=== PATIENT | female | born 1995 | race Caucasian/White ===

== ENCOUNTER 2020-05-09 05:39 | Inpatient (IN) | payer BC, MEDICAID, SELFPAY ==
[2020-05-09] VITALS (74 sets, daily range): BP systolic 87–143; BP diastolic 48–88; PULSE 59–105; RESP 16–18; TEMP 36.2–37; O2SAT 99–100; BMI 41.1
[2020-05-09] MEDS: LACTATED RINGERS 1,000 ML 125 ML IV CONT (06:50)
[2020-05-09] MEDS: AMPICILLIN 2 GM/NS 100 ML 2 GM/100 ML BAG IVPB (06:51)
[2020-05-09 06:57] LABS: Basophils Percent Auto 0.2 % (0.2-1.2); Eosinophils Percent Auto 0.4 % (0-4.4); Hematocrit 37.4 % (37.0-47.0); Hemoglobin 12.6 g/dL (12.0-15.0); Immature Granulocyte Absolute 0.08 K/mm3 (0.00-0.031); Immature Granulocyte Percent A 0.9 % (0-0.5); Lymphocytes Absolute Auto 0.89 K/mm3 (0.9-3.2); Lymphocytes Percent Auto 10.5 % (18.3-44.2); Mean Corpuscular HGB Conc 33.7 g/dl (32-36); Mean Corpuscular Hemoglobin 31.1 pg (26-34); Mean Corpuscular Volume 92.3 fl (80-100); Mean Platelet Volume 9.8 fl (7.4-10.4); Monocytes Absolute Auto 0.6 K/mm3 (0.1-0.6); Monocytes Percent Auto 6.6 % (2.6-8.5); Neutrophils Absolute Auto 6.9 K/mm3 (1.3-6.7); Neutrophils Percent Auto 81.4 % (45.5-73.1); Platelet Count Result 216 k/mm3 (150-375); Red Blood Count 4.05 M/mm3 (4.2-5.4); Red Cell Distribution Width 13.8 % (11.5-14.5); White Blood Count 8.5 K/mm3 (4.5-10.0)
--- NOTE | 2020-05-09 06:59 | LDADM ---
This patient, Catie Mcdonald, was admitted to Labor/Delivery/Recovery 105 on 05/09/20 at 05:39. Plans for labor, pain management and were discussed with patient. Patient/family oriented to hospital policies and general routines including ID bracelet, bed and alarms, visiting hours, pain management, procedures, bathroom and other care routines, personal items, smoking policy, room service/diet and guest tray routines, infant security routines, and visiting hours. Patient/Family are encouraged to report perceived risks to care and to ask questions if they do not understand what they are told or what they should do. See OBIX for further documentation.
--- NOTE | 2020-05-09 07:27 | WPDOBADMIT ---
Obstetrics - Admit Note Admission Note: 25 y/o @ 35w1d here in active labor. record reviewed. No pertinent additions to the history and/or any subsequent changes in the physical findings that are not consistent with the expected course of the were found. Additions to the history and/or subsequent changes in the physical findings follow. None.
--- NOTE | 2020-05-09 07:29 | WPDANESEPPF ---
Anes - Initial Pre Proc Eval Date/Time: 05/09/20 07:29 Surgeon: Cecilia Garcia MD Pre Op Diagnosis: leaking Patient Data Age: 25 Gender: F Height: 1.65 m Weight: 112 kg Last Vital Signs Pulse 78 05/09/20 07:15 BP 129/87 05/09/20 07:15 Pulse Ox 100 05/09/20 07:27 Home Medications Medication Instructions Recorded Confirmed Type escitalopram oxalate 20 mg PO DAILY 05/09/20 05/09/20 History [id number] fum-folic ac-om3 1 pkg PO DAILY 05/09/20 05/09/20 History [Daily ] Laboratory Tests 05/09/20 05/09/20 06:45 06:45 WBC 8.5 K/mm3 K/mm3 (4.5-10.0) RBC 4.05 M/mm3 L M/mm3 (4.2-5.4) Hgb 12.6 g/dL g/dL (12.0-15.0) Hct 37.4 % % (37.0-47.0) MCV 92.3 fl fl (80-100) MCH 31.1 pg pg (26-34) MCHC 33.7 g/dl g/dl (32-36) RDW 13.8 % % (11.5-14.5) Plt Count 216 k/mm3 k/mm3 (150-375) MPV 9.8 fl fl (7.4-10.4) Immature Gran % (Auto) 0.9 % H % (0-0.5) Neut % (Auto) 81.4 % H % (45.5-73.1) Lymph % (Auto) 10.5 % L % (18.3-44.2) Jennings % (Auto) 6.6 % % (2.6-8.5) Eos % (Auto) 0.4 % % (0-4.4) Baso % (Auto) 0.2 % % (0.2-1.2) Lymph # (Auto) 0.89 K/mm3 L K/mm3 (0.9-3.2) Jennings # (Auto) 0.6 K/mm3 K/mm3 (0.1-0.6) Eos # (Auto) 0.0 K/mm3 K/mm3 (0-0.3) Baso # (Auto) 0.0 K/mm3 K/mm3 (0.0-0.1) Abs Immat Gran (auto) 0.08 K/mm3 H K/mm3 (0.00-0.031) Absolute Neuts (auto) 6.9 K/mm3 H K/mm3 (1.3-6.7) Absolute Nucleated RBC 0.0 K/mm3 K/mm3 (0.0-0.012) Nucleated RBC % 0.0 % % (0.0-0.2) RPR Pending Patient hx anesthesia problems: none Family hx anesthesia problems: none [facility] Social History Social History Substance use: current Gender identity (if verbalized by the patient): Female Sexual Orientation (if Verbalized by the Patient): Straight or Heterosexual Spiritual care concerns: No Anes - Eval Final PreProcedure Day of Procedure 05/09/20 07:29 Patient weight: morbidly obese Heart: regular rate and rhythm Lungs: clear to auscultation and normal air movement Airway: Mallampati scale class II Neurological: alert and oriented Last oral intake: >/= 8 hours ASA classification: III Emergent: no Anesthetic plan: proceed Anesthesia type and monitoring: regional epidural Informed Consent: The patient's anesthetic plan and its attendant risks and benefits were discussed with the patient/family/POA. Questions were solicited and answers provided to the satisfaction of the patient/family/POA.
[2020-05-09 08:43] LABS: Rapid Plasma Reagin Non-Reactive (NonReactive)
[2020-05-09 09:22] LABS: Amphetamine Screen Urine Negative (Negative); Barbiturate Screen Urine Negative (Negative); Benzodiazepines Screen Urine Negative (Negative); Cannabinoid Screen Urine Positive (Negative); Cocaine Screen Urine Negative (Negative); Methadone Screen Urine Negative (Negative); Opiate Screen Urine Negative (Negative); Phencyclidine Screen Urine Negative (Negative)
[2020-05-09] MEDS: AMPICILLIN 1 GM/NS 50 ML 1 GM/50 ML BAG IVPB (10:24)
[2020-05-09] MEDS: OXYTOCIN 30 UNITS/NS 500 ML 30 UNITS/500 ML BAG 999 UNITS IV CONT (13:28)
--- NOTE | 2020-05-09 13:46 | PM.OBPRVD ---
OB - Delivery Note Procedure Delivery date: 05/09/20 events: Labor < 37 Weeks Induction method: none Delivery augmentation: rupture of membranes Delivery monitor: external FHT and external uterine Route of delivery: Episiotomy description: None Laceration Description: None Quantitative Blood Loss (ml): 224 Anesthesia type: Epidural Narrative: Tight nuchal unable to reduce d/t rapid delivery. Delivered through. Large amount of bloody fluid at delivery. Placenta smooth on maternal side. Baby Date of : 05/09/20 Time of : 13:22 Weeks of gestation at delivery: 35 Weight (pounds): 5 Weight (ounces): 14 presentation: vertex position: Left Occiput Anterior cord vessel description: Nuchal Cord score one minute: 7 score five minutes: 8
[2020-05-09] MEDS: OXYTOCIN 30 UNITS/NS 500 ML 30 UNITS/500 ML BAG 125 UNITS IV CONT (14:00)
[2020-05-09] MEDS: IBUPROFEN 600 MG TABLET PO ×2 (15:06→21:07)
[2020-05-09] MEDS: WITCH HAZEL 40 PADS 1 PAD TOPICAL (15:07)
[2020-05-09] MEDS: BENZOCAINE 20% AER SPR (*SP) 56 GM CAN 1 SPRAY TOPICAL (15:07)
--- NOTE | 2020-05-09 15:56 | PC.NURSE ---
Patient transferred to post room # 284 per wheelchair. Support person present. Oriented to unit, room, information board, rooming in, admission packet and security measures. Patient verbalizes understanding.
[2020-05-09] MEDS: ACETAMINOPHEN 325 MG TABLET 650 MG PO ×2 (16:00→17:27)
[2020-05-09] MEDS: DOCUSATE SODIUM 100 MG CAPSULE PO (17:27)
[2020-05-09] MEDS: LANOLIN (LANSINOH) 7.5 GM CREAM 1 APPLIC TOPICAL (17:27)
[2020-05-10] MEDS: IBUPROFEN 600 MG TABLET PO ×3 (03:38→20:20)
[2020-05-10 03:40] VITALS: BP 108/62; PULSE 67; RESP 16; TEMP 36.4; O2SAT 100
[2020-05-10 04:33] LABS: Hematocrit 33.5 % (37.0-47.0); Hemoglobin 11.1 g/dL (12.0-15.0)
[2020-05-10] MEDS: DOCUSATE SODIUM 100 MG CAPSULE PO (07:28)
[2020-05-10] MEDS: MULTIVIT/MIN/PREN/FOL AC/IRON TABLET 1 TAB PO (07:28)
--- NOTE | 2020-05-10 08:05 | P.PNOB_ITS ---
OB - PN: Subj Subjective Date/time seen: 05/10/20 08:05 Patient comments: no complaints baby status: doing well OB - PN: Obj Data Labs CBC & Chem 7: 05/10/20 03:35 Labs: Laboratory Results - last 24 hr 05/09/20 05/09/20 05/10/20 06:45 08:59 03:35 Hgb 11.1 L Hct 33.5 L Urine Opiates Screen Negative Urine Methadone Screen Negative Ur Barbiturates Screen Negative Ur Phencyclidine Scrn Negative Ur Amphetamine Screen Negative U Benzodiazepines Scrn Negative Urine Cocaine Screen Negative U Cannabinoids Screen Positive A RPR Non-reactive OB - PN A/P Plan day: 1 Plan: routine care Time Spent With Patient Time: Total time spent is greater than 50% in coordination of care (as documented) at patient's floor/unit and/or counseling patient: Time with patient: less than 15 minutes Review of Systems Review of Systems: All systems reviewed & are unremarkable except as noted in HPI and below Exam Narrative: Exam Narrative: Fundus firm and vaginal flow controlled. No lower ext redness, warmth, or edema. Negative homans. Const: General: comfortable Chest: Breast/axilla inspection: normal inspection of the breasts Resp: Effort & Inspection: normal respiratory effort Cardio: Rate: regular rate GI: GI Palp: Yes Soft to palpation Psych: Appearance: grossly normal Affect: normal affect Attitude: coope rative Thought content: Yes Normal thought content present Judgement: Good judgement present (Psych)
[2020-05-10 08:30] VITALS: BP 127/71; PULSE 67; RESP 16; TEMP 37.1; O2SAT 100
--- NOTE | 2020-05-10 11:00 | PC.NURSE ---
Mother called out for assist with feeding. Consulted with patient, reports has fed inconsistently, she has supplemented and pumped. Mother pumped 2-3 mls last session. Discussed the early 35 week , establishing may have its own unique set of circumstances due to their immaturity. infants may be less alert, have less stamina and may have issues with latch, suck and swallow. With the possible inability to have a vigorous suck swallow, infants may not be adequately stimulating mother and/or able to have adequate milk transfer. Reviewed infant feeding cues, frequencies, duration of feedings, feeding elimination flow sheet, and signs of adequate intake. Demonstrated stimulation techniques to wake infant for feeding. Assisted with infant to breast. Reviewed positioning/alignment in cross cradle, holding breast in U hold and guided asymmetrical latch on. was able to latch correctly within a few attempts. nursed eagerly, with sort chewy sucks with intermittent steady draws and occasional swallowing noted. Reviewed signs of a correct latch, effective nursing and suck swallow ratio. was able to maintain latch. Mother reported tenderness at times, had slipped to shallow latch. Demonstrated how to adjust latch more deeply while feeding. Mother quickly reports she can feel is latched more deeply and has minimal tenderness. Suggested to stimulate infant while feeding to keep infant awake and nursing effectively for increased stimulation and increased intake. Instructed mother to call out for RN assistance if she is unable to latch infant for feeding or she has discomfort with nursing. Instructed feeding should be initiated three hours from start of last feeding or if feeding cues are noted before. Mother voiced understanding of information shared. Mother will follow breastfeedings with supplementation of EBM/formula and pumping. Reviewed instructions given on breast pump care and usage, pumping schedule, nipple care, and collection and storage of breast milk. Encouraged guhy-za-kzfj, breast massage and manual expression to stimulate supply. Assessed patient for correct flange size, placement and draw. Patient verbalizes and demonstrates understanding of instructions.
[2020-05-10 12:02] VITALS: BP 125/84; PULSE 84; RESP 18; TEMP 37.3; O2SAT 97
[2020-05-10 12:30] VITALS: PULSE 84; RESP 18; O2SAT 97
--- NOTE | 2020-05-10 12:55 | PC.NURSE ---
Mother has at breast at 1130 for 20 minutes, then supplemented 5 mls and returned to breast at 1230 for 20 minutes. Suggested mother give 15 mls after each as discussed for ineffective feeding with occasional swallowing noted.
--- NOTE | 2020-05-10 13:03 | PCCCNOTE ---
Care Coordination. Patient referred to Care Coordination for mom and baby positive UDS for marijuana. Spoke with pt. via phone. Pt. reports good support from family. She and her spouse plan to return home together with baby and their 3 year old son. Pt. reports having all necessary baby care items and FOB plans to go get new carseat today. Provided mom with WIC information and she is already receiving some [facility] services. She reports using marijuana due to nausea, but denies any abuse issues with use and plans to use less now that she's not . Spoke with [facility] hotline worker, Heidy Nair, and she took pt.'s situation as information only. ID#[id number].
--- NOTE | 2020-05-10 13:25 | WPDANLDPN2 ---
Anes-Prog Note L&D Date/Time: 05/10/20 13:25 Comfortable throughout: labor and delivery Neuraxial method: epidural Epidural/Spinal procedure site: clean & non-tender Neuro status: Neuro function grossly intact. Cardiovascular status: normal Respiratory status: normal Airway patency: baseline Mental status: baseline Post-Op hydration status: normal Vital Signs: Last Vital Signs Temp 37.3 C 05/10/20 12:02 Pulse 84 05/10/20 12:02 Resp 18 05/10/20 12:02 BP 125/84 05/10/20 12:02 Pulse Ox 97 05/10/20 12:02 Pain score (VAS): 03/13 Post-procedural complaints: none Patient feedback: Patient satisfied with anesthetic care.
[2020-05-10 20:10] VITALS: BP 118/65; PULSE 76; RESP 16; TEMP 36.7; O2SAT 99
[2020-05-11] MEDS: IBUPROFEN 600 MG TABLET PO (04:37)
--- NOTE | 2020-05-11 07:40 | PM.OBPNVD ---
OB - PN: Subj Subjective Date/time seen: 05/11/20 07:40 Patient comments: no complaints baby status: doing well OB - PN: Obj Data Labs CBC & Chem 7: 05/10/20 03:35 OB - PN A/P Plan day: 2 Plan: routine care and discharge home Time Spent With Patient Time: Total time spent is greater than 50% in coordination of care (as documented) at patient's floor/unit and/or counseling patient: Review of Systems Review of Systems: All systems reviewed & are unremarkable except as noted in HPI and below Exam Const: General: cooperative Nutritional Appearance: average body habitus Limitations: no limitations
--- NOTE | 2020-05-11 07:41 | PM.OBDSVD ---
DS: Admitting Diagnosis Admitting Diagnosis Admitting Diagnosis: labor OB - DS: Summary OB Procedures : None OB Procedures Intrapartum: Spontaneous Vag Delivery OB Procedures: : None Time Spent with Patient Time attestation: Total time spent providing and/or coordinating discharge services: DS: Data Data Completed and Pending Pending studies at discharge: Pending at discharge 05/09/20 13:28 Surgical [PTH] Routine Discharge Plan Discharge Attending physician on discharge: Cecilia Garcia Discharging Clinician: Stacey Singh Patient Disposition: Home, Self-Care Activity: pelvic rest Diet: regular Patient Instructions: Antibiotic Form Stand Alone Forms: General Discharge Information Follow-up/Referrals: Caitlin Cheney CNM [Primary Care Provider] - 4 Weeks Discharge Medications: Continued escitalopram oxalate 20 mg Tablet 20 mg PO DAILY RF: 0 Daily [phone] mg-mcg-mg Combo Pack 1 pkg PO DAILY RF: 0 Date of admission: 05/09/20 05:39 Primary Care Provider: Caitlin Cheney Admitting Provider: Cecilia Garcia Attending physician on admission: Cecilia Garcia Condition: Stable
[2020-05-11 08:20] VITALS: BP 114/66; PULSE 74; RESP 18; TEMP 36.9; O2SAT 99
--- NOTE | 2020-05-11 10:30 | PC.NURSE ---
Consult with pt., mother states infant is now supplemented after each feeding by suggestion of ICP due to weight. Mother is comfortable with supplementation and will continue until seen by her home ICP. Mother continues to pump without difficulties/discomfort. Infant is latching nursing with bursts of short chewy suckling, mother feels is more awake with a few steady bursts and increased draws. Reviewed premature infant feeding techniques of paced feeding and limiting durations at breast if infant is not effectively feeding. Mother is able to independently latch infant with appropriate positioning/alignment. She denies any nipple discomfort, is feeding as required and waking to feed if needed. is feeding as required and has had several feedings followed with supplementation in the past 24 hours, and is currently meeting outcomes for weight, output, jaundice and feeding frequencies. Mother states she feels confident to continue effective at home. Reviewed transition to breast milk, signs of adequate intake, and engorgement/relief. Instructed to call ICP if intake/output less than required. Reviewed regular medications mother is taking. Information provided per Christina. Reviewed community resources on the [employer] website and in the Mom/Baby guide. Mother understands she may return for assist with after discharge. Information on outpatient services provided. Mother has no further questions at this time.
== END 2020-05-11 11:25 | disposition home or self-care (01) | DRG 807 ==
LOC: ANHLDR 08:57 → ANHOB2 16:02
PROVIDERS: Admitting Provider Obstetrics & Gynecology; PCP Advanced Practice Midwife; Visit Provider Obstetrics & Gynecology
DX: O60.14X0 Preterm labor third trimester with preterm delivery third trimester, not applicable or unspecified (principal); Z37.0 Single live birth; Z3A.35 35 weeks gestation of pregnancy; O99.214 Obesity complicating childbirth; E66.01 Morbid (severe) obesity due to excess calories; O69.1XX0 Labor and delivery complicated by cord around neck, with compression, not applicable or unspecified
CPT/HCPCS: 36415; 80307; 85014; 85018; 85025; 86592; 86850; 86900; 86901; 88307; A9270; J0290; J2590; J2795; J7120

== ENCOUNTER 2022-01-19 14:59 | Outpatient (RCR) | payer OTHER, SELFPAY ==
--- NOTE | ~2022-01-19 | US_ITS ---
. EXAMINATION: US OB BPP wo non-stress DATE: 01/19/2022 16:22 INDICATION: Decelerations. Third trimester. TECHNIQUE: Real-time pelvic ultrasound was performed. COMPARISON: None. FINDINGS: There is a single living fetus in vertex presentation. The placenta is fundal. heart rate is 1 81 beats per minute (bpm). Biophysical profile performed by the technologist: breathing (30 sec sustained breathing in 30 minutes): 2 out of 2 movement (3 gross body movements in 30 minutes): 2 out of 2 tone (one episode of orlariv-hpocolawb-nljzxmc limb movement): 2 out of 2 Amniotic fluid pocket (2 cm): 2 out of 2 Total score: 8 out of 8 IMPRESSION: 1. Single living fetus in vertex presentation. 2. Biophysical profile 8 out of 8. Reviewed, dictated and finalized at location A. PLANT AGENT
[2022-01-19 16:41] VITALS: BP 132/70; PULSE 84
== END 2022-04-19 23:59 | disposition home or self-care (01) ==
LOC: ANHOBOP 14:59
PROVIDERS: PCP Advanced Practice Midwife; Visit Provider Obstetrics & Gynecology
DX: O36.8330 Maternal care for abnormalities of the fetal heart rate or rhythm, third trimester, not applicable or unspecified (principal); Z3A.36 36 weeks gestation of pregnancy
CPT/HCPCS: 59025; 76819

== ENCOUNTER 2024-02-17 06:40 | Outpatient (CLI) | payer OTHER, SELFPAY ==
--- NOTE | ~2024-02-17 | CT_ITS ---
CT of the Abdomen and Pelvis: Indication: Abdominal pain Technique: 2.5 mm axial scans were obtained through the abdomen and pelvis following intravenous adm inistration of 100 cc of Omnipaque 350. Dose reduction technique was used on this scan by utilizing a utomated exposure control and iterative reconstruction technique. The dose-length product (DLP) was 9 00.56 mGy-cm. Findings: Scans through the lung bases are unremarkable. The liver, spleen, pancreas, adrenals and kidneys are within normal limits., Cystectomy clips are pre sent. No evidence of aortic aneurysm. No lymphadenopathy. No bowel obstruction or bowel wall thickening. There is no evidence to suggest acute appendicitis. Images through the pelvis were performed. Urinary bladder unremarkable. No pelvic mass seen. No ascit es. Impression: No significant abnormalities seen. Reviewed, dictated and finalized at [facility]. NORMAL INVESTIGATOR Impression: No significant abnormalities seen.
--- OUTSIDE RECORDS SUMMARY | 2024-02-22 14:31 | XMS_ITS | Encounter Summary ---
Author Organization [facility] Address [address] [place] [address] [place] [address] Care Team Providers Care Broom Builder Name Role Phone Unavailable Primary Care Provider Unavailabl e Reason for Visit * Reason Onset Date Comments Results 07/04/2016 Encounter Details Date Type Department Care Team (Late st Contact Info) Description 07/04/2016 Telephone [facility] - Family Medicine [address] [place] [id number] Lary Short MD [address] [place] [phone] Results Social History Tobacco Use Types Packs/Day Years Used Date Smoking Tobacco: Never Alcohol Use Standard Drinks/Week Comments No 0 (1 standard drink = 0.6 oz pur e alcohol) Sex and Gender Information Value Date Recorded Sex Assigned at Not on file Gender Identity Not on file Sexual Orientation Not on file documented as of this encounter Miscellaneous Notes * Telephone Encounter - Kaley Kumar LPN - 07/04/2016 9:21 AM CDT Left message on recorder about results and to contact us back to answer a few questions : How often are her periods? Regular of irregularly spaced? Are they heavy? * Telephone Encounter - Kaley Kumar LPN - 07/04/2016 9:18 AM CDT ----- Message from Lary Short MD sent at 07/04/2016 7:37 AM CDT ----- Kaley - please call her as impt to f/u on TSH. I will order tests after she answers the below questions. -morris Haddad - One of the tests looking at your thyroid was abnormal. The second test was normal but it is important that we follow up on this/look into it further. It may be the cause of some of your symptoms but for now continue lexapro. We will order additional labwork. Everything else that is marked abnormal on your labs is straightforward (you need more vitamin D supplement and extra 1,000 iu daily) or fine. Few questions: 1. How often are your periods? Regular or irregularly spaced? Heavy? Thank you. documented in this encounter Plan of Treatment Not on file documented as of this encounter Visit Diagnoses Not on filedocumented in this encounter
--- OUTSIDE RECORDS SUMMARY | 2024-02-22 14:31 | XMS_ITS | Encounter Summary ---
Author Organization [facility] Address [address] [place] [address]. [place], [place] [id number] [place] [id number] Care Team Providers Care Paint Grinder Name Role Phone Rahul Bradford Primary Care Provider [phone] Encounter Details Date Type Department Care Team (Late st Contact Info) Description 06/05/2023 Scan [facility] [address] [facility] [place] [address] Scanned, [facility] Social History Tobacco Use Types Packs/Day Years Used Date Smoking Tobacco: Never Passive Smoke Exposure: Never Smokeless Tobacco: Never Alcohol Use Standard Drinks/Week Comments Never 0 (1 standard drink = 0.6 oz pur e alcohol) Humiliation, Afraid, Rape, and Kick questionnair e Answer Date Recorded Within the last year, have y ou been afraid of your partner or ex-partner? No 11/23/2022 Within the last year, have y ou been humiliated or emotionally abused in other ways by your partner or ex-partner? No Within the last year, have y ou been kicked, hit, slapped, or otherwise physically hurt by your partner or ex-partner? No 11/23/2022 Within the last year, have y ou been raped or forced to have any kind of sexual activity by your partner or ex-partner? No 11/23/2022 Social Connection and Isolat ion Panel [NHANES] Answer Date Recorded In a typical week, how many times do you talk on the phone with family, friends, or neighbors? More than three times a week 11/23/2022 How often do you get togethe r with friends or relatives? Twice a week 11/23/2022 How often do you attend chur ch or sikh services? Patient declined 11/23/2022 Do you belong to any clubs o r organizations such as orthodoxy groups, unions, fraternal or athletic groups, or school groups? No 11/23/2022 How often do you attend meet ings of the clubs or organizations you belong to? Patient declined 11/23/2022 Are you , , di vorced, , never , or living with a partner? 11/23/2022 AUDIT-C Answer Date Recorded Q1: How often do you have a drink containing alc ohol? Patient declined 11/23/2022 Q2: How many drinks containi ng alcohol do you have on a typical day when you are drinking? Patient declined 11/23/2022 Q3: How often do you have si x or more drinks on one occasion? Patient declined 11/23/2022 Overall Financial Resource Strain (CARDIA) Answe r Date Recorded How hard is it for you to pa y for the very basics like food, housing, medical care, and heating? Not hard at all 11/23/2022 [facility] - Occupational Stress Questionnaire Answer Date Recorded Do you feel stress - tense, restless, nervous, or anxious, or unable to sleep at night because your mind is troubled all the time - these days? Not at all 11/23/2022 Exercise Vital Sign Answer Date Recorde d On average, how many days pe r week do you engage in moderate to strenuous exercise (like a brisk walk)? 1 day 01/27/2022 On average, how many minutes do you engage in exercise at this level? 10 min 01/27/2022 Hunger Vital Sign Answer Date Recorded Within the past 12 months, y ou worried that your food would run out before you got the money to buy more. Never true 11/24/19 23 Within the past 12 months, t he food you bought just didn't last and you didn't have money to get more. Never true 11/23/2022 PRAPARE - Transportation Answer Date Re corded In the past 12 months, has l ack of transportation kept you from medical appointments or from getting medications? No 11/03 In the past 12 months, has l ack of transportation kept you from meetings, work, or from getting things needed for daily living? No 11/23/2022 Housing Stability Vital Sign Answer Juan Luis e Recorded In the last 12 months, was t here a time when you were not able to pay the mortgage or rent on time? No 11/23/2022 In the last 12 months, how many places have you lived? 1 11/23/2022 In the last 12 months, was t here a time when you did not have a steady place to sleep or slept in a correction (including now)? 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 Answer Date of Assessment Author Status No 11/23/2022 1:00 AM Candy Oakley RN Active * Do you have serious difficulty walking or climbing stairs? Answer Date of Assessment Author Status No 11/23/2022 1:00 AM Candy Oakley RN Active * Do you have difficulty dressing or bathing? Answer Date of Assessment Author Status No 11/23/2022 1:00 AM Candy Oakley RN Active * Because of a physical, mental, or emotional condition, do you have difficulty doing errands alone such as visiting a doctor's office or shopping? Answer Date of Assessment Author Status No 11/23/2022 1:00 AM Candy Oakley RN Active documented as of this encounter Mental Status * Because of a physical, mental, or emotional condition, do you have serious difficulty concentrating, remembering, or making decisions? Answer Entry Date Author Status No 11/23/2022 1:00 AM CDT Ilana, Candy K, RN Active documented in this encounter Plan of Treatment Not on file documented as of this encounter Visit Diagnoses Not on filedocumented in this encounter Care Teams Paint Grinder Relationship Specialty Start Date End Date Rahul Bradford PA [address] [place] [address] PCP - General PHYSICIAN LUMP ROLLER 11/19/22 documented as of this encounter
--- OUTSIDE RECORDS SUMMARY | 2024-02-22 14:31 | XMS_ITS | Encounter Summary ---
Author Organization [facility] Address [address] [place] [address] [place] [address] Care Team Providers Care Manager Strategic Alliances Name Role Phone Unavailable Primary Care Provider Unavailabl e Reason for Visit * Reason Comments Establish Care Wart left hand 4th digit Ear Problem mass on right lobe Encounter Details Date Type Department Care Team (Late st Contact Info) Description 07/03/2016 10:00 AM CDT Office Visit [facility] - Family Medicine [address] [place] [address] Lary Short MD [address] [place] [address] [phone] Routine general medical examination at a health care facility (Primary Dx); Need for vaccination; Insomnia, unspecified type; Screening for diabetes mellitus; Screening for lipid disorders; Myalgia; Mild single current episode of major depressive disorder (HCC) Social History Tobacco Use Types Packs/Day Years Used Date Smoking Tobacco: Never Alcohol Use Standard Drinks/Week Comments No 0 (1 standard drink = 0.6 oz pur e alcohol) Sex and Gender Information Value Date Recorded Sex Assigned at Not on file Gender Identity Not on file Sexual Orientation Not on file documented as of this encounter Last Filed Vital Signs Vital Sign Reading Time Taken Comments Blood Pressure 121/70 07/03/2016 10:07 AM CDT Pulse 101 07/03/2016 10:07 AM CDT Temperature - - Respiratory Rate - - Oxygen Saturation - - Inhaled Oxygen Concentration - - Weight 74.6 kg (164 lb 6.4 oz) 07/03/2016 10:07 AM CDT Height 165.1 cm (5' 5 ) 07/03/2016 10:07 AM CDT Body Mass Index 27.36 07/03/2016 10:07 AM CDT documented in this encounter Patient Instructions * Patient Instructions* Lary Short MD - 07/03/2016 10:[address] Dawkins documented in this encounter Progress Notes * Lary Short MD - 07/04/2016 7:37 AM CDT Kaley - please call her as impt to f/u on TSH. I will order tests after she answers the below questions. -morris Lonah - One of the tests looking at [...] Regular or irregularly spaced? Heavy? Thank you. * Kaley Kumar LPN - 07/03/2016 10:52 AM CDT TDAP administered in left deltoid no adverse reaction noted at this time * Lary Short MD - 07/03/2016 10:19 AM CDT SUBJECTIVE: Catie Mcdonald is a 21 y.o. female is here today for : Chief Complaint Patient presents with ??? Establish Care ??? Wart left hand 4th digit ??? Ear Problem mass on right lobe HPI: 1. Cyst - ear. Wants to have looked at again. 2. Wart - using OTC 3. Control - was trying to get . But has mold. Wants to go on OCPS until the mold in home dealt with. 4. Depression: Has had this on and off for years. About 6 weeks ago was really down, sad, out of work and struggling with feelings of guilt, worthlessness. She had decreased concentration, +insomnia Had a panic attack with paresthesias B and sob. Saw her prior PCP and put on Lexapro 10 mg 1/2 about2 weeks ago. She is more tired/sleepy but isn't having other side effects. About to increase to 10mg . Denies SI. No plan. No ETOH. Patient Active Problem List Diagnosis ??? Mild single current episode of major depressive disorder Allergies: Review of patient's allergies indicates no known allergies. No past medical history on file. No past surgical history on file. Family History Problem Relation Age of Onset ??? Drug Abuse Mother ( mom) ??? Anxiety Disorder Father ??? Hypertension Father ??? Anxiety Disorder Paternal Grandmother Social History Social History Narrative ??? No narrative on file Review of Systems: Constitutional: No fatigue, fevers, chills or weight change Psych: see HPI Eyes: No vision changes ENT: No nasal congestion/drainage, sinus pain or sore throat. Cardiovascular: No chest pain, palpitations Respiratory: No shortness of breath, cough, wheezing Gastrointestinal: No nausea, vomiting, abdominal pain, change in bowel habits, black or bloody stools Genito-Urinary ROS: Denies urinary frequency, dysuria, hematuria, Patient's last menstrual period was 06/21/2016 (exact date). Musculoskeletal ROS: No muscle weakness, muscle tenderness, joint pain Neurological: No headaches, dizziness, confusion, numbness, tingling Skin: No rashes, itching or dry skin OBJECTIVE: BP 121/70 Pulse 101 Ht 1.651 m (5' 5 ) Wt 74.6 kg (164 lb 6.4 oz) BMI 27.36 kg/m2 Height: 165.1 cm (5' 5 ) BP Readings from Last 3 Encounters: 07/03/16 121/70 Wt Readings from Last 3 Encounters: 07/03/16 74.6 kg (164 lb 6.4 oz) GENERAL: well groomed, healthy appearing PSYCH: patient alert & oriented, mood: normal, and in no acute distress. EYE: conjunctiva normal B/L, pupils equal B/L ENT: EACs andTMs normal B/L. Post-pharynx unremarkable. No lymphadenopathy. NECK: supple with FROM. No thyroid enlargement. CARDIOVASCULAR: RRR without murmurs. (-) pitting edema. No carotid bruits heard. RESPIRATORY: Respirations unlabored. CTAB. Good air exchange B/L. ABDOMEN: Soft, BS+ and normal, Non tender, not distended, no hepatomegaly and no splenomegaly MUSCULOSKELETAL: gait normal. no clubbing/cyanosis. SKIN: warm and dry, no rashes in visible areas. Ear: 1 cm mobile cyst non tender 5 mm wart on L hand/4th digit No results found for this visit on 07/03/16. ASSESSMENT AND PLAN: ICD-10-CM 1. Routine general medical examination at a health care facility Z00.00 Will start OCPs but have her see OB since she is planning on attempting in the near future. Is on a . 2. Need for vaccination Z23 TDAP VACCINE >7YO IM 3. Insomnia, unspecified type G47.00 BASIC METABOLIC PANEL (CALCIUM TOTAL) TSH HI LOW REFLEX T4 (PO REF LAB) CBC W AUTO DIFFERENTIAL 4. Screening for diabetes mellitus Z13.1 5. Screening for lipid disorders Z13.220 LIPID PROFILE 6. Myalgia M79.1 VITAMIN D 25-HYDROXY 7. Depression - not on long enough for it to be effective. Will have her f/u in 3-4 weeks to revisit. She is aware of risks including risk of SI and she will call if any concerns. Orders Placed This Encounter ? ? TDAP VACCINE >7YO IM ??? BASIC METABOLIC PANEL (CALCIUM TOTAL) ??? LIPID PROFILE ??? TSH HI LOW REFLEX T4 (PO REF LAB) ??? VITAMIN D 25-HYDROXY ??? CBC W AUTO DIFFERENTIAL ??? norethin-eth estradiol-FE (LOESTRIN FE 03/23) 1-20 MG-MCG tablet Followup: Return in about 4 weeks (around 07/31/2016). Patient Instructions Dr. Dawkins documented in this encounter Plan of Treatment Not on file documented as of this encounter Procedures Procedure Name Priority Date/Time Associated Diagnosis Comments TSH HI LOW REFLEX T4 Routine 07/03/2016 10:56 AM CDT Insomnia, unspecified type VITAMIN D 25-HYDROXY Routine 07/03/2016 10:56 AM CDT Myalgia CBC W AUTO DIFFERENTIAL Routine 07/03/2016 10:56 AM CDT Insomnia, unspecified type BASIC METABOLIC PANEL (CALCIUM TOTAL) Routine 07/03/2016 10:56 AM CDT Insomnia, unspecified type LIPID PROFILE Routine 07/03/2016 10:56 AM CDT Screening for lipid disorders documented in this encounter Results * (ABNORMAL) CBC W AUTO DIFFERENTIAL (07/03/2016 10:56 AM CDT) WBC 6.8 4.4 - 10.7 x10E9/L [facility] ACCOUNT BILL RBC 4.66 3.80 - 5.20 x10E12/L [facility] ACCOUNT BILL Hemoglobin 14.4 12.0 - 15.6 gm/dL [facility] ACCOUNT BILL Hematocrit 43.1 35.9 - 45.5 % [facility] ACCOUNT BILL MCV 92.5 80.7 - 98.3 fL [facility] ACCOUNT BILL MCH 30.9 26.7 - 34.0 pg [facility] ACCOUNT BILL MCHC 33.4 30.8 - 35.9 gm/dL [facility] ACCOUNT BILL RDW 11.5(L) 12.1 - 14.9 % [facility] ACCOUNT BILL Platelet Count 270 153 - 416 x10E9/L [facility] ACCOUNT BILL Comment:MPV FL BLOOD ([facility]) 1 0.3 fl 9.4-12.9 Granulocytes % 71.6 44.0 - 73.0 % [facility] ACCOUNT BILL Lymphocytes % 19.7(L) 20.0 - 43.0 % [facility] ACCOUNT BILL Monocytes % 7.4 5.0 - 13.0 % [facility] ACCOUNT BILL Eosinophils % 0.7 0.0 - 6.0 % [facility] ACCOUNT BILL Basophils % 0.3 0.0 - 2.0 % [facility] ACCOUNT BILL Granulocytes Absolute 4.86 2.01 - 7.14 x10E9/L [facility] ACCOUNT BILL Lymphocytes Absolute 1.34 1.07 - 3.94 x10E9/L [facility] ACCOUNT BILL Monocytes Absolute 0.50 0.26 - 1.07 x10E9/L [facility] ACCOUNT BILL Eosinophils Absolute 0.05 0 - 0.47 x10E9/L [facility] ACCOUNT BILL Basophils Absolute 0.02 0 - 0.08 x10E9/L [facility] ACCOUNT BILL Immature Granulocytes 0.3 0 - 1 % [facility] ACCOUNT BILL Immature Granulocytes Absolute 0.02 0.00 - 0.06 x10E9/L [facility] ACCOUNT BILL nRBC 0 /100 WBC [facility] ACCOUNT BILL Blood BLOOD SPECIMEN / Unknown 07/03/2016 10:56 AM CDT 07/03/2016 Narrative Resulting Agency Comment [address] ??[facility] [phone] Lary Short MD LAB - HEMATOLOGY JOLEEN BEYER Performing Organization Address City/State/[facility] Co de Phone Number [facility] ACCOUNT BILL [address] [place] [address] * (ABNORMAL) VITAMIN D 25-HYDROXY (07/03/2016 10:56 AM CDT) Vitamin D, 25 Hydroxy 26.11(L) 30 - 100 ng/mL [facility] ACCOUNT BILL Comment: Vitamin D Status: ?Deficiency ? <20 ? ng/mL ?Insufficiency ?? 20-30 ??ng/mL ?Sufficiency ? 30-100 ng/mL ?Toxicity ? >100 ?ng/mL Blood BLOOD SPECIMEN / Unknown 07/03/2016 10:56 AM CDT 07/03/2016 Narrative Resulting Agency Comment [facility] [address] [place] [address] ??[facility] [phone] Lary Short MD LAB - CHEMISTRY LYNDA RODRÍGUEZ [facility] ACCOUNT BILL [address] [place] [address] * (ABNORMAL) TSH HI LOW REFLEX T4 (PO REF LAB) (07/03/2016 10:56 AM CDT) TSH <0.005(L) 0.358 - 3.740 ulU/mL [facility] ACCOUNT BILL Blood BLOOD SPECIMEN / Unknown 07/03/2016 10:56 AM CDT 07/03/2016 Narrative Resulting Agency Comment [place] [address] ??[place] [phone] Lary Short MD LAB - CHEMISTRY LYNDA RODRÍGUEZ Performing Organization Address City/[facility]/ZIP Co de Phone Number [facility] ACCOUNT BILL [address] [place] [address] * (ABNORMAL) LIPID PROFILE (07/03/2016 10:56 AM CDT) Cholesterol 112 <200 mg/dL [facility] ACCOUNT BILL Triglycerides 115 <150 mg/dL [facility] ACCOUNT BILL HDL Cholesterol 32(L) >40 mg/dL [facility] ACCOUNT BILL VLDL Calculated 23 <=30 mg/dL [facility] ACCOUNT BILL LDL Calculated 57 <130 mg/dL [facility] ACCOUNT BILL Comment:Not calculated Blood BLOOD SPECIMEN / Unknown 07/03/2016 10:56 AM CDT 07/03/2016 Narrative Resulting Agency Comment [facility] [address] ??[place] [phone] Lary Short MD LAB - CHEMISTRY LYNDA RODRÍGUEZ [facility] ACCOUNT BILL [address] [place] [address] * BASIC METABOLIC PANEL (CALCIUM TOTAL) (07/03/2016 10:56 AM CDT) Glucose 99 74 - 106 mg/dL [facility] ACCOUNT BILL BUN 10 7 - 21 mg/dL [facility] ACCOUNT BILL Creatinine 0.78 0.50 - 1.30 mg/dL [facility] ACCOUNT BILL eGFR by MDRD >60 >60 mL/min/1.7 3m2 [facility] ACCOUNT BILL eGFR by MDRD >60 >60 mL/min/1.7 3m2 [facility] ACCOUNT BILL Sodium 143 136 - 145 mmol/L [facility] ACCOUNT BILL Potassium 4.1 3.5 - 5.1 mmol/L [facility] ACCOUNT BILL Chloride 106 98 - 107 mmol/L [facility] ACCOUNT BILL CO2 28 22 - 31 mmol/L [facility] ACCOUNT BILL Calcium 9.5 8.5 - 10.1 mg/dL [facility] ACCOUNT BILL Blood BLOOD SPECIMEN / Unknown 07/03/2016 10:56 AM CDT 07/03/2016 Narrative Resulting Agency Comment [facility] [address] [facility] ??[place] [phone] Lary Short MD LAB - CHEMISTRY LYNDA RODRÍGUEZ [facility] ACCOUNT BILL [address] [place] [address] documented in this encounter Visit Diagnoses Diagnosis Routine general medical examination at a health care facility- Primary Need for vaccination Need for prophylactic vaccination and inoculation against unspecified single disease Insomnia, unspecified type Screening for diabetes mellitus Screening for lipid disorders Myalgia Mylagia and myositis, unspecified Mild single current episode of major depressive disorder (HCC) documented in this encounter
--- OUTSIDE RECORDS SUMMARY | 2024-02-22 14:31 | XMS_ITS | Encounter Summary ---
Author Organization [facility] Address [address] [place] [address] [place] [address] Care Team Providers Care Panelboard Assembler Name Role Phone Unavailable Primary Care Provider Unavailabl e Encounter Details Date Type Department Care Team (Late st Contact Info) Description 07/03/2016 Orders Only [facility] - Family Medicine [address] [place] [address] Lary Short MD [address] [place] [phone] Social History Tobacco Use Types Packs/Day Years Used Date Smoking Tobacco: Never Alcohol Use Standard Drinks/Week Comments No 0 (1 standard drink = 0.6 oz pur e alcohol) Sex and Gender Information Value Date Recorded Sex Assigned at Not on file Gender Identity Not on file Sexual Orientation Not on file documented as of this encounter Plan of Treatment Not on file documented as of this encounter Procedures Procedure Name Priority Date/Time Associated Diagnosis Comments T4 TOTAL 07/03/2016 10:56 AM CDT documented in this encounter Results * T4 TOTAL (07/03/2016 10:56 AM CDT) T4 Total 12.3 4.7 - 13.3 ug/dL [facility] ACCOUNT BILL 07/03/2016 10:5 6 AM CDT 07/03/2016 Narrative Resulting Agency Comment [facility] [address] ??[place] [phone] Lary Short MD LAB - CHEMISTRY LYNDA RODRÍGUEZ [facility] ACCOUNT BILL [address] [place] [address] documented in this encounter Visit Diagnoses Not on filedocumented in this encounter
--- OUTSIDE RECORDS SUMMARY | 2024-02-22 14:31 | XMS_ITS | Patient Health Summary ---
Author Organization [facility] Address [address] [place] [address] Care Team Providers Care Director Enterprise Data Architecture Name Role Phone Caitlin Cheney [facility] Primary Care Provider [phone] Note from [facility],non-owned Affiliates and Associated Physician Practices is amultiple site organization consisting of ambulatory clinics and hospital sitesin [place], [place], [place] and [place]. This disclosure is being madepursuant to the Care Everywhere program and may not contain all information available regarding this patient. Last updated 17.[facility] Prezto Allergies No known active allergies Medications * Be aware that medications may not be up to date on this document. Alwaysverify current medications with the patient. * escitalopram (LEXAPRO) 10 MG tablet(Started 06/18/2016) Take 10 mg by mouth every morning 3 refills left * norethin-eth estradiol-FE (LOESTRIN FE 03/23) 1-20 MG-MCG tablet(Started 07/03/2016) Take 1 Tab by mouth once daily 5 refills remaining Active Problems Problem Noted Date Diagnosed Date Mild single current episode of major depressive disorder 07/03/2016 Resolved Problems Problem Noted Date Diagnosed Date Resolved Date Recurrent major depressive d isorder, in full remission 07/03/2016 07/03/2016 Immunizations * TDAP (7yrs+)(Given 07/03/2016) Social History Tobacco Use Types Packs/Day Years Used Date Smoking Tobacco: Never Alcohol Use Standard Drinks/Week Comments No 0 (1 standard drink = 0.6 oz pur e alcohol) Sex and Gender Information Value Date Recorded Sex Assigned at Not on file Gender Identity Not on file Sexual Orientation Not on file Last Filed Vital Signs Vital Sign Reading [...] Mass Index 27.36 07/03/2016 10:07 AM CDT Procedures * T4 TOTAL(Performed 07/03/2016) * CBC W AUTO DIFFERENTIAL(Performed 07/03/2016) Performed for Insomnia, unspecified type * VITAMIN D 25-HYDROXY(Performed 07/03/2016) Performed for Myalgia * TSH HI LOW REFLEX T4(Performed 07/03/2016) Performed for Insomnia, unspecified type * LIPID PROFILE(Performed 07/03/2016) Performed for Screening for lipid disorders * BASIC METABOLIC PANEL (CALCIUM TOTAL)(Performed 07/03/2016) Performed for Insomnia, unspecified type Results * (ABNORMAL) TSH HI LOW REFLEX T4 (PO REF LAB) (07/03/2016 10:56 AM CDT) TSH <0.005(L) 0.358 - 3.740 ulU/mL [facility] ACCOUNT BILL Blood BLOOD SPECIMEN / Unknown 07/03/2016 10:56 AM CDT 07/03/2016 Narrative Resulting Agency Comment [facility] [address] [address] ??[facility] [phone] Lary Short MD LAB - CHEMISTRY LYNDA RODRÍGUEZ [facility] ACCOUNT BILL [address] [place] [address] * (ABNORMAL) VITAMIN D 25-HYDROXY (07/03/2016 10:56 AM CDT) Vitamin D, 25 Hydroxy 26.11(L) 30 - 100 ng/mL [facility] ACCOUNT BILL Comment: Vitamin D Status: ?Deficiency ? <20 ? ng/mL ?Insufficiency ?? 20-30 ??ng/mL ?Sufficiency ? 30-100 ng/mL ?Toxicity ? >100 ?ng/mL Blood BLOOD SPECIMEN / Unknown 07/03/2016 10:56 AM CDT 07/03/2016 Narrative Resulting Agency Comment [facility] [address] ??[facility] [phone] Lary Short MD LAB - CHEMISTRY LYNDA RODRÍGUEZ [facility] ACCOUNT BILL [address] [place] [address] * (ABNORMAL) CBC W AUTO DIFFERENTIAL (07/03/2016 [...] x10E9/L [facility] ACCOUNT BILL Comment:MPV FL BLOOD ([facility]) 1 0.3 fl 9.4-12.9 Granulocytes % 71.6 [...] AM CDT 07/03/2016 Narrative Resulting Agency Comment [facility] [address] [place] [address] ??[facility] [phone] Lary Short MD LAB - HEMATOLOGY ORD ERABLES [facility] ACCOUNT BILL [address] [place] [address] * BASIC METABOLIC PANEL (CALCIUM TOTAL) (07/03/2016 [...] AM CDT 07/03/2016 Narrative Resulting Agency Comment [facility] [address] ??[place] [phone] Lary Short MD LAB - CHEMISTRY LYNDA RODRÍGUEZ [facility] ACCOUNT BILL [address] [place] [address] * T4 TOTAL (07/03/2016 10:56 AM CDT) T4 Total 12.3 4.7 - 13.3 ug/dL [facility] ACCOUNT BILL 07/03/2016 10:5 6 AM CDT 07/03/2016 Narrative Resulting Agency Comment [facility] [address] ??[place] [phone] Lary Short MD LAB - CHEMISTRY LYNDA RODRÍGUEZ Performing Organization Address City/[facility]/ZIP Co de Phone Number [facility] ACCOUNT BILL [address] [place] [address] * (ABNORMAL) LIPID PROFILE (07/03/2016 10:56 AM [...] AM CDT 07/03/2016 Narrative Resulting Agency [facility] [address] ??[place] [phone] Lary Short MD LAB - CHEMISTRY LYNDA RODRÍGUEZ [facility] ACCOUNT BILL [address] [place] [address] Care Teams Director Enterprise Data Architecture Relationship Specialty Start Date End Date Caitlin Cheney APRN-CNM PCP - General 05/20/20
--- OUTSIDE RECORDS SUMMARY | 2024-02-22 14:31 | XMS_ITS | Encounter Summary ---
Author Organization [facility] Address [address] [place] [address]. [place], [place] [address] [place] [address] Care Team Providers Care Fraternity House Cook Name Role Phone Rahul Bradford Primary Care Provider [phone] Encounter Details Date Type Department Care Team (Latest Contact Info) Description 06/13/2023 Travel Social History Tobacco Use Types Packs/Day Years [...] week 11/23/2022 How often do you attend [facility] or orthodox services? Patient declined 11/23/2022 Do you belong to any clubs o r organizations such as mandaen groups, unions, fraternal or athletic groups, or [...] and heating? Not hard at all 11/23/2022 [facility] - Occupational Stress Questionnaire Answer Date Recorded [...] place to sleep or slept in a alf (including now)? 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
--- OUTSIDE RECORDS SUMMARY | 2024-02-22 14:31 | XMS_ITS | Referral Summary ---
Author Organization [facility] [employer] Address [address] [address] Care Team Providers Care Die Reamer Name Role Phone Caitlin Cheney [facility] [facility] Primary Care Provider [phone] Source Comments [facility] [employer],non-[facility] Affiliates and Associated Physician Practices is amultiple site organization consisting of ambulatory clinics and hospital sitesin [place], [place], [place] and [place]. This disclosure is being madepursuant to the Care Everywhere program and may not contain all information available regarding this patient. Last updated 17.[facility] [employer] Allergies No known active allergies Medications * Be aware that medications may not be up to date on this document. Alwaysverify current medications with the patient. Medication Sig Dispensed Refills Start Date End Date Status escitalopram (LEXAPRO) 10 MG tablet Take 10 mg by mouth every morning 3 06/18/2016 Active norethin-eth estradiol-FE (LOESTRIN FE 03/23) 1-20 MG-MCG tablet Take 1 Tab by mouth once daily 1 Packet 5 07/03/2016 Active Active Problems Problem Noted Date Diagnosed Date Mild single current episode of major depressive disorder 07/03/2016 Resolved Problems Problem Noted Date Diagnosed Date Resolved Date Recurrent major depressive d isorder, in full remission 07/03/2016 07/03/2016 Immunizations Name Administration Dates Next Due TDAP (7yrs+) 07/03/2016 Social History Tobacco Use Types Packs/Day Years [...] Mass Index 27.36 07/03/2016 10:07 AM CDT Plan of Treatment Not on file Care Teams Die Reamer Relationship Specialty Start Date End Date Caitlin Cheney APRN-CNM PCP - General 05/20/20
--- OUTSIDE RECORDS SUMMARY | 2024-02-22 14:31 | XMS_ITS | Clinical Summary ---
Author Organization [facility] [employer] Address [facility] [place] [address] Care Team Providers Care Certifed Refrigeration Operator Name Role Phone Caitlin Cheney STRATEGIC COMMUNICATIONS MANAGER-[facility] Primary Care Provider [phone] Source Comments [facility] [employer],non-owned Affiliates and Associated Physician Practices is amultiple site organization consisting of ambulatory clinics and hospital sitesin [place], [place], [place] and [place]. This disclosure is being madepursuant to the Care Everywhere program and may not contain all information available regarding this patient. Last updated 17.[facility] [employer] Allergies No known active allergies Medications * [...] Administration Dates Next Due TDAP (7yrs+) 07/03/2016 Family History Medical History Relation Name Comments Anxiety Disorder Father Hypertension Father Drug Abuse Mother ( mom) Anxiety Disorder Paternal Grandmother Relation Name Status Comments Father Alive Mother Alive Paternal Grandmother Social History Tobacco Use Types Packs/Day Years [...] 07/03/2016 10:07 AM CDT Plan of Treatment Health Maintenance Due Date Last Done Comments PAP SMEAR 1994 HIV SCREENING 2009 HEPATITIS C SCREENING 04/28/2012 HEPATITIS B VACCINE (1 of 3 - 19+ 3-dose series) 2013 DEPRESSION SCREENING 03/04/2023 COVID-19 VACCINE ( - 2023-2 5 season) 2023 INFLUENZA VACCINE (#1) 2023 DTAP/TDAP/TD VACCINES (2 - T d or Tdap) 07/03/2026 07/03/2016 ZOSTER VACCINE (1 of 2) 2044 HIB VACCINE Aged Out No longer eligi ble based on patient's age to complete this topic HPV VACCINE Aged Out No longer eligi ble based on patient's age to complete this topic MENINGOCOCCAL VACCINE Aged Out No alia jarrell eligible based on patient's age to complete this topic PNEUMOCOCCAL VACCINE Aged Out No long er eligible based on patient's age to complete this topic Care Teams Certifed Refrigeration Operator Relationship Specialty Start Date End Date Caitlin Cheney APRN-CNM PCP - General 05/20/20
--- OUTSIDE RECORDS SUMMARY | 2024-02-22 14:31 | XMS_ITS | Encounter Summary ---
Author Organization [facility] Address [address] [place] [address]. [place], [place] [address] [place] [address] Care Team Providers Care Media Account Executive Name Role Phone Rahul Bradford Primary Care Provider [phone] Reason for Referral * Sleep Lab (Routine) - Closed Specialty Diagnoses / Procedures Referred By Contac t Referred To Contact Diagnoses Obstructive sleep apnea (adult) (pediatric) Procedures Sleep Study Unattended (Home Study) ([id number]) Rahul Bradford PA [address] [place] [address] Phone: tel: fax: [facility] Parent Location [address] [place] [address] Phone: tel: fax: Referral ID Status Reason Start Date Expiration Date Visits Re quested Visits Authorized [id number] Closed 05/27/2023 06/27/2024 1 1 Reason for Visit * Sleep Lab (Routine) - Closed Specialty Diagnoses / Procedures Referred By Contac t Referred To Contact Diagnoses Obstructive sleep apnea (adult) (pediatric) Procedures Sleep Study Unattended (Home Study) ([id number]) Rahul Bradford PA [address] [place] [address] Phone: tel: fax: [facility] Parent Location [address] [place] [address] Phone: tel: fax: Referral ID Status Reason Start Date Expiration Date Visits Re quested Visits Authorized [id number] Closed 05/27/2023 06/27/2024 1 1 Encounter Details Date Type Department Care Team (Late st Contact Info) Description 06/13/2023 6:51 PM CDT - 06/13/2023 11:59 PM CDT Hospital Encounter [facility] [address] [place] [address] Rahul Bradford PA [address] [place] [address] Discharge Disposition: Home or Self Care (Routine Discharge) Social History Tobacco Use Types Packs/Day Years [...] 11/23/2022 How often do you attend chur or catholic services? Patient declined 11/23/2022 Do you belong to any clubs o r organizations such as presybeterian groups, unions, fraternal or athletic groups, or [...] and heating? Not hard at all 11/23/2022 [facility] - Occupational Stress [...] place to sleep or slept in a fci (including now)? 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 04/30/2022 escitalopram (LEXAPRO) 20 MG tablet Take 1 tablet (20 mg total) by mouth daily. 08/16/2022 ondansetron (ZOFRAN-ODT) 4 MG disintegrating tablet Take 1 tablet (4 mg total) by mouth every 6 (six) hours as needed for Nausea. 10 tablet 11/19/2022 pantoprazole EC (PROTONIX) 40 MG tablet Take 1 tablet (40 mg total) by mouth daily. 30 tablet 11/19/2022 vitamin, low iron, ( VITAMIN WITH IRON) 27-0.8 MG tablet Take by mouth daily. documented as of this encounter Procedure Notes * Jessi Sung MD - 06/13/2023 7:00 PM CDTAssociated Order(s): SLEEP STUDY UNATTENDED Ms. Mcdonald is a 28-year-old patient was taken for home sleep study because of symptoms of sleep apnea syndrome. She is 65 inches tall and weighs 210 pounds. BMI 35.0. The patient reports increased daytime sleepiness with elevated Stafford score of 14. Airflow at the mouth and nose was monitored on a continuous basis along with movements of the chestand the abdominal wall. Heart rate and rhythm and pulse oximetry is also monitored continuously along with body position. Total duration of analysis is 293 minutes. We identified 1 obstructive apneas, 2 central apneas and 12 hypopneas. AHI for the study is 3.1. Average oxygen saturation for the study is between 94% and 95%. Brief desaturations are noted to 83%. Hypoxic burden is noted for about 2% of testing time with saturations below 90%. During the study the patient's heart rhythm showed sinus rhythm with self- limited sinus tachycardia. There are no pauses, there are no dysrhythmias. Discussion: Study is negative for sleep apnea syndrome. AHI greater than 5.0 is required to establish the diagnosis of sleep apnea. This patient's AHI is 3.1. AHI is typically underestimated during a home sleep study. If clinical suspicion for sleep apnea is high nocturnal polysomnography in the sleep center is recommended. Brief desaturations are noted to 83% with hypoxic burden for more than 2% of testing time. Therapeutic alternatives at this stage would include avoidance of sedative drugs and alcohol, treatment of underlying hypothyroidism if present, weight loss program to bring the patient's BMI . Initiation of sleep hygiene measures is recommended. The patient is increased daytime sleepiness with elevated Stafford score of 14 is noted. Evaluation in the sleep clinic for other potential causes of sleep disorder could also be suggested. Final recommendations: Weight loss program as suggested above. Treat underlying hypothyroidism if present. Initiate sleep hygiene measures. Consider polysomnography in the sleep center if clinical suspicion for sleep apnea is high. Final diagnosis: Snoring R06.83 documented in this encounter Plan of Treatment Not on file documented as of this encounter Procedures Procedure Name Priority Date/Time Associated Diagnosis Comments SLEEP STUDY UNATTENDED Routine 06/13/2023 7:00 PM CDT Obstructive sleep apnea (adult) (pediatric) documented in this encounter Results * Sleep Study Unattended (Home Study) (24313) (06/13/2023 7:00 PM CDT) Narrative [facility] - 06/13/2023 7:00 PM CDT Jessi Sung MD ? 06/22/2023 ??9:06 AM Ms. Mcdonald is a 28-year-old patient was taken for home sleep study because of symptoms of sleep apnea syndrome. ??She is 65 inches tall and weighs 210 pounds. ??BMI 35.0. ??The patient reports increased daytime sleepiness with elevated Stafford score of 14. Airflow at the mouth and nose was monitored on a continuous basis along with movements of the chest and the abdominal wall. ??Heart rate and rhythm and pulse oximetry is also monitored continuously along with body position. Total duration of analysis is 293 minutes. We identified 1 obstructive apneas, 2 central apneas and 12 hypopneas. ??AHI for the study is 3.1. Average oxygen saturation for the study is between 94% and 95%. ?? Brief desaturations are noted to 83%. ??Hypoxic burden is noted for about 2% of testing time with saturations below 90%. During the study the patient's heart rhythm showed sinus rhythm with self-limited sinus tachycardia. ??There are no pauses, there are no dysrhythmias. Discussion: Study is negative for sleep apnea syndrome. ??AHI greater than 5.0 is required to establish the diagnosis of sleep apnea. ??This patient's AHI is 3.1. ??AHI is typically underestimated during a home sleep study. ??If clinical suspicion for sleep apnea is high nocturnal polysomnography in the sleep center is recommended. Brief desaturations are noted to 83% with hypoxic burden for more than 2% of testing time. Therapeutic alternatives at this stage would include avoidance of sedative drugs and alcohol, treatment of underlying hypothyroidism if present, weight loss program to bring the patient's BMI towards 25. Initiation of sleep hygiene measures is recommended. ??The patient is increased daytime sleepiness with elevated Stafford score of 14 is noted. ??Evaluation in the sleep clinic for other potential causes of sleep disorder could also be suggested. Final recommendations: Weight loss program as suggested above. Treat underlying hypothyroidism if present. Initiate sleep hygiene measures. Consider polysomnography in the sleep center if clinical suspicion for sleep apnea is high. Final diagnosis: Snoring R06.83 us Rahul [facility] ORDERABLES Final Re sult [facility] [place] [address], documented in this encounter Visit Diagnoses Diagnosis Obstructive sleep apnea (adult) (pediatric) documented in this encounter Care Teams Media Account Executive Relationship Specialty Start Date End Date Rahul Bradford PA [address] [place] [address] PCP - General PHYSICIAN SKIP PITMAN 11/19/22 documented as of this encounter
--- OUTSIDE RECORDS SUMMARY | 2024-02-22 14:31 | XMS_ITS | Clinical Summary ---
Author Organization [facility] Address [address] [place] [address]. [place], [place] [address] [place] [address] Care Team Providers Care Grinding Mill Operator Name Role Phone Rahul Bradford Primary Care Provider [phone] Allergies No known active allergies Medications vitamin, low iron, ( VITAMIN WITH IRON) 27-0.8 MG tablet Take by mouth daily. Active ondansetron (ZOFRAN-ODT) 4 MG disintegrating tablet Take 1 tablet (4 mg total) by mouth every 6 (six) hours as needed for Nausea. 10 tablet 3 Active pantoprazole EC (PROTONIX) 40 MG tablet Take 1 tablet (40 mg total) by mouth daily. 30 tablet 3 Active buPROPion XL (WELLBUTRIN XL) 150 MG 24 hr tablet Take 1 tablet (150 mg total) by mouth daily. 3 Active escitalopram (LEXAPRO) 20 MG tablet Take 1 tablet (20 mg total) by mouth daily. 3 Active Active Problems Problem Noted Date Diagnosed Date Cholecystitis 11/23/2022 Acute cholecystitis 11/23/2022 Choledocholithiasis 11/22/2022 Overview (11/25/2022): Added automatically from request for surgery [id number] Normal labor and delivery ([facility]) 01/27/2022 37 weeks gestation of ([facility]) 2021 Family History Medical History Relation Comments Hypertension Father Relation Status Comments Father Alive Mother Alive Social History Tobacco Use Types Packs/Day Years Used Date Smoking Tobacco: Never Passive Smoke Exposure: Never Smokeless Tobacco: Never Tobacco Cessation:Counseling Given: Not Answered Alcohol Use Standard Drinks/Week Comments Never 0 [...] How often do you attend chur or adventist services? Patient declined 11/23/2022 Do you belong to any clubs o r organizations such as zoroastrianism groups, unions, fraternal or athletic groups, or [...] and heating? Not hard at all 11/23/2022 [facility] [place] [facility] - Occupational Stress [...] place to sleep or slept in a fpc (including now)? 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 Gender Identity Not on file Sexual Orientation Not on file Last Filed Vital Signs Vital Sign Reading Time Taken Comments Blood Pressure 108/86 11/26/2022 11:30 AM CDT Pulse 67 11/26/2022 11:30 AM CDT Temperature 36.3 ??C (97.3 ??F) 11/26/2022 10:45 AM C DT Respiratory Rate 16 11/26/2022 11:30 AM CDT Oxygen Saturation 94% 11/26/2022 11:30 AM CDT Inhaled Oxygen Concentration - - Weight 95.4 kg (210 lb 5.1 oz) 11/23/2022 1:00 A M CDT Height 165.1 cm (5' 5 ) 11/23/2022 1:00 AM CDT Body Mass Index 35 11/23/2022 1:00 AM CDT Plan of Treatment Health Maintenance Due Date Last Done Comments Cervical Cancer Screening Pa p Smear (Age 21 to 29) Every 3 Years 1994 Cervical Cancer Screening 1994 Annual Physical 1997 Hepatitis B Vaccines (1 of 3 - 19+ 3-dose series) 2013 COVID-19 Vaccine (4 - 2023-2 5 season) 2023 02/05/2021, 06/19/2020, 05/29/2020 Influenza Adult (#1) 2023 02/05/2021, 03/25/2020, 02/09/2019 DTaP, Tdap and Td Vaccines ( 4 - Td or Tdap) 03/25/2030 03/25/2020, 04/11/2017, 07/03/2016 Hepatitis C Completed 12/22/2021 HPV Vaccines Aged Out No longer eligi ble based on patient's age to complete this topic Meningococcal Vaccine Aged Out No alia jarrell eligible based on patient's age to complete this topic Pneumococcal Vaccine: Pediatrics (0 to 5 Years) and At-Risk Patients (6 to 64 Years) Aged Out No longer eligible b ased on patient's age to complete this topic RSV Immunizations Under 20 Months Aged Out No longer eligible b ased on patient's age to complete this topic Procedures Procedure Name Priority Date/Time Associated Diagnosis Comments HEPATITIS C ANTIBODY Routine 12/22/2021 from Last 3 Months or Most Recently Relevant to Health Maintenance Results * HEPATITIS C ANTIBODY (12/22/2021) HEPATITIS C AB NR us Default History Genericprovider LABORATORY Final Result from Last 3 Months or Most Recently Relevant to Health Maintenance Insurance [employer] Advance Directives * Full Code (Latest Code Status on File) Date Activated Date Inactivated Comments 11/23/2022 12:34 AM 11/26/2022 8:45 PM Care Teams Grinding Mill Operator Relationship Specialty Start Date End Date Rahul Bradford PA [address] [place] [address] PCP - General PHYSICIAN SPECIAL PROCEDURE TECHNOLOGIST 11/19/22
--- OUTSIDE RECORDS SUMMARY | 2024-02-22 14:31 | XMS_ITS | Encounter Summary ---
Author Organization [facility] Address [address] [place] [address] [place] [address] Care Team Providers Care Retail Sales Specialist Name Role Phone Unavailable Primary Care Provider Unavailabl e Encounter Details Date Type Department Care Team (Late st Contact Info) Description 07/04/2016 Orders Only [facility] - Family Medicine [address] [place] [address] Lary Short MD [address] [place] [phone] Abnormal thyroid blood test Social History Tobacco Use Types Packs/Day Years Used Date Smoking Tobacco: Never Alcohol Use Standard Drinks/Week Comments No 0 (1 standard drink = 0.6 oz pur e alcohol) Sex and Gender Information Value Date Recorded Sex Assigned at Not on file Gender Identity Not on file Sexual Orientation Not on file documented as of this encounter Plan of Treatment Scheduled Orders Name Type Priority Associated Diagnoses Orde r Schedule TSH Lab Routine Abnormal thyroid blood test Ordered: 07/04/2016 T4 FREE Lab Routine Abnormal thyroid blood test Ordered: 07/04/2016 T3 FREE Lab Routine Abnormal thyroid blood test Ordered: 07/04/2016 documented as of this encounter Visit Diagnoses Diagnosis Abnormal thyroid blood test- Primary Nonspecific abnormal results of thyroid function study documented in this encounter
--- OUTSIDE RECORDS SUMMARY | 2024-02-22 14:33 | XMS_ITS | Encounter Summary ---
Author Organization [facility] Address [address] [place] [address]. [place] [address] [place] [address] Care Team Providers Care Quantitative Analyst Developer Name Role Phone Rahul Bradford Primary Care Provider [phone] Reason for Referral * Sleep Lab (Routine) - Closed Specialty Diagnoses / Procedures Referred By Contac t Referred To Contact Diagnoses Obstructive sleep apnea (adult) (pediatric) Procedures Sleep Study Unattended (Home Study) ([id number]) Rahul Bradford PA [address] [place] [address] Phone: tel: fax: Parent Location [address] [place] [address] Phone: tel: fax: Referral ID Status Reason Start Date Expiration Date Visits Re quested Visits Authorized [id number] Closed 05/27/2023 06/27/2024 1 1 Encounter Details Date Type Department Care Team (Late st Contact Info) Description 05/27/2023 Transcribe Orders [facility] Pre Access Team [address] [place] [address] Rahul Bradford PA [address] [place] [address] Social History Tobacco Use Types Packs/Day Years [...] week 11/23/2022 [facility]? Patient declined 11/23/2022 Do you belong to any clubs o r organizations such as judaism groups, unions, fraternal or athletic groups, or [...] and heating? Not hard at all 11/23/2022 [facility] - Occupational Stress [...] place to sleep or slept in a senior care (including now)? No 11/23/2022 Depression Answer Date Recor ded Last EPDS Total Score 0 01/28/2022 Last EPDS Self Harm Result Never 01/28 Comments No Sex and Gender Information Value Date Recorded Sex Assigned at Not on file Legal Sex Female 3:02 PM MANAGER CHANGE Gender Identity Not on file Sexual Orientation [...] Assessment Author Status No 11/23/2022 1:00 AM SUKUMART Candy Preciado RN Active * Do you have serious difficulty walking or climbing stairs? Answer Date of Assessment Author Status No 11/23/2022 1:00 AM Candy Oakley RN Active * Do you have difficulty dressing or bathing? Answer Date of Assessment Author Status No 11/23/2022 1:00 AM SUKUMART Candy Preciado RN Active * Because of a physical, [...] Date Author Status No 11/23/2022 1:00 AM SUKUMART Candy Preciado RN Active documented in this encounter Plan of Treatment Not on file documented as of this encounter Results * Sleep Study Unattended (Home Study) ([id number]) (06/13/2023 7:00 PM CDT) Narrative [facility] - 06/13/2023 7:00 PM CDT Jessi Sung MD ? 06/22/2023 ??9:06 AM Ms. Mcdonald is a 28-year-old patient was taken for home sleep study because of symptoms of sleep apnea syndrome. ??She is 65 inches tall and weighs 210 pounds. ??BMI 35.0. ??The patient reports increased daytime sleepiness with elevated Swanton score of 14. Airflow at the mouth [...] patient is increased daytime sleepiness with elevated Swanton score of 14 is noted. ??Evaluation in the sleep clinic for other potential causes of sleep disorder could also be suggested. Final recommendations: Weight loss program as suggested above. Treat underlying hypothyroidism if present. Initiate sleep hygiene measures. Consider polysomnography in the sleep center if clinical suspicion for sleep apnea is high. Final diagnosis: Snoring R06.83 [facility] ORDERABLES Final Re sult [facility] [address] [place] [address], documented in this encounter Visit Diagnoses Diagnosis Obstructive sleep apnea (adult) (pediatric)- Primary Obstructive sleep apnea (adult) (pediatric) documented in this encounter Care Teams Quantitative Analyst Developer Relationship Specialty Start Date End Date Rahul Bradford PA [address] [place] [address] PCP - General PHYSICIAN DIRECTOR OF MARKETING [employer] PERFORMANCE ADS 11/19/22 documented as of this encounter
--- OUTSIDE RECORDS SUMMARY | 2024-02-22 14:33 | XMS_ITS | Encounter Summary ---
Author Organization [facility] Address [address] [place] [address]. [place] [address] [place] [address] Care Team Providers Care Post Office Clerk Name Role Phone Rahul Bradford Primary Care Provider [phone] Reason for Visit * Auth/Cert (Routine) Specialty Diagnoses / Procedures Referred By Contac t Referred To Contact Diagnoses Cholecystitis Acute cholecystitis CHOLECYSTITIS Cholecystitis Acute cholecystitis Procedures NONE Davi Reed III, MD [address] [place] [address] Phone: tel: fax: Referral ID Status Reason Start Date Expiration Date Visits Re quested Visits Authorized [id number] 1 1 Encounter Details Date Type Department Care Team (Late st Contact Info) Description 11/26/2022 9:00 AM CDT - 11/26/2022 10:00 AM CDT Surgery [facility] [place] [address] [place] [address] Glenn Mullins MD [address] [place] [id number] ERCP WITH STONE REMOVAL DUCT Surgery Details Date/Time Status Location OR Service Patient Class Case Class Case Type Trauma Case? 11/26/2022 9:00 AM Posted [facility] Virtual Procedure [facility] PACU 21 Gastroenterology Inpatient No Panel 1 Procedure LRB Anes Op Region Wound Class Comments ERCP WITH STONE REMOVAL DUCT N/A General N/A WITH SPHINCTEROTOMY WITH BALLOON SWEEP Surgeon Surgeon Role Service Panel Glenn Mullins MD Primary Gastroenterology 1 documented in this encounter Social History Tobacco Use Types Packs/Day Years [...] week 11/23/2022 How often do you [facility] services? Patient declined 11/23/2022 Do you belong to any clubs o r organizations such as sikh groups, unions, fraternal or athletic groups, or [...] and heating? Not hard at all 11/23/2022 [facility] [place] of Occupat ional Health - Occupational Stress [...] place to sleep or slept in a [facility] (including now)? 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 Gender Identity Not on file Sexual Orientation Not on file documented as of this encounter Last Filed Vital Signs Vital Sign Reading Time Taken Comments Blood Pressure 129/60 11/26/2022 7:33 AM CDT Pulse 74 11/26/2022 7:33 AM CDT Temperature 36.9 ??C (98.4 ??F) 11/26/2022 7:33 AM CD T Respiratory Rate 18 11/26/2022 7:33 AM CDT Oxygen Saturation 100% 11/26/2022 7:33 AM CDT Inhaled Oxygen Concentration - - Weight 95.4 kg (210 lb 5.1 oz) 11/23/2022 1:00 A M CDT Height 165.1 cm (5' 5 ) 11/23/2022 1:00 AM CDT Body Mass Index 35 11/23/2022 1:00 AM CDT documented in this encounter Functional Status * Question Answer Date of Assessment Author Status Do you have serious difficulty walking or climbing stairs? No 11/23/2022 1:00 AM SUKUMART Candy Preciado RN Activ e * Question Answer Date of Assessment Author Status Do you have difficulty dressing or bathing? No 11/23/2022 1:00 AM SUKUMART Candy Preciado RN A ctive Because of a physical, mental, or emotional condition, do you have difficulty doing errands alone such as visiting a doctor's office or shopping? No 11/23/2022 1:00 AM Candy Oakley RN Active * Are you deaf or do you [...] as of this encounter Mental Status * Question Answer Entry Date Author Status Because of a physical, mental, or emotional condition, do you have serious difficulty concentrating, remembering, or making decisions? No 11/23/2022 1:00 AM Candy Oakley RN A ctive * Because of a physical, mental, or emotional condition, do you have serious difficulty concentrating, remembering, or making decisions? Answer Entry Date Author Status No 11/23/2022 1:00 AM Candy Oakley RN Active documented in this encounter Discharge Summaries * Brent Godinez MD - 11/26/2022 5:14 PM CDT Patient ID: Catie Mcdonald [id number] 27-year-old 1995 Admit date: 11/23/2022 Expected Discharge Date: 11/26/2022 Primary care Physician: NEENA DE DIOS Admitting Physician: Davi Reed III, MD Discharge Physician: BRENT GODINEZ MD Admission Diagnoses: Cholecystitis [K81.9] Acute cholecystitis [K81.0] Discharge Diagnoses: Past Medical History Past Medical History: Diagnosis Date ??? Anxiety disorder, unspecified History reviewed. No pertinent surgical history. Reason for admission: Catie Mcdonald is a 27-year-old female who has a PERSONALLY REVIEWED pertinent Past Family, Past Social, and Past Surgical history, and has a past medical history of ?? Anxiety and depression GERD ?? Patient states that about 1 week ago, she began having epigastric abdominal pain radiating throughout her abdomen. She had some associated nausea and vomiting. As of days progressed, the pain became more intense in the epigastric area. She reports pain with deep breathing and constipation. [facility] prior times for evaluation, and work-up was essentially unremarkable. She was started on ondansetron p.o. and PPI during these visits. Patient states that the pain has continued to worsen, so she returned to the ED at [facility] for further evaluation. She denies any fevers or chills. She denies diarrhea or blood in the stool. Of note, she is currently . ?? In the ED, she was afebrile, pulse in the's 60s, respiratory 16, blood pressure 123/80, saturating normally on room air. ?? CBC showed WBC 7.7, hemoglobin 13.1, platelets 308. CMP showed total bilirubin 2.2, alk phos 338, AST 626, ALT 519, lipase 15. AST and ALT had been normal on 11/19 and 11/20, and alkaline phosphatase had been 123 and 109 on those days respectively. Hospital Course: 27-year-old female admitted to [facility] with complaints of epigastric abdominal pain. CTimaging study suggestive of for cholecystitis, LFTs were noted to be abnormal. Surgery consultationwas obtained patient underwent MRCP which showed a cystic duct obstruction also choledocholithiasis. Gastroenterology consultation was obtained patient was initially started on empiric antibiotic therapy she underwent a laparoscopic cholecystectomy, also underwent ERCP, stent anatomy, stone extraction for choledocholithiasis. Patient tolerated both procedures well patient was followed by surgery.She is tolerating diet well patient was cleared from surgery, gastroenterology standpoint for discharge from surgery standpoint patient does not need any antibiotic therapy I have examined the patient on the day of discharge patient is hemodynamically stable. Consults: GI and general surgery Procedures/Significant Diagnostic Studies: CT ABD+PEL W IV CON ONLY Result Date: 11/22/2022 EXAMINATION: ABDOMEN PELVIS CT WITH CONTRAST CLINICAL INDICATION: 27-year-old female.ABDOMINAL PAIN, ACUTE, NONLOCALIZED : mid abd pain x several days pt was just seen in ER for same symptoms 3 days ago TECHNIQUE: CT of the abdomen and pelvis was acquired after intravenous administration of 100 cc of Isovue-370 into indwelling intravenous access in the right antecubital fossa without adverse contrast reaction reported. Images acquired from the lung bases to the femoral heads then reconstructed in sagittal and coronal projections. Dose lowering technique was used for this study which may include, but is not limited to, dose reduction techniques, automated exposure control, use of iterative re construction and ALARA (As low As Reasonably Achievable)/Image Gently techniques. COMPARISON: Contrast-enhanced CT abdomen and pelvis 11/19/2022 FINDINGS: Included lung bases: Clear of infiltrate or effusion. ABDOMEN : Liver/gallbladder: Stable borderline hepatomegaly; measuring 25 cm transverse diameter. Interval development of zone of low-attenuation around the intrahepatic main portal vein and proximal aspect of right left and middle portal veins consistent with interval development of periportal edema.. Mild interval enlargement of the gallbladder with larger area of the fundus abutting the anterior abdominal wall. Interval circumferential gallbladder wall thickening measuring 6 mm and there is a small rim of pericholecystic fluid in the gallbladder fossa and Morison's pouch. No densely calcified gallstone. There may be a faintly calcified gallstone in the neck of the gallbladder. The common hepatic duct measures 6 mm and the common bile duct measures 6 mm in the head of the pancreas. There appears to be wall enhancement of the distal common bile duct. No choledocholithiasis. Suspect interval development of cholecystitis and possible ascending cholangitis. Spleen: Unremarkable Adrenal glands: Unremarkable Pancreas: Unremarkable Kidneys: Unremarkable No interval development ofretroperitoneal or peripancreatic or iliac or inguinal lymphadenopathy. There is no retroperitoneallymphadenopathy. GI: The stomach and small bowel and large bowel are unremarkable. Normal air-filled appendix. No bowel obstruction. No free air in the abdomen or pelvis. PELVIS: Urinary bladder: Normally filled. Normal bladder wall. Uterus: Normal retroverted position. Homogeneous myometrial enhancement. Bilateral ovarian follicular cysts with stable crenated enhancing 10 mm cystic structure in the left ovary, likely involuting follicle. No free fluid in the posterior cul-de-sac. BONE WINDOW IM AGING: Unremarkable. IMPRESSION: 1. Significant interval change in the gallbladder and liver as above; suspect interval development of cholecystitis possible cholangitis 2. No calcified gallstone however there may be faintly calcified stone in the neck of the gallbladder. 3. Consider further evaluation which can begin with gallbladder ultrasound and or HIDA scan with CCK to check for common duct patency 4. No bowel obstruction or appendicitis or acute inflammatory change in the large or small bowel. Referred By: Interpreted By: Caitlin Pereira DO, 11/22/2022 8:[address] ABD+PEL W IV CON ONLY Result Date: 11/19/2022 CT ABDOMEN AND PELVIS WITH CONTRAST Exam date:11/19/2022 11:50 AM Clinical history: Abdomen pain. Technique: Dynamic helical images of the abdomen and pelvis were obtained. The patient received 93 mL of Isovue 370 nonionic intravenous contrast through an IV in the left antecubital fossa. A dose lower ing technique was used for this procedure, which may include, but is not limited to, dose reductiontechnique, automated exposure control, the use of iterative reconstruction, and ALARA (As Low As Reasonably Achievable) / Image Gently techniques. Comparison: None. FINDINGS: Images of the lower thorax demonstrate the visualized portion of the heart to appear normal. The lung bases are clear. Images of the abdomen demonstrate the overall size and morphology of the liver to be within normal limits. No hepatic lesions are observed. No ascites is seen. The gallbladder is present and normally distended. No stones are observed within its lumen and there is no evidence of cholecystitis or biliary ob struction. The pancreas, spleen, and adrenal glands appear grossly normal. The kidneys are normal in size bilaterally. There is normal symmetric enhancement after the administration of contrast. No stones or hydronephrosis is apparent. Both ureters follow normal expected course through the retroperitoneum. Images of the pelvis demonstrate the urinary bladder to appear normal. The uterus is normalin size and resides in an anteverted position in the mid pelvis. The adnexa appear normal. The stomach and small bowel have a normal appearance throughout. The terminal ileum and appendix appear normal. The colon is within normal limits IMPRESSION: 1. No acute findings. Ordered By: ANDREW BRAUN Interpreted By: Vidal Cherry MD, 11/19/2022 11:54 AM MRCP Result Date: 11/23/2022 Examination: MRCP Exam time: 11/23/2022 7:59 PM Clinical history: Right upper quadrant abdominal pain. Cholecystitis. Comparison: Abdominal ultrasound 11/23/2022. CT of the abdomen and pelvis 11/22/2022. Technique: Multisequence, multiplanar pancreatic resonance imaging of the abdomen was obtained according to the MRCP protocol without the use of IV contrast. MIP Images were created and reviewed. Findings: Examination is limited due to motion artifact. CHEST: The visualized lung bases are clear. Liver/gallbladder/biliary: The liver is normal in size and contour. There is cholelithiasis and gallbladder wall thickening. A stone is seen within the cystic duct (3 7 image 30 and series 3 image 14.) Findings are consistent with acute cholecystitis. The common bile duct is dilated, measuring approximately 8 mm in diameter. There is a possible filling defect in the distal common bile duct proximalto the ampulla which may represent choledocholithiasis (series 7 image 32.) Pancreas: There is no pancreatic ductal dilatation. No peripancreatic inflammatory changes identified. Kidneys/adrenals: The adrenal glands are unremarkable. The kidneys are unremarkable. There is no hydronephrosis. Spleen/lymphatics: The spleen is normal in size and contour. There are no enlarged abdominal lymph nodes. Ga strointestinal: The stomach is unremarkable. The visualized colon and small bowel are normal in caliber and wall thickness. Vasculature: There are no vascular flow void abnormalities Musculoskeletal:No destructive osseous lesion is identified. IMPRESSION: 1. Gallbladder wall thickening and cystic duct stone consistent with acute cholecystitis. 2. Dilatation of the common bile duct with a small filling defect proximal to the ampulla. Findings are favored to represent choledocholithiasis. The attending radiologist has reviewed the image(s)and agrees with the content of this report. Ordered By: LIBIA RODRIGUEZ Interpreted By: Axel Shah MD, 11/23/2022 8:49 PM US ABD LIMITED Result Date: 11/23/2022 EXAMINATION: Limited abdomen ultrasound: Gallbladder CLINICAL HISTORY: Possible cholecystitis. COMPARISON: CT 11/22/2022 TECHNIQUE: An ultrasound examination of the gallbladder was performed to assessgrayscale appearance and color-flow characteristics. FINDINGS: Gallbladder: The gallbladder wall appears thickened. There is a 2.1 cm gallstone noted within the gallbladder neck. Small pericholecystic fluid suggested. Positive sonographic Saez's sign. Common hepatic duct: Measures up to 5 mm. in diameter. No distinct intraluminal stone. Common bile duct: Measures up to 8 mm. No distinct intraluminal stone. Other findings: No ascites. IMPRESSION: 1. Imaging findings concerning for acute cholecystitis with 2.1 cm gallstone in the gallbladder neck, gallbladder wall thickening and trace pericholecystic fluid, and positive sonographicMurphy's sign. 2. Some with dilated common bile duct, but with no obvious intraluminal stone identified Referred By: REGINA WILLIAM Interpreted By: Kev Ziegler MD, 11/23/2022 6:41 PM SURG XR FLUOROSCOPY Result Date: 11/26/2022 This report does not contain a radiologist's interpretation. Please review associated procedure and/or operative report. SURG XR FLUOROSCOPY Result Date: 11/24/2022 This report does not contain a radiologist's interpretation. Please review associated procedure and/or operative report. Discharged Condition: good Code Status: Full Code Discharge Exam: Patient was seen and examined on day of discharge, vitals were stable. Disposition: discharged to home Patient Instructions: Current Discharge Medication List CONTINUE these medications which have NOT CHANGED Details buPROPion XL (WELLBUTRIN XL) 150 MG 24 hr tablet Take 1 tablet (150 mg total) by mouth daily. escitalopram (LEXAPRO) 20 MG tablet Take 1 tablet (20 mg total) by mouth daily. ondansetron (ZOFRAN-ODT) 4 MG disintegrating tablet Take 1 tablet (4 mg total) by mouth every 6 (six) hours as needed for Nausea. Qty: 10 tablet, Refills: 0 pantoprazole EC (PROTONIX) 40 MG tablet Take 1 tablet (40 mg total) by mouth daily. Qty: 30 tablet, Refills: 0 vitamin, low iron, ( VITAMIN WITH IRON) 27-0.8 MG tablet Take by mouth daily. STOP taking these medications HYDROcodone-acetaminophen (NORCO) 5-325 MG tablet Activity: as tolerated. Diet: regular diet Wound Care: as directed Follow up labs needed: Follow-up with the primary care physician within a 1 week time the CBC, CMP Follow-up with general surgery as arranged Follow-up; NEENA De Dios [address] [facility] [address] Follow up in 1 week(s) with cbc/cmp Lukasz Diaz MD [address] [facility] [id number] Follow up in 2 week(s) Total time spent on discharge was 35 minutes. Thank you for allowing [facility] hospitalist service to take care of your patient, Please call [phone] Ext [phone] if you have any questions or concern. Signed: BRENT GODINEZ MD 11/26/2022 5:18 PM documented in this encounter Discharge Instructions * Discharge Instructions* Brent Godinez MD - 11/26/2022 8:22 AM CDT Diet: Resume your regular diet Pain management: See scripts Use over the counter acetaminophen and ibuprofen as needed. Do not exceed more than 4,000 mg of acetaminophen in 24 h period from all sources Do not drive or operate heavy machinery while on pain medications. While on pain medications please take [id number] stool softeners such as MiraLAX to achieve 2soft bowel movements a day No heavy lifting >10Lbs until cleared by surgeon Your wound was closed with dissolvable stitches. There is some skin glue in place that will fall off on its own in 10-14 days It is okay to shower, and allow water to run over your wounds. Do not scrub or put lotion over the wounds. Do not soak in a bathtub or a pool. Please call [phone] for a follow up appointment with Dr. Diaz in 2 weeks. Please call the outpatient clinic during business hours or visit the nearest Emergency department if having intractable pain, fevers > 101.5 F or if having intractable nausea or vomiting , or purulent drainage from your wounds. * Attachments The following attachments cannot be sent through Care Everywhere. * Cholecystectomy, Laparoscopic Surgery ([place]) documented in this encounter Medications at Time [...] mouth daily. documented as of this encounter Progress Notes * Brent Godinez MD - 11/26/2022 1:53 PM CDT Progress note Chief complaint: Abnormal LFTs, right upper quadrant pain Subjective Patient seen and examined. Patient feels well. Patient underwent ERCP today Review of Systems All other systems reviewed and are negative. OBJECTIVE Patient Vitals for the past 24 hrs: BP Temp Temp src Pulse Resp SpO2 11/26/22 1130 108/86 -- -- 67 16 94 % 11/26/22 1115 (!) 119/92 -- -- 70 16 -- 11/26/22 1100 (!) 137/103 -- -- 77 16 94 % 11/26/22 1055 (!) 137/98 -- -- 73 16 97 % 11/26/22 1050 132/86 -- -- 78 16 98 % 11/26/22 1045 (!) 134/91 97.3 ??F (36.3 ??C) Temporal 90 16 100 % 11/26/22 0733 129/60 98.4 ??F (36.9 ??C) Oral 74 18 100 % 11/25/222046 (!) 123/90 98.6 ??F (37 ??C) -- 76 -- 96 % 11/25/222039 (!) 123/90 98.6 ??F (37 ??C) Oral 76 18 96 % Physical Exam Constitutional: Appearance: She is well-developed. HENT: Head: Normocephalic and atraumatic. Eyes: Pupils: Pupils are equal, round, and reactive to light. Cardiovascular: Rate and Rhythm: Normal rate and regular rhythm. Heart sounds: No murmur heard. No friction rub. Pulmonary: Effort: No respiratory distress. Breath sounds: No wheezing or rales. Chest: Chest wall: No tenderness. Abdominal: General: Bowel sounds are normal. Palpations: Abdomen is soft. Tenderness: There is abdominal tenderness. There is no guarding or rebound. Comments: Right upper quadrant Musculoskeletal: General: Normal range of motion. Cervical back: Normal range of motion and neck supple. Skin: General: Skin is warm and dry. Findings: No rash. Neurological: Mental Status: She is alert and oriented to person, place, and time. LABS:. Recent Labs 11/24/22 0544 11/25/22 0450 WBC 4.77 9.50 HGB 11.5* 11.8* HCT 35.0* 35.0* MCV 91.9 91.6 PLT 261 309 RBC 3.81* 3.82* Recent Labs Lab 11/23/22 0404 11/24/22 0544 11/25/22 0450 NA 144 140 141 K 3.6 3.4* 3.5 CL 110* 108* 109* CO2 26.1 26.5 27.4 AGAP 7.9 5.5 4.6* BUN 6* 6* 2* CR 0.66 0.71 0.71 GLU 80 93 153* CA 8.2* 8.1* 8.0* TP 5.8* 5.6* 6.0* ALB 2.8* 2.8* 2.9* TBIL 2.3* 2.8* 1.7* ALKP 266* 268* 270* AST 472* 175* 186* ALT 479* 349* 347* Intake/Output Summary (Last 24 hours) at 11/26/2022 1353 Last data filed at 11/26/2022 1045 Gross per 24 hour Intake 560 ml Output -- Net 560 ml RADIOLOGY : REVIEWED MEDICATIONS Scheduled medications acetaminophen 650 mg Oral Q6H normal saline 3-10 mL Intravenous Q8H piperacillin-tazobactam 3.375 g Intravenous Q8H Infusion PRN glucose, dextrose 10 % bolus, glucagon, HYDROcodone-acetaminophen, HYDROmorphone, naLOXone, normal saline, ondansetron, polyethylene glycol ASSESSMENT /PLAN Cholecystitis Acute cholecystitis Choledocholithiasis Acute cholecystitis Choledocholithiasis Abnormal LFTs Surgery, GI on consult MRCP results reviewed Status post lap cholecystectomy. S/p ERCP, sphincterotomy, stone extraction Monitor LFTs DVT Prophylaxis: SCD Code status: Full Code Anticipate discharge tomorrow if remains stable BRENT GODINEZ MD * Shae Heller RN - 11/26/2022 1:40 PM CDT 11/26/22 1340 Referral Data Source of Information Patient Patient Information Primary Caregiver Self Current living Situation Spouse/significant other Type of Residence Private residence Support System Spouse/Significant Other Are you employed? 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 The screening is to screen the patient for what services and destination would be beneficial for patient for next level of care Conversation with the patient/family Discharge to Prior Residence/Living Situation - No New Needs Identified - Will continue to Assess Yes Adequate Resources Available Adequate Resources Yes Anticipated DC Plan Living Arrangements Spouse/significant other Support Systems Spouse/significant other Type of Residence Private residence Patient expects to be discharged to: Home or Self care Bookkeeper Assistant met with pt at bedside. Pt lives with her sps and 3 kids and is independent with ADL's. Pt uses no DME and has no hx with [facility]. Pt uses [facility] in [place] and is followed by Dr Bradford. Pt plans to return home at [place] and her sps will transport. * Glenn Mullins MD - 11/26/2022 10:48 AM CDT Please see full dictated operative report. ERCP with sphincterotomy with stone removal was performed. Recommendations: 1. Return patient to her room 2. Clear liquid diet today and advance diet as tolerated 3. Avoid NSAIDs or blood thinners for least 7 days * Shae Heller RN - 11/26/2022 9:05 AM CDT 11/26/22 0905 Interdisciplinary Group Conference Team Members Present Physician;Case/Care management Physician present for group conference Dr Godinez Barriers to Discharge Barriers No Barrier- Medical Milestone in Process No Barrier- Medical Milestone in Process follow up ERCP today. DC tomorrow. * Aminata Barrow RN - 11/25/2022 6:54 PM CDT Patient is doing well with pain/nausea control with Ewing and zofran. Had a laparoscopic cholecystectomy last night and going in for surgery in the morning. Clear liquids tonight, don't give lovenox,and NPO at midnight. Independent with all ADL's. Possibly medically ready for discharge in a coupleof days. Problem: Pain Goal: Patient's pain/discomfort is manageable Description: Assess and monitor patient's pain using appropriate pain scale. Collaborate with interdisciplinary team and initiate plan and interventions as ordered. Re-assess patient's pain level 30 - 60 minutes after pain management intervention. Outcome: Progressing Problem: Psychosocial Needs Goal: Demonstrates ability to cope with hospitalization/illness Description: Assess and monitor patients ability to cope with his/her illness. Outcome: Progressing Problem: Discharge Barriers Goal: Patient's discharge needs are met Description: Collaborate with interdisciplinary team and initiate plans and interventions as needed. Outcome: Progressing * Brent Godinez MD - 11/25/2022 12:26 PM CDT Progress note Chief complaint: Abnormal LFTs, right upper quadrant pain Subjective Patient seen and examined. Had a laparoscopic cholecystectomy yesterday, plan for ERCP tomorrow Review of Systems All other systems reviewed and are negative. OBJECTIVE Patient Vitals for the past 24 hrs: BP Temp Temp src Pulse Resp SpO2 11/25/22 0540 124/72 98 ??F (36.7 ??C) Oral 70 16 100 % 11/25/22 0440 (!) 153/85 98.1 ??F (36.7 ??C) Oral 72 18 100 % 11/25/22 0158 129/78 98 ??F (36.7 ??C) Oral 70 18 99 % 11/25/22 0100 103/53 -- -- 62 18 95 % 11/25/22 0030 102/47 -- -- 66 18 95 % 11/25/22 0000 114/66 -- -- (!) 59 18 93 % 11/24/22 2330 116/62 -- -- 66 18 94 % 11/24/22 2300 113/60 -- -- 66 18 94 % 11/24/22 2200 117/66 -- -- 64 18 94 % 11/24/22 2130 120/70 -- -- 85 18 94 % 11/24/225 116/69 98.4 ??F (36.9 ??C) -- 72 18 93 % 11/24/222044 125/82 -- -- 74 16 95 % 11/24/222029 135/89 -- -- 76 16 95 % 11/24/222014 (!) 144/84 -- -- 72 16 95 % 11/24/221999 (!) 140/82 -- -- 77 16 95 % 11/24/22 194 (!) 152/88 -- -- 84 16 95 % 11/24/22 193 (!) 141/84 -- -- 68 16 99 % 11/24/22 1930 134/81 -- -- 72 16 98 % 11/24/221924 129/77 -- -- 72 16 99 % 11/24/22 192 129/77 97.5 ??F (36.4 ??C) Temporal 70 16 99 % Physical Exam Constitutional: Appearance: She is well-developed. HENT: Head: Normocephalic and atraumatic. Eyes: Pupils: Pupils are equal, round, and reactive to light. Cardiovascular: Rate and Rhythm: Normal rate and regular rhythm. Heart sounds: No murmur heard. No friction rub. Pulmonary: Effort: No respiratory distress. Breath sounds: No wheezing or rales. Chest: Chest wall: No tenderness. Abdominal: General: Bowel sounds are normal. Palpations: Abdomen is soft. Tenderness: There is abdominal tenderness. There is no guarding or rebound. Comments: Right upper quadrant Musculoskeletal: General: Normal range of motion. Cervical back: Normal range of motion and neck supple. Skin: General: Skin is warm and dry. Findings: No rash. Neurological: Mental Status: She is alert and oriented to person, place, and time. LABS:. Recent Labs 11/23/22 0404 11/24/22 0544 11/25/22 0450 WBC 5.33 4.77 9.50 HGB 12.0 11.5* 11.8* HCT 36.6 35.0* 35.0* MCV 93.4 91.9 91.6 PLT 279 261 309 RBC 3.92* 3.81* 3.82* Recent Labs Lab 11/23/22 0404 11/24/22 0544 11/25/22 0450 NA 144 140 141 K 3.6 3.4* 3.5 CL 110* 108* 109* CO2 26.1 26.5 27.4 AGAP 7.9 5.5 4.6* BUN 6* 6* 2* CR 0.66 0.71 0.71 GLU 80 93 153* CA 8.2* 8.1* 8.0* TP 5.8* 5.6* 6.0* ALB 2.8* 2.8* 2.9* TBIL 2.3* 2.8* 1.7* ALKP 266* 268* 270* AST 472* 175* 186* ALT 479* 349* 347* Intake/Output Summary (Last 24 hours) at 11/25/2022 1226 Last data filed at 11/24/2022 1915 Gross per 24 hour Intake -- Output 485 ml Net -485 ml RADIOLOGY : REVIEWED MEDICATIONS Scheduled medications acetaminophen 650 mg Oral Q6H normal saline 3-10 mL Intravenous Q8H piperacillin-tazobactam 3.375 g Intravenous Q8H Infusion dextrose 5 %-sodium chloride 0.45 % 125 mL/hr at 11/25/22 0540 PRN glucose, dextrose 10 % bolus, glucagon, HYDROcodone-acetaminophen, HYDROmorphone, naLOXone, normal saline, ondansetron, polyethylene glycol ASSESSMENT /PLAN Cholecystitis Acute cholecystitis Choledocholithiasis Acute cholecystitis Choledocholithiasis Abnormal LFTs Surgery, GI on consult MRCP results reviewed Continue IV fluids, antibiotics Post lap cholecystectomy. Plan for ERCP tomorrow Follow cultures. Trend LFTs DVT Prophylaxis: Subcu enoxaparin Code status: Full Code BRENT RANGU, MD * Kar Mendoza NP - 11/25/2022 8:50 AM CDT [facility] Progress Note Impression and Plan 27-year-old female PMH anxiety transferred 11/23 from [facility] ED with CT findings of acute cholecystitisand choledocholithiasis. [facility] consulted 11/24 for choledocholithiasis noted on MRCP. ?? Acute cholecystitis Choledocholithiasis Anxiety , 10 months ?? --Patient presented to the emergency department at [facility] on 11/22 evening for complaints of abdominal pain x1 week. She had previously been evaluated in the emergency department at [facility] 2 prior times. Work-up each time was essentially unremarkable. [facility] evening for another evaluation as her abdominal pain had continued toworsen. She denies any fever or chills. She denied melena, hematochezia, hematemesis, chest pain orshortness of breath. There has been some associated nausea and vomiting. -- CT abdomen/pelvis with contrast in comparison to images on 11/19, showed significant interval change with interval enlargement of the gallbladder with pericholecystic fluid in the gallbladder fossaand Morison's pouch. Faintly calcified gallstones in the neck of the gallbladder possibly seen. Hepatic duct and CBD both measure 6 mm. -- MRCP on 11/23 noted for gallbladder wall thickening and cystic duct stone consistent with acute cholecystitis as well as dilatation of the CBD with small filling defect proximal to the ampulla. Findings are favored to represent choledocholithiasis. -- General surgery was consulted 11/23. Lap ifrah discussed with the patient, timing to be determined. ?? [facility] was consulted on 11/24 morning to evaluate for choledocholithiasis noted on MRCP exam and discuss ERCP intervention with the patient. With the assistance of an anatomical diagram, I described tothe patient the natural history and pathophysiology of??CBD stricture and pancreatitis. I discussedthe alternatives to ERCP and in detail discussed the risks and benefits of ERCP which include (but are not limited to), pancreatitis (3-25%), perforation (1-5%), infection (1-3%) including endoscope associated infections (<1%), inability to cannulate the biliary or pancreatic duct, or significant hemorrhage (1-4%) which can require urgent surgical intervention or prolonged hospital stay. This will be arranged for 11/[address] Mullins. Time of procedure to be determined. 11/24 evening, patient had lap ifrah: Partially necrotic posterior gallbladder wall along cystic plate, persistent distal CBD filling defect despite flushing and administration of glucagon, Unable to pass wire safely from cystic to common bile duct 11/25 Plan for ERCP tomorrow am with Dr. Mullins. ?? GI recommendations -Patient will need to be n.p.o. starting at midnight -ERCP on 11/[address] Mullins. -Patient is currently on Lovenox for DVT prophylaxis. Defer tonight's dose of Lovenox due to ERCP in am. Ok to resume 11/26 pm. -Supportive care per primary team ?? KAR MENDOZA NP 11/25/2022 Chief Complaint Acute cholecystitis, choledocholithiasis Subjective Sitting up in bed. OR yesterday evening. Pain well controlled. No fever. No n/v. Tolerating CLD well. No cp. No sob. No diarrhea. On IV Zosyn, tolerating well. Admission on 11/23/2022 Component Date Value Ref Range Status ??? WBC 11/23/2022 5.33 4.00 - 10.80 x10'3/uL Final ??? RBC 11/23/2022 3.92 (L) 4.10 - 5.40 x10'6/uL Final ??? HGB 11/23/2022 12.0 12.0 - 16.0 G/DL Final ??? HCT 11/23/2022 36.6 36.0 - 47.0 % Final ??? MCV 11/23/2022 93.4 78.0 - 100.0 FL Final ??? MCH 11/23/2022 30.6 27.0 - 31.0 PG Final ??? MCHC 11/23/2022 32.8 (L) 33.0 - 36.0 G/DL Final ??? RDW 11/23/2022 12.1 11.5 - 14.5 % Final ??? PLT 11/23/2022 279 150 - 350 x10'3/uL Final ??? MPV 11/23/2022 9.4 7.4 - 10.4 FL Final ??? ABS. NEUTROPHILS 11/23/2022 3.34 1.60 - 8.30 x10'3/uL Final ??? ABS. LYMPHOCYTES 11/23/2022 1.44 0.80 - 4.70 x10'3/uL Final ??? ABS. MONOCYTES 11/23/2022 0.42 0.00 - 1.50 x10'3/uL Final ??? ABS. EOSINOPHILS 11/23/2022 0.08 0.00 - 0.40 x10'3/uL Final ??? ABS. BASOPHILS 11/23/2022 0.03 0.00 - 0.20 x10'3/uL Final ??? ABS. IMMATURE GRANULOCYTES 11/23/2022 0.02 0.00 - 0.03 x10'3/uL Final ??? ABS. NUCLEATED RBC'S 11/23/2022 0.00 0.0 x10'3/uL Final ??? SODIUM S/P/B 11/23/2022 144 136 - 145 MMOL/L Final ??? POTASSIUM S/P/B 11/23/2022 3.6 3.5 - 5.1 MMOL/L Final ??? CHLORIDE S/P/B 11/23/2022 110 (H) 98 - 107 MMOL/L Final ??? CO2 11/23/2022 26.1 21.0 - 32.0 MMOL/L Final ??? GLUCOSE 11/23/2022 80 74 - 106 MG/DL Final ??? BUN 11/23/2022 6 (L) 7 - 18 MG/DL Final ??? CREATININE S/P/B 11/23/2022 0.66 0.55 - 1.02 MG/DL Final ??? CALCIUM S/P/B 11/23/2022 8.2 (L) 8.5 - 10.1 MG/DL Final ??? BILIRUBIN TOTAL S/P/B 11/23/2022 2.3 (H) 0.2 - 1.0 MG/DL Final ??? ALKALINE PHOSPHATASE S/P/B 11/23/2022 266 (H) 37 - 98 U/L Final ??? AST 11/23/2022 472 (H) 15 - 37 U/L Final ??? ALT 11/23/2022 479 (H) 13 - 56 U/L Final ??? TOTAL PROTEIN S/P/B 11/23/2022 5.8 (L) 6.4 - 8.2 G/DL Final ??? ALBUMIN S/P/B 11/23/2022 2.8 (L) 3.4 - 5.0 G/DL Final ??? ANION GAP 11/23/2022 7.9 5.0 - 15.0 MMOL/L Final ??? OSMOLALITY (CALC) 11/23/2022 295 MOSM/KG Final REFERENCE RANGE NOT ESTABLISHED ? ? GFR ESTIMATE 11/23/2022 >90 >90 ML/MIN/1.73 M2 Final ??? GFR NOTES 11/23/2022 GFR REFERENCES: Final Comment: THE ESTIMATED GFR IS CALCULATED USING THE 2020 CKD-EPI EQUATION. THE FOLLOWING CATEGORIES FOR GRADING RENAL FUNCTION ARE RECOMMENDED BY THE INTERNATIONAL SOCIETY OF NEPHROLOGY (KDIGO 2012 CLINICAL PRACTICE GUIDELINE). G1,NORMAL OR HIGH: >89 ml/min/1.73 m2 G2,MILDLY DECREASED: 60-89 ml/min/1.73 m2 G3A,MILDLY TO MODERATELY DECREASED: 45-59 ml/min/1.73 m2 G3B,MODERATELY TO SEVERELY DECREASED: 30-44 ml/min/1.73 m2 G4,SEVERELY DECREASED: 15-29 ml/min/1.73 m2 G5,KIDNEY FAILURE: <15 ml/min/1.73 m2 ??? GLUCOSE POC 11/23/2022 65 (L) 70 - 109 Final ??? SODIUM S/P/B 11/24/2022 140 136 - 145 MMOL/L Final ??? POTASSIUM S/P/B 11/24/2022 3.4 (L) 3.5 - 5.1 MMOL/L Final ??? CHLORIDE S/P/B 11/24/2022 108 (H) 98 - 107 MMOL/L Final ??? CO2 11/24/2022 26.5 21.0 - 32.0 MMOL/L Final ??? GLUCOSE 11/24/2022 93 74 - 106 MG/DL Final ??? BUN 11/24/2022 6 (L) 7 - 18 MG/DL Final ??? CREATININE S/P/B 11/24/2022 0.71 0.55 - 1.02 MG/DL Final ??? CALCIUM S/P/B 11/24/2022 8.1 (L) 8.5 - 10.1 MG/DL Final ??? ANION GAP 11/24/2022 5.5 5.0 - 15.0 MMOL/L Final ??? OSMOLALITY (CALC) 11/24/2022 287 MOSM/KG Final REFERENCE RANGE NOT ESTABLISHED ? ? GFR ESTIMATE 11/24/2022 >90 >90 ML/MIN/1.73 M2 Final ??? GFR NOTES 11/24/2022 GFR REFERENCES: Final Comment: THE ESTIMATED GFR IS CALCULATED USING THE 2020 CKD-EPI EQUATION. THE FOLLOWING CATEGORIES FOR GRADING RENAL FUNCTION ARE RECOMMENDED BY THE INTERNATIONAL [employer] OF NEPHROLOGY (KDIGO 2012 CLINICAL PRACTICE GUIDELINE). G1,NORMAL OR HIGH: >89 ml/min/1.73 m2 G2,MILDLY DECREASED: 60-89 ml/min/1.73 m2 G3A,MILDLY TO MODERATELY DECREASED: 45-59 ml/min/1.73 m2 G3B,MODERATELY TO SEVERELY DECREASED: 30-44 ml/min/1.73 m2 G4,SEVERELY DECREASED: 15-29 ml/min/1.73 m2 G5,KIDNEY FAILURE: <15 ml/min/1.73 m2 ??? BILIRUBIN TOTAL S/P/B 11/24/2022 2.8 (H) 0.2 - 1.0 MG/DL Final ??? BILIRUBIN DIRECT S/P/B 11/24/2022 1.6 (H) 0.0 - 0.2 MG/DL Final ??? ALKALINE PHOSPHATASE S/P/B 11/24/2022 268 (H) 37 - 98 U/L Final ??? AST 11/24/2022 175 (H) 15 - 37 U/L Final ??? ALT 11/24/2022 349 (H) 13 - 56 U/L Final ??? TOTAL PROTEIN S/P/B 11/24/2022 5.6 (L) 6.4 - 8.2 G/DL Final ??? ALBUMIN S/P/B 11/24/2022 2.8 (L) 3.4 - 5.0 G/DL Final ??? GLUCOSE POC 11/24/2022 60 (L) 70 - 109 Final ??? GLUCOSE POC 11/24/2022 108 70 - 109 Final ??? WBC 11/24/2022 4.77 4.00 - 10.80 x10'3/uL Final ??? RBC 11/24/2022 3.81 (L) 4.10 - 5.40 x10'6/uL Final ??? HGB 11/24/2022 11.5 (L) 12.0 - 16.0 G/DL Final ??? HCT 11/24/2022 35.0 (L) 36.0 - 47.0 % Final ??? MCV 11/24/2022 91.9 78.0 - 100.0 FL Final ??? MCH 11/24/2022 30.2 27.0 - 31.0 PG Final ??? MCHC 11/24/2022 32.9 (L) 33.0 - 36.0 G/DL Final ??? RDW 11/24/2022 11.9 11.5 - 14.5 % Final ??? PLT 11/24/2022 261 150 - 350 x10'3/uL Final ??? MPV 11/24/2022 8.6 7.4 - 10.4 FL Final ??? GLUCOSE POC 11/24/2022 89 70 - 109 Final ??? GLUCOSE POC 11/24/2022 90 70 - 109 Final ??? SODIUM S/P/B 11/25/2022 141 136 - 145 MMOL/L Final ??? POTASSIUM S/P/B 11/25/2022 3.5 3.5 - 5.1 MMOL/L Final ??? CHLORIDE S/P/B 11/25/2022 109 (H) 98 - 107 MMOL/L Final ??? CO2 11/25/2022 27.4 21.0 - 32.0 MMOL/L Final ??? GLUCOSE 11/25/2022 153 (H) 74 - 106 MG/DL Final ??? BUN 11/25/2022 2 (L) 7 - 18 MG/DL Final ??? CREATININE S/P/B 11/25/2022 0.71 0.55 - 1.02 MG/DL Final ??? CALCIUM S/P/B 11/25/2022 8.0 (L) 8.5 - 10.1 MG/DL Final ??? ANION GAP 11/25/2022 4.6 (L) 5.0 - 15.0 MMOL/L Final ??? OSMOLALITY (CALC) 11/25/2022 291 MOSM/KG Final REFERENCE RANGE NOT ESTABLISHED ? ? GFR ESTIMATE 11/25/2022 >90 >90 ML/MIN/1.73 M2 Final ??? GFR NOTES 11/25/2022 GFR REFERENCES: Final Comment: THE ESTIMATED GFR IS CALCULATED USING THE 2020 CKD-EPI EQUATION. THE FOLLOWING CATEGORIES FOR GRADING RENAL FUNCTION ARE RECOMMENDED BY THE [employer]NATIONAL [employer]Y OF NEPHROLOGY (KDIGO 2012 CLINICAL PRACTICE GUIDELINE). G1,NORMAL OR HIGH: >89 ml/min/1.73 m2 G2,MILDLY DECREASED: 60-89 ml/min/1.73 m2 G3A,MILDLY TO MODERATELY DECREASED: 45-59 ml/min/1.73 m2 G3B,MODERATELY TO SEVERELY DECREASED: 30-44 ml/min/1.73 m2 G4,SEVERELY DECREASED: 15-29 ml/min/1.73 m2 G5,KIDNEY FAILURE: <15 ml/min/1.73 m2 ??? WBC 11/25/2022 9.50 4.00 - 10.80 x10'3/uL Final ??? RBC 11/25/2022 3.82 (L) 4.10 - 5.40 x10'6/uL Final ??? HGB 11/25/2022 11.8 (L) 12.0 - 16.0 G/DL Final ??? HCT 11/25/2022 35.0 (L) 36.0 - 47.0 % Final ??? MCV 11/25/2022 91.6 78.0 - 100.0 FL Final ??? MCH 11/25/2022 30.9 27.0 - 31.0 PG Final ??? MCHC 11/25/2022 33.7 33.0 - 36.0 G/DL Final ??? RDW 11/25/2022 12.3 11.5 - 14.5 % Final ??? PLT 11/25/2022 309 150 - 350 x10'3/uL Final ??? MPV 11/25/2022 8.8 7.4 - 10.4 FL Final ??? BILIRUBIN TOTAL S/P/B 11/25/2022 1.7 (H) 0.2 - 1.0 MG/DL Final ??? BILIRUBIN DIRECT S/P/B 11/25/2022 0.9 (H) 0.0 - 0.2 MG/DL Final ??? ALKALINE PHOSPHATASE S/P/B 11/25/2022 270 (H) 37 - 98 U/L Final ??? AST 11/25/2022 186 (H) 15 - 37 U/L Final ??? ALT 11/25/2022 347 (H) 13 - 56 U/L Final ??? TOTAL PROTEIN S/P/B 11/25/2022 6.0 (L) 6.4 - 8.2 G/DL Final ??? ALBUMIN S/P/B 11/25/2022 2.9 (L) 3.4 - 5.0 G/DL Final ??? MAGNESIUM 11/25/2022 1.6 1.6 - 2.6 MG/DL Final ??? PHOSPHORUS 11/25/2022 2.8 2.5 - 4.9 MG/DL Final Current Facility-Administered Medications: ??? acetaminophen (TYLENOL) tablet 650 mg, 650 mg, Oral, Q6H, Tatiana Hughes MD ??? dextrose (GLUTOSE) 40 % oral gel 37.5-75 g, 15-30 g of dextrose, Oral, PRN, Brent Godinez MD ??? dextrose 10 % bolus infusion 125-250 mL, 125-250 mL, Intravenous, PRN, Brent Godinez MD ??? dextrose 5 %-sodium chloride 0.45 % infusion, , Intravenous, Continuous, Chelita Hall, [facility]-, Last Rate: 125 mL/hr at 11/25/22 0540, New Bag at 11/25/22 0540 ??? enoxaparin (LOVENOX) 40 MG/0.4ML syringe 40 mg, 40 mg, Subcutaneous, Nightly (enoxaparin), 40 mg at 11/24/222129 AND [COMPLETED] Moderate Risk for VTE, , , Once, Davi Reed III, MD ??? glucagon injection 1 mg, 1 mg, Intramuscular, Once PRN, Brent Godinez MD ??? HYDROcodone-acetaminophen (NORCO) 5-325 MG tablet 1 tablet, 1 tablet, Oral, Q6H PRN, Tatiana Hughes MD ??? HYDROmorphone (DILAUDID) injection 0.5 mg, 0.5 mg, Intravenous, Q4H PRN, Tatiana Hughes MD ??? naLOXone (NARCAN) injection 0.4 mg, 0.4 mg, Intravenous, PRN, Davi Reed III, MD ??? normal saline 0.9 % flush 3-10 mL, 3-10 mL, Intravenous, Q8H, Davi Reed III, MD, 10 mL at 11/25/22 0150 ??? normal saline 0.9 % flush 3-10 mL, 3-10 mL, Intravenous, PRN, Davi Reed III, MD ??? ondansetron (ZOFRAN) injection 4 mg, 4 mg, Intravenous, Q8H PRN, Davi Reed III, MD, 4 mgat 11/24/22 1245 ??? piperacillin-tazobactam (ZOSYN) 3.375 g in sodium chloride 0.9 % 50 mL IVPB, 3.375 g, Intravenous, Q8H, Davi Reed III, MD, Last Rate: 12.5 mL/hr at 11/25/22 0540, 3.375 g at 11/25/22 0540 ??? polyethylene glycol (GLYCOLAX) packet 17 g, 17 g, Oral, Daily PRN, Davi Reed III, MD Physical Exam Temp: [97.5 ??F (36.4 ??C)-98.4 ??F (36.9 ??C)] 98 ??F (36.7 ??C) Pulse: [59-85] 70 Resp: [16-18] 16 BP: (102-153)/(47-89) 124/72 General: No acute distress, well developed, well nourished Respiratory: Lungs are CTA, respirations are non-labored Cardiovascular: Normal rate, regular rhythm, No edema Gastrointestinal: soft, expected incisional tenderness, band aids over portal incisions, BS+ Musculoskeletal: Moves all 4 extremities Integumentary: Warm, Dry, Intact Extremity: Warm, well perfused, no edema Neurological: Alert, oriented Psychiatric: Cooperative, Appropriate mood and affect Cosigned by Glenn Mullins MD at 11/25/2022 7:10 PM CDT Associated attestation - Glenn Mullins MD - 11/25/2022 7:10 PM CDT I reviewed with Kar Mendoza NP the medical history and her findings on physical examination. I discussed the patient???s diagnosis and concur with the treatment plan as documented in her note, unlessotherwise specified below. Patient underwent laparoscopic cholecystectomy yesterday. The operative report shows that there appears to be a filling defect in the distal common bile duct. I reviewed these findings with her. She is set up for an ERCP with me tomorrow. I once again discussed with her the risk, benefits, alternatives to an ERCP which include but are not limited to bleeding, infection, perforation, medication reaction, inability to cannulate the bile duct, the need for repeated procedures, the need for stent placement, the 5% chance for pancreatitis (interstitial or necrotizing), cardiovascular collapse, . She understands and wishes to proceed. * Brent Godinez MD - 11/24/2022 12:45 PM CDT Progress note Chief complaint: Abnormal LFTs, right upper quadrant pain Subjective Patient seen and examined. Patient denies any complaints of fever, chills reports intermittent abdominal pain Review of Systems All other systems reviewed and are negative. OBJECTIVE Patient Vitals for the past 24 hrs: BP Temp Temp src Pulse Resp SpO2 11/24/22 1100 118/76 98.3 ??F (36.8 ??C) -- 60 16 95 % 11/24/22 0100 117/71 98.2 ??F (36.8 ??C) Oral 78 18 100 % Physical Exam Constitutional: Appearance: She is well-developed. HENT: Head: Normocephalic and atraumatic. Eyes: Pupils: Pupils are equal, round, and reactive to light. Cardiovascular: Rate and Rhythm: Normal rate and regular rhythm. Heart sounds: No murmur heard. No friction rub. Pulmonary: Effort: No respiratory distress. Breath sounds: No wheezing or rales. Chest: Chest wall: No tenderness. Abdominal: General: Bowel sounds are normal. Palpations: Abdomen is soft. Tenderness: There is abdominal tenderness. There is no guarding or rebound. Comments: Right upper quadrant Musculoskeletal: General: Normal range of motion. Cervical back: Normal range of motion and neck supple. Skin: General: Skin is warm and dry. Findings: No rash. Neurological: Mental Status: She is alert and oriented to person, place, and time. LABS:. Recent Labs 11/22/22185811/23/22 0404 11/24/22 0544 WBC 7.71 5.33 4.77 HGB 13.1 12.0 11.5* HCT 39.1 36.6 35.0* MCV 91.1 93.4 91.9 PLT 308 279 261 RBC 4.29 3.92* 3.81* Recent Labs Lab 11/22/22185811/23/22 0404 11/24/22 0544 NA 137 144 140 K 3.7 3.6 3.4* CL 101 110* 108* CO2 28.3 26.1 26.5 AGAP 7.7 7.9 5.5 BUN 9 6* 6* CR 0.73 0.66 0.71 GLU 100* 80 93 CA 8.9 8.2* 8.1* TP 6.9 5.8* 5.6* ALB 3.5 2.8* 2.8* TBIL 2.2* 2.3* 2.8* ALKP 338* 266* 268* AST 626* 472* 175* ALT 518* 479* 349* No intake or output data in the 24 hours ending 11/24/22 1245 RADIOLOGY : REVIEWED MEDICATIONS Scheduled medications enoxaparin 40 mg Subcutaneous Nightly (enoxaparin) normal saline 3-10 mL Intravenous Q8H piperacillin-tazobactam 3.375 g Intravenous Q8H Infusion dextrose 5 %-sodium chloride 0.45 % 125 mL/hr at 11/24/22 0126 PRN acetaminophen, glucose, dextrose 10 % bolus, glucagon, morphine, morphine, naLOXone, normal saline,ondansetron, polyethylene glycol ASSESSMENT /PLAN Cholecystitis Acute cholecystitis Acute cholecystitis Choledocholithiasis Abnormal LFTs Surgery, GI on consult MRCP results reviewed Continue IV fluids, antibiotics Further recommendations per surgery, gastroenterology Follow cultures. Trend LFTs DVT Prophylaxis: Subcu enoxaparin Code status: Full Code BRENT GODINEZ MD documented in this encounter H&P Notes * Glenn Mullins MD - 11/26/2022 7:19 AM CDT HISTORY AND PHYSICAL INTERVAL NOTE: I have reviewed Catie Mcdonald History & Physical which was performed within the past 30 days. After examining Catie Mcdonald, no change has occurred in the patient's condition since the H&P was completed. Informed Consent Discussion: Potential benefits, risks, and side effects of the patient's procedure/surgery; the likelihood of the patient achieving his or her goals; and any potential problems that might occur during recuperation were discussed with the patient/family/personal in store marketing representative. Reasonable alternatives to the patient's proposed procedure/surgery including benefits, risks, and side effects related to the alternatives and the risks related to not receiving the proposed care were also discussed with the patient/family/personal in store marketing representative. Questions were answered and the patient/family/personal in store marketing representative verbalized understanding and desires to proceed. Source Note - Kar Mendoza NP - 11/24/2022 9:30 AM CDT [facility] Consult Note Impression and Plan 27-year-old female H anxiety transferred 11/23 from [facility] ED with CT findings of acute cholecystitisand choledocholithiasis. [facility] consulted 11/24 for choledocholithiasis noted on MRCP. Acute cholecystitis Choledocholithiasis Anxiety , 10 months --Patient presented to the emergency department at [facility] on 11/22 evening for complaints of abdominal pain x1 week. She had previously been evaluated in the emergency department at [facility] 2 prior times. Work-up each time was essentially unremarkable. [facility] as her abdominal pain had continued toworsen. She denies any fever or chills. She denied melena, hematochezia, hematemesis, chest pain orshortness of breath. There has been some associated nausea and vomiting. -- CT abdomen/pelvis with contrast in comparison to images on 11/19, showed significant interval change with interval enlargement of the gallbladder with pericholecystic fluid in the gallbladder fossaand Morison's pouch. Faintly calcified gallstones in the neck of the gallbladder possibly seen. Hepatic duct and CBD both measure 6 mm. -- MRCP on 11/23 noted for gallbladder wall thickening and cystic duct stone consistent with acute cholecystitis as well as dilatation of the CBD with small filling defect proximal to the ampulla. Findings are favored to represent choledocholithiasis. -- General surgery was consulted 11/23. Lap ifrah discussed with the patient, timing to be determined. [facility] was consulted on 11/24 morning to evaluate for choledocholithiasis noted on MRCP exam and discuss ERCP intervention with the patient. With the assistance of an anatomical diagram, I described tothe patient the natural history and pathophysiology of CBD stricture and pancreatitis. I discussed the alternatives to ERCP and in detail discussed the risks and benefits of ERCP which include (but are not limited to), pancreatitis (3-25%), perforation (1-5%), infection (1-3%) including endoscope associated infections (<1%), inability to cannulate the biliary or pancreatic duct, or significanthemorrhage (1-4%) which can require urgent surgical intervention or prolonged hospital stay. This will be arranged for 11/[address] Mullins. Time of procedure to be determined. GI recommendations -No dietary restrictions from GI standpoint at this time. Patient will need to be n.p.o. starting at midnight tomorrow night. -We will plan for ERCP on 11/[address] Mullins. Time the procedure is to be determined. -Patient is currently on Lovenox for DVT prophylaxis. Lovenox will need to be held on the day of procedure. -Supportive care per primary team Thank you for the consultation. [facility] will continue to follow. KAR MENDOZA NP [facility] Gastroenterology 11/24/2022 Basic Information History obtained from patient and medical record History limitation includes none Chief Complaint Acute cholecystitis with choledocholithiasis History of Present illness 27-year-old female H anxiety transferred 11/23 from [facility] ED with CT findings of acute cholecystitisand choledocholithiasis. [facility] consulted 11/24 for choledocholithiasis noted on MRCP. Patient presented to the emergency department at [facility] on 11/22 evening for complaints of abdominal pain x1 week. She had previously been evaluated in the emergency department at [facility] 2 prior times. Work-up each time was essentially unremarkable. She return to the emergency department evening for another evaluation as her abdominal pain had continued to worsen. She denies any fever or chills. She denied melena, hematochezia, hematemesis, chest pain or shortness of breath. There has been some associated nausea and vomiting. CT abdomen/pelvis with contrast in comparison to images on 11/19, showed significant interval change with interval enlargement of the gallbladder with pericholecystic fluid in the gallbladder fossa and Morison's pouch. Faintly calcified gallstones in the neck of the gallbladder possibly seen. Hepatic duct and CBD both measure 6 mm. MRCP on 11/23 noted for gallbladder wall thickening and cystic duct stone consistent with acute cholecystitis as well as dilatation of the CBD with small filling defect proximal to the ampulla. Findings are favor ed to represent choledocholithiasis. General surgery was consulted 11/23. Lap ifrah discussed with the patient, timing to be determined. Review of Systems General: Negative Eyes: Negative Lymphatic: Negative Pulmonary: Negative Cardiovascular: Negative Gastrointestinal: abd pain, n/v prior to admission. Now reporting only abdominal pain. Denies diarrhea, constipation, melena, hematochezia, hematemesis Genitourinary: Negative MSK: Negative Neuro: Negative Psych: Negative Review of patient's allergies indicates: Patient has no known allergies. Current Facility-Administered Medications: ??? acetaminophen (TYLENOL) tablet 650 mg, 650 mg, Oral, Q4H PRN, Davi Reed III, MD ??? dextrose (GLUTOSE) 40 % oral gel 37.5-75 g, 15-30 g of dextrose, Oral, PRN, Brent Godinez MD ??? dextrose 10 % bolus infusion 125-250 mL, 125-250 mL, Intravenous, PRN, Brent Godinez MD ??? dextrose 5 %-sodium chloride 0.45 % infusion, , Intravenous, Continuous, Chelita Hall, [facility]-, Last Rate: 125 mL/hr at 11/24/226, New Bag at 11/24/22 012 ??? enoxaparin (LOVENOX) 40 MG/0.4ML syringe 40 mg, 40 mg, Subcutaneous, Nightly (enoxaparin), 40 mg at 11/23/22 2100 AND [COMPLETED] Moderate Risk for VTE, , , Once, Davi Reed III, MD ??? glucagon injection 1 mg, 1 mg, Intramuscular, Once PRN, Brent Godinez MD ??? morphine injection 2 mg, 2 mg, Intravenous, Q3H PRN, Davi Reed III, MD, 2 mg at ??? morphine injection 4 mg, 4 mg, Intravenous, Q2H PRN, Davi Reed III, MD ??? naLOXone (NARCAN) injection 0.4 mg, 0.4 mg, Intravenous, PRN, Davi Reed III, MD ??? normal saline 0.9 % flush 3-10 mL, 3-10 mL, Intravenous, Q8H, Davi Reed III, MD ??? normal saline 0.9 % flush 3-10 mL, 3-10 mL, Intravenous, PRN, Davi Reed III, MD ??? ondansetron (ZOFRAN) injection 4 mg, 4 mg, Intravenous, Q8H PRN, Davi Reed III, MD, 4 mgat 11/24/22323 ??? piperacillin-tazobactam (ZOSYN) 3.375 g in sodium chloride 0.9 % 50 mL IVPB, 3.375 g, Intravenous, Q8H, Davi Reed III, MD, Last Rate: 12.5 mL/hr at 11/24/22413, 3.375 g at 11/24/22413 ??? polyethylene glycol (GLYCOLAX) packet 17 g, 17 g, Oral, Daily PRN, Davi Reed III, MD Prior to Admission medications Medication Sig Start Date End Date Taking? Authorizing Provider buPROPion XL (WELLBUTRIN XL) 150 MG 24 hr tablet Take 1 tablet (150 mg total) by mouth daily. 04/30/22 Yes Default History Genericprovider escitalopram (LEXAPRO) 20 MG tablet Take 1 tablet (20 mg total) by mouth daily. 08/16/22 Yes DefaultHistory Genericprovider HYDROcodone-acetaminophen (NORCO) 5-325 MG tablet Take 1-2 tablets by mouth every 6 (six) hours as needed for Pain. Indications: Acute Pain < 7 Day Supply 11/20/22 Yes Laura Pham MD ondansetron (ZOFRAN-ODT) 4 MG disintegrating tablet Take 1 tablet (4 mg total) by mouth every 6 (six) hours as needed for Nausea. 11/19/22 Yes Andrew Braun MD pantoprazole EC (PROTONIX) 40 MG tablet Take 1 tablet (40 mg total) by mouth daily. 11/19/22 Yes Andrew Braun MD vitamin, low iron, ( VITAMIN WITH IRON) 27-0.8 MG tablet Take by mouth daily. Yes Default History Genericprovider Past Medical History: Diagnosis Date ??? Anxiety disorder, unspecified No past surgical history on file. Family History Problem Relation Name Age of Onset ??? Hypertension Father reports that she has never smoked. She has never been exposed to tobacco smoke. She has never used smokeless tobacco. She reports current drug use. Drug: Marijuana. She reports that she does not drink alcohol. Physical Exam Temp: [98.2 ??F (36.8 ??C)] 98.2 ??F (36.8 ??C) Pulse: [78] 78 Resp: [18] 18 BP: (117)/(71) 117/71 General: Nontoxic, mild distress due to anxiety, well developed, well nourished Eyes: Sclera not icteric, EOMI HENT: Normocephalic, moist oral mucosa, supple, Respiratory: Lungs are CTA, respirations are non-labored, breath sounds are equal Cardiovascular: Normal rate, regular rhythm, No edema Gastrointestinal: Soft, RUQ tender, bowel sounds normal Musculoskeletal: Moves all 4 extremities Integumentary: Warm, Dry, Intact Extremity: Warm, well perfused, no edema Neurological: Alert, oriented, normal motor function Psychiatric: Cooperative, anxious-patient has 3 small children at home, youngest is 10 months old and being forced to wean. Patient also shared that her quit his job to be able to stay at home to care for the children during her admission,, normal judgement Admission on 11/23/2022 Component Date Value Ref Range Status ??? WBC 11/23/2022 5.33 4.00 - 10.80 x10'3/uL Final ??? RBC 11/23/2022 3.92 (L) 4.10 - 5.40 x10'6/uL Final ??? HGB 11/23/2022 12.0 12.0 - 16.0 G/DL Final ??? HCT 11/23/2022 36.6 36.0 - 47.0 % Final ??? MCV 11/23/2022 93.4 78.0 - 100.0 FL Final ??? MCH 11/23/2022 30.6 27.0 - 31.0 PG Final ??? MCHC 11/23/2022 32.8 (L) 33.0 - 36.0 G/DL Final ??? RDW 11/23/2022 12.1 11.5 - 14.5 % Final ??? PLT 11/23/2022 279 150 - 350 x10'3/uL Final ??? MPV 11/23/2022 9.4 7.4 - 10.4 FL Final ??? ABS. NEUTROPHILS 11/23/2022 3.34 1.60 - 8.30 x10'3/uL Final ??? ABS. LYMPHOCYTES 11/23/2022 1.44 0.80 - 4.70 x10'3/uL Final ??? ABS. MONOCYTES 11/23/2022 0.42 0.00 - 1.50 x10'3/uL Final ??? ABS. EOSINOPHILS 11/23/2022 0.08 0.00 - 0.40 x10'3/uL Final ??? ABS. BASOPHILS 11/23/2022 0.03 0.00 - 0.20 x10'3/uL Final ??? ABS. IMMATURE GRANULOCYTES 11/23/2022 0.02 0.00 - 0.03 x10'3/uL Final ??? ABS. NUCLEATED RBC'S 11/23/2022 0.00 0.0 x10'3/uL Final ??? SODIUM S/P/B 11/23/2022 144 136 - 145 MMOL/L Final ??? POTASSIUM S/P/B 11/23/2022 3.6 3.5 - 5.1 MMOL/L Final ??? CHLORIDE S/P/B 11/23/2022 110 (H) 98 - 107 MMOL/L Final ??? CO2 11/23/2022 26.1 21.0 - 32.0 MMOL/L Final ??? GLUCOSE 11/23/2022 80 74 - 106 MG/DL Final ??? BUN 11/23/2022 6 (L) 7 - 18 MG/DL Final ??? CREATININE S/P/B 11/23/2022 0.66 0.55 - 1.02 MG/DL Final ??? CALCIUM S/P/B 11/23/2022 8.2 (L) 8.5 - 10.1 MG/DL Final ??? BILIRUBIN TOTAL S/P/B 11/23/2022 2.3 (H) 0.2 - 1.0 MG/DL Final ??? ALKALINE PHOSPHATASE S/P/B 11/23/2022 266 (H) 37 - 98 U/L Final ??? AST 11/23/2022 472 (H) 15 - 37 U/L Final ??? ALT 11/23/2022 479 (H) 13 - 56 U/L Final ??? TOTAL PROTEIN S/P/B 11/23/2022 5.8 (L) 6.4 - 8.2 G/DL Final ??? ALBUMIN S/P/B 11/23/2022 2.8 (L) 3.4 - 5.0 G/DL Final ??? ANION GAP 11/23/2022 7.9 5.0 - 15.0 MMOL/L Final ??? OSMOLALITY (CALC) 11/23/2022 295 MOSM/KG Final REFERENCE RANGE NOT ESTABLISHED ? ? GFR ESTIMATE 11/23/2022 >90 >90 ML/MIN/1.73 M2 Final ??? GFR NOTES 11/23/2022 GFR REFERENCES: Final Comment: THE ESTIMATED GFR IS CALCULATED USING THE 2020 CKD-EPI EQUATION. THE FOLLOWING CATEGORIES FOR GRADING RENAL FUNCTION ARE RECOMMENDED BY THE INTERNATIONAL SOCIETY OF NEPHROLOGY (KDIGO 2012 CLINICAL PRACTICE GUIDELINE). G1,NORMAL OR HIGH: >89 ml/min/1.73 m2 G2,MILDLY DECREASED: 60-89 ml/min/1.73 m2 G3A,MILDLY TO MODERATELY DECREASED: 45-59 ml/min/1.73 m2 G3B,MODERATELY TO SEVERELY DECREASED: 30-44 ml/min/1.73 m2 G4,SEVERELY DECREASED: 15-29 ml/min/1.73 m2 G5,KIDNEY FAILURE: <15 ml/min/1.73 m2 ??? GLUCOSE POC 11/23/2022 65 (L) 70 - 109 Final ??? SODIUM S/P/B 11/24/2022 140 136 - 145 MMOL/L Final ??? POTASSIUM S/P/B 11/24/2022 3.4 (L) 3.5 - 5.1 MMOL/L Final ??? CHLORIDE S/P/B 11/24/2022 108 (H) 98 - 107 MMOL/L Final ??? CO2 11/24/2022 26.5 21.0 - 32.0 MMOL/L Final ??? GLUCOSE 11/24/2022 93 74 - 106 MG/DL Final ??? BUN 11/24/2022 6 (L) 7 - 18 MG/DL Final ??? CREATININE S/P/B 11/24/2022 0.71 0.55 - 1.02 MG/DL Final ??? CALCIUM S/P/B 11/24/2022 8.1 (L) 8.5 - 10.1 MG/DL Final ??? ANION GAP 11/24/2022 5.5 5.0 - 15.0 MMOL/L Final ??? OSMOLALITY (CALC) 11/24/2022 287 MOSM/KG Final REFERENCE RANGE NOT ESTABLISHED ? ? GFR ESTIMATE 11/24/2022 >90 >90 ML/MIN/1.73 M2 Final ??? GFR NOTES 11/24/2022 GFR REFERENCES: Final Comment: THE ESTIMATED GFR IS CALCULATED USING THE 2020 CKD-EPI EQUATION. THE FOLLOWING CATEGORIES FOR GRADING RENAL FUNCTION ARE RECOMMENDED BY THE INTERNATIONAL SOCIETY OF NEPHROLOGY (KDIGO 2012 CLINICAL PRACTICE GUIDELINE). G1,NORMAL OR HIGH: >89 ml/min/1.73 m2 G2,MILDLY DECREASED: 60-89 ml/min/1.73 m2 G3A,MILDLY TO MODERATELY DECREASED: 45-59 ml/min/1.73 m2 G3B,MODERATELY TO SEVERELY DECREASED: 30-44 ml/min/1.73 m2 G4,SEVERELY DECREASED: 15-29 ml/min/1.73 m2 G5,KIDNEY FAILURE: <15 ml/min/1.73 m2 ??? BILIRUBIN TOTAL S/P/B 11/24/2022 2.8 (H) 0.2 - 1.0 MG/DL Final ??? BILIRUBIN DIRECT S/P/B 11/24/2022 1.6 (H) 0.0 - 0.2 MG/DL Final ??? ALKALINE PHOSPHATASE S/P/B 11/24/2022 268 (H) 37 - 98 U/L Final ??? AST 11/24/2022 175 (H) 15 - 37 U/L Final ??? ALT 11/24/2022 349 (H) 13 - 56 U/L Final ??? TOTAL PROTEIN S/P/B 11/24/2022 5.6 (L) 6.4 - 8.2 G/DL Final ??? ALBUMIN S/P/B 11/24/2022 2.8 (L) 3.4 - 5.0 G/DL Final ??? GLUCOSE POC 11/24/2022 60 (L) 70 - 109 Final ??? GLUCOSE POC 11/24/2022 108 70 - 109 Final ??? WBC 11/24/2022 4.77 4.00 - 10.80 x10'3/uL Final ??? RBC 11/24/2022 3.81 (L) 4.10 - 5.40 x10'6/uL Final ??? HGB 11/24/2022 11.5 (L) 12.0 - 16.0 G/DL Final ??? HCT 11/24/2022 35.0 (L) 36.0 - 47.0 % Final ??? MCV 11/24/2022 91.9 78.0 - 100.0 FL Final ??? MCH 11/24/2022 30.2 27.0 - 31.0 PG Final ??? MCHC 11/24/2022 32.9 (L) 33.0 - 36.0 G/DL Final ??? RDW 11/24/2022 11.9 11.5 - 14.5 % Final ??? PLT 11/24/2022 261 150 - 350 x10'3/uL Final ??? MPV 11/24/2022 8.6 7.4 - 10.4 FL Final ??? GLUCOSE POC 11/24/2022 89 70 - 109 Final Admission on 11/22/2022, Discharged on 11/22/2022 Component Date Value Ref Range Status ??? WBC 11/22/2022 7.71 4.00 - 10.80 x10'3/uL Final ??? RBC 11/22/2022 4.29 4.10 - 5.40 x10'6/uL Final ??? HGB 11/22/2022 13.1 12.0 - 16.0 G/DL Final ??? HCT 11/22/2022 39.1 36.0 - 47.0 % Final ??? MCV 11/22/2022 91.1 78.0 - 100.0 FL Final ??? MCH 11/22/2022 30.5 27.0 - 31.0 PG Final ??? MCHC 11/22/2022 33.5 33.0 - 36.0 G/DL Final ??? RDW 11/22/2022 11.9 11.5 - 14.5 % Final ??? PLT 11/22/2022 308 150 - 350 x10'3/uL Final ??? MPV 11/22/2022 9.2 7.4 - 10.4 FL Final ??? CBC COMMENT 11/22/2022 Final Value:NORMAL REFERENCE RANGE NOT ESTABLISHED FOR THE PROPORTIONAL LEUKOCYTE DIFFERENTIAL. ??? NEUTROPHILS 11/22/2022 82.0 % Final ??? LYMPHOCYTES 11/22/2022 10.9 % Final ??? MONOCYTES 11/22/2022 6.0 % Final ??? EOSINOPHILS 11/22/2022 0.3 % Final ??? BASOPHILS 11/22/2022 0.5 % Final ??? IMMATURE GRANS 11/22/2022 0.3 % Final ??? NRBC 11/22/2022 0.0 % Final ??? ABS. NEUTROPHILS 11/22/2022 6.33 1.60 - 8.30 x10'3/uL Final ??? ABS. LYMPHOCYTES 11/22/2022 0.84 0.80 - 4.70 x10'3/uL Final ??? ABS. MONOCYTES 11/22/2022 0.46 0.00 - 1.50 x10'3/uL Final ??? ABS. EOSINOPHILS 11/22/2022 0.02 0.00 - 0.40 x10'3/uL Final ??? ABS. BASOPHILS 11/22/2022 0.04 0.00 - 0.20 x10'3/uL Final ??? ABS. IMMATURE GRANULOCYTES 11/22/2022 0.02 0.00 - 0.03 x10'3/uL Final ??? ABS. NUCLEATED RBC'S 11/22/2022 0.00 0.00 x10'3/uL Final ??? SODIUM S/P/B 11/22/2022 137 136 - 145 MMOL/L Final ??? POTASSIUM S/P/B 11/22/2022 3.7 3.5 - 5.1 MMOL/L Final ??? CHLORIDE S/P/B 11/22/2022 101 98 - 107 MMOL/L Final ??? CO2 11/22/2022 28.3 21.0 - 32.0 MMOL/L Final ??? GLUCOSE 11/22/2022 100 (H) 70 - 99 MG/DL Final Comment: FASTING GLUCOSE 100 TO 125 MG/DL IS CONSISTENT WITH IMPAIRED FASTING GLUCOSE. FASTING GLUCOSE >125 MG/DL IS CONSISTENT WITH DIABETES. RANDOM GLUCOSE >200 MG/DL WITH HYPERGLYCEMIC SYMPTOMS IS CONSISTENT WITH DIABETES. PER ADA GUIDELINES ??? BUN 11/22/2022 9 6 - 24 MG/DL Final ??? CREATININE S/P/B 11/22/2022 0.73 0.55 - 1.02 MG/DL Final ??? CALCIUM S/P/B 11/22/2022 8.9 8.4 - 10.5 MG/DL Final ??? BILIRUBIN TOTAL S/P/B 11/22/2022 2.2 (H) 0.2 - 1.0 MG/DL Final Comment: THIS ASSAY IS NOT RECOMMENDED FOR PATIENTS UNDERGOING TREATMENT WITH ELTROMBOPAG DUE TO THE POTENTIAL FOR FALSELY ELEVATED RESULTS. ??? ALKALINE PHOSPHATASE S/P/B 11/22/2022 338 (H) 37 - 98 U/L Final ??? AST 11/22/2022 626 (H) 15 - 37 U/L Final ??? ALT 11/22/2022 518 (H) 14 - 59 U/L Final ??? TOTAL PROTEIN S/P/B 11/22/2022 6.9 6.4 - 8.2 G/DL Final ??? ALBUMIN S/P/B 11/22/2022 3.5 3.4 - 5.0 G/DL Final ??? ANION GAP 11/22/2022 7.7 5.0 - 15.0 MMOL/L Final ??? OSMOLALITY (CALC) 11/22/2022 283 MOSM/KG Final REFERENCE RANGE NOT ESTABLISHED ? ? GFR ESTIMATE 11/22/2022 >90 >89 ML/MIN/1.73 M2 Final ??? GFR NOTES 11/22/2022 GFR REFERENCES: Final Comment: THE ESTIMATED GFR IS CALCULATED USING THE 2020 CKD-EPI EQUATION. THE FOLLOWING CATEGORIES FOR GRADING RENAL FUNCTION ARE RECOMMENDED BY THE INTERNATIONAL SOCIETY OF NEPHROLOGY (KDIGO 2012 CLINICAL PRACTICE GUIDELINE). G1,NORMAL OR HIGH: >89 ml/min/1.73 m2 G2,MILDLY DECREASED: 60-89 ml/min/1.73 m2 G3A,MILDLY TO MODERATELY DECREASED: 45-59 ml/min/1.73 m2 G3B,MODERATELY TO SEVERELY DECREASED: 30-44 ml/min/1.73 m2 G4,SEVERELY DECREASED: 15-29 ml/min/1.73 m2 G5,KIDNEY FAILURE: <15 ml/min/1.73 m2 ??? LIPASE 11/22/2022 15 (L) 16 - 77 UNITS/L Final ??? LACTIC ACID 11/22/2022 0.8 0.4 - 2.0 MMOL/L Final ??? TSH 11/22/2022 1.999 0.358 - 3.740 uIU/ML Final Comment: ASSAY PERFORMED BY CHEMILUMINESCENT IMMUNOASSAY METHODOLOGY USING [employer]. PATIENT RESULTS DETERMINED BY ASSAYS FROM DIFFERENT MANUFACTURERS AND/OR BY DIFFERENT METHODS MAY NOT BE COMPARABLE. ??? CANNABINOIDS SCREEN (U) 11/22/2022 POSITIVE (A) NEGATIVE Final ??? PHENCYCLIDINE PCP (U) 11/22/2022 NEGATIVE NEGATIVE Final ??? COCAINE METABOLITES (U) 11/22/2022 NEGATIVE NEGATIVE Final ??? METHAMPHETAMINE SCREEN (U) 11/22/2022 NEGATIVE NEGATIVE Final ??? OPIATE SCREEN (U) 11/22/2022 POSITIVE (A) NEGATIVE Final ??? AMPHETAMINE SCREEN (U) 11/22/2022 NEGATIVE NEGATIVE Final ??? BENZODIAZEPINES SCREEN (U) 11/22/2022 NEGATIVE NEGATIVE Final ??? TRICYCLIC ANTIDEPRESSANT SCREEN (U) 11/22/2022 NEGATIVE NEGATIVE Final ??? METHADONE (U) 11/22/2022 NEGATIVE NEGATIVE Final ??? BARBITURATES SCREEN (U) 11/22/2022 POSITIVE (A) NEGATIVE Final ??? OXYCODONE SCREEN (U) 11/22/2022 NEGATIVE NEGATIVE Final ??? PROPOXYPHENE SCREEN (U) 11/22/2022 NEGATIVE NEGATIVE Final ??? URINE TOX COMMENT 11/22/2022 Final Value:THIS TEST METHODOLOGY IS DESIGNED AND OFFERED A RAPID TURNAROUND, QUALITATIVE SCREENING PROCEDURE TO AID IN THE IMMEDIATE MEDICAL ASSESSMENT OF PATIENTS SUSPECTED OF SUBSTANCE ABUSE. Comment: CLINICAL CONSIDERATION AND PROFESSIONAL JUDGMENT MUST BE APPLIED TO ANY DRUG OF ABUSE TEST RESULT, BOTH POSITIVE AND NEGATIVE. CONFIRMATORY QUANTITATIVE RESULTS ARE AVAILABLE THROUGH OUR REFERENCE LABORATORY. ??? COLOR (U) 11/22/2022 DARK YELLOW Final ??? TRANSPARENCY 11/22/2022 SLIGHTLY CLOUDY Final ??? SPECIFIC GRAVITY (U) 11/22/2022 1.020 1.000 - 1.025 Final ??? U PH 11/22/2022 8.5 (H) 5.0 - 8.0 Final ??? LEUKOCYTES (U) 11/22/2022 NEGATIVE NEGATIVE Final ??? NITRITES 11/22/2022 NEGATIVE NEGATIVE Final ??? PROTEIN RANDOM (U) 11/22/2022 2+ (A) NEGATIVE Final ??? GLUCOSE (U) 11/22/2022 NEGATIVE NEGATIVE Final ??? KETONES (U) 11/22/2022 4+ (A) NEGATIVE Final ? ? UROBILINOGEN 11/22/2022 4.0 (H) <1.0 EU/DL Final ??? BLOOD (U) 11/22/2022 NEGATIVE NEGATIVE Final ??? WBC/HPF 11/22/2022 NONE SEEN (A) 0 - 5 /HPF Final ??? RBC/HPF 11/22/2022 0-5 0 - 5 /HPF Final ??? EPI/LPF 11/22/2022 FEW /LPF Final ??? BACTERIA (U) 11/22/2022 TRACE /HPF Final ??? MUCUS 11/22/2022 PRESENT Final ??? BILIRUBIN CONF ICTO (U) 11/22/2022 NEGATIVE NEGATIVE Final ??? REFLEX URINE CULTURE: 11/22/2022 NOT INDICATED Final ??? URINE HCG TEST 11/22/2022 NEGATIVE Final ??? SPECIFIC GRAVITY 11/22/2022 1.020 Final Cosigned by Glenn Mullins MD at 11/24/2022 5:20 PM CDT * Davi Reed III, MD - 11/23/2022 1:23 AM CDT [facility] Hospitalist History and Physical Date of Admission: 11/23/2022 PCP: NEENA DE DIOS Chief Complaint: Abdominal pain HPI: Catie Mcdonald is a 27-year-old female who has a PERSONALLY REVIEWED pertinent Past Family, Past Social, and Past Surgical history, and has a past medical history of Anxiety and depression GERD Patient states that about 1 week ago, she began having epigastric abdominal pain radiating throughout her abdomen. She had some associated nausea and vomiting. As of days progressed, the pain became more intense in the epigastric area. She reports pain with deep breathing and constipation. She went[facility] the ED at [facility] prior times for evaluation, and work-up was essentially unremarkable. She was started on ondansetron p.o. and PPI during these visits. Patient states that the pain has continued to worsen, so she returned to the ED at [facility] for further evaluation. She denies any fevers or chills. She denies diarrhea or blood in the stool. Of note, she is currently . In the ED, she was afebrile, pulse in the's 60s, respiratory 16, blood pressure 123/80, saturating normally on room air. CBC showed WBC 7.7, hemoglobin 13.1, platelets 308. CMP showed total bilirubin 2.2, alk phos 338, AST 626, ALT 519, lipase 15. AST and ALT had been normal on 11/19 and 11/20, and alkaline phosphatase had been 123 and 109 on those days respectively. Lactate negative. TSH normal at 1.999. test negative. UA showed 2+ protein, 4+ ketones, urobilinogen, trace bacteria. No leukocytes or nitrites. Urine drug screen was positive for barbiturates, cannabinoids, and opiates. CT of the abdomen pelvis with contrast, in comparison to a similar image on 11/19, showed significant interval change in the gallbladder and liver, with interval development of a zone of low-attenuation around the intrahepatic main portal vein and proximal aspect of the right left and middle portal veins consistent with interval development of periportal edema. There is mild interval enlargement of the gallbladder with large area of the fundus abutting the anterior abdominal wall and interval circumferential gallbladder wall thickening measuring 6 mm and there is pericholecystic fluid in the gallbladder fossa and Morison's pouch. No densely calcified gallstone. There may be faintly calcified gallstones in the neck of the gallbladder. The common hepatic duct and CBD both measures 6 mm. There appears to be wall enhancement of the distal common bile duct. No choledocholithiasis. Suspect interval development of cholecystitis and possible ascending cholangitis. No bowel obstruction or appendicitis or acute inflammatory change. Patient received IV fluids, IV PPI, antiemetics, morphine IV, and was started on Zosyn IV. General surgery was consulted and accept the patient for transfer. Patient was transferred for further care. Past Medical History: Past medical history has been reviewed, and pertinent medical history is included in the HPI. Patient has a past medical history of Anxiety disorder, unspecified. Home Medications: Prior to Admission medications Medication Sig Start Date End Date Taking? Authorizing Provider buPROPion XL (WELLBUTRIN XL) 150 MG 24 hr tablet Take 1 tablet (150 mg total) by mouth daily. 04/30/22 Yes Default History Genericprovider escitalopram (LEXAPRO) 20 MG tablet Take 1 tablet (20 mg total) by mouth daily. 08/16/22 Yes DefaultHistory Genericprovider HYDROcodone-acetaminophen (NORCO) 5-325 MG tablet Take 1-2 tablets by mouth every 6 (six) hours as needed for Pain. Indications: Acute Pain < 7 Day Supply 11/20/22 Yes Laura Pham MD ondansetron (ZOFRAN-ODT) 4 MG disintegrating tablet Take 1 tablet (4 mg total) by mouth every 6 (six) hours as needed for Nausea. 11/19/22 Yes Andrew Braun MD pantoprazole EC (PROTONIX) 40 MG tablet Take 1 tablet (40 mg total) by mouth daily. 11/19/22 Yes Andrew Braun MD vitamin, low iron, ( VITAMIN WITH IRON) 27-0.8 MG tablet Take by mouth daily. Yes Default History Genericprovider Social History: Social history has been reviewed, and pertinent social history is included in the HPI. Social History Socioeconomic History Marital status: Tobacco Use Smoking status: Never Passive exposure: Never Smokeless tobacco: Never Vaping Use Vaping Use: Never used Substance and Sexual Activity Alcohol use: Never Drug use: Yes Types: Marijuana Sexual activity: Yes Partners: Male Social Determinants of Health Financial Resource Strain: Low Risk Difficulty of Paying Living Expenses: Not hard at all Food Insecurity: No Food Insecurity Worried About Running Out of Food in the Last Year: Never true Ran Out of Food in the Last Year: Never true Transportation Needs: No Transportation Needs Lack of Transportation (Medical): No Lack of Transportation (Non-Medical): No Physical Activity: Insufficiently Active Days of Exercise per Week: 1 day Minutes of Exercise per Session: 10 min Stress: No Stress Concern Present Feeling of Stress : Not at all Social Connections: Moderately Isolated Frequency of Communication with Friends and Family: More than three times a week Frequency of Social Gatherings with Friends and Family: More than three times a week Attends Taoism Services: Never Active Member of Clubs or Organizations: No Attends Club or Organization Meetings: Never Marital Status: Intimate Partner Violence: Not At Risk Fear of Current or Ex-Partner: No Emotionally Abused: No Physically Abused: No Sexually Abused: No Housing Stability: Low Risk Unable to Pay for Housing in the Last Year: No Number of Places Lived in the Last Year: 2 Unstable Housing in the Last Year: No Surgical History: Surgical history has been reviewed, and pertinent surgical history is included in HPI. No past surgical history on file. Family History: Family history has been reviewed and is not pertinent to the history of present illness unless stated above. Family History Problem Relation Name Age of Onset Hypertension Father Review of systems: Full review of systems performed, negative apart from above and what is stated in HPI. PHYSICAL EXAM: Filed Vitals: 11/23/22 0100 BP: 133/75 Pulse: 68 Temp: 97.9 ??F (36.6 ??C) SpO2: 98% Weight: 95.4 kg (210 lb 5.1 oz) Height: 5' 5 (1.651 m) Physical Exam Vitals reviewed. Constitutional: General: She is not in acute distress. Appearance: Normal appearance. She is obese. She is not ill-appearing, toxic- appearing or diaphoretic. HENT: Head: Normocephalic and atraumatic. Right Ear: External ear normal. Left Ear: External ear normal. Nose: Nose normal. No congestion or rhinorrhea. Mouth/Throat: Mouth: Mucous membranes are moist. Pharynx: No oropharyngeal exudate or posterior oropharyngeal erythema. Eyes: General: No scleral icterus. Right eye: No discharge. Left eye: No discharge. Extraocular Movements: Extraocular movements intact. Cardiovascular: Rate and Rhythm: Normal rate and regular rhythm. Heart sounds: Normal heart sounds. No murmur heard. No friction rub. No gallop. Pulmonary: Effort: Pulmonary effort is normal. No respiratory distress. Breath sounds: Normal breath sounds. No stridor. No wheezing, rhonchi or rales. Chest: Chest wall: No tenderness. Abdominal: General: Abdomen is flat. Bowel sounds are normal. There is no distension. Palpations: Abdomen is soft. There is no mass. Tenderness: There is abdominal tenderness. There is no right CVA tenderness, left CVA tenderness, guarding or rebound. Hernia: No hernia is present. Comments: Mild epigastric tenderness with deep palpation Musculoskeletal: General: No swelling, tenderness, deformity or signs of injury. Normal range of motion. Cervical back: Normal range of motion and neck supple. No rigidity or tenderness. Right lower leg: No edema. Left lower leg: No edema. Lymphadenopathy: Cervical: No cervical adenopathy. Skin: General: Skin is warm and dry. Coloration: Skin is not jaundiced or pale. Findings: No bruising, erythema, lesion or rash. Neurological: General: No focal deficit present. Mental Status: She is alert and oriented to person, place, and time. Mental status is at baseline. Cranial Nerves: No cranial nerve deficit. Sensory: No sensory deficit. Motor: No weakness. Coordination: Coordination normal. Psychiatric: Mood and Affect: Mood normal. Behavior: Behavior normal. Thought Content: Thought content normal. Judgment: Judgment normal. Recent Labs Lab 11/19/22 1030 11/20/22 0737 11/22/22 1859 WBC 11.12* 12.83* 7.71 RBC 4.47 3.99* 4.29 HGB 13.8 12.5 13.1 HCT 40.8 36.5 39.1 MCV 91.3 91.5 91.1 MCH 30.9 31.3* 30.5 MCHC 33.8 34.2 33.5 PLT 266 227 308 RDW 11.9 11.9 11.9 MPV 9.2 9.1 9.2 PERNEU 80.4 85.3 82.0 PERLYM 11.6 6.9 10.9 PERMON 6.7 6.9 6.0 PEREOS 0.7 0.5 0.3 PERBASO 0.3 0.2 0.5 NEUC 8.95* 10.95* 6.33 LYMC 1.29 0.88 0.84 MONOC 0.74 0.89 0.46 EOSC 0.08 0.06 0.02 BASOC 0.03 0.02 0.04 , Recent Labs Lab 11/19/22 1030 11/20/22 0737 11/22/22 1859 NA 136 136 137 K 3.9 3.8 3.7 CL 101 102 101 CO2 27.4 26.0 28.3 AGAP 7.6 8.0 7.7 BUN 5* 7 9 CR 0.80 0.74 0.73 GLU 91 96 100* CA 9.0 8.9 8.9 TP 6.9 6.3* 6.9 ALB 3.8 3.5 3.5 TBIL 0.6 0.7 2.2* ALKP 123* 109* 338* AST 12* 13* 626* ALT 16 14 518* , No results for input(s): PTT, INR in the last 168 hours., No results for input(s): TROP, CPK, MB in the last 168 hours., Recent Labs Lab 11/22/22 1859 LACTICACID 0.8 , No results for input(s): PH, PCO2, PO2, [id number], BICARBWB, BASEDEFICIT, BASEEXCESS in the last 168 hours. and No results for input(s): BNP in the last 168 hours. Labs and imaging performed since admission were personally reviewed by me. Radiology Results (Last 48 hours) 11/22/221951 CT ABD+PEL W IV CON ONLY Final result Impression: IMPRESSION: 1. Significant interval change in the gallbladder and liver as above; suspect interval development of cholecystitis possible cholangitis 2. No calcified gallstone however there may be faintly calcified stone in the neck of the gallbladder. 3. Consider further evaluation which can begin with gallbladder ultrasound and or HIDA scan with CCK to check for common duct patency 4. No bowel obstruction or appendicitis or acute inflammatory change in the large or small bowel. Referred By: Interpreted By: Caitlin Pereira DO, 11/22/2022 8:04 PM No results found for this visit on 11/23/22. ~~~~~~~~~~~~~~~~~~~~~~~~~~~~~~~~~~~~~~~~~~~~ Present on Admission: Cholecystitis Acute cholecystitis ASSESSMENT AND PLAN: Abdominal pain, likely associated with acute cholecystitis, possibly acute cholangitis -Patient presents with above symptoms, abdominal pain, nausea, vomiting -She has been in the ED multiple times for abdominal pain recently, work-up has been essentially unremarkable until now -Found to have significantly elevated liver enzymes and elevated bilirubin -CT of the abdomen pelvis as above, showing evidence of cholecystitis and possibly ascending chondritis, no choledocholithiasis or densely calcified gallstones definitively seen -Surgery on consult, appreciate assistance -Continue Zosyn started at outside facility -IV fluids, pain control, antiemetics -Trend liver enzymes and bilirubin -Follow-up on blood cultures -N.p.o. until seen by surgery Anxiety and depression -Continue home antidepressants FEN Normal saline at 125 Monitor and replace electrolytes as necessary N.p.o. Prophylaxis Enoxaparin if no surgery is planned soon CODE STATUS: FULL CODE All pertinent labs, imaging, and orders have been personally reviewed by me. documented in this encounter Consult Notes * Kar Mendoza NP - 11/24/2022 9:30 AM CDT [facility] Consult Note Impression and Plan 27-year-old female H anxiety transferred 11/23 from [facility] ED with CT findings of acute cholecystitisand choledocholithiasis. [facility] consulted 11/24 for choledocholithiasis noted on MRCP. Acute cholecystitis Choledocholithiasis Anxiety , 10 months --Patient presented to the emergency department at [facility] on 11/22 evening for complaints of abdominal pain x1 week. She had previously been evaluated in the emergency department at [facility] 2 prior times. Work-up each time was essentially unremarkable. [facility] as her abdominal pain had continued toworsen. She denies any fever or chills. She denied melena, hematochezia, hematemesis, chest pain orshortness of breath. There has been some associated nausea and vomiting. -- CT abdomen/pelvis with contrast in comparison to images on 11/19, showed significant interval change with interval enlargement of the gallbladder with pericholecystic fluid in the gallbladder fossaand Morison's pouch. Faintly calcified gallstones in the neck of the gallbladder possibly seen. Hepatic duct and CBD both measure 6 mm. -- MRCP on 11/23 noted for gallbladder wall thickening and cystic duct stone consistent with acute cholecystitis as well as dilatation of the CBD with small filling defect proximal to the ampulla. Findings are favored to represent choledocholithiasis. -- General surgery was consulted 11/23. Lap ifrah discussed with the patient, timing to be determined. [facility] was consulted on 11/24 morning to evaluate for choledocholithiasis noted on MRCP exam and discuss ERCP intervention with the patient. With the assistance of an anatomical diagram, I described tothe patient the natural history and pathophysiology of CBD stricture and pancreatitis. I discussed the alternatives to ERCP and in detail discussed the risks and benefits of ERCP which include (but are not limited to), pancreatitis (3-25%), perforation (1-5%), infection (1-3%) including endoscope associated infections (<1%), inability to cannulate the biliary or pancreatic duct, or significanthemorrhage (1-4%) which can require urgent surgical intervention or prolonged hospital stay. This will be arranged for 11/[address] Mullins. Time of procedure to be determined. GI recommendations -No dietary restrictions from GI standpoint at this time. Patient will need to be n.p.o. starting at midnight tomorrow night. -We will plan for ERCP on 11/[address] Mullins. Time the procedure is to be determined. -Patient is currently on Lovenox for DVT prophylaxis. Lovenox will need to be held on the day of procedure. -Supportive care per primary team Thank you for the consultation. [facility] will continue to follow. KAR MENDOZA NP [facility] Gastroenterology 11/24/2022 Basic Information History obtained from patient and medical record History limitation includes none Chief Complaint Acute cholecystitis with choledocholithiasis History of Present illness 27-year-old female [facility] anxiety transferred 11/23 from [facility] ED with CT findings of acute cholecystitisand choledocholithiasis. [facility] consulted 11/24 for choledocholithiasis noted on MRCP. Patient presented to the emergency department at [facility] on 11/22 evening for complaints of abdominal pain x1 week. She had previously been evaluated in the emergency department at [facility] 2 prior times. Work-up each time was essentially unremarkable. She return to the emergency department evening for another evaluation as her abdominal pain had continued to worsen. She denies any fever or chills. She denied melena, hematochezia, hematemesis, chest pain or shortness of breath. There has been some associated nausea and vomiting. CT abdomen/pelvis with contrast in comparison to images on 11/19, showed significant interval change with interval enlargement of the gallbladder with pericholecystic fluid in the gallbladder fossa and Morison's pouch. Faintly calcified gallstones in the neck of the gallbladder possibly seen. Hepatic duct and CBD both measure 6 mm. MRCP on 11/23 noted for gallbladder wall thickening and cystic duct stone consistent with acute cholecystitis as well as dilatation of the CBD with small filling defect proximal to the ampulla. Findings are favor ed to represent choledocholithiasis. General surgery was consulted 11/23. Lap ifrah discussed with the patient, timing to be determined. Review of Systems General: Negative Eyes: Negative Lymphatic: Negative Pulmonary: Negative Cardiovascular: Negative Gastrointestinal: abd pain, n/v prior to admission. Now reporting only abdominal pain. Denies diarrhea, constipation, melena, hematochezia, hematemesis Genitourinary: Negative MSK: Negative Neuro: Negative Psych: Negative Review of patient's allergies indicates: Patient has no known allergies. Current Facility-Administered Medications: ??? acetaminophen (TYLENOL) tablet 650 mg, 650 mg, Oral, Q4H PRN, Davi Reed III, MD ??? dextrose (GLUTOSE) 40 % oral gel 37.5-75 g, 15-30 g of dextrose, Oral, PRN, Brent Godinez MD ??? dextrose 10 % bolus infusion 125-250 mL, 125-250 mL, Intravenous, PRN, Brent Godinez MD ??? dextrose 5 %-sodium chloride 0.45 % infusion, , Intravenous, Continuous, Chelita Hall, [facility], Last Rate: 125 mL/hr at 11/24/22 0126, New Bag at 11/24/22 0126 ??? enoxaparin (LOVENOX) 40 MG/0.4ML syringe 40 mg, 40 mg, Subcutaneous, Nightly (enoxaparin), 40 mg at 11/23/22 2100 AND [COMPLETED] Moderate Risk for VTE, , , Once, Davi Reed III, MD ??? glucagon injection 1 mg, 1 mg, Intramuscular, Once PRN, Brent Godinez MD ??? morphine injection 2 mg, 2 mg, Intravenous, Q3H PRN, Davi Reed III, MD, 2 mg at 834 ??? morphine injection 4 mg, 4 mg, Intravenous, Q2H PRN, Davi Reed III, MD ??? naLOXone (NARCAN) injection 0.4 mg, 0.4 mg, Intravenous, PRN, Davi Reed III, MD ??? normal saline 0.9 % flush 3-10 mL, 3-10 mL, Intravenous, Q8H, Davi Reed III, MD ??? normal saline 0.9 % flush 3-10 mL, 3-10 mL, Intravenous, PRN, Davi Reed III, MD ??? ondansetron (ZOFRAN) injection 4 mg, 4 mg, Intravenous, Q8H PRN, Davi Reed III, MD, 4 mgat 11/24/22 0324 ??? piperacillin-tazobactam (ZOSYN) 3.375 g in sodium chloride 0.9 % 50 mL IVPB, 3.375 g, Intravenous, Q8H, Davi Reed III, MD, Last Rate: 12.5 mL/hr at 11/24/22 0414, 3.375 g at 11/24/22 0414 ??? polyethylene glycol (GLYCOLAX) packet 17 g, 17 g, Oral, Daily PRN, Davi Reed III, MD Prior to Admission medications Medication Sig Start Date End Date Taking? Authorizing Provider buPROPion XL (WELLBUTRIN XL) 150 MG 24 hr tablet Take 1 tablet (150 mg total) by mouth daily. 04/30/22 Yes Default History Genericprovider escitalopram (LEXAPRO) 20 MG tablet Take 1 tablet (20 mg total) by mouth daily. 08/16/22 Yes DefaultHistory Genericprovider HYDROcodone-acetaminophen (NORCO) 5-325 MG tablet Take 1-2 tablets by mouth every 6 (six) hours as needed for Pain. Indications: Acute Pain < 7 Day Supply 11/20/22 Yes Laura Pham MD ondansetron (ZOFRAN-ODT) 4 MG disintegrating tablet Take 1 tablet (4 mg total) by mouth every 6 (six) hours as needed for Nausea. 11/19/22 Yes Andrew Braun MD pantoprazole EC (PROTONIX) 40 MG tablet Take 1 tablet (40 mg total) by mouth daily. 11/19/22 Yes Andrew Braun MD vitamin, low iron, ( VITAMIN WITH IRON) 27-0.8 MG tablet Take by mouth daily. Yes Default History Genericprovider Past Medical History: Diagnosis Date ??? Anxiety disorder, unspecified No past surgical history on file. Family History Problem Relation Name Age of Onset ??? Hypertension Father reports that she has never smoked. She has never been exposed to tobacco smoke. She has never used smokeless tobacco. She reports current drug use. Drug: Marijuana. She reports that she does not drink alcohol. Physical Exam Temp: [98.2 ??F (36.8 ??C)] 98.2 ??F (36.8 ??C) Pulse: [78] 78 Resp: [18] 18 BP: (117)/(71) 117/71 General: Nontoxic, mild distress due to anxiety, well developed, well nourished Eyes: Sclera not icteric, EOMI HENT: Normocephalic, moist oral mucosa, supple, Respiratory: Lungs are CTA, respirations are non-labored, breath sounds are equal Cardiovascular: Normal rate, regular rhythm, No edema Gastrointestinal: Soft, RUQ tender, bowel sounds normal Musculoskeletal: Moves all 4 extremities Integumentary: Warm, Dry, Intact Extremity: Warm, well perfused, no edema Neurological: Alert, oriented, normal motor function Psychiatric: Cooperative, anxious-patient has 3 small children at home, youngest is 10 months old and being forced to wean. Patient also shared that her quit his job to be able to stay at home to care for the children during her admission,, normal judgement Admission on 11/23/2022 Component Date Value Ref Range Status ??? WBC 11/23/2022 5.33 4.00 - 10.80 x10'3/uL Final ??? RBC 11/23/2022 3.92 (L) 4.10 - 5.40 x10'6/uL Final ??? HGB 11/23/2022 12.0 12.0 - 16.0 G/DL Final ??? HCT 11/23/2022 36.6 36.0 - 47.0 % Final ??? MCV 11/23/2022 93.4 78.0 - 100.0 FL Final ??? MCH 11/23/2022 30.6 27.0 - 31.0 PG Final ??? MCHC 11/23/2022 32.8 (L) 33.0 - 36.0 G/DL Final ??? RDW 11/23/2022 12.1 11.5 - 14.5 % Final ??? PLT 11/23/2022 279 150 - 350 x10'3/uL Final ??? MPV 11/23/2022 9.4 7.4 - 10.4 FL Final ??? ABS. NEUTROPHILS 11/23/2022 3.34 1.60 - 8.30 x10'3/uL Final ??? ABS. LYMPHOCYTES 11/23/2022 1.44 0.80 - 4.70 x10'3/uL Final ??? ABS. MONOCYTES 11/23/2022 0.42 0.00 - 1.50 x10'3/uL Final ??? ABS. EOSINOPHILS 11/23/2022 0.08 0.00 - 0.40 x10'3/uL Final ??? ABS. BASOPHILS 11/23/2022 0.03 0.00 - 0.20 x10'3/uL Final ??? ABS. IMMATURE GRANULOCYTES 11/23/2022 0.02 0.00 - 0.03 x10'3/uL Final ??? ABS. NUCLEATED RBC'S 11/23/2022 0.00 0.0 x10'3/uL Final ??? SODIUM S/P/B 11/23/2022 144 136 - 145 MMOL/L Final ??? POTASSIUM S/P/B 11/23/2022 3.6 3.5 - 5.1 MMOL/L Final ??? CHLORIDE S/P/B 11/23/2022 110 (H) 98 - 107 MMOL/L Final ??? CO2 11/23/2022 26.1 21.0 - 32.0 MMOL/L Final ??? GLUCOSE 11/23/2022 80 74 - 106 MG/DL Final ??? BUN 11/23/2022 6 (L) 7 - 18 MG/DL Final ??? CREATININE S/P/B 11/23/2022 0.66 0.55 - 1.02 MG/DL Final ??? CALCIUM S/P/B 11/23/2022 8.2 (L) 8.5 - 10.1 MG/DL Final ??? BILIRUBIN TOTAL S/P/B 11/23/2022 2.3 (H) 0.2 - 1.0 MG/DL Final ??? ALKALINE PHOSPHATASE S/P/B 11/23/2022 266 (H) 37 - 98 U/L Final ??? AST 11/23/2022 472 (H) 15 - 37 U/L Final ??? ALT 11/23/2022 479 (H) 13 - 56 U/L Final ??? TOTAL PROTEIN S/P/B 11/23/2022 5.8 (L) 6.4 - 8.2 G/DL Final ??? ALBUMIN S/P/B 11/23/2022 2.8 (L) 3.4 - 5.0 G/DL Final ??? ANION GAP 11/23/2022 7.9 5.0 - 15.0 MMOL/L Final ??? OSMOLALITY (CALC) 11/23/2022 295 MOSM/KG Final REFERENCE RANGE NOT ESTABLISHED ? ? GFR ESTIMATE 11/23/2022 >90 >90 ML/MIN/1.73 M2 Final ??? GFR NOTES 11/23/2022 GFR REFERENCES: Final Comment: THE ESTIMATED GFR IS CALCULATED USING THE 2020 CKD-EPI EQUATION. THE FOLLOWING CATEGORIES FOR GRADING RENAL FUNCTION ARE RECOMMENDED BY THE INTERNATIONAL SOCIETY OF NEPHROLOGY (KDIGO 2012 CLINICAL PRACTICE GUIDELINE). G1,NORMAL OR HIGH: >89 ml/min/1.73 m2 G2,MILDLY DECREASED: 60-89 ml/min/1.73 m2 G3A,MILDLY TO MODERATELY DECREASED: 45-59 ml/min/1.73 m2 G3B,MODERATELY TO SEVERELY DECREASED: 30-44 ml/min/1.73 m2 G4,SEVERELY DECREASED: 15-29 ml/min/1.73 m2 G5,KIDNEY FAILURE: <15 ml/min/1.73 m2 ??? GLUCOSE POC 11/23/2022 65 (L) 70 - 109 Final ??? SODIUM S/P/B 11/24/2022 140 136 - 145 MMOL/L Final ??? POTASSIUM S/P/B 11/24/2022 3.4 (L) 3.5 - 5.1 MMOL/L Final ??? CHLORIDE S/P/B 11/24/2022 108 (H) 98 - 107 MMOL/L Final ??? CO2 11/24/2022 26.5 21.0 - 32.0 MMOL/L Final ??? GLUCOSE 11/24/2022 93 74 - 106 MG/DL Final ??? BUN 11/24/2022 6 (L) 7 - 18 MG/DL Final ??? CREATININE S/P/B 11/24/2022 0.71 0.55 - 1.02 MG/DL Final ??? CALCIUM S/P/B 11/24/2022 8.1 (L) 8.5 - 10.1 MG/DL Final ??? ANION GAP 11/24/2022 5.5 5.0 - 15.0 MMOL/L Final ??? OSMOLALITY (CALC) 11/24/2022 287 MOSM/KG Final REFERENCE RANGE NOT ESTABLISHED ? ? GFR ESTIMATE 11/24/2022 >90 >90 ML/MIN/1.73 M2 Final ??? GFR NOTES 11/24/2022 GFR REFERENCES: Final Comment: THE ESTIMATED GFR IS CALCULATED USING THE 2020 CKD-EPI EQUATION. THE FOLLOWING CATEGORIES FOR GRADING RENAL FUNCTION ARE RECOMMENDED BY THE INTERNATIONAL SOCIETY OF NEPHROLOGY (KDIGO 2012 CLINICAL PRACTICE GUIDELINE). G1,NORMAL OR HIGH: >89 ml/min/1.73 m2 G2,MILDLY DECREASED: 60-89 ml/min/1.73 m2 G3A,MILDLY TO MODERATELY DECREASED: 45-59 ml/min/1.73 m2 G3B,MODERATELY TO SEVERELY DECREASED: 30-44 ml/min/1.73 m2 G4,SEVERELY DECREASED: 15-29 ml/min/1.73 m2 G5,KIDNEY FAILURE: <15 ml/min/1.73 m2 ??? BILIRUBIN TOTAL S/P/B 11/24/2022 2.8 (H) 0.2 - 1.0 MG/DL Final ??? BILIRUBIN DIRECT S/P/B 11/24/2022 1.6 (H) 0.0 - 0.2 MG/DL Final ??? ALKALINE PHOSPHATASE S/P/B 11/24/2022 268 (H) 37 - 98 U/L Final ??? AST 11/24/2022 175 (H) 15 - 37 U/L Final ??? ALT 11/24/2022 349 (H) 13 - 56 U/L Final ??? TOTAL PROTEIN S/P/B 11/24/2022 5.6 (L) 6.4 - 8.2 G/DL Final ??? ALBUMIN S/P/B 11/24/2022 2.8 (L) 3.4 - 5.0 G/DL Final ??? GLUCOSE POC 11/24/2022 60 (L) 70 - 109 Final ??? GLUCOSE POC 11/24/2022 108 70 - 109 Final ??? WBC 11/24/2022 4.77 4.00 - 10.80 x10'3/uL Final ??? RBC 11/24/2022 3.81 (L) 4.10 - 5.40 x10'6/uL Final ??? HGB 11/24/2022 11.5 (L) 12.0 - 16.0 G/DL Final ??? HCT 11/24/2022 35.0 (L) 36.0 - 47.0 % Final ??? MCV 11/24/2022 91.9 78.0 - 100.0 FL Final ??? MCH 11/24/2022 30.2 27.0 - 31.0 PG Final ??? MCHC 11/24/2022 32.9 (L) 33.0 - 36.0 G/DL Final ??? RDW 11/24/2022 11.9 11.5 - 14.5 % Final ??? PLT 11/24/2022 261 150 - 350 x10'3/uL Final ??? MPV 11/24/2022 8.6 7.4 - 10.4 FL Final ??? GLUCOSE POC 11/24/2022 89 70 - 109 Final Admission on 11/22/2022, Discharged on 11/22/2022 Component Date Value Ref Range Status ??? WBC 11/22/2022 7.71 4.00 - 10.80 x10'3/uL Final ??? RBC 11/22/2022 4.29 4.10 - 5.40 x10'6/uL Final ??? HGB 11/22/2022 13.1 12.0 - 16.0 G/DL Final ??? HCT 11/22/2022 39.1 36.0 - 47.0 % Final ??? MCV 11/22/2022 91.1 78.0 - 100.0 FL Final ??? MCH 11/22/2022 30.5 27.0 - 31.0 PG Final ??? MCHC 11/22/2022 33.5 33.0 - 36.0 G/DL Final ??? RDW 11/22/2022 11.9 11.5 - 14.5 % Final ??? PLT 11/22/2022 308 150 - 350 x10'3/uL Final ??? MPV 11/22/2022 9.2 7.4 - 10.4 FL Final ??? CBC COMMENT 11/22/2022 Final Value:NORMAL REFERENCE RANGE NOT ESTABLISHED FOR THE PROPORTIONAL LEUKOCYTE DIFFERENTIAL. ??? NEUTROPHILS 11/22/2022 82.0 % Final ??? LYMPHOCYTES 11/22/2022 10.9 % Final ??? MONOCYTES 11/22/2022 6.0 % Final ??? EOSINOPHILS 11/22/2022 0.3 % Final ??? BASOPHILS 11/22/2022 0.5 % Final ??? IMMATURE GRANS 11/22/2022 0.3 % Final ??? NRBC 11/22/2022 0.0 % Final ??? ABS. NEUTROPHILS 11/22/2022 6.33 1.60 - 8.30 x10'3/uL Final ??? ABS. LYMPHOCYTES 11/22/2022 0.84 0.80 - 4.70 x10'3/uL Final ??? ABS. MONOCYTES 11/22/2022 0.46 0.00 - 1.50 x10'3/uL Final ??? ABS. EOSINOPHILS 11/22/2022 0.02 0.00 - 0.40 x10'3/uL Final ??? ABS. BASOPHILS 11/22/2022 0.04 0.00 - 0.20 x10'3/uL Final ??? ABS. IMMATURE GRANULOCYTES 11/22/2022 0.02 0.00 - 0.03 x10'3/uL Final ??? ABS. NUCLEATED RBC'S 11/22/2022 0.00 0.00 x10'3/uL Final ??? SODIUM S/P/B 11/22/2022 137 136 - 145 MMOL/L Final ??? POTASSIUM S/P/B 11/22/2022 3.7 3.5 - 5.1 MMOL/L Final ??? CHLORIDE S/P/B 11/22/2022 101 98 - 107 MMOL/L Final ??? CO2 11/22/2022 28.3 21.0 - 32.0 MMOL/L Final ??? GLUCOSE 11/22/2022 100 (H) 70 - 99 MG/DL Final Comment: FASTING GLUCOSE 100 TO 125 MG/DL IS CONSISTENT WITH IMPAIRED FASTING GLUCOSE. FASTING GLUCOSE >125 MG/DL IS CONSISTENT WITH DIABETES. RANDOM GLUCOSE >200 MG/DL WITH HYPERGLYCEMIC SYMPTOMS IS CONSISTENT WITH DIABETES. PER ADA GUIDELINES ??? BUN 11/22/2022 9 6 - 24 MG/DL Final ??? CREATININE S/P/B 11/22/2022 0.73 0.55 - 1.02 MG/DL Final ??? CALCIUM S/P/B 11/22/2022 8.9 8.4 - 10.5 MG/DL Final ??? BILIRUBIN TOTAL S/P/B 11/22/2022 2.2 (H) 0.2 - 1.0 MG/DL Final Comment: THIS ASSAY IS NOT RECOMMENDED FOR PATIENTS UNDERGOING TREATMENT WITH ELTROMBOPAG DUE TO THE POTENTIAL FOR FALSELY ELEVATED RESULTS. ??? ALKALINE PHOSPHATASE S/P/B 11/22/2022 338 (H) 37 - 98 U/L Final ??? AST 11/22/2022 626 (H) 15 - 37 U/L Final ??? ALT 11/22/2022 518 (H) 14 - 59 U/L Final ??? TOTAL PROTEIN S/P/B 11/22/2022 6.9 6.4 - 8.2 G/DL Final ??? ALBUMIN S/P/B 11/22/2022 3.5 3.4 - 5.0 G/DL Final ??? ANION GAP 11/22/2022 7.7 5.0 - 15.0 MMOL/L Final ??? OSMOLALITY (CALC) 11/22/2022 283 MOSM/KG Final REFERENCE RANGE NOT ESTABLISHED ? ? GFR ESTIMATE 11/22/2022 >90 >89 ML/MIN/1.73 M2 Final ??? GFR NOTES 11/22/2022 GFR REFERENCES: Final Comment: THE ESTIMATED GFR IS CALCULATED USING THE 2020 CKD-EPI EQUATION. THE FOLLOWING CATEGORIES FOR GRADING RENAL FUNCTION ARE RECOMMENDED BY THE INTERNATIONAL SOCIETY OF NEPHROLOGY (KDIGO 2012 CLINICAL PRACTICE GUIDELINE). G1,NORMAL OR HIGH: >89 ml/min/1.73 m2 G2,MILDLY DECREASED: 60-89 ml/min/1.73 m2 G3A,MILDLY TO MODERATELY DECREASED: 45-59 ml/min/1.73 m2 G3B,MODERATELY TO SEVERELY DECREASED: 30-44 ml/min/1.73 m2 G4,SEVERELY DECREASED: 15-29 ml/min/1.73 m2 G5,KIDNEY FAILURE: <15 ml/min/1.73 m2 ??? LIPASE 11/22/2022 15 (L) 16 - 77 UNITS/L Final ??? LACTIC ACID 11/22/2022 0.8 0.4 - 2.0 MMOL/L Final ??? TSH 11/22/2022 1.999 0.358 - 3.740 uIU/ML Final Comment: ASSAY PERFORMED BY CHEMILUMINESCENT IMMUNOASSAY METHODOLOGY USING [employer]. PATIENT RESULTS DETERMINED BY ASSAYS FROM DIFFERENT MANUFACTURERS AND/OR BY DIFFERENT METHODS MAY NOT BE COMPARABLE. ??? CANNABINOIDS SCREEN (U) 11/22/2022 POSITIVE (A) NEGATIVE Final ??? PHENCYCLIDINE PCP (U) 11/22/2022 NEGATIVE NEGATIVE Final ??? COCAINE METABOLITES (U) 11/22/2022 NEGATIVE NEGATIVE Final ??? METHAMPHETAMINE SCREEN (U) 11/22/2022 NEGATIVE NEGATIVE Final ??? OPIATE SCREEN (U) 11/22/2022 POSITIVE (A) NEGATIVE Final ??? AMPHETAMINE SCREEN (U) 11/22/2022 NEGATIVE NEGATIVE Final ??? BENZODIAZEPINES SCREEN (U) 11/22/2022 NEGATIVE NEGATIVE Final ??? TRICYCLIC ANTIDEPRESSANT SCREEN (U) 11/22/2022 NEGATIVE NEGATIVE Final ??? METHADONE (U) 11/22/2022 NEGATIVE NEGATIVE Final ??? BARBITURATES SCREEN (U) 11/22/2022 POSITIVE (A) NEGATIVE Final ??? OXYCODONE SCREEN (U) 11/22/2022 NEGATIVE NEGATIVE Final ??? PROPOXYPHENE SCREEN (U) 11/22/2022 NEGATIVE NEGATIVE Final ??? URINE TOX COMMENT 11/22/2022 Final Value:THIS TEST METHODOLOGY IS DESIGNED AND OFFERED A RAPID TURNAROUND, QUALITATIVE SCREENING PROCEDURE TO AID IN THE IMMEDIATE MEDICAL ASSESSMENT OF PATIENTS SUSPECTED OF SUBSTANCE ABUSE. Comment: CLINICAL CONSIDERATION AND PROFESSIONAL JUDGMENT MUST BE APPLIED TO ANY DRUG OF ABUSE TEST RESULT, BOTH POSITIVE AND NEGATIVE. CONFIRMATORY QUANTITATIVE RESULTS ARE AVAILABLE THROUGH OUR REFERENCE LABORATORY. ??? COLOR (U) 11/22/2022 DARK YELLOW Final ??? TRANSPARENCY 11/22/2022 SLIGHTLY CLOUDY Final ??? SPECIFIC GRAVITY (U) 11/22/2022 1.020 1.000 - 1.025 Final ??? U PH 11/22/2022 8.5 (H) 5.0 - 8.0 Final ??? LEUKOCYTES (U) 11/22/2022 NEGATIVE NEGATIVE Final ??? NITRITES 11/22/2022 NEGATIVE NEGATIVE Final ??? PROTEIN RANDOM (U) 11/22/2022 2+ (A) NEGATIVE Final ??? GLUCOSE (U) 11/22/2022 NEGATIVE NEGATIVE Final ??? KETONES (U) 11/22/2022 4+ (A) NEGATIVE Final ? ? UROBILINOGEN 11/22/2022 4.0 (H) <1.0 EU/DL Final ??? BLOOD (U) 11/22/2022 NEGATIVE NEGATIVE Final ??? WBC/HPF 11/22/2022 NONE SEEN (A) 0 - 5 /HPF Final ??? RBC/HPF 11/22/2022 0-5 0 - 5 /HPF Final ??? EPI/LPF 11/22/2022 FEW /LPF Final ??? BACTERIA (U) 11/22/2022 TRACE /HPF Final ??? MUCUS 11/22/2022 PRESENT Final ??? BILIRUBIN CONF ICTO (U) 11/22/2022 NEGATIVE NEGATIVE Final ??? REFLEX URINE CULTURE: 11/22/2022 NOT INDICATED Final ??? URINE HCG TEST 11/22/2022 NEGATIVE Final ??? SPECIFIC GRAVITY 11/22/2022 1.020 Final Cosigned by Glenn Mullins MD at 11/24/2022 5:20 PM CDT Associated attestation - Glenn Mlulins MD - 11/24/2022 5:20 PM CDT I, GLENN MULLINS MD, participated in the care of this patient today and discussed the plan of carewith Kar Mendoza, PATRICIA, who shared in this visit. I have reviewed the PATRICIA's documentation and agree with the findings except as I have documented. Patient is a 27-year-old female whom we are asked to see for further evaluation of choledocholithiasis found on MRCP. The patient was also found to have cholecystitis. The risk, benefits, and alternatives to an ERCP were explained to the patient. This is tentatively planned for November 26, provided that the patient does not have any evidence of cholangitis. The timing of lap ifrah is still being determined by the surgery service. GLENN MULLINS MD documented in this encounter Nursing Notes * Thai Parmar RN - 11/23/2022 12:06 AM CDTSummary: CONNECT RN TO RN REPORT Images from the original note were not included. documented in this encounter Plan of Treatment Not on file documented as of this encounter Procedures Procedure Name Priority Date/Time Associated Diagnosis Comments SURG XR FLUOROSCOPY Today 11/26/2022 1 0:32 AM CDT ERCP W REMOVAL FOREIGN BODY STENTS FROM BILIARY/PANCERATIC DUCT 11/26/2022 10:01 AM CDT Choledocholithiasi s ERCP 11/26/2022 9:35 AM CDT POCT GLUCOSE - DOMÍNGUEZ DOCKED DEVICE Routine 11/25/2022 4:17 PM CDT POCT GLUCOSE - DOMÍNGUEZ DOCKED DEVICE Routine 11/25/2022 11:17 AM CDT BASIC METABOLIC PANEL Routine 11/25/2022 4:50 AM CDT HEPATIC FUNCTION PANEL Routine 4:50 AM CDT CBC, AUTO, NO DIFF Routine 11/25/2022 4: 50 AM CDT PHOSPHORUS, INORGANIC PHOSPHATE Routine 11/25/2022 4:50 AM CDT MAGNESIUM Routine 11/25/2022 4:50 AM CDT SURG XR FLUOROSCOPY Routine 11/24/2022 6 :06 PM CDT POCT GLUCOSE - DOMÍNGUEZ DOCKED DEVICE Routine 11/24/2022 1:00 PM CDT POCT GLUCOSE - DOMÍNGUEZ DOCKED DEVICE Routine 11/24/2022 6:37 AM CDT BASIC METABOLIC PANEL Routine 11/24/2022 5:44 AM CDT HEPATIC FUNCTION PANEL Routine 5:44 AM CDT CBC, AUTO, NO DIFF TIMED 11/24/2022 5: 44 AM CDT POCT GLUCOSE - DOMÍNGUEZ DOCKED DEVICE Routine 11/24/2022 1:01 AM CDT POCT GLUCOSE - DOMÍNGUEZ DOCKED DEVICE Routine 11/24/2022 12:49 AM CDT PATHOLOGY Routine 11/24/2022 12:00 AM CDT POCT GLUCOSE - DOMÍNGUEZ DOCKED DEVICE Routine 11/23/2022 10:28 PM CDT MRCP STAT 11/23/2022 8:08 PM CDT US ABD LIMITED STAT 11/23/2022 6:49 PM CDT COMPREHENSIVE METABOLIC PANEL Routine 11/23/2022 4:04 AM CDT CBC W/DIFF AUTOMATED Routine 11/23/2022 4:04 AM CDT documented in this encounter Results * SURG XR FLUOROSCOPY (11/26/2022 10:32 AM CDT) Anatomical Region Laterality Modality Undefined Radio Fluoroscop y 11/26/2022 10:2 5 AM CDT Narrative 11/26/2022 10:25 AM CDT This report does not contain a radiologist's interpretation. Please review associated procedure and/or operative report. Procedure Note Sergey Rosario MD - 11/26/2022 This report does not contain a radiologist's interpretation. Please review associated procedure and/or operative report. us Glenn Mullins MD IMAGES ONLY Final Result * ERCP (11/26/2022 9:35 AM CDT) Glenn Mullins MD GI PROCEDURE ORDERABLES Final R esult * (ABNORMAL) POCT glucose (11/25/2022 4:17 PM CDT) GLUCOSE POC 110(H) 70 - 109 11/25/2022 4:34 PM CDT [facility] 11/25/2022 4:17 PM CDT Brent Godinez MD POCT ORDERABLES - DEVICE Fin al Result Performing Organization Address [facility] Co de Phone Number [facility] [address] [place] [address], [phone] * (ABNORMAL) POCT glucose (11/25/2022 11:17 AM CDT) GLUCOSE POC 116(H) 70 - 109 11/25/2022 11:25 AM CDT [facility] 11/25/2022 11:1 7 AM CDT Brent Godinez MD POCT ORDERABLES - DEVICE Fin al Result Performing Organization Address [facility] Co de Phone Number [facility] [address] [place] [address], [place] [phone] * PHOSPHORUS, INORGANIC PHOSPHATE (11/25/2022 4:50 AM CDT) PHOSPHORUS 2.8 2.5 - 4.9 MG/DL 11/25/2022 5:35 AM CDT [facility] 11/25/2022 4:50 AM CDT Tatiana Hughes MD LABORATORY Final Res ult Performing Organization Address [facility] Co de Phone Number [facility] [address] [place] [address], [place] [phone] * MAGNESIUM (11/25/2022 4:50 AM CDT) MAGNESIUM 1.6 1.6 - 2.6 MG/DL 11/25/2022 5:35 AM CDT [facility] 11/25/2022 4:50 AM CDT Tatiana Hughes MD LABORATORY Final Res ult [facility] [address] [place] [address], [phone] * (ABNORMAL) HEPATIC FUNCTION PANEL (11/25/2022 4:50 AM CDT) BILIRUBIN TOTAL S/P/B 1.7(H) 0.2 - 1.0 MG/DL 11/25/2022 5:35 AM CDT [facility] BILIRUBIN DIRECT S/P/B 0.9(H) 0.0 - 0.2 MG/DL 11/25/2022 5:35 AM CDT [facility] ALKALINE PHOSPHATASE S/P/B 270(H) 37 - 98 U/L 11/25/2022 5:35 AM CDT [facility] AST 186(H) 15 - 37 U/L 11/25/2022 5:35 AM CDT [facility] ALT 347(H) 13 - 56 U/L 11/25/2022 5:35 AM CDT [facility] TOTAL PROTEIN S/P/B 6.0(L) 6.4 - 8.2 G/DL 11/25/2022 5:35 AM CDT [facility] ALBUMIN S/P/B 2.9(L) 3.4 - 5.0 G/DL 11/25/2022 5:35 AM CDT [facility] 11/25/2022 4:50 AM CDT us Tatiana Hughes MD LABORATORY Final Res ult [facility] [address] [place] [address], [phone] * (ABNORMAL) CBC, AUTO, NO DIFF (11/25/2022 4:50 AM CDT) WBC 9.50 4.00 - 10.80 x10'3/uL 11/25/2022 4:59 AM CDT [facility] RBC 3.82(L) 4.10 - 5.40 x10'6/uL 11/25/2022 4:59 AM CDT [facility] HGB 11.8(L) 12.0 - 16.0 G/DL 11/25/2022 4:59 AM CDT [facility] HCT 35.0(L) 36.0 - 47.0 % 11/25/2022 4:59 AM CDT [facility] MCV 91.6 78.0 - 100.0 FL 11/25/2022 4:59 AM CDT [facility] MCH 30.9 27.0 - 31.0 PG 11/25/2022 4:59 AM CDT [facility] MCHC 33.7 33.0 - 36.0 G/DL 11/25/2022 4:59 AM CDT [facility] RDW 12.3 11.5 - 14.5 % 11/25/2022 4:59 AM CDT [facility] PLT 309 150 - 350 x10'3/uL 11/25/2022 4:59 AM CDT [facility] MPV 8.8 7.4 - 10.4 FL 11/25/2022 4:59 AM CDT [facility] 11/25/2022 4:50 AM CDT us Tatiana Hughes MD LABORATORY Final Res ult [facility] [address] [place] [address], [phone] * (ABNORMAL) BASIC METABOLIC PANEL (11/25/2022 4:50 AM CDT) SODIUM S/P/B 141 136 - 145 MMOL/L 11/25/2022 5:35 AM CDT [facility] POTASSIUM S/P/B 3.5 3.5 - 5.1 MMOL/L 11/25/2022 5:35 AM CDT [facility] CHLORIDE S/P/B 109(H) 98 - 107 MMOL/L 11/25/2022 5:35 AM CDT [facility] CO2 27.4 21.0 - 32.0 MMOL/L 11/25/2022 5:35 AM CDT [facility] GLUCOSE 153(H) 74 - 106 MG/DL 11/25/2022 5:35 AM CDT [facility] BUN 2(L) 7 - 18 MG/DL 11/25/2022 5:35 AM CDT [facility] CREATININE S/P/B 0.71 0.55 - 1.02 MG/DL 11/25/2022 5:35 AM CDT [facility] CALCIUM S/P/B 8.0(L) 8.5 - 10.1 MG/DL 11/25/2022 5:35 AM CDT [facility] ANION GAP 4.6(L) 5.0 - 15.0 MMOL/L 11/25/2022 5:35 AM CDT [facility] OSMOLALITY (CALC) 291 MOSM/KG 023 5:35 AM CDT [facility] Comment:REFERENCE RANGE NOT ESTABLISHED GFR ESTIMATE >90 >90 ML/MIN/1. 73 M2 11/25/2022 5:35 AM CDT [facility] GFR NOTES GFR REFERENCE S: 11/25/2022 5:35 AM CDT [facility] Comment: THE ESTIMATED GFR IS CALCULATED USING THE 2020 CKD-EPI EQUATION. THE FOLLOWING CATEGORIES FOR GRADING RENAL FUNCTION ARE RECOMMENDED BY THE INTERNATIONAL SOCIETY OF NEPHROLOGY (KDIGO 2012 CLINICAL PRACTICE GUIDELINE). G1,NORMAL OR HIGH: >89 ml/min/1.73 m2 G2,MILDLY DECREASED: 60-89 ml/min/1.73 m2 G3A,MILDLY TO MODERATELY DECREASED: 45-59 ml/min/1.73 m2 G3B,MODERATELY TO SEVERELY DECREASED: 30-44 ml/min/1.73 m2 G4,SEVERELY DECREASED: 15-29 ml/min/1.73 m2 G5,KIDNEY FAILURE: <15 ml/min/1.73 m2 11/25/2022 4:50 AM CDT Tatiana Hughes MD LABORATORY Final Res ult [facility] [address] [place] [address], [phone] * SURG XR FLUOROSCOPY (11/24/2022 6:06 PM CDT) Anatomical Region Laterality Modality Undefined Radio Fluoroscop y 11/24/2022 5:58 PM CDT Narrative 11/24/2022 5:58 PM CDT This report does not contain a radiologist's interpretation. Please review associated procedure and/or operative report. Procedure Note Sergey Rosario MD - 11/24/2022 This report does not contain a radiologist's interpretation. Please review associated procedure and/or operative report. Lukasz Diaz MD IMAGES ONLY Final Result * POCT glucose (11/24/2022 1:00 PM CDT) GLUCOSE POC 90 70 - 109 11/24/2022 1:04 PM CDT [facility] 11/24/2022 1:00 PM CDT Brent Godinez MD POCT ORDERABLES - DEVICE Fin al Result Performing Organization Address City/[facility]/ZIP Co de Phone Number [facility] [address] [place] [address], [phone] * POCT glucose (11/24/2022 6:37 AM CDT) GLUCOSE POC 89 70 - 109 11/24/2022 6:40 AM CDT [facility] 11/24/2022 6:37 AM CDT Brent Godinez MD POCT ORDERABLES - DEVICE Fin al Result Performing Organization Address [facility] Phone Number [facility] [address] [place] [address], [phone] * (ABNORMAL) CBC, AUTO, NO DIFF (11/24/2022 5:44 AM CDT) WBC 4.77 4.00 - 10.80 x10'3/uL 11/24/2022 5:54 AM CDT [facility] RBC 3.81(L) 4.10 - 5.40 x10'6/uL 11/24/2022 5:54 AM CDT [facility] HGB 11.5(L) 12.0 - 16.0 G/DL 11/24/2022 5:54 AM CDT [facility] HCT 35.0(L) 36.0 - 47.0 % 11/24/2022 5:54 AM CDT [facility] MCV 91.9 78.0 - 100.0 FL 11/24/2022 5:54 AM CDT [facility] MCH 30.2 27.0 - 31.0 PG 11/24/2022 5:54 AM CDT [facility] MCHC 32.9(L) 33.0 - 36.0 G/DL 11/24/2022 5:54 AM CDT [facility] RDW 11.9 11.5 - 14.5 % 11/24/2022 5:54 AM CDT [facility] PLT 261 150 - 350 x10'3/uL 11/24/2022 5:54 AM CDT [facility] MPV 8.6 7.4 - 10.4 FL 11/24/2022 5:54 AM CDT [facility] 11/24/2022 5:44 AM CDT Libia Rodriguez DO LABORATORY Final Result [facility] [address] [place] [address], [phone] * (ABNORMAL) HEPATIC FUNCTION PANEL (11/24/2022 5:44 AM CDT) BILIRUBIN TOTAL S/P/B 2.8(H) 0.2 - 1.0 MG/DL 11/24/2022 6:36 AM CDT [facility] BILIRUBIN DIRECT S/P/B 1.6(H) 0.0 - 0.2 MG/DL 11/24/2022 6:36 AM CDT [facility] ALKALINE PHOSPHATASE S/P/B 268(H) 37 - 98 U/L 11/24/2022 6:36 AM CDT [facility] AST 175(H) 15 - 37 U/L 11/24/2022 6:36 AM CDT [facility] ALT 349(H) 13 - 56 U/L 11/24/2022 6:36 AM CDT [facility] TOTAL PROTEIN S/P/B 5.6(L) 6.4 - 8.2 G/DL 11/24/2022 6:36 AM CDT [facility] ALBUMIN S/P/B 2.8(L) 3.4 - 5.0 G/DL 11/24/2022 6:36 AM CDT [facility] 11/24/2022 5:44 AM CDT us Tatiana Hughes MD LABORATORY Final Res ult [facility] [address] [place] [address], [id number] * (ABNORMAL) BASIC METABOLIC PANEL (11/24/2022 5:44 AM CDT) SODIUM S/P/B 140 136 - 145 MMOL/L 11/24/2022 6:36 AM CDT [facility] POTASSIUM S/P/B 3.4(L) 3.5 - 5.1 MMOL/L 11/24/2022 6:36 AM CDT [facility] CHLORIDE S/P/B 108(H) 98 - 107 MMOL/L 11/24/2022 6:36 AM CDT [facility] CO2 26.5 21.0 - 32.0 MMOL/L 11/24/2022 6:36 AM CDT [facility] GLUCOSE 93 74 - 106 MG/DL 11/24/2022 6:36 AM CDT [facility] BUN 6(L) 7 - 18 MG/DL 11/24/2022 6:36 AM CDT [facility] CREATININE S/P/B 0.71 0.55 - 1.02 MG/DL 11/24/2022 6:36 AM CDT [facility] CALCIUM S/P/B 8.1(L) 8.5 - 10.1 MG/DL 11/24/2022 6:36 AM CDT [facility] ANION GAP 5.5 5.0 - 15.0 MMOL/L 11/24/2022 6:36 AM CDT [facility] OSMOLALITY (CALC) 287 MOSM/KG 023 6:36 AM CDT [facility] Comment:REFERENCE RANGE NOT ESTABLISHED GFR ESTIMATE >90 >90 ML/MIN/1. 73 M2 11/24/2022 6:36 AM CDT [facility] GFR NOTES GFR REFERENCE S: 11/24/2022 6:36 AM CDT [facility] Comment: THE ESTIMATED GFR IS CALCULATED USING THE 2020 CKD-EPI EQUATION. THE FOLLOWING CATEGORIES FOR GRADING RENAL FUNCTION ARE RECOMMENDED BY THE INTERNATIONAL SOCIETY OF NEPHROLOGY (KDIGO 2012 CLINICAL PRACTICE GUIDELINE). G1,NORMAL OR HIGH: >89 ml/min/1.73 m2 G2,MILDLY DECREASED: 60-89 ml/min/1.73 m2 G3A,MILDLY TO MODERATELY DECREASED: 45-59 ml/min/1.73 m2 G3B,MODERATELY TO SEVERELY DECREASED: 30-44 ml/min/1.73 m2 G4,SEVERELY DECREASED: 15-29 ml/min/1.73 m2 G5,KIDNEY FAILURE: <15 ml/min/1.73 m2 11/24/2022 5:44 AM CDT us Libia Rodriguez DO LABORATORY Final Result Performing Organization Address City/[facility]/ZIP Co de Phone Number [facility] [address] [place] [address], [phone] * POCT glucose (11/24/2022 1:01 AM CDT) GLUCOSE POC 108 70 - 109 11/24/2022 1:03 AM CDT [facility] 11/24/2022 1:01 AM CDT Brent Godinez MD POCT ORDERABLES - DEVICE Fin al Result Performing Organization Address City/[facility]/ZIP Co de Phone Number [facility] [address] [place] [address], [phone] * (ABNORMAL) POCT glucose (11/24/2022 12:49 AM CDT) GLUCOSE POC 60(L) 24 - 109 11/24/2022 12:51 AM CDT [facility] 11/24/2022 12:4 9 AM CDT us Brent Godinez MD POCT ORDERABLES - DEVICE Fin al Result [facility] [address] [place] [address], [phone] * Pathology (11/24/2022 12:00 AM CDT) PATHOLOGY [facility] ? Department of Laboratory Medicine ?[address] ?[place] [address] ? , extension [phone] ? Pathology Report ? Surgical Pathology Report Name: MAIGEREMIASCATIE ? Specimen #: [id number] Age: 305/03/1995 (Age: 27) ? Location: [facility] Sex: F ?Procedure Date: 11/24/2022 Hospital #: [id number] ?Date Received: 11/26/2022 Date Reported: 11/27/2022 Provider: LUKASZ DIAZ MD ?SELVIN BOOTH MD Source: Gallbladder Clinical History: Cholecystitis. Gross Description: Received in formalin, labeled with a patient label and as gallbladder is a 7.0 x 2.5 x 2.5 cm disrupted gallbladder. ??The serosa is villanueva-padron. ??The cystic duct has a diameter of 0.3 cm and is not easily probe patent. ??There is yellow granular stone material lodged within it. ??The gallbladder is further opened to reveal multiple yellow granular stones that are 1 x 1 x 0.5 cm in aggregate. The gallbladder is lined by a green-padron mucosa. ??No mass lesions or polyps are identified. ??On cut section, the gallbladder wall has a thickness of up to 0.8 cm. ??Fitter Hand tissue to include the cystic duct margin is submitted in cassette 1. Gross examination (when applicable), interpretation and sign-out were performed at [facility], [address] [place] [address], [place], [place], [address]. FINAL DIAGNOSIS: GALLBLADDER, CHOLECYSTECTOMY: ? - ACUTE HEMORRHAGIC CHOLECYSTITIS AND CHOLELITHIASIS. Electronically Signed Out ? Prema Riggs MD [facility] TISSUE GALLBLADDER STRUCTURE / Unknown 11/24/2022 5:09 PM CDT us Lukasz Diaz MD PATHOLOGY/CYTOLOGY ORDERABLE S Final Result [facility] [address] [place] [address], [place] [phone] * (ABNORMAL) POCT glucose (11/23/2022 10:28 PM CDT) GLUCOSE POC 65(L) 70 - 109 11/23/2022 10:32 PM CDT [facility] 11/23/2022 10:2 8 PM CDT Brent Ariel Godinez MD POCT ORDERABLES - DEVICE Fin al Result [facility] [address] [place] [address], [place] [phone] * MRCP (11/23/2022 8:08 PM CDT) Anatomical Region Laterality Modality Abdomen Magnetic Resonan ce 11/23/2022 8:49 PM CDT Impressions 11/23/2022 9:27 PM CDT IMPRESSION: 1. Gallbladder wall thickening and cystic duct stone consistent with acute cholecystitis. 2. Dilatation of the common bile duct with a small filling defect proximal to the ampulla. Findings are favored to represent choledocholithiasis. The attending radiologist has reviewed the image(s) and agrees with the content of this report. Ordered By: LIBIA RODRIGUEZ Interpreted By: Axel Shah MD, 11/23/2022 8:49 PM Narrative 11/23/2022 9:27 PM CDT Examination: MRCP Exam time: 11/23/2022 7:59 PM Clinical history: Right upper quadrant abdominal pain. ??Cholecystitis. Comparison: Abdominal ultrasound 11/23/2022. CT of the abdomen and pelvis 11/22/2022. Technique: Multisequence, multiplanar pancreatic resonance imaging of the abdomen was obtained according to the MRCP protocol without the use of IV contrast. MIP Images were created and reviewed. Findings: Examination is limited due to motion artifact. CHEST: The visualized lung bases are clear. Liver/gallbladder/biliary: The liver is normal in size and contour. There is cholelithiasis and gallbladder wall thickening. A stone is seen within the cystic duct (3 7 image 30 and series 3 image 14.) Findings are consistent with acute cholecystitis. The common bile duct is dilated, measuring approximately 8 mm in diameter. There is a possible filling defect in the distal common bile duct proximal to the ampulla which may represent choledocholithiasis (series 7 image 32.) Pancreas: There is no pancreatic ductal dilatation. No peripancreatic inflammatory changes identified. Kidneys/adrenals: The adrenal glands are unremarkable. The kidneys are unremarkable. There is no hydronephrosis. Spleen/lymphatics: The spleen is normal in size and contour. There are no enlarged abdominal lymph nodes. Gastrointestinal: The stomach is unremarkable. The visualized colon and small bowel are normal in caliber and wall thickness. Vasculature: There are no vascular flow void abnormalities Musculoskeletal: No destructive osseous lesion is identified. Procedure Note Danny Hood MD - 11/23/2022 Examination: MRCP Exam time: 11/23/2022 7:59 PM Clinical history: Right upper quadrant abdominal pain. Cholecystitis. Comparison: Abdominal ultrasound 11/23/2022. CT of the abdomen and pelvis11/22/2022. Technique: Multisequence, multiplanar pancreatic resonance imaging of theabdomen was obtained according to the MRCP protocol without the use of IVcontrast. MIP Images were created and reviewed. Findings: Examination is limited due to motion artifact. CHEST: The visualized lung bases are clear. Liver/gallbladder/biliary: The liver is normal in size and contour. Thereis cholelithiasis and gallbladder wall thickening. A stone is seen withinthe cystic duct (3 7 image 30 and series 3 image 14.) Findings areconsistent with acute cholecystitis. The common bile duct is dilated,measuring approximately 8 mm in diameter. There is a possible fillingdefect in the distal common bile duct proximal to the ampulla which mayrepresent choledocholithiasis (series 7 image 32.) Pancreas: There is no pancreatic ductal dilatation. No peripancreaticinflammatory changes identified. Kidneys/adrenals: The adrenal glands are unremarkable. The kidneys areunremarkable. There is no hydronephrosis. Spleen/lymphatics: The spleen is normal in size and contour. There are noenlarged abdominal lymph nodes. Gastrointestinal: The stomach is unremarkable. The visualized colon andsmall bowel are normal in caliber and wall thickness. Vasculature: There are no vascular flow void abnormalities Musculoskeletal: No destructive osseous lesion is identified. IMPRESSION: 1. Gallbladder wall thickening and cystic duct stone consistent with acutecholecystitis. 2. Dilatation of the common bile duct with a small filling defect proximalto the ampulla. Findings are favored to represent choledocholithiasis. The attending radiologist has reviewed the image(s) and agrees with thecontent of this report. Ordered By: LIBIA RODRIGUEZ Interpreted By: Axel Shah MD, 11/23/2022 8:49 PM us Libia Rodriguez DO MRI Final Result * US ABD LIMITED (11/23/2022 6:49 PM CDT) Anatomical Region Laterality Modality Abdomen Ultrasound 11/23/2022 6:41 PM CDT Impressions 11/23/2022 6:44 PM CDT IMPRESSION: 1. Imaging findings concerning for acute cholecystitis with 2.1 cm gallstone in the gallbladder neck, gallbladder wall thickening and trace pericholecystic fluid, and positive sonographic Saez's sign. 2. Some with dilated common bile duct, but with no obvious intraluminal stone identified Referred By: REGINA WILLIAM Interpreted By: Kev Ziegler MD, 11/23/2022 6:41 PM Narrative 11/23/2022 6:44 PM CDT EXAMINATION: Limited abdomen ultrasound: Gallbladder CLINICAL HISTORY: Possible cholecystitis. COMPARISON: CT 11/22/2022 TECHNIQUE: An ultrasound examination of the gallbladder was performed to assess grayscale appearance and color-flow characteristics. FINDINGS: Gallbladder: The gallbladder wall appears thickened. There is a 2.1 cm gallstone noted within the gallbladder neck. Small pericholecystic fluid suggested. ??Positive sonographic Saez's sign. Common hepatic duct: Measures up to 5 mm. in diameter. ??No distinct intraluminal stone. Common bile duct: ??Measures up to 8 mm. No distinct intraluminal stone. Other findings: No ascites. Procedure Note Kev Ziegler MD - 11/23/2022 EXAMINATION: Limited abdomen ultrasound: Gallbladder CLINICAL HISTORY: Possible cholecystitis. COMPARISON: CT 11/22/2022 TECHNIQUE: An ultrasound examination of the gallbladder was performed toassess grayscale appearance and color-flow characteristics. FINDINGS: Gallbladder: The gallbladder wall appears thickened. There is a 2.1 cmgallstone noted within the gallbladder neck. Small pericholecystic fluidsuggested. Positive sonographic Saez's sign. Common hepatic duct: Measures up to 5 mm. in diameter. No distinctintraluminal stone. Common bile duct: Measures up to 8 mm. No distinct intraluminal stone. Other findings: No ascites. IMPRESSION: 1. Imaging findings concerning for acute cholecystitis with 2.1 cmgallstone in the gallbladder neck, gallbladder wall thickening and tracepericholecystic fluid, and positive sonographic Saez's sign. 2. Some with dilated common bile duct, but with no obvious intraluminalstone identified Referred By: REGINA WILLIAM Interpreted By: Kev Ziegler MD, 11/23/2022 6:41 PM us Libia Rodriguez DO ULTRASOUND Final Result * (ABNORMAL) COMPREHENSIVE METABOLIC PANEL (11/23/2022 4:04 AM CDT) SODIUM S/P/B 144 136 - 145 MMOL/L 11/23/2022 5:31 AM CDT [facility] POTASSIUM S/P/B 3.6 3.5 - 5.1 MMOL/L 11/23/2022 5:31 AM CDT [facility] CHLORIDE S/P/B 110(H) 98 - 107 MMOL/L 11/23/2022 5:31 AM CDT [facility] CO2 26.1 21.0 - 32.0 MMOL/L 11/23/2022 5:31 AM CDT [facility] GLUCOSE 80 74 - 106 MG/DL 11/23/2022 5:31 AM T [facility] BUN 6(L) 7 - 18 MG/DL 11/23/2022 5:31 AM [facility] CREATININE S/P/B 0.66 0.55 - 1.02 MG/DL 11/23/2022 5:31 AM [facility] CALCIUM S/P/B 8.2(L) 8.5 - 10.1 MG/DL 11/23/2022 5:31 AM T [facility] BILIRUBIN TOTAL S/P/B 2.3(H) 0.2 - 1.0 MG/DL 11/23/2022 5:31 AM [facility] ALKALINE PHOSPHATASE S/P/B 266(H) 37 - 98 U/L 11/23/2022 5:31 AM [facility] AST 472(H) 15 - 37 U/L 11/23/2022 5:31 AM [facility] ALT 479(H) 13 - 56 U/L 11/23/2022 5:31 AM [facility] TOTAL PROTEIN S/P/B 5.8(L) 6.4 - 8.2 G/DL 11/23/2022 5:31 AM [facility] ALBUMIN S/P/B 2.8(L) 3.4 - 5.0 G/DL 11/23/2022 5:31 AM [facility] ANION GAP 7.9 5.0 - 15.0 MMOL/L 11/23/2022 5:31 AM [facility] OSMOLALITY (CALC) 295 MOSM/KG 023 5:31 AM [facility] Comment:REFERENCE RANGE NOT ESTABLISHED GFR ESTIMATE >90 >90 ML/MIN/1. 73 M2 11/23/2022 5:31 AM [facility] GFR NOTES GFR REFERENCE S: 11/23/2022 5:31 AM [facility] Comment: THE ESTIMATED GFR IS CALCULATED USING THE 2020 CKD-EPI EQUATION. THE FOLLOWING CATEGORIES FOR GRADING RENAL FUNCTION ARE RECOMMENDED BY THE INTERNATIONAL SOCIETY OF NEPHROLOGY (KDIGO 2012 CLINICAL PRACTICE GUIDELINE). G1,NORMAL OR HIGH: >89 ml/min/1.73 m2 G2,MILDLY DECREASED: 60-89 ml/min/1.73 m2 G3A,MILDLY TO MODERATELY DECREASED: 45-59 ml/min/1.73 m2 G3B,MODERATELY TO SEVERELY DECREASED: 30-44 ml/min/1.73 m2 G4,SEVERELY DECREASED: 15-29 ml/min/1.73 m2 G5,KIDNEY FAILURE: <15 ml/min/1.73 m2 11/23/2022 4:04 AM CDT Davi Reed III, MD LABORATORY Final R esult [facility] [address] [place] [id number], [id number] * (ABNORMAL) CBC W/DIFF AUTOMATED (11/23/2022 4:04 AM CDT) WBC 5.33 4.00 - 10.80 x10'3/uL 11/23/2022 4:59 AM CDT [facility] RBC 3.92(L) 4.10 - 5.40 x10'6/uL 11/23/2022 4:59 AM CDT [facility] HGB 12.0 12.0 - 16.0 G/DL 11/23/2022 4:59 AM CDT [facility] HCT 36.6 36.0 - 47.0 % 11/23/2022 4:59 AM CDT [facility] MCV 93.4 78.0 - 100.0 FL 11/23/2022 4:59 AM CDT [facility] MCH 30.6 27.0 - 31.0 PG 11/23/2022 4:59 AM CDT [facility] MCHC 32.8(L) 33.0 - 36.0 G/DL 11/23/2022 4:59 AM CDT [facility] RDW 12.1 11.5 - 14.5 % 11/23/2022 4:59 AM CDT [facility] PLT 279 150 - 350 x10'3/uL 11/23/2022 4:59 AM CDT [facility] MPV 9.4 7.4 - 10.4 FL 11/23/2022 4:59 AM CDT [facility] ABS. NEUTROPHILS 3.34 1.60 - 8.30 x10'3/uL 11/23/2022 4:59 AM CDT [facility] ABS. LYMPHOCYTES 1.44 0.80 - 4.70 x10'3/uL 11/23/2022 4:59 AM CDT [facility] ABS. MONOCYTES 0.42 0.00 - 1.50 x10'3/uL 11/23/2022 4:59 AM CDT [facility] ABS. EOSINOPHILS 0.08 0.00 - 0.40 x10'3/uL 11/23/2022 4:59 AM CDT [facility] ABS. BASOPHILS 0.03 0.00 - 0.20 x10'3/uL 11/23/2022 4:59 AM CDT [facility] ABS. IMMATURE GRANULOCYTES 0.02 0.00 - 0.03 x10'3/uL 11/23/2022 4:59 AM CDT [facility] ABS. NUCLEATED RBC'S 0.00 0.0 x10'3/uL 11/23/2022 4:59 AM CDT [facility] 11/23/2022 4:04 AM CDT us Davi Reed III, MD LABORATORY Final R esult [facility] [address] [place], [place] [address] [phone] [id number] documented in this encounter Visit Diagnoses Diagnosis Cholecystitis- Primary Cholecystitis, unspecified Choledocholithiasis Calculus of bile duct without mention of cholecystitis or obstruction Acute cholecystitis Choledocholithiasis Calculus of bile duct without mention of cholecystitis or obstruction Choledocholithiasis Calculus of bile duct without mention of cholecystitis or obstruction documented in this encounter Admitting Diagnoses Diagnosis Cholecystitis Cholecystitis, unspecified Acute cholecystitis Choledocholithiasis Calculus of bile duct without mention of cholecystitis or obstruction documented in this encounter Administered Medications Inactive Administered Medications - up to 3 most recent administrations Medication Order MAR Action Action Date Dose Rate Site acetaminophen (TYLENOL) tablet 650 mg 650 mg, Oral, Every 6 hours, First dose (after last modification) on 11/25/22 at 0900, Until Discontinued, Maximum dose of acetaminophen is 4000 mg from all sources in 24 hours. Given 11/26/2022 5:10 AM CDT 650 mg Given 11/25/2022 9:03 PM CDT 650 mg Given 11/25/2022 2:39 PM CDT 650 mg dextrose (GLUTOSE) 40 % oral gel 37.5-75 g 37.5-75 g (15-30 g of dextrose), Oral, As needed, Low blood sugar, Starting on 11/24/22 at 0109, Until Sat11/26/22 at 2044, If patient is verbally responsive and taking thickened liquids or oral medications: Blood glucose less than 50 mg/dL - give 30 g of dextrose; repeat until blood glucose reaches 70 mg/dL Blood glucose 50-69 mg/dL - give 15 g of dextrose; repeat until blood glucose reaches 70 mg/dL 37.5 g of glucose gel = 15 g of dextrose dextrose 10 % bolus infusion 125-250 mL 125-250 mL, Intravenous, Administer over 15 Minutes, As needed, Low Blood Sugar, Starting on 11/24/22 at 0109, Until Sat11/26/22 at 2044, If patient is verbally responsive and NPO or unable to swallow: Blood glucose less than 50 mg/dL - give 250 mL (25 g) and repeat until blood glucose reaches 70 mg/dL Blood glucose 50-69 mg/dL - give 125 mL (12.5 g) and repeat until blood glucose reaches 70 mg/dL If patient is verbally Unresponsive and NPO or unable to swallow: Blood glucose less than 70 mg/dL - give 250 mL (25 g), repeat until blood glucose reaches 70 mg/dL glucagon injection 1 mg 1 mg, Intramuscular, Once as needed, Other, Low blood sugar, 1 dose, Starting on 11/24/22 at 0109, Until Sat11/26/22 at 2044, If patient is verbally UNresponsive and no IV access with blood glucose less than 70 mg/dL. Do NOT repeat administration. HYDROcodone-acetaminophen (NORCO) 5-325 MG tablet 1 tablet 1 tablet, Oral, Every 6 hours PRN, Moderate pain (Scale 4 - 7), Starting on 11/25/22 at 0838, Until Sat11/26/22 at 2044, Maximum dose of acetaminophen is 4000 mg from all sources in 24 hours. Given 11/26/2022 1:51 PM CDT 1 tablet Given 11/25/2022 5:19 PM CDT 1 tablet Given 11/25/2022 9:09 AM CDT 1 tablet HYDROmorphone (DILAUDID) injection 0.5 mg 0.5 mg, Intravenous, Every 4 hours PRN, Severe pain (Scale 8 - 10), Starting on 11/25/22 at 0844, Until Sat11/26/22 at 2044, Administer slowly over at least 2-3 minutes. Given 11/26/2022 2:37 AM CDT 0.5 mg iopamidol (ISOVUE-M 200) 41 % injection As needed, Starting on Sat11/26/22 at 1031, Until Sat11/26/22 at 1143, Intra-Op Given 11/26/2022 10:31 AM CDT 15 mLs normal saline 0.9 % flush 3-10 mL 3-10 mL, Intravenous, Every 8 hours, First dose on Sat11/23/22 at 0100, Until Discontinued Given 11/26/2022 1:12 AM CDT 10 mLs Given 11/25/2022 9:10 AM CDT 10 mLs Given 11/25/2022 1:50 AM CDT 10 mLs ondansetron (ZOFRAN) injection 4 mg 4 mg, Intravenous, Every 8 hours PRN, Nausea, Vomiting, Starting on Sat11/23/22 at 0034, Until Sat11/26/22 at 2044, IV push over 2-5 minutes. Given 11/26/2022 1:52 PM CDT 4 mg Given 11/26/2022 5:32 AM CDT 4 mg Given 11/24/2022 12:45 PM CDT 4 mg piperacillin-tazobactam (ZOSYN) 3.375 g in sodium chloride 0.9 % 50 mL IVPB 3.375 g, Intravenous, Administer over 240 Minutes, Every 8 hours, First dose on Sat11/23/22 at 0300, Until Discontinued New Bag 11/26/2022 12:47 PM CDT 3.375 g 12.5 mL/hr New Bag 11/26/2022 5:07 AM CDT 3.375 g 12.5 mL/hr New Bag 11/25/2022 9:04 PM CDT 3.375 g 12.5 mL/hr polyethylene glycol (GLYCOLAX) packet 17 g 17 g, Oral, Daily as needed, Constipation, Starting on Sat11/23/22 at 0034, Until Sat11/26/22 at 204, If both senna and polyethylene glycol are ordered, use 1st; if no response by next dosing interval, go to next option. Given 11/26/2022 12:47 PM CDT 17 g Given 11/25/2022 12:52 PM CDT 17 g documented in this encounter Active and Recently Administered Medications Times are shown in CDT. Scheduled Medication Order 11/24/2022 11/25/2022 11/26/2022 acetaminophen (TYLENOL) tablet 650 mg 650 mg, Oral, Every 6 hours, First dose (after last modification) on Sat11/25/22 at 0900, Until Discontinued, Maximum dose of acetaminophen is 4000 mg from all sources in 24 hours. 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 2130 (Given - Provider: Cara Ansari RN) normal saline 0.9 % flush 3-10 mL 3-10 mL, Intravenous, Every 8 hours, First dose on Sat11/23/22 at 0100, Until Discontinued 0145 (Not Given - Provider: Cara Ansari RN - Reason: Other - Comment: iv fluids infusing)0834 (Given - Provider: Aminata Barrow RN)1700 (Canceled Entry - Provider: Automatic Discharge Provider - Comment: Automatically canceled at discontinue of medication order) 0150 (Given - Provider: Cara Ansari RN)0910 (Given - Provider: Aminata Barrow RN)1700 (Canceled Entry - Provider: Automatic Discharge Provider - Comment: Automatically canceled at discontinue of medication order) 0112 (Given - Provider: Cara Ansari RN)0928 (Not Given - Provider: Aminata Barrow RN - Reason: Patient not available - Comment: surgery)1700 (Canceled Entry - Provider: Automatic Discharge Provider - Comment: Automatically canceled at discontinue of medication order) piperacillin-tazobacta m (ZOSYN) 3.375 g in sodium chloride 0.9 % 50 mL IVPB 3.375 g, Intravenous, Administer over 240 Minutes, Every 8 hours, First dose on Sat11/23/22 at 0300, Until Discontinued 0100 (Infusion Stop Time - Provider: Cara Ansari RN)0414 (New Bag - Provider: Cara Ansari RN)0830 (Infusion Stop Time - Provider: Aminata Barrow RN)1245 (New Bag - Provider: Aminata Barrow RN)1645 (Due: Infusion Stop Time - Provider: Aminata Barrow RN)2129 (New Bag - Provider: Cara Ansari RN) 0100 (Infusion Stop Time - Provider: Aminata Barrow RN)0148 (Infusion Stop Time - Provider: Cara Ansari RN)0540 (New Bag - Provider: Cara Ansari RN)1253 (New Bag - Provider: Aminata Barrow RN)1653 (Due: Infusion Stop Time - Provider: Aminata Barrow RN)2104 (New Bag - Provider: Cara Ansari RN) 0110 (Infusion Stop Time - Provider: Cara Ansari RN)0507 (New Bag - Provider: Cara Ansari RN)0907 (Due: Infusion Stop Time - Provider: Cara Ansari RN)1247 (New Bag - Provider: Aminata Barrow RN)1647 (Due: Infusion Stop Time - Provider: Aminata Barrow RN) Continuous Medication Order 11/24/2022 11/25/2022 11/26/2022 dextrose 5 %-sodium chloride 0.45 % infusion (CANCELED) at 125 mL/hr, Intravenous, Continuous, Starting on 11/24/22 at 0145, Until 11/26/22 at 1236 0126 (New Bag - Provider: Cara Ansari RN)1503 (New Bag - Provider: Aminata Barrow RN)2147 (New Bag - Provider: Cara Ansari RN) 0540 (New Bag - Provider: Cara Ansari RN)1719 (New Bag - Provider: Aminata Barrow RN) 0141 (New Bag - Provider: Cara Ansari RN) PRN Medication Order 11/24/2022 11/25/2022 11/26/2022 BUpivacaine-EPINEPHrine (PF) 0.25% -[id number] injection (CANCELED) As needed, Starting on 11/24/22 at 1708, Until 11/24/22 at 2059, Intra-Op 1708 (Given - Provider: Lukasz Diaz MD) dextrose (GLUTOSE) 40 % oral gel 37.5-75 g 37.5-75 g (15-30 g of dextrose), Oral, As needed, Low blood sugar, Starting on 11/24/22 at 0109, Until Sat11/26/22 at 2044, If patient is verbally responsive and taking thickened liquids or oral medications: Blood glucose less than 50 mg/dL - give 30 g of dextrose; repeat until blood glucose reaches 70 mg/dL Blood glucose 50-69 mg/dL - give 15 g of dextrose; repeat until blood glucose reaches 70 mg/dL 37.5 g of glucose gel = 15 g of dextrose dextrose 10 % bolus infusion 125-250 mL 125-250 mL, Intravenous, Administer over 15 Minutes, As needed, Low Blood Sugar, Starting on 11/24/22 at 0109, Until Sat11/26/22 at 2044, If patient is verbally responsive and NPO or unable to swallow: Blood glucose less than 50 mg/dL - give 250 mL (25 g) and repeat until blood glucose reaches 70 mg/dL Blood glucose 50-69 mg/dL - give 125 mL (12.5 g) and repeat until blood glucose reaches 70 mg/dL If patient is verbally Unresponsive and NPO or unable to swallow: Blood glucose less than 70 mg/dL - give 250 mL (25 g), repeat until blood glucose reaches 70 mg/dL fentaNYL (SUBLIMAZE) injection 25 mcg (CANCELED) 25 mcg, Intravenous, Every 5 min PRN, Other, Moderate pain, 4 doses, Starting on 11/24/22 at 1912, Until 11/24/22 at 2240, Maximum cumulative dose 100 mcg. Do not administer if patient is overly sedated, SpO2 less than 90%, or Respiratory Rate less than 12. If more than one IV analgesic is ordered per pain level, use in this order: fentaNYL, morphine, HYDROmorphone. If desired pain control is not reached, move to next ordered medication at next dosing interval., PACU 1956 (Given - Provider: Kati Rasmussen RN) glucagon injection 1 mg 1 mg, Intramuscular, Once as needed, Other, Low blood sugar, 1 dose, Starting on 11/24/22 at 0109, Until 11/26/22 at 2044, If patient is verbally UNresponsive and no IV access with blood glucose less than 70 mg/dL. Do NOT repeat administration. haloperidol lactate (HALDOL) injection 2 mg (COMPLETED) 2 mg, Intravenous, Once as needed, Agitation, Nausea, Vomiting, 1 dose, Starting on 11/24/22 at 1912, Until 11/24/22 at 1948, Administer slowly over 3-4 minutes. If more than one antiemetic is ordered, use in this order: ondansetron, diphenhydramine, metoclopramide, haloperidol, promethazine. If nausea / vomiting still not controlled, move to next ordered medication., PACU 1947 (Given - Provider: Kati Rasmussen RN) HYDROcodone-acetaminophe n (NORCO) 5-325 MG tablet 1 tablet 1 tablet, Oral, Every 6 hours PRN, Moderate pain (Scale 4 - 7), Starting on 11/25/22 at 0838, Until 11/26/22 at 2045, Maximum dose of acetaminophen is 4000 mg from all sources in 24 hours. 0909 (Given - Provider: Aminata Barrow RN)1719 (Given - Provider: Aminata Barrow RN) 1351 (Given - Provider: Aminata Barrow RN) HYDROmorphone (DILAUDID) injection 0.5 mg 0.5 mg, Intravenous, Every 4 hours PRN, Severe pain (Scale 8 - 10), Starting on 11/25/22 at 0844, Until 11/26/22 at 2045, Administer slowly over at least 2-3 minutes. 0237 (Given - Provider: Cara Ansari RN) iopamidol (ISOVUE-M 200) 41 % injection (CANCELED) As needed, Starting on 11/26/22 at 1031, Until 11/26/22 at 1143, Intra-Op 1031 (Given - Provider: Glenn Mullins MD) morphine injection 2 mg (CANCELED) 2 mg, Intravenous, Every 3 hours PRN, Moderate pain (Scale 4 - 7), Starting on 11/23/22 at 0034, Until 11/25/22 at 0839 0414 (Given - Provider: Cara Ansari RN)0834 (Given - Provider: Aminata Barrow RN)2149 (Given - Provider: Cara Ansari RN) 0149 (Given - Provider: Cara Ansari, RN)0440 (Given - Provider: Cara Ansari RN) naLOXone (NARCAN) injection 0.4 mg 0.4 mg, Intravenous, As needed, Opioid reversal, Starting on Sat11/23/22 at 0034, Until Sat11/26/22 at 2044 normal saline 0.9 % flush 3-10 mL 3-10 mL, Intravenous, As needed, Line care, Starting on Sat11/23/22 at 0034, Until Sat11/26/22 at 2044 ondansetron (ZOFRAN) injection 4 mg 4 mg, Intravenous, Every 8 hours PRN, Nausea, Vomiting, Starting on Sat11/23/22 at 0034, Until Sat11/26/22 at 2044, IV push over 2-5 minutes. 0324 (Given - Provider: Cara Ansari RN)1245 (Given - Provider: Aminata Barrow RN) 0532 (Given - Provider: Cara Ansari RN)1352 (Given - Provider: Aminata Barrow RN) polyethylene glycol (GLYCOLAX) packet 17 g 17 g, Oral, Daily as needed, Constipation, Starting on Sat11/23/22 at 0034, Until Sat11/26/22 at 2044, If both senna and polyethylene glycol are ordered, use 1st; if no response by next dosing interval, go to next option. 1252 (Given - Provider: Aminata Barrow RN) 1247 (Given - Provider: Aminata Barrow RN) documented in this encounter Care Teams Post Office Clerk Relationship Specialty Start Date End Date Rahul Bradford PA [address] [place] [address] PCP - General PHYSICIAN DIRECTOR OF MARKETING ANALYTICS 11/19/22 documented as of this encounter
--- OUTSIDE RECORDS SUMMARY | 2024-02-22 14:33 | XMS_ITS | Encounter Summary ---
Author Organization [facility] Address [address] [place] [address]. [place], [place] [address] [place] [id number] Care Team Providers Care Unit Manager Rn Name Role Phone Rahul Bradford Primary Care Provider [phone] Reason for Visit * Auth/Cert (Routine) Specialty Diagnoses / Procedures Referred By Contac t Referred To Contact Diagnoses Cholecystitis Acute cholecystitis CHOLECYSTITIS Cholecystitis Acute cholecystitis Procedures NONE Davi Reed III, MD [address] [place] [address] Phone: tel: fax: Referral ID Status Reason Start Date Expiration Date Visits Re quested Visits Authorized [id number] 1 1 Encounter Details Date Type Department Care Team (Late st Contact Info) Description 11/24/2022 4:15 PM CDT Anesthesia Event [facility] OR [address] [place] [address] Rahul Brantley MD [address] [facility] [address] [place] [id number] Candy Finley CRNA [address] [facility] [place] [address] Anesthesia Record Procedure Summary Procedure Name Responsible Anesthesiologist Anesthesia Start Time Anesthesia Stop Time LAPAROSCOPIC CHOLECYSTECTOMY (Abdomen) Rahul Brantley MD 11/24/22 1615 11/24/22 1923 Events Date Time Event Comment 11/24/2022 1603 1603 AN Anesthesia Prepped 1615 An Start Patient ID and consent checked and patient reassessed. 1615 An Start Data 1622 Preoxygenation 1625 An Induction The patient was reevaluated immediately before moderate or deep sedation use and before anesthesia induction. 1628 An Intubation 1631 Anesthesia Ready 191 An Extubation 1915 Face Mask Applied 1916 an stop data 192 Post Anesthetic Care Handoff I completed my handoff to the receiving nurse during which we: 1. Identified the patient 2. Identified the responsible provider 3. Reviewed the pertinent medical history 4. Discussed the surgical course 5. Reviewed intra-op anesthesia management and issues during anesthesia 6. Set expectations for post-procedure period 7. Allowed opportunity for questions and acknowledgement of understanding. 1922 An Stop Meds Name Total 2 mL - midazolam (VERSED) 1 mg/mL inject ion 2 mg fentaNYL (SUBLIMAZE) 100 mcg/2 mL inject ion 200 mcg lidocaine (XYLOCAINE) 1% injection 100 m g propofol (DIPRIVAN) 200 mg/20 mL injecti on 566.34 mg rocuronium (ZEMURON) 50 mg/5 mL injectio n 110 mg dexamethasone (DECADRON) injection 8 mg dexmedetomidine (PRECEDEX) 100 mcg/mL in jection 30 mcg famotidine (PEPCID) 10 mg/mL injection 2 0 mg ondansetron (ZOFRAN) injection 4 mg HYDROmorphone (DILAUDID) injection 1 mg/ mL 1 mg glucagon injection (diagnostic) 1 mg labetalol (TRANDATE) 5 mg/mL injection 5 mg ketorolac (TORADOL) 30 mg/mL injection 3 0 mg sugammadex (BRIDION) 200 mg/2 mL injecti on 200 mg lactated ringers infusion 0 mL lactated ringers infusion 0 mL * Agents Name O2 Air Inspired Sevoflurane Sevoflurane * Blood No blood administrations on file. Lines, Drains, and Airways Type Details Placement Removal Peripheral IV Placement Date: 11/22/22; Placement Time: 1899; Placed Outside of This Facility?: Yes; Size: 20 G; Orientation: Left; Location: Antecubital; Removal Date: 11/26/22; Removal Time: 204411/22/221899 by Candy Preciado RN 11/26/222044 by Automatic Discharge Provider Peripheral IV Placement Date: 11/24/22; Placement Time: 1628; Placed Outside of This Facility?: No; Size: 18 G; Orientation: Right; Location: Hand; Site Prep: Chlorhexidine; Local Anesthetic: None; Inserted By: essence finley; Insertion attempts: 1; Ultrasound-guided Placement?: No; Patient Tolerance: Tolerated well; Removal Date: 11/26/22; Removal Time: 204411/24/22 162 by Candy Finley CRNA 11/26/222044 by Automatic Discharge Provider NG/OG Tube Placement Date: 11/24/22; Placement Time: 1629; Inserted By: essence finley; Tube Type: Orogastric; Tube Size: 16 Fr.; Tube Location: Oral; Removal Date: 11/24/22; Removal Time: 1909; Removal Reason: End of Case 11/24/22 1630 by Candy Finley CRNA 11/24/221909 by Donna Etienne CRNA Surgical/Incision 11/24/22; 1711; Surgical Wound; Abdomen; BENZOIN TINCTURE COMPOUND (x1), DRESSING STERI STRIP 1/2 X 4 (x1), DRESSING BANDAIDE 1X3 (x1), DRESSING SPONGE GAUZE 2 X 2 (x1); 11/26/22; 204411/24/221710 by Brian Mesa RN 11/26/222044 by Automatic Discharge Provider documented in this encounter Social History Tobacco [...] often do you attend chur ch or christianity services? Patient declined 11/23/2022 Do you belong to any clubs o r organizations such as sikhism groups, unions, fraternal or athletic groups, or [...] and heating? Not hard at all 11/23/2022 [facility] Occupat ional Health - Occupational Stress [...] place to sleep or slept in a longterm (including now)? 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 Gender Identity Not on file Sexual Orientation [...] Author Status No 11/23/2022 1:00 AM CDT Candy Preciado RN Active documented in this encounter OR Notes * Anesthesia Postprocedure Evaluation - Rahul Brantley MD - 11/24/2022 8:08 PM CDT Anesthesia Post-op Note Catie Mcdonald Procedure(s): LAPAROSCOPIC CHOLECYSTECTOMY (Abdomen) Anesthesia type: general Vitals: 11/24/221999 BP: (!) 140/82 Vitals: 11/24/221999 Pulse: 77 Vitals: 11/24/221999 Resp: 16 Vitals: 11/24/221922 Temp: 36.4 ??C Vitals: 11/24/221999 SpO2: 95% Patient Location: PACU Level of Consciousness: awake Pain Management: adequate analgesia Airway Patency: patent Respiratory Status: acceptable Cardiovascular Status: acceptable and hemodynamically stable Post-Op Nausea: none Postoperative Hydration: euvolemic There were no known notable events for this encounter. * Anesthesia Preprocedure Evaluation - Isidro Corcoran MD - 11/24/2022 3:55 PM CDT Anesthesia ROS/MED History Reviewed: Patient summary , Nursing notes , Family history anesthesia, Anesthesia history , Medications , Labs Pre-Anesthetic State: alert, awake and responds appropriately Pulmonary neg pulmonary ROS Cardiovascular neg cardio ROS Neuro/Psych (+) depression Substance Use (+) marijuana use, weekly GI/Hepatic/Renal (+) GERD, (well controlled) Endo/Other neg endo/other ROS (+) obese GENERAL COMMENTS ASSESSMENT/PLAN: 27-year-old female with acute cholecysitis. #cholecystitis - NPO - IV fluids - IV zosyn - MRCP showing stone in cystic duct, GI consulted for ERCP - OR for laparoscopic cholecystectomy, possible open Indications, risks, benefits, and alternatives of the procedure were discussed including but not limited to bleeding, infection, injury to nearby organs (especially common bile duct), vessels, or nerves, and need for further procedures. Patient voiced understanding and wished to proceed. All questions and concerns addressed satisfactorily. - Adequate UOP, replete lytes PRN. - SCDs, ambulate TID NPO Status: Physical Evaluation Airway Mallampati: II TM Distance: >3 FB Neck ROM: normal Dental No notable dental history Pulmonary Pulmonary exam normal Breath sounds clear to auscultation Cardiovascular Rhythm: regular Rate: normal Cardiovascular exam normal STOP-Bang Assessment: Anesthesia Plan ASA 2 Intravenous Induction Anesthesia type: general Plan for Airway: ETT GA ETT Routine anti-emetics discussed. Informed Consent Anesthetic plan and risks discussed with patient of whom consent was obtained. . documented in this encounter Plan of Treatment Not on file documented as of this encounter Visit Diagnoses Not on filedocumented in this encounter Administered Medications Inactive Administered Medications - up to 3 most recent administrations Medication Order MAR Action Action Date Dose Rate Site dexamethasone (DECADRON) injection Intravenous, PRN, Starting on 11/24/22 at 1635, Until 11/24/22 at 192, Anesthesia Intra-Op Given 11/24/2022 4:35 PM CDT 8 mg dexmedetomidine (PRECEDEX) injection Intravenous, PRN, Starting on 11/24/22 at 1716, Until 11/24/22 at 192, Anesthesia Intra-Op Given 11/24/2022 5:53 PM CDT 10 mcg Given 11/24/2022 5:16 PM CDT 20 mcg famotidine (PF) (PEPCID) injection Intravenous, PRN, Starting on 11/24/22 at 1723, Until 11/24/22 at 192, Anesthesia Intra-Op Given 11/24/2022 5:23 PM CDT 20 mg fentaNYL (SUBLIMAZE) injection Intravenous, PRN, Starting on 11/24/22 at 1622, Until 11/24/22 at 1929, Anesthesia Intra-Op Given 11/24/2022 5:10 PM CDT 50 mcg Given 11/24/2022 4:51 PM CDT 50 mcg Given 11/24/2022 4:25 PM CDT 75 mcg glucagon injection Intravenous, PRN, Starting on 11/24/22 at 1754, Until 11/24/22 at 192, Anesthesia Intra-Op Given 11/24/2022 5:54 PM CDT 1 mg HYDROmorphone (DILAUDID) injection Intravenous, PRN, Starting on 11/24/22 at 1735, Until 11/24/22 at 1929, Anesthesia Intra-Op Given 11/24/2022 6:58 PM CDT 0.4 mg Given 11/24/2022 6:32 PM CDT 0.2 mg Given 11/24/2022 5:52 PM CDT 0.2 mg ketorolac (TORADOL) injection Intravenous, PRN, Starting on 11/24/22 at 1906, Until 11/24/22 at 1929, Anesthesia Intra-Op Given 11/24/2022 7:06 PM CDT 30 mg labetalol (TRANDATE) injection Intravenous, PRN, Starting on 11/24/22 at 1841, Until 11/24/22 at 1929, Anesthesia Intra-Op Given 11/24/2022 6:41 PM CDT 5 mg lactated ringers infusion Intravenous, Continuous PRN, Starting on 11/24/22 at 1651, Until 11/24/22 at 1929, Anesthesia Intra-Op New Bag 11/24/2022 4:51 PM CDT lactated ringers infusion Intravenous, Continuous PRN, Starting on 11/24/22 at 1615, Until 11/24/22 at 1929, Anesthesia Intra-Op New Bag 11/24/2022 4:15 PM CDT lidocaine (XYLOCAINE) 1 % injection SOLN Other, PRN, Starting on 11/24/22 at 1625, Until 11/24/22 at 192, Anesthesia Intra-Op Given 11/24/2022 4:25 PM CDT 100 mg midazolam (VERSED) injection Intravenous, PRN, Starting on 11/24/22 at 1615, Until 11/24/22 at 1929, Anesthesia Intra-Op Given 11/24/2022 4:15 PM CDT 2 mg ondansetron (ZOFRAN) injection Intravenous, PRN, Starting on 11/24/22 at 1902, Until 11/24/22 at 1929, Anesthesia Intra-Op Given 11/24/2022 7:02 PM CDT 4 mg propofol (DIPRIVAN) IV bolus Intravenous, PRN, Starting on 11/24/22 at 1625, Until 11/24/22 at 1929, Anesthesia Intra-Op New Bag 11/24/2022 5:15 PM CDT 30 mcg/kg/min 17.172 mL/hr Given 11/24/2022 4:25 PM CDT 200 mg rocuronium (ZEMURON) injection Intravenous, PRN, Starting on 11/24/22 at 1626, Until 11/24/22 at 1929, Anesthesia Intra-Op Given 11/24/2022 6:44 PM CDT 20 mg Given 11/24/2022 6:20 PM CDT 20 mg Given 11/24/2022 5:55 PM CDT 20 mg sugammadex (BRIDION) injection Intravenous, PRN, Starting on 11/24/22 at 1910, Until 11/24/22 at 192, Anesthesia Intra-Op Given 11/24/2022 7:10 PM CDT 200 mg documented in this encounter Care Teams Unit Manager Rn Relationship Specialty Start Date End Date Rahul Bradford PA [address] [place] [address] PCP - General PHYSICIAN CASCARA BARK CUTTER 11/19/22 documented as of this encounter
--- OUTSIDE RECORDS SUMMARY | 2024-02-22 14:33 | XMS_ITS | Encounter Summary ---
Author Organization [facility] Address [address] [place] [address]. [place], [place] [id number] [place] [address] Care Team Providers Care [employer] Name Role Phone Rahul Bradford Primary Care Provider [phone] Reason for Visit * Auth/Cert (Routine) Specialty Diagnoses / Procedures Referred By Contac t Referred To Contact Diagnoses Cholecystitis Acute cholecystitis CHOLECYSTITIS Cholecystitis Acute cholecystitis Procedures NONE Davi Reed III, MD [address] [place] [address] Phone: tel: fax: Referral ID Status Reason Start Date Expiration Date Visits Re quested Visits Authorized [id number] 1 1 Encounter Details Date Type Department Care Team (Late st Contact Info) Description 11/26/2022 10:04 AM CDT Anesthesia Event [facility] OR [address] [place] [address] Jonathon Hernandes MD [address] [place] [address] [place] [address] Rahul Brantley MD [address] [place] [address] Anesthesia Record Procedure Summary Procedure Name Responsible Anesthesiologist Anesthesia Start Time Anesthesia Stop Time ERCP WITH STONE REMOVAL DUCT Jonathon Hernandes MD 11/26/22 1004 11/26/22 1045 Events Date Time Event Comment 11/26/2022 1002 1002 AN Anesthesia Prepped 1004 An Start Patient ID and consent checked and patient reassessed. 1004 An Start Data 1008 Preoxygenation 1010 An Induction The patient was reevaluated immediately before moderate or deep sedation use and before anesthesia induction. 1013 An Intubation 1019 Anesthesia Ready 1039 An Extubation 1043 an stop data 1045 Post Anesthetic Care Handoff I completed my handoff to the receiving nurse during which we: 1. Identified the patient 2. Identified the responsible provider 3. Reviewed the pertinent medical history 4. Discussed the surgical course 5. Reviewed intra-op anesthesia management and issues during anesthesia 6. Set expectations for post-procedure period 7. Allowed opportunity for questions and acknowledgement of understanding. 1045 An Stop Meds Name Total ondansetron (ZOFRAN) 4 mg/2 mL injection 4 mg sugammadex (BRIDION) 200 mg/2 mL injecti on 200 mg lactated ringers infusion 200 mL * Agents Name O2 Air Inspired Sevoflurane Sevoflurane * Blood No blood administrations on file. Lines, Drains, and Airways Type Details Placement Removal NG/OG Tube Placement Date: 11/26/22; Placement Time: 10211/26/22 102 by Jonathon Hernandes MD Peripheral IV Placement Date: 11/22/22; Placement Time: 190; Placed Outside of This Facility?: Yes; Size: 20 G; Orientation: Left; Location: Antecubital; Removal Date: 11/26/22; Removal Time: 204411/22/221899 by Candy Preciado RN 11/26/222044 by Automatic Discharge Provider Peripheral IV Placement Date: 11/24/22; Placement Time: 162; Placed Outside of This Facility?: No; Size: 18 G; Orientation: Right; Location: Hand; Site Prep: Chlorhexidine; Local Anesthetic: None; Inserted By: essence finley; Insertion attempts: 1; Ultrasound-guided Placement?: No; Patient Tolerance: Tolerated well; Removal Date: 11/26/22; Removal Time: 204411/24/221628 by Candy Finley CRNA 11/26/222044 by Automatic Discharge Provider Surgical/Incision 11/24/22; 1711; Surgical Wound; Abdomen; BENZOIN TINCTURE COMPOUND (x1), DRESSING STERI STRIP 1/2 X 4 (x1), DRESSING BANDAIDE 1X3 (x1), DRESSING SPONGE GAUZE 2 X 2 (x1); 11/26/22; 204411/24/22 1711 by Brian Mesa RN 11/26/222044 by Automatic [...] How often do you attend chur or yazidi services? Patient declined 11/23/2022 Do you belong [...] and heating? 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 Gender Identity Not on file Sexual Orientation [...] Oakley RN Active documented in this encounter OR Notes * Anesthesia Postprocedure Evaluation - Jonathon Hernandes MD - 11/26/2022 11:26 AM CDT Anesthesia Post-op Note Catie Mcdonald Procedure(s): ERCP WITH STONE REMOVAL DUCT Anesthesia type: general Vitals: 11/26/22 1115 BP: (!) 119/92 Vitals: 11/26/22 1115 Pulse: 70 Vitals: 11/26/22 1115 Resp: 16 Vitals: 11/26/22 1045 Temp: 36.3 ??C Vitals: 11/26/22 1100 SpO2: 94% Patient Location: PACU Level of Consciousness: alert, oriented and awake Pain Management: adequate analgesia Airway Patency: patent Respiratory Status: acceptable Cardiovascular Status: acceptable Post-Op Nausea: none Postoperative Hydration: euvolemic There were no known notable events for this encounter. * Anesthesia Preprocedure Evaluation - Jonathon Hernandes MD - 11/26/2022 7:51 AM CDT Anesthesia ROS/MED History Reviewed: Patient summary , Nursing notes , Family history anesthesia, Anesthesia history , Medications Pre-Anesthetic State: alert, awake and responds appropriately no history of anesthetic complications Pulmonary neg pulmonary ROS Cardiovascular neg cardio ROS Neuro/Psych (+) depression Substance Use (+) marijuana use, weekly GI/Hepatic/Renal (+) GERD, (well controlled) Comments: Acute cholecystitis Choledocholithiasis Endo/Other neg endo/other ROS (+) obese NPO Status: Physical Evaluation Airway Mallampati: I TM Distance: >3 FB Neck ROM: normal Dental No notable dental history Pulmonary Pulmonary exam normal Breath sounds clear to auscultation Cardiovascular Rhythm: regular Rate: normal Cardiovascular exam normal STOP-Bang Assessment: Anesthesia Plan ASA 2 Intravenous Induction Anesthesia type: general Plan for Airway: ETT Informed Consent Anesthetic plan and risks discussed with patient of whom consent was obtained. . documented in this encounter Plan of Treatment Not on file documented as of this encounter Visit Diagnoses Not on filedocumented in this encounter Administered Medications Inactive Administered Medications - up to 3 most recent administrations Medication Order MAR Action Action Date Dose Rate Site lactated ringers infusion Intravenous, Continuous PRN, Starting on Sat11/26/22 at 1004, Until Sat11/26/22 at 1047, Anesthesia Intra-Op New Bag 11/26/2022 10:04 AM CDT ondansetron (ZOFRAN) injection Intravenous, PRN, Starting on Sat11/26/22 at 1033, Until Sat11/26/22 at 1047, Anesthesia Intra-Op Given 11/26/2022 10:33 AM CDT 4 mg sugammadex (BRIDION) injection Intravenous, PRN, Starting on Sat11/26/22 at 1032, Until Sat11/26/22 at 1047, Anesthesia Intra-Op Given 11/26/2022 10:32 AM CDT 200 mg documented in this encounter Care Teams [employer] Relationship Specialty Start Date End Date Rahul Bradford PA [address] [place] [address] PCP - General 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
--- OUTSIDE RECORDS SUMMARY | 2024-02-22 14:33 | XMS_ITS | Encounter Summary ---
Author Organization [facility] Address [address] [place] [address]. 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 Name Role Phone Rahul Bradford Primary Care Provider [phone] Reason for Visit * Auth/Cert (Routine) Specialty Diagnoses / Procedures Referred By Contac t Referred To Contact Diagnoses Cholecystitis Acute cholecystitis CHOLECYSTITIS Cholecystitis Acute cholecystitis Procedures NONE Davi Reed III, MD [address] [place] [address] Phone: tel: fax: Referral ID Status Reason Start Date Expiration Date Visits Re quested Visits Authorized [id number] 1 1 Encounter Details Date Type Department Care Team (Late st Contact Info) Description 11/24/2022 4:00 PM CDT - 11/24/2022 7:08 PM CDT Surgery [facility] [place] [address] [place] [address] Lukasz Diaz MD [address] [facility] [address] [place] [address] LAPAROSCOPIC CHOLECYSTECTOMY Surgery Details Date/Time Status Location OR Service Patient Class Case Class Case Type Trauma Case? 11/24/2022 4:00 PM Posted [facility] Main OR MS 04 General Inpatient No Panel 1 Procedure LRB Anes Op Region Wound Class Comments LAPAROSCOPIC CHOLECYSTECTOMY N/A General Abdomen C lean Contaminated Surgeon Surgeon Role Service Panel Lukasz Diaz MD Primary General 1 OSelvin Muir MD Resident - Assisting Genera l 1 Case Notes Re added 11/24 @ 12:32 JM documented in this encounter Social History Tobacco [...] How often do you attend chur or oriental orthodox services? Patient declined 11/23/2022 Do you belong to any clubs o r organizations such as evangelical groups, unions, fraternal or athletic groups, or [...] and heating? Not hard at all 11/23/2022 [facility] of Occupat ional Health - Occupational Stress [...] place to sleep or slept in a mcfp (including now)? 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 Gender Identity Not on file Sexual Orientation Not on file documented as of this encounter Last Filed Vital Signs Vital Sign Reading Time Taken Comments Blood Pressure 118/76 11/24/2022 11:00 AM CDT Pulse 60 11/24/2022 11:00 AM CDT Temperature 36.8 ??C (98.3 ??F) 11/24/2022 11:00 AM C DT Respiratory Rate 16 11/24/2022 11:00 AM CDT Oxygen Saturation 95% 11/24/2022 11:00 AM CDT Inhaled Oxygen Concentration - - [...] Date Author Status No 11/23/2022 1:00 AM CDCandy Rice RN Active documented in this encounter Discharge Summaries * Brent Godinez MD - 11/26/2022 5:14 PM CDT Patient ID: Catie Oneill [id number] 27-year-old 1995 Admit date: 11/23/2022 Expected Discharge Date: 11/26/2022 Primary care Physician: NEENA DE DIOS Admitting Physician: Davi Reed III, MD Discharge Physician: BRENT GODINEZ MD Admission Diagnoses: Cholecystitis [K81.9] Acute cholecystitis [K81.0] Discharge Diagnoses: Past Medical History Past Medical History: Diagnosis Date ??? Anxiety disorder, unspecified History reviewed. No pertinent surgical history. Reason for admission: Catie Oneill is a 27-year-old female who has a [...] and constipation. She went[facility] the ED at [facility] 2 prior times for evaluation, and work-up was essentially unremarkable. She was started on ondansetron p.o. and PPI during these visits. Patient states that the pain has continued to worsen, so she returned to the ED at [facility] for further evaluation. She denies any fevers [...] respectively. Hospital Course: 27-year-old female admitted to [facility] with complaints of epigastric abdominal pain. CTimaging [...] arranged Follow-up; NEENA De Dios [address] [facility] [address] Follow up in 1 week(s) with cbc/cmp Lukasz Diaz MD [address] [facility] [address] Follow up in 2 week(s) Total time spent on discharge was 35 minutes. Thank you for allowing [facility] hospitalist service to take care of your patient, Please call [phone] Ext [phone] if you have any questions or concern. [...] medications. While on pain medications please take [id number] stool softeners such as MiraLAX to achieve [...] a bathtub or a pool. Please call [phone] for a follow up appointment with Dr. Diaz in 2 weeks. Please call the outpatient clinic during business hours or visit the nearest Emergency department if having intractable pain, fevers > 101.5 F or if having intractable nausea or vomiting , or purulent drainage from your wounds. * Attachments The following attachments cannot be sent through Care Everywhere. 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 Pt lives with her sps and 3 kids and is independent with ADL's. Pt uses no DME and has no hx with [facility]. Pt uses [facility] [place] and is followed by Dr Bradford. Pt plans to return home at [place] and her sps will transport. * Glenn [...] Heller RN - 11/26/2022 9:05 AM CDT 11/26/22904 Interdisciplinary Group Conference Team Members Present Physician;Case/Care management Physician present for group conference Dr Godinez Barriers to Discharge Barriers No Barrier- Medical Milestone in Process No Barrier- Medical Milestone in Process follow up ERCP today. DC tomorrow. * Aminata Barrow RN - 11/25/2022 6:54 PM CDT Patient is doing well with pain/nausea control with Fallon and zofran. Had a laparoscopic cholecystectomy last [...] (36.9 ??C) -- 72 18 93 % 11/24/225 125/82 -- -- 74 16 95 % [...] 129/77 -- -- 72 16 99 % 11/24/221922 129/77 97.5 ??F (36.4 ??C) Temporal 70 [...] Prophylaxis: Subcu enoxaparin Code status: Full Code BRETN GODINEZ MD * Kar Mendoza NP - 11/25/2022 8:50 AM CDT [facility] Progress Note Impression and Plan 27-year-old female PMH anxiety transferred 11/23 from [facility] ED with CT findings of acute cholecystitisand choledocholithiasis. [facility] consulted 11/24 for choledocholithiasis noted on MRCP. ?? Acute cholecystitis Choledocholithiasis Anxiety , 10 months ?? --Patient presented to the emergency department at [facility] on 11/22 evening for complaints of abdominal pain x1 week. She had previously been evaluated in the emergency department at [facility] 2 prior times. Work-up each time was essentially unremarkable. She return to theemergency department evening for another evaluation as her [...] the patient, timing to be determined. ?? [facility] was consulted on 11/24 morning to [...] % infusion, , Intravenous, Continuous, Chelita Hall, [facility] Last Rate: 125 mL/hr at 11/25/22 0540, New Bag at 11/25/22 0540 ??? enoxaparin (LOVENOX) 40 MG/0.4ML syringe 40 mg, 40 mg, Subcutaneous, Nightly (enoxaparin), 40 mg at 11/24/220 AND [COMPLETED] Moderate Risk for VTE, , , Once, Davi Reed III, MD ??? glucagon injection 1 mg, 1 mg, Intramuscular, Once PRN, Brent Godinez MD ??? HYDROcodone-acetaminophen (NORCO) 5-325 MG tablet 1 tablet, 1 tablet, Oral, Q6H PRN, Ttaiana Hughes MD ??? HYDROmorphone (DILAUDID) injection 0.5 [...] person, place, and time. LABS:. Recent Labs 11/22/22185811/23/2240311/24/22 0544 WBC 7.71 5.33 4.77 HGB 13.1 [...] PHYSICAL INTERVAL NOTE: I have reviewed Catie Oneill History & Physical which was performed within the past 30 days. After examining Catie Oneill, no change has occurred in the patient's condition since the H&P was completed. Informed Consent Discussion: Potential benefits, risks, and side effects of the patient's procedure/surgery; the likelihood of the patient achieving his or her goals; and any potential problems that might occur during recuperation were discussed with the patient/family/personal client account representative. Reasonable alternatives to the patient's proposed procedure/surgery including benefits, risks, and side effects related to the alternatives and the risks related to not receiving the proposed care were also discussed with the patient/family/personal client account representative. Questions were answered and the patient/family/personal client account representative verbalized understanding and desires to proceed. Source Note - Kar Mendoza NP - 11/24/2022 9:30 AM CDT [facility] Consult Note Impression and Plan 27-year-old female PMH anxiety transferred 11/23 from [facility] ED with CT findings of acute cholecystitisand choledocholithiasis. [facility] consulted 11/24 for choledocholithiasis noted on MRCP. Acute cholecystitis Choledocholithiasis Anxiety , 10 months --Patient presented to the emergency department at [facility] on 11/22 evening for complaints of abdominal pain x1 week. She had previously been evaluated in the emergency department at [facility] 2 prior times. Work-up each time was essentially unremarkable. [facility] [...] with the patient, timing to be determined. [facility] was consulted on 11/24 morning to [...] primary team Thank you for the consultation. [facility] will continue to follow. KAR MENDOZA NP [facility] Gastroenterology 11/24/2022 Basic Information History obtained from patient and medical record History limitation includes none Chief Complaint Acute cholecystitis with choledocholithiasis History of Present illness 27-year-old female H anxiety transferred 11/23 from [facility] ED with CT findings of acute cholecystitisand choledocholithiasis. [facility] consulted 11/24 for choledocholithiasis noted on MRCP. Patient presented to the emergency department at [facility] on 11/22 evening for complaints of abdominal pain x1 week. She had previously been evaluated in the emergency department at [facility] 2 prior times. Work-up each time was [...] % infusion, , Intravenous, Continuous, Chelita Hall, [facility], Last Rate: 125 mL/hr at 11/24/22 0126, [...] 12.5 mL/hr at 11/24/22413, 3.375 g at 11/24/22 041 ??? polyethylene glycol (GLYCOLAX) packet 17 g, [...] ASSAY PERFORMED BY CHEMILUMINESCENT IMMUNOASSAY METHODOLOGY USING [employer]. PATIENT RESULTS DETERMINED BY ASSAYS FROM [...] III, MD - 11/23/2022 1:23 AM CDT [facility] Hospitalist History and Physical Date of Admission: 11/23/2022 PCP: NEENA DE DIOS Chief Complaint: Abdominal pain HPI: Catie Oneill is a 27-year-old female who has a [...] and constipation. She wentto the ED at [facility] 2 prior times for evaluation, and work-up was essentially unremarkable. She was started on ondansetron p.o. and PPI during these visits. Patient states that the pain has continued to worsen, so she returned to the ED at [facility] for further evaluation. She denies any fevers [...] More than three times a week Attends Mosque Services: Never Active Member of Clubs or [...] Labs Lab 11/19/22 1030 11/20/22 0737 11/22/22 185 NA 136 136 137 K 3.9 3.8 [...] last 168 hours., Recent Labs Lab 11/22/22 185 LACTICACID 0.8 , No results for input(s): PH, PCO2, PO2, [id number], BICARBWB, BASEDEFICIT, BASEEXCESS in the last 168 [...] Mendoza NP - 11/24/2022 9:30 AM CDT [facility] Consult Note Impression and Plan 27-year-old female PMH anxiety transferred 11/23 from [facility] ED with CT findings of acute cholecystitisand choledocholithiasis. [facility] consulted 11/24 for choledocholithiasis noted on MRCP. Acute cholecystitis Choledocholithiasis Anxiety , 10 months --Patient presented to the emergency department at [facility] on 11/22 evening for complaints of abdominal pain x1 week. She had previously been evaluated in the emergency department at [facility] 2 prior times. Work-up each time was essentially unremarkable. She return to theemergency department evening for another evaluation as her [...] with the patient, timing to be determined. [facility] was consulted on 11/24 morning to [...] primary team Thank you for the consultation. [facility] will continue to follow. KAR MENDOZA NP [facility] Gastroenterology 11/24/2022 Basic Information History obtained from patient and medical record History limitation includes none Chief Complaint Acute cholecystitis with choledocholithiasis History of Present illness 27-year-old female [facility] anxiety transferred 11/23 from [facility] ED with CT findings of acute cholecystitisand choledocholithiasis. [facility] consulted 11/24 for choledocholithiasis noted on MRCP. Patient presented to the emergency department at [facility] on 11/22 evening for complaints of abdominal pain x1 week. She had previously been evaluated in the emergency department at [facility] 2 prior times. Work-up each time was [...] % infusion, , Intravenous, Continuous, Chelita Hall, [facility] Last Rate: 125 mL/hr at 11/24/22 0126, [...] at 11/24/22 0414, 3.375 g at 11/24/22 041 ??? polyethylene glycol (GLYCOLAX) packet 17 g, [...] ASSAY PERFORMED BY CHEMILUMINESCENT IMMUNOASSAY METHODOLOGY USING [employer]. PATIENT RESULTS DETERMINED BY ASSAYS FROM [...] 5:20 PM CDT Associated attestation - Glenn Mullins MD - 11/24/2022 5:20 PM CDT I, GLENN MULLINS MD, participated in the care of this patient today and discussed the plan of carewith PATRICIA Lara, who shared in this visit. I have [...] Today 11/26/2022 1 0:32 AM CDT ERCP 11/26/2022 9:35 AM CDT POCT GLUCOSE [...] FLUOROSCOPY Routine 11/24/2022 6 :06 PM CDT LAPAROSCOPIC CHOLECYSTECTOMY 11/24/2022 4:01 PM CDT Cholecystitus Case Notes Re added 11/24 @ 12:32 JM POCT GLUCOSE - DOMÍNGUEZ DOCKED DEVICE Routine [...] 70 - 109 11/25/2022 4:34 PM CDT [facility] 11/25/2022 4:17 PM CDT Brent Godinez MD POCT ORDERABLES - DEVICE Fin al Result Performing Organization Address [facility] Co de Phone Number [facility] [address] [address], [phone] * (ABNORMAL) POCT glucose (11/25/2022 11:17 AM CDT) GLUCOSE POC 116(H) 70 - 109 11/25/2022 11:25 AM CDT [facility] 11/25/2022 11:1 7 AM CDT Brent Godinez MD POCT ORDERABLES - DEVICE Fin al Result Performing Organization Address [facility] de Phone Number [facility] [address] [place] [address], [place] [phone] * PHOSPHORUS, INORGANIC PHOSPHATE (11/25/2022 4:50 AM CDT) PHOSPHORUS 2.8 2.5 - 4.9 MG/DL 11/25/2022 5:35 AM CDT [facility] 11/25/2022 4:50 AM CDT Tatiana Hughes MD LABORATORY Final Res ult Performing Organization Address [facility] Co de Phone Number [facility] [address] [place] [address], [phone] * MAGNESIUM (11/25/2022 4:50 AM CDT) Pathologist [facility] MAGNESIUM 1.6 1.6 - 2.6 MG/DL 11/25/2022 5:35 AM CDT [facility] 11/25/2022 4:50 AM CDT us Tatiana Hughes MD LABORATORY Final Res ult [facility] [address] [place] [address], [id number] * (ABNORMAL) HEPATIC FUNCTION PANEL (11/25/2022 4:50 AM CDT) [facility] BILIRUBIN TOTAL S/P/B 1.7(H) 0.2 - 1.0 MG/DL 11/25/2022 5:35 AM CDT [facility] BILIRUBIN DIRECT S/P/B 0.9(H) 0.0 - 0.2 MG/DL 11/25/2022 5:35 AM CDT [facility] ALKALINE PHOSPHATASE S/P/B 270(H) 37 - 98 U/L 11/25/2022 5:35 AM CDT [facility] AST 186(H) 15 - 37 U/L 11/25/2022 5:35 AM CDT [facility] ALT 347(H) 13 - 56 U/L 11/25/2022 5:35 AM CDT [facility] TOTAL PROTEIN S/P/B 6.0(L) 6.4 - 8.2 G/DL 11/25/2022 5:35 AM CDT [facility] ALBUMIN S/P/B 2.9(L) 3.4 - 5.0 G/DL 11/25/2022 5:35 AM CDT [facility] 11/25/2022 4:50 AM CDT us Tatiana Hughes MD LABORATORY Final Res ult [facility] [address] [place] [address], [phone] * (ABNORMAL) CBC, AUTO, NO DIFF (11/25/2022 4:50 AM CDT) WBC 9.50 4.00 - 10.80 x10'3/uL 11/25/2022 4:59 AM CDT [facility] RBC 3.82(L) 4.10 - 5.40 x10'6/uL 11/25/2022 4:59 AM CDT [facility] HGB 11.8(L) 12.0 - 16.0 G/DL 11/25/2022 4:59 AM CDT [facility] HCT 35.0(L) 36.0 - 47.0 % 11/25/2022 4:59 AM CDT [facility] MCV 91.6 78.0 - 100.0 FL 11/25/2022 4:59 AM CDT [facility] MCH 30.9 27.0 - 31.0 PG 11/25/2022 4:59 AM CDT [facility] MCHC 33.7 33.0 - 36.0 G/DL 11/25/2022 4:59 AM CDT [facility] RDW 12.3 11.5 - 14.5 % 11/25/2022 4:59 AM CDT [facility] PLT 309 150 - 350 x10'3/uL 11/25/2022 4:59 AM CDT [facility] MPV 8.8 7.4 - 10.4 FL 11/25/2022 4:59 AM CDT [facility] 11/25/2022 4:50 AM CDT us Tatiana Hughes MD LABORATORY Final Res ult [facility] [address] [place] [address], [place] [phone] * (ABNORMAL) BASIC METABOLIC PANEL (11/25/2022 4:50 AM CDT) Pathologist [facility] SODIUM S/P/B 141 136 - 145 MMOL/L 11/25/2022 5:35 AM CDT [facility] POTASSIUM S/P/B 3.5 3.5 - 5.1 MMOL/L 11/25/2022 5:35 AM CDT [facility] CHLORIDE S/P/B 109(H) 98 - 107 MMOL/L 11/25/2022 5:35 AM CDT [facility] CO2 27.4 21.0 - 32.0 MMOL/L 11/25/2022 5:35 AM CDT [facility] GLUCOSE 153(H) 74 - 106 MG/DL 11/25/2022 5:35 AM CDT [facility] BUN 2(L) 7 - 18 MG/DL 11/25/2022 5:35 AM CDT [facility] CREATININE S/P/B 0.71 0.55 - 1.02 MG/DL 11/25/2022 5:35 AM CDT [facility] CALCIUM S/P/B 8.0(L) 8.5 - 10.1 MG/DL 11/25/2022 5:35 AM CDT [facility] ANION GAP 4.6(L) 5.0 - 15.0 MMOL/L 11/25/2022 5:35 AM CDT [facility] OSMOLALITY (CALC) 291 MOSM/KG 023 5:35 AM CDT [facility] Comment:REFERENCE RANGE NOT ESTABLISHED GFR ESTIMATE >90 >90 ML/MIN/1. 73 M2 11/25/2022 5:35 AM CDT [facility] GFR NOTES GFR REFERENCE S: 11/25/2022 5:35 AM CDT [facility] Comment: THE ESTIMATED GFR IS [...] Tatiana Hughes MD LABORATORY Final Res ult [facility] [address] [place] [address], [id number] * SURG XR FLUOROSCOPY (11/24/2022 6:06 PM [...] 70 - 109 11/24/2022 1:04 PM CDT [facility] 11/24/2022 1:00 PM CDT Brent Godinez MD POCT ORDERABLES - DEVICE Fin al Result Performing Organization Address City/[facility]/ZIP Co de Phone Number [facility] [address] [place] [address], [phone] * POCT glucose (11/24/2022 6:37 AM CDT) GLUCOSE POC 89 70 - 109 11/24/2022 6:40 AM CDT [facility] 11/24/2022 6:37 AM CDT Brent Godinez MD POCT ORDERABLES - DEVICE Fin al Result Performing Organization Address [facility] de Phone Number [facility] [address] [place] [address], [phone] * (ABNORMAL) CBC, AUTO, NO DIFF (11/24/2022 5:44 AM CDT) WBC 4.77 4.00 - 10.80 x10'3/uL 11/24/2022 5:54 AM CDT [facility] RBC 3.81(L) 4.10 - 5.40 x10'6/uL 11/24/2022 5:54 AM CDT [facility] HGB 11.5(L) 12.0 - 16.0 G/DL 11/24/2022 5:54 AM CDT [facility] HCT 35.0(L) 36.0 - 47.0 % 11/24/2022 5:54 AM CDT [facility] MCV 91.9 78.0 - 100.0 FL 11/24/2022 5:54 AM CDT [facility] MCH 30.2 27.0 - 31.0 PG 11/24/2022 5:54 AM CDT [facility] MCHC 32.9(L) 33.0 - 36.0 G/DL 11/24/2022 5:54 AM CDT [facility] RDW 11.9 11.5 - 14.5 % 11/24/2022 5:54 AM CDT [facility] PLT 261 150 - 350 x10'3/uL 11/24/2022 5:54 AM CDT [facility] MPV 8.6 7.4 - 10.4 FL 11/24/2022 5:54 AM CDT [facility] 11/24/2022 5:44 AM CDT Libia Rodriguez DO LABORATORY Final Result [facility] [address] [place] [address], [phone] * (ABNORMAL) HEPATIC FUNCTION PANEL (11/24/2022 5:44 AM CDT) BILIRUBIN TOTAL S/P/B 2.8(H) 0.2 - 1.0 MG/DL 11/24/2022 6:36 AM CDT [facility] BILIRUBIN DIRECT S/P/B 1.6(H) 0.0 - 0.2 MG/DL 11/24/2022 6:36 AM CDT [facility] ALKALINE PHOSPHATASE S/P/B 268(H) 37 - 98 U/L 11/24/2022 6:36 AM CDT [facility] AST 175(H) 15 - 37 U/L 11/24/2022 6:36 AM CDT [facility] ALT 349(H) 13 - 56 U/L 11/24/2022 6:36 AM CDT [facility] TOTAL PROTEIN S/P/B 5.6(L) 6.4 - 8.2 G/DL 11/24/2022 6:36 AM CDT [facility] ALBUMIN S/P/B 2.8(L) 3.4 - 5.0 G/DL 11/24/2022 6:36 AM CDT [facility] 11/24/2022 5:44 AM CDT us Tatiana Hughes MD LABORATORY Final Res ult [facility] [address] [place] [address], [phone] * (ABNORMAL) BASIC METABOLIC PANEL (11/24/2022 5:44 AM CDT) SODIUM S/P/B 140 136 - 145 MMOL/L 11/24/2022 6:36 AM CDT [facility] POTASSIUM S/P/B 3.4(L) 3.5 - 5.1 MMOL/L 11/24/2022 6:36 AM CDT [facility] CHLORIDE S/P/B 108(H) 98 - 107 MMOL/L 11/24/2022 6:36 AM CDT [facility] CO2 26.5 21.0 - 32.0 MMOL/L 11/24/2022 6:36 AM CDT [facility] GLUCOSE 93 74 - 106 MG/DL 11/24/2022 6:36 AM CDT [facility] BUN 6(L) 7 - 18 MG/DL 11/24/2022 6:36 AM CDT [facility] CREATININE S/P/B 0.71 0.55 - 1.02 MG/DL 11/24/2022 6:36 AM CDT [facility] CALCIUM S/P/B 8.1(L) 8.5 - 10.1 MG/DL 11/24/2022 6:36 AM CDT [facility] ANION GAP 5.5 5.0 - 15.0 MMOL/L 11/24/2022 6:36 AM CDT [facility] OSMOLALITY (CALC) 287 MOSM/KG 023 6:36 AM CDT [facility] Comment:REFERENCE RANGE NOT ESTABLISHED GFR ESTIMATE >90 >90 ML/MIN/1. 73 M2 11/24/2022 6:36 AM CDT [facility] GFR NOTES GFR REFERENCE S: 11/24/2022 6:36 AM CDT [facility] Comment: THE ESTIMATED GFR IS [...] DO LABORATORY Final Result Performing Organization Address [facility] Co de Phone Number [facility] [address] [place] [address], [phone] * POCT glucose (11/24/2022 1:01 AM CDT) GLUCOSE POC 108 70 - 109 11/24/2022 1:03 AM CDT [facility] 11/24/2022 1:01 AM CDT Brent Godinez MD POCT ORDERABLES - DEVICE Fin al Result Performing Organization Address [facility] Co de Phone Number [facility] [address] [place] [address], [phone] * (ABNORMAL) POCT glucose (11/24/2022 12:49 AM CDT) GLUCOSE POC 60(L) 70 - 109 11/24/2022 12:51 AM CDT [facility] 11/24/2022 12:4 9 AM CDT us Brent Godinez MD POCT ORDERABLES - DEVICE Fin al Result [facility] [address] [place] [address], [id number] * Pathology (11/24/2022 12:00 AM CDT) PATHOLOGY [facility] ? Department of Laboratory Medicine ?[address] [facility] ?[place] [address] ? , extension [phone] ? Pathology Report ? Surgical Pathology Report Name: CATIE ONEILL ? Specimen #: [id number] Age: 305/03/1995 (Age: 27) ? [facility]: [facility] Sex: F ?Procedure Date: 11/24/2022 Hospital #: [id number] ?Date Received: 11/26/2022 Date Reported: 11/27/2022 Provider: [...] a thickness of up to 0.8 cm. ??Junior Account Manager tissue to include the cystic duct margin is submitted in cassette 1. Gross examination (when applicable), interpretation and sign-out were performed at [facility], [address] [place] [address], [id number]. FINAL DIAGNOSIS: GALLBLADDER, CHOLECYSTECTOMY: ? - ACUTE HEMORRHAGIC CHOLECYSTITIS AND CHOLELITHIASIS. Electronically Signed Out ? Prema Riggs MD [facility] TISSUE GALLBLADDER STRUCTURE / Unknown 11/24/2022 5:09 PM CDT us Lukasz Diaz MD PATHOLOGY/CYTOLOGY ORDERABLE S Final Result Performing Organization Address City/State/[facility] Co de Phone Number [facility] [address] [place] [address], [place] [phone] * (ABNORMAL) POCT glucose (11/23/2022 10:28 PM CDT) GLUCOSE POC 65(L) 70 - 109 11/23/2022 10:32 PM CDT [facility] 11/23/2022 10:2 8 PM CDT us Brent Godinez MD POCT ORDERABLES - DEVICE Fin al Result Performing Organization Address [facility] Co de Phone Number [facility] [address] [place] [address], [place] [phone] [id number] * MRCP (11/23/2022 8:08 PM CDT) Anatomical [...] - 145 MMOL/L 11/23/2022 5:31 AM CDT [facility] POTASSIUM S/P/B 3.6 3.5 - 5.1 MMOL/L 11/23/2022 5:31 AM CDT [facility] CHLORIDE S/P/B 110(H) 98 - 107 MMOL/L 11/23/2022 5:31 AM CDT [facility] CO2 26.1 21.0 - 32.0 MMOL/L 11/23/2022 5:31 AM [facility] GLUCOSE 80 74 - 106 MG/DL 11/23/2022 5:31 AM [facility] BUN 6(L) 7 - 18 MG/DL 11/23/2022 5:31 AM [facility] CREATININE S/P/B 0.66 0.55 - 1.02 MG/DL 11/23/2022 5:31 AM [facility] CALCIUM S/P/B 8.2(L) 8.5 - 10.1 MG/DL 11/23/2022 5:31 AM [facility] BILIRUBIN TOTAL S/P/B 2.3(H) 0.2 - 1.0 MG/DL 11/23/2022 5:31 AM [facility] ALKALINE PHOSPHATASE S/P/B 266(H) 37 - 98 U/L 11/23/2022 5:31 AM [facility] AST 472(H) 15 - 37 U/L 11/23/2022 5:31 AM [facility] ALT 479(H) 13 - 56 U/L 11/23/2022 5:31 AM [facility] TOTAL PROTEIN S/P/B 5.8(L) 6.4 - 8.2 G/DL 11/23/2022 5:31 AM [facility] ALBUMIN S/P/B 2.8(L) 3.4 - 5.0 G/DL 11/23/2022 5:31 AM [facility] ANION GAP 7.9 5.0 - 15.0 MMOL/L 11/23/2022 5:31 AM [facility] OSMOLALITY (CALC) 295 MOSM/KG 023 5:31 AM [facility] Comment:REFERENCE RANGE NOT ESTABLISHED GFR ESTIMATE >90 >90 ML/MIN/1. 73 M2 11/23/2022 5:31 AM [facility] GFR NOTES GFR REFERENCE S: 11/23/2022 5:31 AM CDT [facility] Comment: THE ESTIMATED GFR IS [...] Reed III, MD LABORATORY Final R esult [facility] [address] [place] [address], [id number] * (ABNORMAL) CBC W/DIFF AUTOMATED (11/23/2022 4:04 AM CDT) WBC 5.33 4.00 - 10.80 x10'3/uL 11/23/2022 4:59 AM CDT [facility] RBC 3.92(L) 4.10 - 5.40 x10'6/uL 11/23/2022 4:59 AM CDT [facility] HGB 12.0 12.0 - 16.0 G/DL 11/23/2022 4:59 AM CDT [facility] HCT 36.6 36.0 - 47.0 % 11/23/2022 4:59 AM CDT [facility] MCV 93.4 78.0 - 100.0 FL 11/23/2022 4:59 AM CDT [facility] MCH 30.6 27.0 - 31.0 PG 11/23/2022 4:59 AM CDT [facility] MCHC 32.8(L) 33.0 - 36.0 G/DL 11/23/2022 4:59 AM CDT [facility] RDW 12.1 11.5 - 14.5 % 11/23/2022 4:59 AM CDT [facility] PLT 279 150 - 350 x10'3/uL 11/23/2022 4:59 AM CDT [facility] MPV 9.4 7.4 - 10.4 FL 11/23/2022 4:59 AM CDT [facility] ABS. NEUTROPHILS 3.34 1.60 - 8.30 x10'3/uL 11/23/2022 4:59 AM CDT [facility] ABS. LYMPHOCYTES 1.44 0.80 - 4.70 x10'3/uL 11/23/2022 4:59 AM CDT [facility] ABS. MONOCYTES 0.42 0.00 - 1.50 x10'3/uL 11/23/2022 4:59 AM CDT [facility] ABS. EOSINOPHILS 0.08 0.00 - 0.40 x10'3/uL 11/23/2022 4:59 AM CDT [facility] ABS. BASOPHILS 0.03 0.00 - 0.20 x10'3/uL 11/23/2022 4:59 AM CDT [facility] ABS. IMMATURE GRANULOCYTES 0.02 0.00 - 0.03 x10'3/uL 11/23/2022 4:59 AM CDT [facility] ABS. NUCLEATED RBC'S 0.00 0.0 x10'3/uL 11/23/2022 4:59 AM CDT [facility] 11/23/2022 4:04 AM CDT Davi Reed III, MD LABORATORY Final R esult [facility] [address] [place] [address], [place] [phone] documented in this encounter Visit Diagnoses Not on filedocumented in this encounter Admitting Diagnoses Diagnosis Cholecystitis [...] Given 11/25/2022 2:39 PM CDT 650 mg BUpivacaine-EPINEPHrine (PF) 0.25% -1:[id number] injection As needed, Starting on 11/24/22 at 1708, Until 11/24/22 at 2058, Intra-Op Given 11/24/2022 5:08 PM CDT 20 mLs dextrose (GLUTOSE) 40 % oral gel 37.5-75 g 37.5-75 g (15-30 g of dextrose), Oral, As needed, Low blood sugar, Starting on 11/24/22 at 0109, Until 11/26/22 at 2044, If patient is verbally responsive [...] Sugar, Starting on 11/24/22 at 0109, Until 11/26/22 at 2044, If patient is verbally responsive [...] Given 11/26/2022 2:37 AM CDT 0.5 mg normal saline 0.9 % flush 3-10 mL [...] on Sat11/23/22 at 0034, Until Sat11/26/22 at 2045, If both senna and polyethylene glycol are [...] RN - Reason: Patient/family declined - Comment: [place] was requested)1439 (Given - Provider: Lakia Hinton LPN)2103 (Given - Provider: Cara Ansari RN) 0239 (Not Given - Provider: Cara Ansari RN - Reason: Patient/family declined)0510 (Given - Provider: Cara Ansari RN)1436 (Not Given - Provider: Judith Portillo LPN - Reason: Patient/family declined - Comment: 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 [...] Barrow RN)1245 (New Bag - Provider: Aminata Barrow, ADAN)1645 (Due: Infusion Stop Time - Provider: Aminata Barrow, ADAN)2129 (New Bag - Provider: Cara Ansari RN) [...] Order 11/24/2022 11/25/2022 11/26/2022 BUpivacaine-EPINEPHrine (PF) 0.25% -1:[id number] injection (CANCELED) As needed, Starting on 11/24/22 at 1708, Until 11/24/22 at 2059, Intra-Op 1708 (Given - Provider: Lukasz Diaz MD) dextrose (GLUTOSE) 40 % oral gel 37.5-75 g 37.5-75 g (15-30 g of dextrose), Oral, As needed, Low blood sugar, Starting on 11/24/22 at 0109, Until Mon 25/23 at 2044, If patient is verbally responsive [...] on 11/24/22 at 1912, Until 11/24/22 at 2239, Maximum cumulative dose 100 mcg. Do not [...] controlled, move to next ordered medication., PACU 1948 (Given - Provider: Kati Rasmussen RN) HYDROcodone-acetaminophe [...] Barrow RN) 1351 (Given - Provider: Aminata Barrow, ADAN) HYDROmorphone (DILAUDID) injection 0.5 mg 0.5 mg, Intravenous, Every 4 hours PRN, Severe pain (Scale 8 - 10), Starting on 11/25/22 at 0844, Until Sat11/26/22 at 2045, Administer slowly over at least 2-3 minutes. 0237 (Given - Provider: Cara Ansari RN) iopamidol (ISOVUE-M 200) 41 % injection (CANCELED) As needed, Starting on 11/26/22 at 1031, Until Sat11/26/22 at 1143, Intra-Op 1031 (Given - Provider: Glenn Mullins MD) morphine injection 2 mg (CANCELED) 2 mg, Intravenous, Every 3 hours PRN, Moderate pain (Scale 4 - 7), Starting on Sat11/23/22 at 0034, Until 11/25/22 at 0839 0414 (Given - Provider: Cara Ansari RN)0834 (Given - Provider: Aminata Barrow RN)2149 (Given - Provider: Cara Ansari RN) 0149 (Given - Provider: Cara Ansari RN)0440 (Given - Provider: Cara Ansari RN) [...] 2-5 minutes. 0324 (Given - Provider: Cara Ansari, ADAN)1245 (Given - Provider: Aminata Barrow, ADAN) 0532 (Given - Provider: Cara Ansari, ADAN)1352 (Given - Provider: Aminata Barrow, ADAN) polyethylene glycol (GLYCOLAX) packet 17 g 17 g, Oral, Daily as needed, Constipation, Starting on Sat11/23/22 at 0034, Until Sat11/26/22 at 2044, If both senna and polyethylene glycol are ordered, use 1st; if no response by next dosing interval, go to next option. 1252 (Given - Provider: Aminata Barrow, ADAN) 1247 (Given - Provider: Aminata Barrow, ADAN) documented in this encounter Care Teams Freezer Machine Operator Relationship Specialty Start Date End Date Rahul Bradford PA [address] [place] [address] PCP - General PHYSICIAN CORE STICKER 11/19/22 documented as of this encounter
--- OUTSIDE RECORDS SUMMARY | 2024-02-22 14:33 | XMS_ITS | Encounter Summary ---
Author Organization [facility] Address [address] [place] [address]. [place], [place] [id number] [place] [id number] Care Team Providers Care Legal Research Analyst Name Role Phone Rahul Bradford Primary Care Provider [phone] Encounter Details Date Type Department Care Team (Late st Contact Info) Description 11/24/2022 Orders Only [place] [address] [place] [address] , Sergey Colin MD Social History Tobacco Use Types Packs/Day Years [...] often do you attend chur ch or advent services? Patient declined 11/23/2022 Do you belong to any clubs o r organizations such as latter day groups, unions, fraternal or athletic groups, or [...] and heating? Not hard at all 11/23/2022 [facility] - Occupational [...] place to sleep or slept in a residential (including now)? 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
--- OUTSIDE RECORDS SUMMARY | 2024-02-22 14:33 | XMS_ITS | Encounter Summary ---
Author Organization [facility] Address [address] [place] [address]. 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 Role Phone Rahul Bradford Primary Care Provider [phone] Reason for Referral * Surgical (Routine) - Closed Specialty Diagnoses / Procedures Referred By Contac t Referred To Contact Diagnoses Choledocholithiasis Procedures Case request operating room: ERCP WITH SPHINCTEROTOMY Kar Mendoza NP [address] [place] [phone] Phone: tel: fax: Referral ID Status Reason Start Date Expiration Date Visits Re quested Visits Authorized [id number] Closed 11/24/2022 11/25/2023 1 1 * Imaging (Emergency) - Closed Specialty Diagnoses / Procedures Referred By Contac t Referred To Contact RADIOLOGY Procedures US ABD LIMITED Libia Rodriguez DO Referral ID Status Reason Start Date Expiration Date Visits Re quested Visits Authorized [id number] Closed 11/23/2022 11/24/2023 1 1 * Imaging (Emergency) - Closed Specialty Diagnoses / Procedures Referred By Contac t Referred To Contact RADIOLOGY Procedures MRC Libia Rodriguez DO Referral ID Status Reason Start Date Expiration Date Visits Re quested Visits Authorized [id number] Closed 11/23/2022 11/24/2023 1 1 Reason for Visit * Auth/Cert (Routine) Specialty Diagnoses / Procedures Referred By Fatimah rodriguez Referred To Contact Diagnoses Cholecystitis Acute cholecystitis CHOLECYSTITIS Cholecystitis Acute cholecystitis Procedures NONE Davi Reed III, MD [address] [place] [address] Phone: tel: fax: Referral ID Status Reason Start Date Expiration Date Visits Re quested Visits Authorized [id number] 1 1 Encounter Details Date Type Department Care Team (Latest Contact Info) Description 11/23/2022 12:30 AM CDT - 11/26/2022 6:45 PM CDT Hospital Encounter [place] [address] [place] [address] Davi Reed III, MD [address] [place] [address] Brent Godinez MD [address] [place] [address] Discharge Disposition: Home or Self Care (Routine [...] often do you attend chur ch or jain services? Patient declined 11/23/2022 Do you belong to any clubs o r organizations such as sabianism groups, unions, fraternal or athletic groups, or [...] and heating? Not hard at all 11/23/2022 [facility] - Occupational Stress [...] place to sleep or slept in a detention (including now)? 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 No 11/23/2022 1:00 AM CDT Candy Preciado RN Activ e * Question Answer Date of Assessment Author Status Do you have difficulty dressing or bathing? No 11/23/2022 1:00 AM Candy Oakley RN A ctive Because of a physical, [...] 5:14 PM CDT Patient ID: Catie Oneill [id number] 27-year-old 1995 Admit date: 11/23/2022 Expected Discharge Date: 11/26/2022 Primary care Physician: NEENA DE DIOS Admitting Physician: Davi Reed III, MD Discharge Physician: BRENT GODNIEZ MD Admission Diagnoses: Cholecystitis [K81.9] Acute cholecystitis [...] constipation. She wentto the ED at [facility] 2 prior times for evaluation, and work-up was essentially unremarkable. She was started on ondansetron p.o. and PPI during these visits. Patient states that the pain has continued to worsen, so she returned to the ED at [facility] for further evaluation. She denies any [...] respectively. Hospital Course: 27-year-old female admitted to [facility] with complaints of epigastric abdominal [...] arranged Follow-up; NEENA De Dios [address] [facility] [address] Follow up in 1 week(s) with cbc/cmp Lukasz Diaz MD [address] [facility] [id number] Follow up in 2 week(s) Total time spent on discharge was 35 minutes. Thank you for allowing [facility] hospitalist service to take care of your patient, Please call [phone] Ext [phone] if you have any questions or concern. [...] medications. While on pain medications please take fexf-dfe-hkjlswe stool softeners such as MiraLAX to achieve [...] a bathtub or a pool. Please call [phone] for a follow up appointment with Dr. Diaz in 2 weeks. Please call the outpatient clinic during business hours or visit the nearest Emergency department if having intractable pain, fevers > 101.5 F or if having intractable nausea or vomiting , or purulent drainage from your wounds. * Attachments The following attachments cannot be sent through Care Everywhere. * Cholecystectomy, Laparoscopic Surgery (Grenadian) documented in this encounter Medications at Time [...] Status Independent Behavior Oriented;Cooperative Communication Talks;Understands speaking;Understands Grenadian Psychosocial Need Indicator Mental health concerns No Diagnosis/prognosis resulting in poor adjustment or coping with illness No Diagnosis/prognosis with anticipated outcome of major lifestyle changes, including change in usp living environment No Complex Family concerns No [...] be discharged to: Home or Self care Airdox Fitter met with pt at bedside. Pt lives with her sps and 3 kids and is independent with ADL's. Pt uses no DME and has no hx with HHS. [facility] in [place] and is followed by Dr Bradford. Pt plans to return home at [place] and her sps will transport. * Glenn [...] is doing well with pain/nausea control with Pulteney and zofran. Had a laparoscopic cholecystectomy last [...] 120/70 -- -- 85 18 94 % 11/24/22 2115 116/69 98.4 ??F (36.9 ??C) -- 72 18 93 % 11/24/22 2045 125/82 -- -- 74 16 95 % 11/24/222029 135/89 -- -- 76 16 95 % 11/24/222014 (!) 144/84 -- -- 72 16 95 % 11/24/221999 (!) 140/82 -- -- 77 16 95 % 11/24/221944 (!) 152/88 -- -- 84 16 95 % 11/24/221934 (!) 141/84 -- -- 68 16 99 % 11/24/221929 134/81 -- -- 72 16 98 % [...] place, and time. LABS:. Recent Labs 11/23/22 04011/24/22 0544 11/25/22 0450 WBC 5.33 4.77 9.50 HGB 12.0 11.5* 11.8* HCT 36.6 35.0* 35.0* MCV 93.4 91.9 91.6 PLT 279 261 309 RBC 3.92* 3.81* 3.82* Recent Labs Lab 11/23/2240311/24/22 0544 11/25/22 0450 NA 144 140 141 [...] Code status: Full Code BRENT GODINEZ MD * Kar Mendoza NP - 11/25/2022 8:50 AM CDT [facility] Progress Note Impression and Plan 27-year-old female H anxiety transferred 11/23 from [facility] ED with CT findings of acute cholecystitisand choledocholithiasis. [facility] consulted 11/24 for choledocholithiasis noted on MRCP. ?? Acute cholecystitis Choledocholithiasis Anxiety , 10 months ?? --Patient presented to the emergency department at [facility] on 11/22 evening for complaints of abdominal pain x1 week. She had previously been evaluated in the emergency department at [facility] 2 prior times. Work-up each time was essentially unremarkable. [facility] as her [...] the patient, timing to be determined. ?? [facility] was consulted on 11/24 morning to [...] THE ESTIMATED GFR IS CALCULATED USING THE 2021 CKD-EPI EQUATION. THE FOLLOWING CATEGORIES FOR GRADING [...] % infusion, , Intravenous, Continuous, Chelita Hall, [facility]-, Last Rate: 125 mL/hr at 11/25/22 0540, New Bag at 11/25/22 0540 ??? enoxaparin (LOVENOX) 40 MG/0.4ML syringe 40 mg, 40 mg, Subcutaneous, Nightly (enoxaparin), 40 mg at 11/24/22 2130 AND [COMPLETED] Moderate Risk for VTE, , [...] injection 0.4 mg, 0.4 mg, Intravenous, PRN, Daiv Reed III, MD ??? normal saline 0.9 [...] person, place, and time. LABS:. Recent Labs 11/22/22 1859 11/23/22 0404 11/24/22 0544 WBC 7.71 5.33 4.77 HGB 13.1 12.0 11.5* HCT 39.1 36.6 35.0* MCV 91.1 93.4 91.9 PLT 308 279 261 RBC 4.29 3.92* 3.81* Recent Labs Lab 11/22/22 1859 11/23/22 0404 11/24/22 0544 NA 137 144 140 [...] during recuperation were discussed with the patient/family/personal branch customer service representative. Reasonable alternatives to the patient's proposed procedure/surgery including benefits, risks, and side effects related to the alternatives and the risks related to not receiving the proposed care were also discussed with the patient/family/personal branch customer service representative. Questions were answered and the patient/family/personal branch customer service representative verbalized understanding and desires to proceed. Source Note - Kar Mendoza NP - 11/24/2022 9:30 AM CDT [facility] Consult Note Impression and Plan 27-year-old female H anxiety transferred 11/23 from [facility] ED with CT findings of acute cholecystitisand choledocholithiasis. [facility] consulted 11/24 for choledocholithiasis noted on MRCP. Acute cholecystitis Choledocholithiasis Anxiety , 10 months --Patient presented to the emergency department at [facility] on 11/22 evening for complaints of abdominal pain x1 week. She had previously been evaluated in the emergency department at [facility] 2 prior times. Work-up each time [...] with the patient, timing to be determined. [facility] was consulted on 11/24 morning to [...] primary team Thank you for the consultation. [facility] will continue to follow. KAR MENDOZA NP [facility] Gastroenterology 11/24/2022 Basic Information History obtained from patient and medical record History limitation includes none Chief Complaint Acute cholecystitis with choledocholithiasis History of Present illness 27-year-old female [facility] anxiety transferred 11/23 from [facility] ED with CT findings of acute cholecystitisand choledocholithiasis. [facility] consulted 11/24 for choledocholithiasis noted on MRCP. Patient presented to the emergency department at [facility] on 11/22 evening for complaints of abdominalpain x1 week. She had previously been evaluated in the emergency department at [facility] 2 prior times. Work-up each time [...] ampulla. Findings are favored to represent choledocholithiasis. General surgery was consulted [...] % infusion, , Intravenous, Continuous, Chelita Hall, [facility]-, Last Rate: 125 mL/hr at 11/24/22 0126, [...] ASSAY PERFORMED BY CHEMILUMINESCENT IMMUNOASSAY METHODOLOGY USING [employer] REAGENT. PATIENT RESULTS DETERMINED BY ASSAYS FROM [...] III, MD - 11/23/2022 1:23 AM CDT [facility] Hospitalist History and Physical Date of [...] constipation. She wentto the ED at [facility] 2 prior times for evaluation, and work-up was essentially unremarkable. She was started on ondansetron p.o. and PPI during these visits. Patient states that the pain has continued to worsen, so she returned to the ED at [facility] for further evaluation. She denies any [...] More than three times a week Attends [employer] Services: Never Active Member of Clubs or [...] No results for input(s): PH, PCO2, PO2, O1AHQFYFMLVF, BICARBWB, BASEDEFICIT, BASEEXCESS in the last 168 [...] Mendoza NP - 11/24/2022 9:30 AM CDT [facility] Consult Note Impression and Plan 27-year-old female H anxiety transferred 11/23 from [facility] ED with CT findings of acute cholecystitisand choledocholithiasis. [facility] consulted 11/24 for choledocholithiasis noted on MRCP. Acute cholecystitis Choledocholithiasis Anxiety , 10 months --Patient presented to the emergency department at [facility] on 11/22 evening for complaints of abdominal pain x1 week. She had previously been evaluated in the emergency department at [facility] 2 prior times. Work-up each time [...] choledocholithiasis. -- General surgery was consulted 11/23. Rebeca ifrah discussed with the patient, timing to be determined. [facility] was consulted on 11/24 morning to [...] primary team Thank you for the consultation. [facility] will continue to follow. KAR MENDOZA NP [facility] Gastroenterology 11/24/2022 Basic Information History obtained from patient and medical record History limitation includes none Chief Complaint Acute cholecystitis with choledocholithiasis History of Present illness 27-year-old female [facility] anxiety transferred 11/23 from [facility] ED with CT findings of acute cholecystitisand choledocholithiasis. [facility] consulted 11/24 for choledocholithiasis noted on MRCP. Patient presented to the emergency department at [facility] on 11/22 evening for complaints of abdominal pain x1 week. She had previously been evaluated in the emergency department at [facility] 2 prior times. Work-up each time [...] % infusion, , Intravenous, Continuous, Chelita Hall, [facility]-, Last Rate: 125 mL/hr at 11/24/22 0126, New Bag at 11/24/22 012 ??? enoxaparin [...] mg total) by mouth daily. 08/16/22 Yes Default History Genericprovider HYDROcodone-acetaminophen (NORCO) 5-325 MG tablet Take [...] ASSAY PERFORMED BY CHEMILUMINESCENT IMMUNOASSAY METHODOLOGY USING [employer] REAGENT. PATIENT RESULTS DETERMINED BY ASSAYS FROM [...] FROM BILIARY/PANCERATIC DUCT 11/26/2022 10:01 AM CDT Choledocholithia sis ERCP 11/26/2022 9:35 AM CDT POCT GLUCOSE [...] associated procedure and/or operative report. Procedure Note , Generic Conversion, - 11/26/2022 This report does not contain a radiologist's interpretation. Please review associated procedure and/or operative report. Glenn Mullins MD IMAGES ONLY Final Result * ERCP (11/26/2022 9:35 AM CDT) Glenn Mullins MD GI PROCEDURE ORDERABLES Final R esult * (ABNORMAL) POCT glucose (11/25/2022 4:17 PM CDT) GLUCOSE POC 110(H) 70 - 109 11/25/2022 4:34 PM CDT [facility] 11/25/2022 4:17 PM CDT Brent Godinez MD POCT ORDERABLES - DEVICE Fin al Result [facility] [address] [place] [address], [phone] * (ABNORMAL) POCT glucose (11/25/2022 11:17 AM CDT) GLUCOSE POC 116(H) 70 - 109 11/25/2022 11:25 AM CDT [facility] 11/25/2022 11:1 7 AM CDT Brent Godinez MD POCT ORDERABLES - DEVICE Fin al Result Performing Organization Address City/[facility]/ZIP Co de Phone Number [facility] [address] [place] [address], [place] [phone] * PHOSPHORUS, INORGANIC PHOSPHATE (11/25/2022 4:50 AM CDT) PHOSPHORUS 2.8 2.5 - 4.9 MG/DL 11/25/2022 5:35 AM CDT [facility] 11/25/2022 4:50 AM CDT Tatiana Hughes MD LABORATORY Final Res ult Performing Organization Address [facility] Co de Phone Number [facility] [address] [place] [address], [place] [phone] * MAGNESIUM (11/25/2022 4:50 AM CDT) MAGNESIUM 1.6 1.6 - 2.6 MG/DL 11/25/2022 5:35 AM CDT [facility] 11/25/2022 4:50 AM CDT Tatiana Hughes MD LABORATORY Final Res ult Performing Organization Address City/[facility]/ZIP Co de Phone Number [facility] [address] [place] [address], [place] [phone] * (ABNORMAL) HEPATIC FUNCTION PANEL (11/25/2022 4:50 AM CDT) BILIRUBIN TOTAL S/P/B 1.7(H) 0.2 - 1.0 MG/DL 11/25/2022 5:35 AM CDT [facility] BILIRUBIN DIRECT S/P/B 0.9(H) 0.0 - 0.2 MG/DL 11/25/2022 5:35 AM CDT [facility] ALKALINE PHOSPHATASE S/P/B 270(H) 37 - 98 U/L 11/25/2022 5:35 AM CDT [facility] AST 186(H) 15 - 37 U/L 11/25/2022 5:35 AM CDT [facility] ALT 347(H) 13 - 56 U/L 11/25/2022 5:35 AM CDT [facility] TOTAL PROTEIN S/P/B 6.0(L) 6.4 - 8.2 G/DL 11/25/2022 5:35 AM CDT [facility] ALBUMIN S/P/B 2.9(L) 3.4 - 5.0 G/DL 11/25/2022 5:35 AM CDT [facility] 11/25/2022 4:50 AM CDT us Tatiana Hughes MD LABORATORY Final Res ult [facility] [address] [place] [address], [phone] * (ABNORMAL) CBC, AUTO, NO DIFF (11/25/2022 4:50 AM CDT) WBC 9.50 4.00 - 10.80 x10'3/uL 11/25/2022 4:59 AM CDT [facility] RBC 3.82(L) 4.10 - 5.40 x10'6/uL 11/25/2022 4:59 AM CDT [facility] HGB 11.8(L) 12.0 - 16.0 G/DL 11/25/2022 4:59 AM CDT [facility] HCT 35.0(L) 36.0 - 47.0 % 11/25/2022 4:59 AM CDT [facility] MCV 91.6 78.0 - 100.0 FL 11/25/2022 4:59 AM CDT [facility] MCH 30.9 27.0 - 31.0 PG 11/25/2022 4:59 AM CDT [facility] MCHC 33.7 33.0 - 36.0 G/DL 11/25/2022 4:59 AM CDT [facility] RDW 12.3 11.5 - 14.5 % 11/25/2022 4:59 AM CDT [facility] PLT 309 150 - 350 x10'3/uL 11/25/2022 4:59 AM CDT [facility] MPV 8.8 7.4 - 10.4 FL 11/25/2022 4:59 AM CDT [facility] 11/25/2022 4:50 AM CDT us Tatiana Hughes MD LABORATORY Final Res ult [facility] [address] [place] [address], [phone] * (ABNORMAL) BASIC METABOLIC PANEL (11/25/2022 4:50 AM CDT) SODIUM S/P/B 141 136 - 145 MMOL/L 11/25/2022 5:35 AM CDT [facility] POTASSIUM S/P/B 3.5 3.5 - 5.1 MMOL/L 11/25/2022 5:35 AM CDT [facility] CHLORIDE S/P/B 109(H) 98 - 107 MMOL/L 11/25/2022 5:35 AM T [facility] CO2 27.4 21.0 - 32.0 MMOL/L 11/25/2022 5:35 AM [facility] GLUCOSE 153(H) 74 - 106 MG/DL 11/25/2022 5:35 AM T [facility] BUN 2(L) 7 - 18 MG/DL 11/25/2022 5:35 AM [facility] CREATININE S/P/B 0.71 0.55 - 1.02 MG/DL 11/25/2022 5:35 AM [facility] CALCIUM S/P/B 8.0(L) 8.5 - 10.1 MG/DL 11/25/2022 5:35 AM [facility] ANION GAP 4.6(L) 5.0 - 15.0 MMOL/L 11/25/2022 5:35 AM T [facility] OSMOLALITY (CALC) 291 MOSM/KG 023 5:35 AM [facility] Comment:REFERENCE RANGE NOT ESTABLISHED GFR ESTIMATE >90 >90 ML/MIN/1. 73 M2 11/25/2022 5:35 AM [facility] GFR NOTES GFR REFERENCE S: 11/25/2022 5:35 AM [facility] Comment: THE ESTIMATED GFR IS CALCULATED [...] LABORATORY Final Res ult Performing Organization Address [facility] Co de Phone Number [facility] [address] [place] [address], [phone] * SURG XR FLUOROSCOPY (11/24/2022 6:06 PM [...] 70 - 109 11/24/2022 1:04 PM CDT [facility] 11/24/2022 1:00 PM CDT Brent Godinez MD POCT ORDERABLES - DEVICE Fin al Result Performing Organization Address City/[facility] Co de Phone Number [facility] [address] [place] [address], [place] [phone] * POCT glucose (11/24/2022 6:37 AM CDT) GLUCOSE POC 89 70 - 109 11/24/2022 6:40 AM CDT [facility] 11/24/2022 6:37 AM CDT Brent Godinez MD POCT ORDERABLES - DEVICE Fin al Result Performing Organization Address [facility]/ZIP Co de Phone Number [facility] [address] [place] [address], [phone] * (ABNORMAL) CBC, AUTO, NO DIFF (11/24/2022 5:44 AM CDT) WBC 4.77 4.00 - 10.80 x10'3/uL 11/24/2022 5:54 AM CDT [facility] RBC 3.81(L) 4.10 - 5.40 x10'6/uL 11/24/2022 5:54 AM CDT [facility] HGB 11.5(L) 12.0 - 16.0 G/DL 11/24/2022 5:54 AM CDT [facility] HCT 35.0(L) 36.0 - 47.0 % 11/24/2022 5:54 AM CDT [facility] MCV 91.9 78.0 - 100.0 FL 11/24/2022 5:54 AM CDT [facility] MCH 30.2 27.0 - 31.0 PG 11/24/2022 5:54 AM CDT [facility] MCHC 32.9(L) 33.0 - 36.0 G/DL 11/24/2022 5:54 AM CDT [facility] RDW 11.9 11.5 - 14.5 % 11/24/2022 5:54 AM CDT [facility] PLT 261 150 - 350 x10'3/uL 11/24/2022 5:54 AM CDT [facility] MPV 8.6 7.4 - 10.4 FL 11/24/2022 5:54 AM CDT [facility] 11/24/2022 5:44 AM CDT us Libia Rodriguez DO LABORATORY Final Result [facility] [address] [place] [address], [place] [phone] * (ABNORMAL) HEPATIC FUNCTION PANEL (11/24/2022 5:44 AM CDT) BILIRUBIN TOTAL S/P/B 2.8(H) 0.2 - 1.0 MG/DL 11/24/2022 6:36 AM CDT [facility] BILIRUBIN DIRECT S/P/B 1.6(H) 0.0 - 0.2 MG/DL 11/24/2022 6:36 AM CDT [facility] ALKALINE PHOSPHATASE S/P/B 268(H) 37 - 98 U/L 11/24/2022 6:36 AM CDT [facility] AST 175(H) 15 - 37 U/L 11/24/2022 6:36 AM CDT [facility] ALT 349(H) 13 - 56 U/L 11/24/2022 6:36 AM CDT [facility] TOTAL PROTEIN S/P/B 5.6(L) 6.4 - 8.2 G/DL 11/24/2022 6:36 AM CDT [facility] ALBUMIN S/P/B 2.8(L) 3.4 - 5.0 G/DL 11/24/2022 6:36 AM CDT [facility] 11/24/2022 5:44 AM CDT us Tatiana Hughes MD LABORATORY Final Res ult [facility] [address] [place] [address], [place] [phone] * (ABNORMAL) BASIC METABOLIC PANEL (11/24/2022 5:44 AM CDT) SODIUM S/P/B 140 136 - 145 MMOL/L 11/24/2022 6:36 AM CDT [facility] POTASSIUM S/P/B 3.4(L) 3.5 - 5.1 MMOL/L 11/24/2022 6:36 AM T [facility] CHLORIDE S/P/B 108(H) 98 - 107 MMOL/L 11/24/2022 6:36 AM T [facility] CO2 26.5 21.0 - 32.0 MMOL/L 11/24/2022 6:36 AM T [facility] GLUCOSE 93 74 - 106 MG/DL 11/24/2022 6:36 AM [facility] BUN 6(L) 7 - 18 MG/DL 11/24/2022 6:36 AM [facility] CREATININE S/P/B 0.71 0.55 - 1.02 MG/DL 11/24/2022 6:36 AM [facility] CALCIUM S/P/B 8.1(L) 8.5 - 10.1 MG/DL 11/24/2022 6:36 AM T [facility] ANION GAP 5.5 5.0 - 15.0 MMOL/L 11/24/2022 6:36 AM [facility] OSMOLALITY (CALC) 287 MOSM/KG 023 6:36 AM [facility] Comment:REFERENCE RANGE NOT ESTABLISHED GFR ESTIMATE >90 >90 ML/MIN/1. 73 M2 11/24/2022 6:36 AM [facility] GFR NOTES GFR REFERENCE S: 11/24/2022 6:36 AM [facility] Comment: THE ESTIMATED GFR IS CALCULATED [...] <15 ml/min/1.73 m2 11/24/2022 5:44 AM CDT Libia Rodriguez DO LABORATORY Final Result Performing Organization Address [facility] de Phone Number [facility] [address] [place] [address], [phone] * POCT glucose (11/24/2022 1:01 AM CDT) GLUCOSE POC 108 70 - 109 11/24/2022 1:03 AM CDT [facility] 11/24/2022 1:01 AM CDT Brent Godinez MD POCT ORDERABLES - DEVICE Fin al Result Performing Organization Address [facility] de Phone Number [facility] [address] [place] [address], [phone] * (ABNORMAL) POCT glucose (11/24/2022 12:49 AM CDT) GLUCOSE POC 60(L) 70 - 109 11/24/2022 12:51 AM CDT [facility] 11/24/2022 12:4 9 AM CDT Brent Godinez MD POCT ORDERABLES - DEVICE Fin al Result Performing Organization Address [facility] de Phone Number [facility] [address] [place] [address], [phone] * Pathology (11/24/2022 12:00 AM CDT) PATHOLOGY [facility] ? Department of Laboratory Medicine ?[address] ?[place] [address] ? , extension [phone] ? Pathology Report ? Surgical Pathology Report Name: CATIE ONEILL ? Specimen #: [id number] Age: 305/03/1995 (Age: 27) ? Location: [facility] Sex: F ?Procedure Date: 11/24/2022 Hospital #: [id number] ?Date Received: 11/26/2022 Date Reported: 11/27/2022 Provider: [...] a thickness of up to 0.8 cm. ??Clinical Social Worker tissue to include the cystic duct margin is submitted in cassette 1. Gross examination (when applicable), interpretation and sign-out were performed at [facility], [address] [place] [address], [facility]. FINAL DIAGNOSIS: GALLBLADDER, CHOLECYSTECTOMY: ? - ACUTE HEMORRHAGIC CHOLECYSTITIS AND CHOLELITHIASIS. Electronically Signed Out ? Prema Riggs MD [facility] TISSUE GALLBLADDER STRUCTURE / Unknown 11/24/2022 5:09 PM CDT Lukasz Diaz MD PATHOLOGY/CYTOLOGY ORDERABLE S Final Result Performing Organization Address [facility] Co de Phone Number [facility] [address] [place] [address], [phone] * (ABNORMAL) POCT glucose (11/23/2022 10:28 PM CDT) GLUCOSE POC 65(L) 70 - 109 11/23/2022 10:32 PM CDT [facility] 11/23/2022 10:2 8 PM CDT us Brent Godinez MD POCT ORDERABLES - DEVICE Fin al Result Performing Organization Address [facility] Co de Phone Number [facility] [address] [place] [address], [place] [phone] * MRCP (11/23/2022 8:08 PM CDT) Anatomical [...] - 145 MMOL/L 11/23/2022 5:31 AM CDT [facility] POTASSIUM S/P/B 3.6 3.5 - 5.1 MMOL/L 11/23/2022 5:31 AM CDT [facility] CHLORIDE S/P/B 110(H) 98 - 107 MMOL/L 11/23/2022 5:31 AM CDT [facility] CO2 26.1 21.0 - 32.0 MMOL/L 11/23/2022 5:31 AM CDT [facility] GLUCOSE 80 74 - 106 MG/DL 11/23/2022 5:31 AM CDT [facility] BUN 6(L) 7 - 18 MG/DL 11/23/2022 5:31 AM CDT [facility] CREATININE S/P/B 0.66 0.55 - 1.02 MG/DL 11/23/2022 5:31 AM CDT [facility] CALCIUM S/P/B 8.2(L) 8.5 - 10.1 MG/DL 11/23/2022 5:31 AM CDT [facility] BILIRUBIN TOTAL S/P/B 2.3(H) 0.2 - 1.0 MG/DL 11/23/2022 5:31 AM CDT [facility] ALKALINE PHOSPHATASE S/P/B 266(H) 37 - 98 U/L 11/23/2022 5:31 AM CDT [facility] AST 472(H) 15 - 37 U/L 11/23/2022 5:31 AM CDT [facility] ALT 479(H) 13 - 56 U/L 11/23/2022 5:31 AM CDT [facility] TOTAL PROTEIN S/P/B 5.8(L) 6.4 - 8.2 G/DL 11/23/2022 5:31 AM CDT [facility] ALBUMIN S/P/B 2.8(L) 3.4 - 5.0 G/DL 11/23/2022 5:31 AM CDT [facility] ANION GAP 7.9 5.0 - 15.0 MMOL/L 11/23/2022 5:31 AM CDT [facility] OSMOLALITY (CALC) 295 MOSM/KG 023 5:31 AM T [facility] Comment:REFERENCE RANGE NOT ESTABLISHED GFR ESTIMATE >90 >90 ML/MIN/1. 73 M2 11/23/2022 5:31 AM CDT [facility] GFR NOTES GFR REFERENCE S: 11/23/2022 5:31 AM T [facility] Comment: THE ESTIMATED GFR IS [...] Reed III, MD LABORATORY Final R esult [facility] [address] [place] [address], [id number] * (ABNORMAL) CBC W/DIFF AUTOMATED (11/23/2022 4:04 AM CDT) [facility] WBC 5.33 4.00 - 10.80 x10'3/uL 11/23/2022 4:59 AM CDT [facility] RBC 3.92(L) 4.10 - 5.40 x10'6/uL 11/23/2022 4:59 AM CDT [facility] HGB 12.0 12.0 - 16.0 G/DL 11/23/2022 4:59 AM CDT [facility] HCT 36.6 36.0 - 47.0 % 11/23/2022 4:59 AM CDT [facility] MCV 93.4 78.0 - 100.0 FL 11/23/2022 4:59 AM CDT [facility] MCH 30.6 27.0 - 31.0 PG 11/23/2022 4:59 AM CDT [facility] MCHC 32.8(L) 33.0 - 36.0 G/DL 11/23/2022 4:59 AM CDT [facility] RDW 12.1 11.5 - 14.5 % 11/23/2022 4:59 AM CDT [facility] PLT 279 150 - 350 x10'3/uL 11/23/2022 4:59 AM CDT [facility] MPV 9.4 7.4 - 10.4 FL 11/23/2022 4:59 AM CDT [facility] ABS. NEUTROPHILS 3.34 1.60 - 8.30 x10'3/uL 11/23/2022 4:59 AM CDT [facility] ABS. LYMPHOCYTES 1.44 0.80 - 4.70 x10'3/uL 11/23/2022 4:59 AM CDT [facility] ABS. MONOCYTES 0.42 0.00 - 1.50 x10'3/uL 11/23/2022 4:59 AM CDT [facility] ABS. EOSINOPHILS 0.08 0.00 - 0.40 x10'3/uL 11/23/2022 4:59 AM CDT [facility] ABS. BASOPHILS 0.03 0.00 - 0.20 x10'3/uL 11/23/2022 4:59 AM CDT [facility] ABS. IMMATURE GRANULOCYTES 0.02 0.00 - 0.03 x10'3/uL 11/23/2022 4:59 AM CDT [facility] ABS. NUCLEATED RBC'S 0.00 0.0 x10'3/uL 11/23/2022 4:59 AM CDT [facility] 11/23/2022 4:04 AM CDT Davi Reed III, MD LABORATORY Final R esult Performing Organization Address City/State/[facility] Co de Phone Number [facility] [address] [place] [address], [phone] documented in this encounter Visit Diagnoses Diagnosis [...] on 11/24/22 at 0109, Until Sat11/26/22 at 204, If patient is verbally responsive and taking [...] on 11/24/22 at 0109, Until Sat11/26/22 at 204, If patient is verbally responsive and NPO [...] repeat until blood glucose reaches 70 mg/dL dextrose 5 %-sodium chloride 0.45 % infusion at 125 mL/hr, Intravenous, Continuous, Starting on 11/24/22 at 0145, Until 11/26/22 at 1236 New Bag 11/26/2022 1:41 AM CDT 125 mL/hr New Bag 11/25/2022 5:19 PM CDT 125 mL/hr New Bag 11/25/2022 5:40 AM CDT 125 mL/hr enoxaparin (LOVENOX) 40 MG/0.4ML syringe 40 mg 40 mg, Subcutaneous, Nightly (enoxaparin), First dose on Sat11/23/22 at 0100, Until Discontinued, Administer by deep SubQ injection alternating between the left or right anterolateral and left or right posterolateral abdominal wall. Given 11/24/2022 9:30 PM CDT 40 mg Left Upper Abdomen Given 11/23/2022 9:00 PM CDT 40 mg Le ft Lower Abdomen Given 11/23/2022 1:40 AM CDT 40 mg Ri ght Lower Abdomen fentaNYL (SUBLIMAZE) injection 25 mcg 25 mcg, Intravenous, Every 5 min PRN, [...] ordered medication at next dosing interval., PACU Given 11/24/2022 7:57 PM CDT 25 mcg glucagon injection 1 mg 1 mg, Intramuscular, Once as needed, Other, Low blood sugar, 1 dose, Starting on 11/24/22 at 0109, Until 11/26/22 at 2044, If patient is verbally UNresponsive and no IV access with blood glucose less than 70 mg/dL. Do NOT repeat administration. haloperidol lactate (HALDOL) injection 2 mg 2 mg, Intravenous, Once as needed, Agitation, Nausea, Vomiting, 1 dose, Starting on 11/24/22 at 1912, Until 11/24/22 at 1948, Administer slowly over 3-4 minutes. If more than one antiemetic is ordered, use in this order: ondansetron, diphenhydramine, metoclopramide, haloperidol, promethazine. If nausea / vomiting still not controlled, move to next ordered medication., PACU Given 11/24/2022 7:48 PM CDT 2 mg HYDROcodone-acetaminophen (NORCO) 5-325 MG tablet 1 tablet 1 tablet, Oral, Every 6 hours PRN, Moderate pain (Scale 4 - 7), Starting on 11/25/22 at 0838, Until 11/26/22 at 2044, Maximum dose of acetaminophen is 4000 mg from all sources in 24 hours. Given 11/26/2022 1:51 PM CDT 1 tablet Given 11/25/2022 5:19 PM CDT 1 tablet Given 11/25/2022 9:09 AM CDT 1 tablet HYDROmorphone (DILAUDID) injection 0.5 mg 0.5 mg, Intravenous, Every 4 hours PRN, Severe pain (Scale 8 - 10), Starting on Sat11/25/22 at 0844, Until Sat11/26/22 at 2045, Administer slowly over at least 2-3 minutes. Given 11/26/2022 2:37 AM CDT 0.5 mg morphine injection 2 mg 2 mg, Intravenous, Every 3 hours PRN, Moderate pain (Scale 4 - 7), Starting on Sat11/23/22 at 0034, Until Sat11/25/22 at 0839 Given 11/25/2022 4:40 AM CDT 2 mg Given 11/25/2022 1:49 AM CDT 2 mg Given 11/24/2022 9:49 PM CDT 2 mg normal saline 0.9 % flush 3-10 [...] Sat11/23/22 at 0034, Until Sat11/26/22 at 204, IV push over 2-5 minutes. Given 11/26/2022 [...] Constipation, Starting on Sat11/23/22 at 0034, Until 11/26/22 at 2045, If both senna and polyethylene glycol are ordered, use 1st; if no response by next dosing interval, go to next option. Given 11/26/2022 12:47 PM CDT 17 g Given 11/25/2022 12:52 PM CDT 17 g sodium chloride 0.9% infusion at 125 mL/hr, Intravenous, Continuous, Starting on Sat11/23/22 at 0100, Until 11/24/22 at 0126 New Bag 11/23/2022 6:59 PM CDT 125 mL/hr New Bag 11/23/2022 9:56 AM CDT 125 mL/hr New Bag 11/23/2022 1:09 AM CDT 125 mL/hr Le ft Arm documented in this encounter Active and Recently [...] RN - Reason: Patient/family declined - Comment: [place] was requested)1439 (Given - Provider: Lakia Hinton LPN)2103 (Given - Provider: Cara Ansari RN) 0239 (Not Given - Provider: Cara Ansari RN - Reason: Patient/family declined)0510 (Given - Provider: Cara Ansari RN)1436 (Not Given - Provider: Judith Portillo LPN - Reason: Patient/family declined - Comment: 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; she refused stating that she had taken norco already) enoxaparin (LOVENOX) 40 MG/0.4ML syringe 40 mg (CANCELED)(Linked Group 1) 40 mg, Subcutaneous, Nightly (enoxaparin), First dose [...] Ansari RN)1253 (New Bag - Provider: Aminata Barrow, ADAN)1653 (Due: Infusion Stop Time - Provider: Aminata Barrow RN)2104 (New Bag - Provider: Cara Ansari RN) 0110 (Infusion Stop Time - Provider: Cara Ansari RN)0507 (New Bag - Provider: Cara Ansari, ADAN)0907 (Due: Infusion Stop Time - Provider: Cara [...] Order 11/24/2022 11/25/2022 11/26/2022 BUpivacaine-EPINEPHrine (PF) 0.25% -[id number] injection (CANCELED) As needed, Starting on 11/24/22 at 1708, Until 11/24/22 at 205, Intra-Op 1708 (Given - Provider: Lukasz Diaz MD) dextrose (GLUTOSE) 40 % oral gel 37.5-75 g 37.5-75 g (15-30 g of dextrose), Oral, As needed, Low blood sugar, Starting on 11/24/22 at 0109, Until 11/26/22 at 2045, If patient is verbally responsive and taking [...] pain (Scale 4 - 7), Starting on Sat11/25/22 at 0838, Until Sat11/26/22 at 2045, Maximum dose of acetaminophen is 4000 mg from all sources in 24 hours. 0909 (Given - Provider: Aminata Barrow, ADAN)1719 (Given - Provider: Aminata Barrow RN) 1351 (Given - Provider: Aminata Barrow RN) HYDROmorphone (DILAUDID) injection 0.5 mg 0.5 mg, Intravenous, Every 4 hours PRN, Severe pain (Scale 8 - 10), Starting on Sat11/25/22 at 0844, Until Sat11/26/22 at 2045, Administer slowly over at least 2-3 minutes. 0237 (Given - Provider: Cara Ansari RN) iopamidol (ISOVUE-M 200) 41 % injection (CANCELED) As needed, Starting on Sat11/26/22 at 1031, Until Sat11/26/22 at 1143, Intra-Op 1031 (Given - Provider: Glenn Mullins MD) morphine injection 2 mg (CANCELED) 2 mg, Intravenous, Every 3 hours PRN, Moderate pain (Scale 4 - 7), Starting on Sat11/23/22 at 0034, Until Sat11/25/22 at 0839 0414 (Given - Provider: Cara Ansari RN)0834 (Given - Provider: Aminata Barrow RN)2149 (Given - Provider: Cara Ansari RN) 0149 (Given - Provider: Cara Ansari, ADAN)0440 (Given - Provider: Cara Ansari, ADAN) naLOXone (NARCAN) injection 0.4 mg 0.4 mg, [...] minutes. 0324 (Given - Provider: Cara Ansari, RN)1245 (Given - Provider: Aminata Barrow, RN) 0532 (Given - Provider: Cara Ansari, ADAN)1352 [...] 1247 (Given - Provider: Aminata Barrow, ADAN) Linked Groups Order Group 1: enoxaparin (LOVENOX) 40 MG/0.4ML syringe 40 mg (CANCELED)Jump to med 40 mg, Subcutaneous, Nightly (enoxaparin), First dose on Sat11/23/22 at 0100, Until Discontinued, Administer by deep SubQ injection alternating between the left or right anterolateral and left or right posterolateral abdominal wall. And Moderate Risk for VTE (COMPLETED) documented in this encounter Care Teams Motor Grader Operator Relationship Specialty Start Date End Date Rahul Bradford PA [address] [place] [address] PCP - General PHYSICIAN CARD PLACER 11/19/22 documented as of this encounter
--- OUTSIDE RECORDS SUMMARY | 2024-02-22 14:34 | XMS_ITS | Encounter Summary ---
Author Organization [facility] Address [address] [place] [address]. [place], [place] [id number] [place] [address] Care Team Providers Care Sock And Stocking Ironer Name Role Phone None, Provider Primary Care Provider Miles nielsen Encounter Details Date Type Department Care Team (Latest Contact Info) Description 01/29/2022 Travel Social History Tobacco Use Types Packs/Day Years Used Date Smoking Tobacco: Never Passive Smoke Exposure: Never Smokeless Tobacco: Never Humiliation, Afraid, Rape, and Kick questionnair e Answer Date Recorded Within the last year, have y ou been afraid of your partner or ex-partner? No 01/27/2022 Within the last year, have y ou been humiliated or emotionally abused in other ways by your partner or ex-partner? No Within the last year, have y ou been kicked, hit, slapped, or otherwise physically hurt by your partner or ex-partner? No 01/27/2022 Within the last year, have y ou been raped or forced to have any kind of sexual activity by your partner or ex-partner? No 01/27/2022 Social Connection and Isolat ion Panel [NHANES] Answer Date Recorded In a typical week, how many times do you talk on the phone with family, friends, or neighbors? More than three times a week 01/27/2022 How often do you get togethe r with friends or relatives? More than three times a week 01/27/2022 How often do you attend chur or yazidi services? Never 01/27/2022 Do you belong to any clubs o r organizations such as gnosticist groups, unions, fraternal or athletic groups, or school groups? No 01/27/2022 How often do you attend meet ings of the clubs or organizations you belong to? Never 01/27/2022 Are you , , di vorced, , never , or living with a partner? 01/27/2022 AUDIT-C Answer Date Recorded Q1: How often do you have a drink containing alcohol? Never 01/27/2022 Q2: How many drinks containi ng alcohol do you have on a typical day when you are drinking? Patient does not drink Q3: How often do you have si x or more drinks on one occasion? Never 01/27/2022 Overall Financial Resource Strain (CARDIA) Answe r Date Recorded How hard is it for you to pa y for the very basics like food, housing, medical care, and heating? Not hard at all 01/27/2022 [facility] [place] of Occupat ional Health - Occupational Stress Questionnaire Answer Date Recorded Do you feel stress - tense, restless, nervous, or anxious, or unable to sleep at night because your mind is troubled all the time - these days? Not at all 01/27/2022 Exercise Vital Sign Answer Date Recorde d [...] the money to buy more. Never true 01/28/20 22 Within the past 12 months, t he food you bought just didn't last and you didn't have money to get more. Never true 01/27/2022 PRAPARE - Transportation Answer Date Re corded In the past 12 months, has l ack of transportation kept you from medical appointments or from getting medications? No 01/03 In the past 12 months, has l ack of transportation kept you from meetings, work, or from getting things needed for daily living? No 01/27/2022 Housing Stability Vital Sign Answer Juan Luis e Recorded In the last 12 months, was t here a time when you were not able to pay the mortgage or rent on time? No 01/27/2022 In the last 12 months, how many places have you lived? 2 01/27/2022 In the last 12 months, was t here a time when you did not have a steady place to sleep or slept in a prison (including now)? No 01/27/2022 Depression Answer Date Recor ded Last EPDS Total Score 0 01/28/2022 Last EPDS Self Harm Result Never 01/28 Comments No Sex and Gender Information Value Date Recorded Sex Assigned at Not on file Legal Sex Female 3:02 PM FIRST SAMPLER Gender Identity Not on file Sexual Orientation Not on file COVID-19 Exposure Response Date Recorded In the last 10 days, have yo u been in contact with someone who was confirmed or suspected to have Coronavirus/COVID-19? No / Unsure 01/29/2022 10:37 AM FIRST SAMPLER documented as of this encounter Functional Status * RETIRED Are you deaf or do you have serious difficulty hearing Answer Date of Assessment Author Status No 01/27/2022 6:18 PM FIRST SAMPLER Activ e * RETIRED Are you blind or do you have serious difficulty seeing, even when wearing glasses? Answer Date of Assessment Author Status No 01/27/2022 6:18 PM FIRST SAMPLER Activ e * Do you have serious difficulty walking or climbing stairs? Answer Date of Assessment Author Status No 01/27/2022 6:18 PM FIRST SAMPLER Magda Sevilla RN Active * Do you have difficulty dressing or bathing? Answer Date of Assessment Author Status No 01/27/2022 6:18 PM Magda Bender RN Active * Because of a physical, mental, or emotional condition, do you have difficulty doing errands alone such as visiting a doctor's office or shopping? Answer Date of Assessment Author Status No 01/27/2022 6:18 PM Magda Bender RN Active documented as of this encounter Mental Status * Because of a physical, mental, or emotional condition, do you have serious difficulty concentrating, remembering, or making decisions? Answer Entry Date Author Status No 01/27/2022 6:18 PM Magda Bender RN Active documented in this encounter Plan of Treatment Not on file documented as of this encounter Visit Diagnoses Not on filedocumented in this encounter Care Teams Sock And Stocking Ironer Relationship Specialty Start Date End Date None, Provider, MD PCP - General UNKNOWN PHYSICIAN SPECIALTY 01/27/22 documented as of this encounter
--- OUTSIDE RECORDS SUMMARY | 2024-02-22 14:34 | XMS_ITS | Encounter Summary ---
Author Organization [facility] Address [address] [place] [address]. [place], [place] [id number] [place] [id number] Care Team Providers Care Cut Off Sawyer Shingle Mill Name Role Phone None, Provider Primary Care Provider Miles nielsen Encounter Details Date Type Department Care Team (Latest Contact Info) Description 01/27/2022 Travel Social History Tobacco Use Types Packs/Day [...] How often do you attend chur or restorationist services? Never 01/27/2022 Do you belong to any clubs o r organizations such as rastafarian groups, unions, fraternal or athletic groups, or [...] and heating? Not hard at all 01/27/2022 [facility] [place] of Occupat ional Health - Occupational Stress [...] place to sleep or slept in a snf (including now)? No 01/27/2022 Depression Answer Date Recor ded Last EPDS Total Score 0 01/28/2022 Last EPDS Self Harm Result Never 01/28 Comments No Sex and Gender Information Value Date Recorded Sex Assigned at Not on file Legal Sex Female 3:02 PM TOBACCO SIZER Gender Identity Not on file Sexual Orientation Not on file COVID-19 Exposure Response Date Recorded In the last 10 days, have yo u been in contact with someone who was confirmed or suspected to have Coronavirus/COVID-19? No / Unsure 01/27/2022 6:24 PM TOBACCO SIZER documented as of this encounter Functional Status documented as of this encounter Mental Status * Question Answer Entry Date Author Status Because of a physical, mental, or emotional condition, do you have serious difficulty concentrating, remembering, or making decisions? No 01/27/2022 6:18 PM TOBACCO SIZER Magda Sevilla RN A ctive documented in this encounter Plan of Treatment Not on file documented as of this encounter Visit Diagnoses Not on filedocumented in this encounter Care Teams Cut Off Sawyer Shingle Mill Relationship Specialty Start Date End Date None, Provider, PCP - General UNKNOWN PHYSICIAN SPECIALTY 01/27/22 documented as of this encounter
--- OUTSIDE RECORDS SUMMARY | 2024-02-22 14:34 | XMS_ITS | Encounter Summary ---
Author Organization [facility] Address [address] [place] [address]. [place] [address] [place] [address] Care Team Providers Care Slaughterer Religious Ritual Name Role Phone None, Provider Primary Care Provider Miles nielsen Encounter Details Date Type Department Care Team (Late st Contact Info) Description 01/29/2022 9:45 AM OPTICAL LABORATORY MECHANIC - 01/29/2022 11:59 PM [facility] Hospital Encounter [facility] [address] [place], [place] [id number] Jude Castaneda MD [address] [place] [address] Discharge Disposition: Home or Self Care (Routine [...] 01/27/2022 How often do you attend chur ch or anabaptism services? Never 01/27/2022 Do you belong to any clubs o r organizations such as roman catholic groups, unions, fraternal or athletic groups, or [...] and heating? Not hard at all 01/27/2022 [facility] of Occupat ional Health - Occupational Stress [...] slept in a residential (including now)? No 01/27/2022 Depression Answer Date Recor ded Last EPDS Total Score 0 01/28/2022 Last EPDS Self Harm Result Never 01/28 Comments No Sex and Gender Information Value Date Recorded Sex Assigned at Not on file Legal Sex Female 3:02 PM OPTICAL LABORATORY MECHANIC Gender Identity Not on file Sexual Orientation Not on file COVID-19 Exposure Response Date Recorded In the last 10 days, have yo u been in contact with someone who was confirmed or suspected to have Coronavirus/COVID-19? No / Unsure 01/29/2022 10:37 AM OPTICAL LABORATORY MECHANIC documented as of this encounter Last Filed Vital Signs Vital Sign Reading Time Taken Comments Blood Pressure 119/79 01/29/2022 10:15 AM OPTICAL LABORATORY MECHANIC Pulse 84 01/29/2022 10:15 AM OPTICAL LABORATORY MECHANIC Temperature 36.6 ??C (97.9 ??F) 01/29/2022 10:[address] Respiratory Rate 16 01/29/2022 10:15 AM OPTICAL LABORATORY MECHANIC Oxygen Saturation 97% 01/29/2022 10:15 AM OPTICAL LABORATORY MECHANIC Inhaled Oxygen Concentration - - Weight - - Height - - Body Mass Index - - documented in this encounter Functional Status * RETIRED Are you deaf or do you have serious difficulty hearing Answer Date of Assessment Author Status No 01/27/2022 6:18 PM OPTICAL LABORATORY MECHANIC Activ e * RETIRED Are you blind or do you have serious difficulty seeing, even when wearing glasses? Answer Date of Assessment Author Status No 01/27/2022 6:18 PM OPTICAL LABORATORY MECHANIC Activ e * Do you have serious difficulty walking or climbing stairs? Answer Date of Assessment Author Status No 01/27/2022 6:18 PM Magda Bender RN Active * Do you have difficulty [...] Bender RN Active documented in this encounter Medications at Time of Discharge vitamin, low iron, ( VITAMIN WITH IRON) 27-0.8 MG tablet Take by mouth daily. acetaminophen (TYLENOL) 500 MG tablet Take 2 tablets (1,000 mg total) by mouth every 6 (six) hours as needed. 30 tablet 01/28/2022 02/07/2022 aspirin 81 MG chewable tablet Chew 81 mg by mouth daily. 11/22/2022 docusate sodium (COLACE) 100 MG capsule Take 1 capsule (100 mg total) by mouth every 12 (twelve) hours for 10 days. 10 capsule 01/28/2022 02/07/2022 ibuprofen (MOTRIN) 600 MG tablet Take 1 tablet (600 mg total) by mouth every 6 (six) hours as needed. 40 tablet 01/28/2022 02/07/2022 documented as of this encounter Nursing Notes * Luz Dudley RN - 01/29/2022 10:45 AM CST Patient presents to OB with for well check. She states that she is feeling well. Bleeding issmall, light red in color. Fundus firm @ U/1. She has no swelling or visual changes. She appears shilpa bonding well with . Patient is aware to make a follow up visit with her PCP sometime this week. She states that she is going to do that today. CAL LABORATORY MECHANIC documented in this encounter Plan of Treatment Not on file documented as of this encounter Visit Diagnoses Not on filedocumented in this encounter Care Teams Slaughterer Religious Ritual Relationship Specialty Start Date End Date None, Provider, PCP - General UNKNOWN PHYSICIAN SPECIALTY 01/27/22 documented as of this encounter
--- OUTSIDE RECORDS SUMMARY | 2024-02-22 14:34 | XMS_ITS | Encounter Summary ---
Author Organization [facility] Address [address] [place] [address]. 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 Name Role Phone None, Provider Primary Care Provider Unavaila ble Reason for Visit * Reason Comments (Labor) * Auth/Cert (Routine) Specialty Diagnoses / Procedures Referred By Contac t Referred To Contact Diagnoses Normal labor and delivery ([facility]) Normal labor and delivery Procedures NONE Alyce Castaneda MD [address] [place] [address] Phone: tel: fax: Referral ID Status Reason Start Date Expiration Date Visits Re quested Visits Authorized [id number] 1 1 Encounter Details Date Type Department Care Team (Late st Contact Info) Description 01/27/2022 3:02 PM PIANO REGULATOR INSPECTOR - 01/28/2022 4:12 PM [facility] Hospital Encounter [facility] [address] [place] [address] Alyce Castaneda MD [address] [place] [address] (Labor) Discharge Disposition: Home or Self Care (Routine Discharge) Social History Tobacco Use Types Packs/Day Years Used Date Smoking Tobacco: Never Passive Smoke Exposure: Never Smokeless Tobacco: Never Tobacco Cessation:Counseling Given: No Humiliation, Afraid, Rape, and Kick questionnair e [...] often do you attend chur ch or taoism services? Never 01/27/2022 Do you belong to any clubs o r organizations such as christianity groups, unions, fraternal or athletic groups, or [...] and heating? Not hard at all 01/27/2022 [facility] - Occupational Stress [...] place to sleep or slept in a custodial (including now)? No 01/27/2022 Depression Answer Date Recor ded Last EPDS Total Score 0 01/28/2022 Last EPDS Self Harm Result Never 01/28 Comments No Sex and Gender Information Value Date Recorded Sex Assigned at Not on file Legal Sex Female 3:02 PM PIANO REGULATOR INSPECTOR Gender Identity Not on file Sexual Orientation Not on file COVID-19 Exposure Response Date Recorded In the last 10 days, have yo u been in contact with someone who was confirmed or suspected to have Coronavirus/COVID-19? No / Unsure 01/27/2022 6:24 PM PIANO REGULATOR INSPECTOR documented as of this encounter Last Filed Vital Signs Vital Sign Reading Time Taken Comments Blood Pressure 121/71 01/28/2022 1:36 PM PIANO REGULATOR INSPECTOR Pulse 71 01/28/2022 1:36 PM PIANO REGULATOR INSPECTOR Temperature 36.4 ??C (97.5 ??F) 01/28/2022 1:36 PM CS T Respiratory Rate 17 01/28/2022 1:36 PM PIANO REGULATOR INSPECTOR Oxygen Saturation 97% 01/28/2022 1:36 PM PIANO REGULATOR INSPECTOR Inhaled Oxygen Concentration - - Weight 107 kg (236 lb) 01/27/2022 3:39 PM PIANO REGULATOR INSPECTOR Height 165.1 cm (5' 5 ) 01/27/2022 3:39 PM PIANO REGULATOR INSPECTOR Body Mass Index 39.27 01/27/2022 3:39 PM PIANO REGULATOR INSPECTOR documented in this encounter Functional Status * Question Answer Date of Assessment Author Status Do you have serious difficulty walking or climbing stairs? No 01/27/2022 6:18 PM Magda Bender RN Activ e * Question Answer Date of Assessment Author Status Do you have difficulty dressing or bathing? No 01/27/2022 6:18 PM Magda Bender RN A ctive Because of a physical, mental, or emotional condition, do you have difficulty doing errands alone such as visiting a doctor's office or shopping? No 01/27/2022 6:18 PM Magda Bender RN Active * RETIRED Are you deaf or do you have serious difficulty hearing Answer Date of Assessment Author Status No 01/27/2022 6:18 PM PIANO REGULATOR INSPECTOR Activ e * RETIRED Are you blind or do you have serious difficulty seeing, even when wearing glasses? Answer Date of Assessment Author Status No 01/27/2022 6:18 PM PIANO REGULATOR INSPECTOR Activ e * Do you have serious [...] or making decisions? No 01/27/2022 6:18 PM Magda Bender RN A ctive * Because of a physical, mental, or emotional condition, do you have serious difficulty concentrating, remembering, or making decisions? Answer Entry Date Author Status No 01/27/2022 6:18 PM PIANO REGULATOR INSPECTOR Magda Sevilla RN Active documented in this encounter Discharge Summaries * Alyce Castaneda MD - 01/28/2022 12:16 PM CST Images from the original note were not included. Patient Name Patient MRYvette Mcdonald [id number] Admit date: 01/27/2022 Discharge Date: 01/28/22 Admission Diagnoses: 1. 37 weeks 2. Normal labor Discharge Diagnoses: Patient Active Problem List Diagnosis ??? Normal labor and delivery ??? 37 weeks gestation of Discharge Disposition: discharged to home Hospital Course: Catie Mcdonald was admitted for normal labor , had a vaginal delivery. She delivered a boy weighing Weight: 6# 3 oz with APGARS of 9, 9 Assessment No data filed . Complications: None She did well in her course, her pain was controlled on pain medications and she felt ready for discharge. Consults: none Significant Diagnostic Studies: none Discharge Exam: General: alert, appears stated age and cooperative HEENT: neck supple Lungs: respirations non-labored Heart: regular rate and rhythm Uterine Fundus: firm Extremities PAS boots on and functional, edema None Patient Instructions: Medication List START taking these medications Morning Afternoon Evening Bedtime As Needed acetaminophen 500 MG tablet Commonly known as: TYLENOL Take 2 tablets (1,000 mg total) by mouth every 6 (six) hours as needed. Last time this was given: 1,000 mg on January 28, 2022 6:00 AM docusate sodium 100 MG capsule Commonly known as: COLACE Take 1 capsule (100 mg total) by mouth every 12 (twelve) hours for 10 days. Last time this was given: 100 mg on January 28, 2022 8:39 AM ibuprofen 600 MG tablet Commonly known as: MOTRIN Take 1 tablet (600 mg total) by mouth every 6 (six) hours as needed. Last time this was given: 600 mg on January 28, 2022 6:01 AM CONTINUE taking these medications Morning Afternoon Evening Bedtime As Needed aspirin 81 MG chewable tablet Chew 81 mg by mouth daily. vitamin with iron 27-0.8 MG tablet Take by mouth daily. Last time this was given: 1 tablet on January 28, 2022 8:39 AM Generic drug: vitamin (low iron) Activity: nothing in the vagina for 6 weeks and no driving while on narcotics Diet: Regular Follow-up: Please follow-up within the next 2 weeks for your routine visit. Please call the office to confirm your appointment ALYCE CASTANEDA MD 01/28/2022 O REGULATOR INSPECTOR documented in this encounter Discharge Instructions * Attachments The following attachments cannot be sent through Care Everywhere. * (Zambian) * Vaginal Delivery Discharge Instructions (Zambian) * Common Problems (Zambian) documented in this encounter Medications at Time [...] 01/28/2022 02/07/2022 documented as of this encounter Progress Notes * Magda Sevilla RN - 01/28/2022 8:43 AM CST Problem: Discharge Planning Goal: Discharge to home Outcome: Progressing Goal: Knowledge of caring for self- Outcome: Progressing Problem: Safety Goal: Knowledge of Safety Outcome: Progressing Problem: Pain Goal: Knowledge of pain management Outcome: Progressing Problem: Feeding Your Bliss Goal: Knowledge of Outcome: Progressing Goal: Knowledge of formula feeding Outcome: Progressing O REGULATOR INSPECTOR * Isi Fortune RN - 01/28/2022 12:00 AM CST Provide discharge folder and discuss. Encourage questions. Monitor VS every 4 hours and PRN with changes. Monitor lochia amount, color, odor and clots. Encourage pt to report any lochia changes. Give methergine PO TID as ordered. Provide assistance with personal care as needed. Pt and FOB very comfortable with infant care as this is 3rd baby, pt demonstrates excellent breast feeding knowledge and skill, and safety behaviors. Offer pain meds PRN. O REGULATOR INSPECTOR documented in this encounter H&P Notes * Alyce Castaneda MD - 01/27/2022 3:37 PM CST DANIELA Mcdonald is a 26-year-old at 37w2d gestational age with an Estimated Date of Delivery: 02/15/22 who is being admitted for spontaneous labor. movement: present, contractions every 2 minutes, Loss of fluid:Present complications: None Results 1st Trimester Test Value Date Time ABO/Rh Antibody HCT HGB Rubella Antibody RPR Urine Protein HBsAG HIV HIV Rapid Hep C Gonorrhea Chlamydia Pap Smear 2nd Trimester Test Value Date Time HCT HGB Glucose 3rd Trimester Test Value Date Time HCT HGB RPR HIV HIV Rapid Hep C GBS Legend ^: External ^^: Historical OB History Para Term AB Living 1 SAB IAB Ectopic Molar Multiple Live Births # Outcome Date GA Lbr Jose Guadalupe/2nd Weight Sex Delivery Anes PTL Lv 1 Current No past medical history on file. No past surgical history on file. No family history on file. Social History Socioeconomic History ??? Marital status: Not on file Spouse name: Not on file ??? Number of children: Not on file ??? Years of education: Not on file ??? Highest education level: Not on file Occupational History ??? Not on file Tobacco Use ??? Smoking status: Not on file ??? Smokeless tobacco: Not on file Substance and Sexual Activity ??? Alcohol use: Not on file ??? Drug use: Not on file ??? Sexual activity: Not on file Other Topics Concern ??? Not on file Social History Narrative ??? Not on file Social Determinants of Health Financial Resource Strain: Not on file Food Insecurity: Not on file Transportation Needs: Not on file Physical Activity: Not on file Stress: Not on file Social Connections: Not on file Intimate Partner Violence: Not on file Housing Stability: Not on file No current facility-administered medications on file prior to encounter. No current outpatient medications on file prior to encounter. Not on File OBJECTIVE Physical Exam: There were no vitals taken for this visit. General: no acute distress HEENT: neck supple Lungs: respirations non-labored Heart: regular rate and rhythm Abdomen: soft, gravid, non-tender to palpation FHT: 180 BPM; moderate variability, + accelerations, + early recurrent decelerations Contractions: Every 2 mintues Presentations: cephalic Cervix: Dilation: 10 cm Effacement: 100 % Station: +3 Consistency: soft Position: anterior Labs: No results found for this or any previous visit (from the past 72 hour(s)).] ASSESSMENT/PLAN 26-year-old 37w2d at G3 now P3 weeks gestation, admit for spontaneous labor and delivery. Patient delivered shortly after arrival to the unit, please see delivery note for details. ALYCE CASTANEDA MD 01/27/2022 O REGULATOR INSPECTOR O REGULATOR INSPECTOR documented in this encounter Procedure Notes * Alyce Castaneda MD - 01/27/2022 3:41 PM CST Obstetrical Delivery Form Primary OB Clinician: ALCYE CASTANEDA MD EDC: Estimated Date of Delivery: Estimated Date of Delivery: 02/15/22 Gestational Age:. 37w2d Antepartum complications: none Date of Delivery:01/27/2022; Delivered By:ALYCE CASTANEDA MD Delivery Type: spontaneous vaginal delivery . Baby: Liveborn male, Apgars 9/9, weight 6 #, 3 oz, name: Alyssia, nuchal cord:one, position:OA Anesthesia: none Intrapartum complications: None Intrapartum medications: Pitocin given for active management of the third stage of labor Laceration: None Episiotomy: none, Placenta: spontaneous EBL: 800 mL, QBL to follow Called to patient room for complete cervical dilation and strong maternal urge to push, apparently patient had arrival to floor in marked distress and noted to be completely dilated, thus I was called to room stat for delivery. By the time of my arrival, SROM had occurred. I quickly dressed and patient expressed strong maternal urge to push, complete dilation was confirmed at the patient was allow ed to actively push. With the next contraction baby Tosiha delivered atraumatically from a direct OA presentation. Good tone and crying effort were noted so infant was allow to transition to life onhis mother's chest. After 60 seconds, the cord was clamped and cut and the infant was handed off [facility] resuscitation team. Cord segment was obtained for gas analysis and cord blood was obtained for blood typing. The placenta delivered spontaneously shortly thereafter. Attention was turned to the perineum where moderate vaginal bleeding was noted. No IV access had yet been obtained, so IM pitocin was ordered and uterine sweep was performed and several large clots were removed from aboggy lower uterine segment. This seemed to improved the bleeding. After several moment again moderate bleeding was noted. After patient confirmed no hypertensive issues this , 0.2 mg IM methergine was ordered. Again uterine sweep was performed and several large clots were removed from theuterus, after which the uterus firmed impressively and bleeding was minimal. The perineum was inspected and no lacerations were noted. The patient was observed during which serial vitals were wnl andbleeding was minimal. EBL was noted to be 800 mL, so additional pit was ordered IV after access wasobtained. After approx 15 bleeding was noted to be minimal, vitals were stable, and good fundal tone was appreciated so the patient was cleaned and dressed and left in the delivery room with her infant in satisfactory condition. Needle, instrument, and lap sponge counts were correct and verified with nursing. At approx 1 hour , patient's single IV access had infiltrated and several additional large clots were noted from vagina. So 1000 mcg PO cytotec was given and an additional 10u IM pitocin was ordered. PO methergine was also ordered for the next 24 hours. Fundal massage was performed and nofurther clots or bleeding was noted from the vagina. Alyce Castaneda MD 4:10 PM 01/27/22 O REGULATOR INSPECTOR documented in this encounter Nursing Notes * Magda Sevilla RN - 01/27/2022 6:05 PM CST NO ADMISSION OR ANTEPARTUM HEMORRHAGE ASSESSMENT DONE PT DELIVERED 10 MINUTES AFTER ARRIVAL O REGULATOR INSPECTOR documented in this encounter Plan of Treatment Not on file documented as of this encounter Procedures Procedure Name Priority Date/Time Associated Diagnosis Comments CBC W/DIFF AUTOMATED Routine 01/28/2022 5:06 AM PIANO REGULATOR INSPECTOR TYPE & SCREEN Routine 01/27/2022 5:15 PM PIANO REGULATOR INSPECTOR CBC W/DIFF AUTOMATED Routine 01/27/2022 5:15 PM PIANO REGULATOR INSPECTOR BLOOD GAS, VENOUS, CORD Routine 01/27/2022 3:02 PM PIANO REGULATOR INSPECTOR BLOOD GAS, ARTERIAL, CORD Routine 01/27/2022 3:02 PM PIANO REGULATOR INSPECTOR HIV 1 ANTIGEN(S), WITH HIV-1 AND HIV-2 ANTIBODIES Routine 12/22/2021 OBSTETRIC PANEL Routine 12/22/2021 OBSTETRIC PANEL Routine 12/22/2021 HEPATITIS C ANTIBODY Routine 12/22/2021 SYPHILIS/RPR/VDRL; QUAL Routine 12/22/2021 documented in this encounter Results * (ABNORMAL) CBC W/DIFF AUTOMATED (01/28/2022 5:06 AM PIANO REGULATOR INSPECTOR) WBC 12.3(H) 4.0 - 10.8 x10'3/uL 01/28/2022 5:16 AM PIANO REGULATOR INSPECTOR [facility] RBC 4.04(L) 4.10 - 5.40 x10'6/uL 01/28/2022 5:16 AM PIANO REGULATOR INSPECTOR [facility] HGB 12.4 12.0 - 16.0 G/DL 01/28/2022 5:16 AM [facility] HCT 37.5 36.0 - 47.0 % 01/28/2022 5:16 AM [facility] MCV 92.8 78.0 - 100.0 FL 01/28/2022 5:16 AM [facility] MCH 30.7 27.0 - 31.0 PG 01/28/2022 5:16 AM [facility] MCHC 33.1 33.0 - 36.0 G/DL 01/28/2022 5:16 AM [facility] RDW 13.5 11.5 - 14.5 % 01/28/2022 5:16 AM [facility] PLT 211 150 - 350 x10'3/uL 01/28/2022 5:16 AM [facility] MPV 9.5 7.4 - 10.4 FL 01/28/2022 5:16 AM [facility] CBC COMMENT NORMAL REFERENCE RANGE NOT ESTABLISHED FOR THE PROPORTIONAL LEUKOCYTE DIFFERENTIAL. 01/28/2022 5:16 AM [facility] NEUTROPHILS % 79.6 % 01/28/2022 5:17 AM [facility] LYMPHOCYTES % 14.3 % 01/28/2022 5:17 AM [facility] MONOCYTES % 5.3 % 01/28/2022 5:17 AM [facility] EOSINOPHILS % 0.2 % 01/28/2022 5:17 AM [facility] BASOPHILS % 0.2 % 01/28/2022 5:17 AM [facility] IMMATURE GRANS % 0.4 % 01/29/20 5:17 AM [facility] NRBC 0.0 % 01/28/2022 5:17 AM [facility] ABS. NEUTROPHILS 9.74(H) 1.60 - 8.30 x10'3/uL 01/28/2022 5:17 AM [facility] ABS. LYMPHOCYTES 1.75 0.80 - 4.70 x10'3/uL 01/28/2022 5:17 AM [facility] ABS. MONOCYTES 0.65 0.00 - 1.50 x10'3/uL 01/28/2022 5:17 AM PIANO REGULATOR INSPECTOR [facility] ABS. EOSINOPHILS 0.03 0.00 - 0.40 x10'3/uL 01/28/2022 5:17 AM PIANO REGULATOR INSPECTOR [facility] ABS. BASOPHILS 0.03 0.00 - 0.20 x10'3/uL 01/28/2022 5:17 AM PIANO REGULATOR INSPECTOR [facility] ABS. IMMATURE GRANULOCYTES 0.05(H) 0.00 - 0.03 x10'3/uL 01/28/2022 5:17 AM PIANO REGULATOR INSPECTOR [facility] ABS. NUCLEATED RBC'S 0.00 0.00 x10'3/uL 01/28/2022 5:17 AM PIANO REGULATOR INSPECTOR [facility] 01/28/2022 5:06 AM PIANO REGULATOR INSPECTOR us Alyce Castaneda MD LABORATORY Final Result [facility] [place] [address], [place] [phone] * TYPE & SCREEN (01/27/2022 5:15 PM PIANO REGULATOR INSPECTOR) ABO/RH O POSITIVE 01/27/2022 6:06 PM PIANO REGULATOR INSPECTOR [facility] ANTIBODY SCREEN NEGATIVE 01/27/2022 6:06 PM PIANO REGULATOR INSPECTOR [facility] SAMPLE EXPIRATION 01/30/2022,2 359 01/27/2022 6:06 PM PIANO REGULATOR INSPECTOR [facility] 01/27/2022 5:15 PM PIANO REGULATOR INSPECTOR us Alyce Castaneda MD BLOOD BANK TEST ORDERABLES Fi nal Result Performing Organization Address City/Va Hospital/ZIP Co de Phone Number [facility] [address] [place] [place] [address], [place] [phone] * (ABNORMAL) CBC W/DIFF AUTOMATED (01/27/2022 5:15 PM PIANO REGULATOR INSPECTOR) WBC 18.9(H) 4.0 - 10.8 x10'3/uL 01/27/2022 5:27 PM [facility] RBC 4.73 4.10 - 5.40 x10'6/uL 01/27/2022 5:27 PM [facility] HGB 14.6 12.0 - 16.0 G/DL 01/27/2022 5:27 PM [facility] HCT 43.9 36.0 - 47.0 % 01/27/2022 5:27 PM [facility] MCV 92.8 78.0 - 100.0 FL 01/27/2022 5:27 PM [facility] MCH 30.9 27.0 - 31.0 PG 01/27/2022 5:27 PM [facility] MCHC 33.3 33.0 - 36.0 G/DL 01/27/2022 5:27 PM [facility] RDW 13.4 11.5 - 14.5 % 01/27/2022 5:27 PM [facility] PLT 320 150 - 350 x10'3/uL 01/27/2022 5:27 PM [facility] MPV 9.8 7.4 - 10.4 FL 01/27/2022 5:27 PM [facility] CBC COMMENT NORMAL REFERENCE RANGE NOT ESTABLISHED FOR THE PROPORTIONAL LEUKOCYTE DIFFERENTIAL. 01/27/2022 5:27 PM [facility] NEUTROPHILS % 88.2 % 01/27/2022 5:27 PM [facility] LYMPHOCYTES % 7.3 % 01/27/2022 5:27 PM [facility] MONOCYTES % 3.5 % 01/27/2022 5:27 PM [facility] EOSINOPHILS % 0.1 % 01/27/2022 5:27 PM [facility] BASOPHILS % 0.2 % 01/27/2022 5:27 PM PIANO REGULATOR INSPECTOR [facility] IMMATURE GRANS % 0.7 % 01/28/20 5:27 PM [facility] NRBC 0.0 % 01/27/2022 5:27 PM PIANO REGULATOR INSPECTOR [facility] ABS. NEUTROPHILS 16.66(H) 1.60 - 8.30 x10'3/uL 01/27/2022 5:27 PM PIANO REGULATOR INSPECTOR [facility] ABS. LYMPHOCYTES 1.38 0.80 - 4.70 x10'3/uL 01/27/2022 5:27 PM PIANO REGULATOR INSPECTOR [facility] ABS. MONOCYTES 0.67 0.00 - 1.50 x10'3/uL 01/27/2022 5:27 PM PIANO REGULATOR INSPECTOR [facility] ABS. EOSINOPHILS 0.01 0.00 - 0.40 x10'3/uL 01/27/2022 5:27 PM PIANO REGULATOR INSPECTOR [facility] ABS. BASOPHILS 0.04 0.00 - 0.20 x10'3/uL 01/27/2022 5:27 PM PIANO REGULATOR INSPECTOR [facility] ABS. IMMATURE GRANULOCYTES 0.14(H) 0.00 - 0.03 x10'3/uL 01/27/2022 5:27 PM PIANO REGULATOR INSPECTOR [facility] ABS. NUCLEATED RBC'S 0.00 0.00 x10'3/uL 01/27/2022 5:27 PM PIANO REGULATOR INSPECTOR [facility] 01/27/2022 5:15 PM PIANO REGULATOR INSPECTOR Alyce Castaneda MD LABORATORY Final Result [facility] [address] [place] [address], * Blood gas, venous, cord (01/27/2022 3:02 PM PIANO REGULATOR INSPECTOR) PH VENOUS CORD BLD 7.35 01/27/2022 4:37 PM PIANO REGULATOR INSPECTOR [facility] PCO2 VENOUS CORD BLD 38.5 MMHG 01/27/2022 4:37 PM PIANO REGULATOR INSPECTOR [facility] PO2 VENOUS CORD BLD 21.0 MMHG 01/27/2022 4:37 PM PIANO REGULATOR INSPECTOR [facility] BICARB VENOUS CORD BLD 20.9 MMOL/L 01/27/2022 4:37 PM PIANO REGULATOR INSPECTOR [facility] BASE DEFICIT VENOUS CORD BLD 3.7 MMOL/L 01/27/2022 4:37 PM PIANO REGULATOR INSPECTOR [facility] COMMENT REFERENCE RANGES NOT ESTABLISHED FOR CORD BLOOD SPECIMENS 01/27/2022 4:37 PM PIANO REGULATOR INSPECTOR [facility] 01/27/2022 3:02 PM PIANO REGULATOR INSPECTOR us Alyce Castaneda MD LABORATORY Final Result [facility] [address] [place] [address], [place] [phone] * Cord Blood Gas, arterial (01/27/2022 3:02 PM PIANO REGULATOR INSPECTOR) PH ARTERIAL CORD BLD 7.23 01/27/2022 4:37 PM PIANO REGULATOR INSPECTOR [facility] PCO2 ARTERIAL CORD BLD 51.4 MMHG 01/27/2022 4:37 PM PIANO REGULATOR INSPECTOR [facility] PO2 ARTERIAL CORD BLD 17.0 MMHG 01/27/2022 4:37 PM PIANO REGULATOR INSPECTOR [facility] BICARB ARTERIAL CORD BLD 20.7 MMOL/L 01/27/2022 4:37 PM PIANO REGULATOR INSPECTOR [facility] BASE DEFICIT ARTERIAL CORD BLD 7.3 MMOL/L 01/27/2022 4:37 PM PIANO REGULATOR INSPECTOR [facility] COMMENT REFERENCE RANGES NOT ESTABLISHED FOR CORD BLOOD SPECIMENS 01/27/2022 4:37 PM PIANO REGULATOR INSPECTOR [facility] 01/27/2022 3:02 PM PIANO REGULATOR INSPECTOR us Alyce Castaneda MD LABORATORY Final Result [facility] [address] [place] [address], [place] [phone] * OBSTETRIC PANEL (12/22/2021) RPR NR us Default History Genericprovider LABORATORY Final Result * OBSTETRIC PANEL (12/22/2021) HEPATITIS B SURFACE AG NR RUBELLA AB IMMUNE us Default History Genericprovider LABORATORY Final Result * HEPATITIS C ANTIBODY (12/22/2021) HEPATITIS C AB NR us Default History Genericprovider LABORATORY Final Result * HIV 1 ANTIGEN(S), WITH HIV-1 AND HIV-2 ANTIBODIES (12/22/2021) HIV 1/2 AB+ HIV1 P24 AG NR us Default History Genericprovider LABORATORY Final Result * SYPHILIS/RPR/VDRL; QUAL (12/22/2021) RPR NR us Default History Genericprovider LABORATORY Final Result documented in this encounter Visit Diagnoses Diagnosis Normal labor and delivery (HHS/HCC)- Primary Normal delivery 37 weeks gestation of (HHS/HCC) state, incidental documented in this encounter Admitting Diagnoses Diagnosis Normal labor and delivery (HHS/HCC) Normal delivery documented in this encounter Administered Medications Inactive Administered Medications - up to 3 most recent administrations Medication Order MAR Action Action Date Dose Rate Site acetaminophen (TYLENOL) tablet 1,000 mg 1,000 mg, Oral, Every 6 hours PRN, Mild pain (Scale 1 - 3), Starting on 01/27/22 at 1535, Until 01/28/22 at 1812, Maximum dose of acetaminophen is 4000 mg from all sources in 24 hours., Given 01/28/2022 6:00 AM PIANO REGULATOR INSPECTOR 1,000 mg Given 01/27/2022 9:12 PM PIANO REGULATOR INSPECTOR 1,000 mg benzocaine-menthol (DERMOPLAST) 20-0.5 % topical spray 1 spray 1 spray, Topical, 4 times daily PRN, Pain, Perineal discomfort, Starting on 01/27/22 at 1535, Until 01/28/22 at 1812, Do NOT recommend use for pain in infants & children under 2 years., diphenhydrAMINE (BENADRYL) 12.5 MG/5ML elixir 25 mg 25 mg, Oral, Every 6 hours PRN, Itching, Starting on 01/27/22 at 1535, Until 01/28/22 at 1812, Give if unable to swallow tablets/capsules or if patient prefers liquid., diphenhydrAMINE (BENADRYL) capsule 25 mg 25 mg, Oral, Every 6 hours PRN, Itching, Starting on 01/27/22 at 1535, Until 01/28/22 at 1812, docusate sodium (COLACE) capsule 100 mg 100 mg, Oral, Every 12 hours scheduled (2 times per day), First dose on 01/27/22 at 2100, Until Discontinued, Given 01/28/2022 8:39 AM PIANO REGULATOR INSPECTOR 100 mg Given 01/27/2022 9:13 PM PIANO REGULATOR INSPECTOR 100 mg ibuprofen (MOTRIN) tablet 600 mg 600 mg, Oral, Every 6 hours PRN, Discomfort, Cramping, Starting on 01/27/22 at 1535, Until 01/28/22 at 1812, Do not order ibuprofen and Vicoprofen (hydrocodone/ibuprofen) together., Given 01/28/2022 6:0 1 AM PIANO REGULATOR INSPECTOR 600 mg Given 01/28/2022 12:20 AM PIANO REGULATOR INSPECTOR 600 mg Given 01/27/2022 5:26 PM PIANO REGULATOR INSPECTOR 600 mg lanolin cream 1 dose, Starting on 01/28/22 at 0202, Until 01/28/22 at 0204, Created by cabinet override Given 01/28/2022 2:04 AM PIANO REGULATOR INSPECTOR lanolin cream Topical, PRN, Irritation, Starting on 01/28/22 at 0204, Until 01/28/22 at 1812 methylergonovine (METHERGINE) 0.2 MG/ML injection 1 dose, Starting on 01/27/22 at 1511, Until 01/27/22 at 1515, Created by cabinet override HAZARDOUS MEDICATION: wear single chemotherapy approved gloves. Given 01/27/2022 3:15 PM PIANO REGULATOR INSPECTOR methylergonovine (METHERGINE) tablet 0.2 mg 0.2 mg, Oral, 3 times daily, First dose on 01/27/22 at 1630, Until Discontinued, HAZARDOUS MEDICATION: wear single chemotherapy approved gloves. Do not open or split. If crushing, use approved closed-system crushing device for hazardous medications. Given 01/28/2022 8:39 AM PIANO REGULATOR INSPECTOR 0.2 mg Given 01/27/2022 9:13 PM PIANO REGULATOR INSPECTOR 0.2 mg Given 01/27/2022 5:26 PM PIANO REGULATOR INSPECTOR 0.2 mg miSOPROStol (CYTOTEC) tablet 1,000 mcg 1,000 mcg, Oral, Once, 1 dose, On 01/27/22 at 1615, HAZARDOUS MEDICATION: wear single chemotherapy approved gloves. Do not open or split. If crushing, use approved closed-system crushing device for hazardous medications. Given 01/27/2022 4:05 PM PIANO REGULATOR INSPECTOR 1,000 mcg ondansetron (ZOFRAN-ODT) disintegrating tablet 8 mg 8 mg, Oral, Every 8 hours PRN, Nausea, Vomiting, Starting on 01/27/22 at 1535, Until 01/28/22 at 1812, oxytocin (PITOCIN) injection 10 Units 10 Units, Intravenous, Once, 1 dose, On 01/27/22 at 1715, Can give up to 3 doses HAZARDOUS MEDICATION: wear single chemotherapy approved gloves. Given 01/27/2022 3:53 PM PIANO REGULATOR INSPECTOR 10 Units Given 01/27/2022 3:03 PM PIANO REGULATOR INSPECTOR 10 Units Ot her vitamin (low iron) 27-0.8 MG tablet 1 tablet 1 tablet, Oral, Daily, First dose on 01/27/22 at 1600, Until Discontinued, Given 01/28/2022 8:39 AM PIANO REGULATOR INSPECTOR 1 tablet documented in this encounter Active and Recently Administered Medications Times are shown in PIANO REGULATOR INSPECTOR. Scheduled Medication Order 01/26/2022 01/27/2022 01/28/2022 docusate sodium (COLACE) capsule 100 mg 100 mg, Oral, Every 12 hours scheduled (2 times per day), First dose on 01/27/22 at 2100, Until Discontinued, 2112 (Given - Provider: Isi Fortune RN) 0839 (Given - Provider: Magda Sevilla RN) methylergonovine (METHERGINE) tablet 0.2 mg 0.2 mg, Oral, 3 times daily, First dose on 01/27/22 at 1630, Until Discontinued, HAZARDOUS MEDICATION: wear single chemotherapy approved gloves. Do not open or split. If crushing, use approved closed-system crushing device for hazardous medications. 1726 (Given - Provider: Magda Sevilla RN)2113 (Given - Provider: Isi Fortune, ADAN) 0839 (Given - Provider: Magda Sevilla RN)1600 (Canceled Entry - Provider: Automatic Discharge Provider - Comment: Automatically canceled at discontinue of medication order) miSOPROStol (CYTOTEC) tablet 1,000 mcg (COMPLETED) 1,000 mcg, Oral, Once, 1 dose, On 01/27/22 at 1615, HAZARDOUS MEDICATION: wear single chemotherapy approved gloves. Do not open or split. If crushing, use approved closed-system crushing device for hazardous medications. 1605 (Given - Provider: Magda Sevilla RN) oxytocin (PITOCIN) injection 10 Units (COMPLETED) 10 Units, Intravenous, Once, 1 dose, On 01/27/22 at 1715, Can give up to 3 doses HAZARDOUS MEDICATION: wear single chemotherapy approved gloves. 1503 (Given - Provider: Magda Sevilla RN)1553 (Given - Provider: Magda Sevilla RN) vitamin (low iron) 27-0.8 MG tablet 1 tablet 1 tablet, Oral, Daily, First dose on 01/27/22 at 1600, Until Discontinued, 1600 (Canceled Entry - Provider: Automatic Discharge Provider - Comment: Automatically canceled at discontinue of medication order) 0839 (Given - Provider: Magda Sevilla RN) PRN Medication Order 01/26/2022 01/27/2022 01/28/2022 acetaminophen (TYLENOL) tablet 1,000 mg 1,000 mg, Oral, Every 6 hours PRN, Mild pain (Scale 1 - 3), Starting on 01/27/22 at 1535, Until 01/28/22 at 1812, Maximum dose of acetaminophen is 4000 mg from all sources in 24 hours., 2111 (Given - Provider: Isi Fortune RN) 0600 (Given - Provider: Isi Fortune, ADAN) benzocaine-menthol (DERMOPLAST) 20-0.5 % topical spray 1 spray 1 spray, Topical, 4 times daily PRN, Pain, Perineal discomfort, Starting on 01/27/22 at 1535, Until 01/28/22 at 1812, Do NOT recommend use for pain in infants & children under 2 years., diphenhydrAMINE (BENADRYL) 12.5 MG/5ML elixir 25 mg(Linked Group 1) 25 mg, Oral, Every 6 hours PRN, Itching, Starting on 01/27/22 at 1535, Until 01/28/22 at 1812, Give if unable to swallow tablets/capsules or if patient prefers liquid., diphenhydrAMINE (BENADRYL) capsule 25 mg(Linked Group 1) 25 mg, Oral, Every 6 hours PRN, Itching, Starting on 01/27/22 at 1535, Until 01/28/22 at 1812, ibuprofen (MOTRIN) tablet 600 mg 600 mg, Oral, Every 6 hours PRN, Discomfort, Cramping, Starting on 01/27/22 at 1535, Until 01/28/22 at 1812, Do not order ibuprofen and Vicoprofen (hydrocodone/ibuprofen) together., 1726 (Given - Provider: Magda Sevilla RN) 0020 (Given - Provider: Isi Fortune, ADAN)0601 (Given - Provider: Isi Fortune, ADAN) lanolin cream Topical, PRN, Irritation, Starting on 01/28/22 at 0204, Until 01/28/22 at 1812 ondansetron (ZOFRAN-ODT) disintegrating tablet 8 mg 8 mg, Oral, Every 8 hours PRN, Nausea, Vomiting, Starting on 01/27/22 at 1535, Until 01/28/22 at 1812, No Frequency Medication Order 01/26/2022 01/27/2022 01/28/2022 lanolin cream (COMPLETED) 1 dose, Starting on 01/28/22 at 0202, Until 01/28/22 at 0204, Created by cabinet override 0204 (Given - Provid er: Isi Fortune RN) methylergonovine (METHERGINE) 0.2 MG/ML injection (COMPLETED) 1 dose, Starting on 01/27/22 at 1511, Until 01/27/22 at 1515, Created by cabinet override HAZARDOUS MEDICATION: wear single chemotherapy approved gloves. 151 (Given - Provider: Magda Sevilla RN) Linked Groups Order Group 1: diphenhydrAMINE (BENADRYL) injection 25 mg (CANCELED) 25 mg, Intravenous, Every 6 hours PRN, Itching, Starting on 01/27/22 at 1535, Until 01/28/22 at 0013, Give if unable to take PO. For IV administration, give no faster than 25 mg/min., Or diphenhydrAMINE (BENADRYL) capsule 25 mgJump to med 25 mg, Oral, Every 6 hours PRN, Itching, Starting on 01/27/22 at 1535, Until 01/28/22 at 1812, Or diphenhydrAMINE (BENADRYL) 12.5 MG/5ML elixir 25 mgJump to med 25 mg, Oral, Every 6 hours PRN, Itching, Starting on 01/27/22 at 1535, Until 01/28/22 at 1812, Give if unable to swallow tablets/capsules or if patient prefers liquid., documented in this encounter Care Teams Arch Cushion Skiving Machine Operator Relationship Specialty Start Date End Date None, Provider, PCP - General UNKNOWN PHYSICIAN SPECIALTY 01/27/22 documented as of this encounter
--- OUTSIDE RECORDS SUMMARY | 2024-02-22 14:34 | XMS_ITS | Encounter Summary ---
Author Organization [facility] Address [address] [place] [address]. [place], [place] [id number] [place] [id number] Care Team Providers Care [facility]iology [facility] Name Role Phone Rahul Bradford Primary Care Provider [phone] Encounter Details Date Type Department Care Team (Latest Contact Info) Description 11/20/2022 Travel Social History Tobacco Use Types Packs/Day [...] week 01/27/2022 How often do you attend up health system or spiritism services? Never 01/27/2022 Do you belong to [...] and heating? Not hard at all 01/27/2022 [facility] - [...] to sleep or slept in a senior living (including now)? No 01/27/2022 Depression Answer Date Recor ded Last EPDS Total Score 0 01/28/2022 Last EPDS Self Harm Result Never 01/28 Comments No Sex and Gender Information Value Date Recorded Sex Assigned at Not on file Legal Sex Female 3:02 PM POWERHOUSE OPERATOR Gender Identity Not on file Sexual Orientation Not on file documented as of this encounter Functional Status * RETIRED Are you deaf or do you have serious difficulty hearing Answer Date of Assessment Author Status No 01/27/2022 6:18 PM POWERHOUSE OPERATOR Activ e * RETIRED Are you blind or do you have serious difficulty seeing, even when wearing glasses? Answer Date of Assessment Author Status No 01/27/2022 6:18 PM POWERHOUSE OPERATOR Activ e * Do you have serious difficulty walking or climbing stairs? Answer Date of Assessment Author Status No 01/27/2022 6:18 PM POWERHOUSE OPERATOR Magda Sevilla RN Active * Do you [...] on filedocumented in this encounter Care Teams Cardiology Consultants Relationship Specialty Start Date End Date Rahul Bradford PA [address] [place] [address] PCP - General PHYSICIAN MARKETING ADMINISTRATIVE ASSISTANT 11/19/22 documented as of this encounter
--- OUTSIDE RECORDS SUMMARY | 2024-02-22 14:34 | XMS_ITS | Encounter Summary ---
Author Organization [facility] Address [address] [place] [address]. [place], [place] [id number] [place] [id number] Care Team Providers Care Carnival Worker Name Role Phone Rauhl Bradford Primary Care Provider [phone] Reason for Visit * Reason Comments Abdominal Pain Encounter Details Date Type Department Care Team ([facility] st Contact Info) Description 11/20/2022 6:49 AM CDT - 11/20/2022 9:10 AM CDT Emergency [facility] [address] [facility] [place] [address] Laura Pham MD [address] [place] [id number] Abdominal Pain Discharge Disposition: Home or Self Care (Routine [...] often do you attend chur ch or samaritan services? Never 01/27/2022 Do you belong to any clubs o r organizations such as episcopal groups, unions, fraternal or athletic groups, or [...] and heating? Not hard at all 01/27/2022 [facility] - Occupational [...] place to sleep or slept in a halfway (including now)? No 01/27/2022 Depression Answer Date Recor ded Last EPDS Total Score 0 01/28/2022 Last EPDS Self Harm Result Never 01/28 Comments No Sex and Gender Information Value Date Recorded Sex Assigned at Not on file Legal Sex Female 3:02 PM SPEEDER HAND Gender Identity Not on file Sexual Orientation Not on file documented as of this encounter Last Filed Vital Signs Vital Sign Reading Time Taken Comments Blood Pressure 130/91 11/20/2022 8:30 AM CDT Pulse 68 11/20/2022 8:30 AM CDT Temperature 36.9 ??C (98.5 ??F) 11/20/2022 6:53 AM CD T Respiratory Rate 18 11/20/2022 8:30 AM CDT Oxygen Saturation 99% 11/20/2022 8:30 AM CDT Inhaled Oxygen Concentration - - Weight 95.4 kg (210 lb 6.4 oz) 11/20/2022 6:53 A M CDT Height 165.1 cm (5' 5 ) 11/20/2022 6:53 AM CDT Body Mass Index 35.01 11/20/2022 6:53 AM CDT documented in this encounter Functional Status * RETIRED Are you deaf or do you have serious difficulty hearing Answer Date of Assessment Author Status No 01/27/2022 6:18 PM SPEEDER HAND Activ e * RETIRED Are you blind or do you have serious difficulty seeing, even when wearing glasses? Answer Date of Assessment Author Status No 01/27/2022 6:18 PM SPEEDER HAND Activ e * Do you have serious [...] Bender RN Active documented in this encounter Discharge Instructions * Discharge Instructions* Laura Pham MD - 11/20/2022 8:47 AM CDT Abdominal pain, gastritis Take medications as prescribed Rest and drink plenty of fluids. Advance diet slowly as tolerated Return to emergency room for worsening pain, vomiting, fever or other concerns Follow-up closely with Rahul Bradford for possible referral for EGD. * Attachments The following attachments cannot be sent through Care Everywhere. * Gastritis Discharge Instructions (Puerto Rican) documented in this encounter Medications [...] 27-0.8 MG tablet Take by mouth daily. aspirin 81 MG chewable tablet Chew 81 mg by mouth daily. 3 HYDROcodone-acetamin ophen (NORCO) 5-325 MG tabletIndications:Ac [place] Pain < 7 Day Supply Take 1-2 tablets by mouth every 6 (six) hours as needed for Pain. Indications: Acute Pain < 7 Day Supply 12 tablet 11/20/2022 3 documented as of this encounter ED Notes * Laura Pham MD - 11/20/2022 7:36 AM CDT Chief Complaint Chief Complaint Patient presents with Abdominal Pain History of Present Illness 27-year-old female presents to the emergency room with epigastric abdominal pain. Patient states that symptoms started Saturday night. Patient complains of a pain that is in the epigastric area and moves to her back. Positive nausea with emesis yesterday. Patient is still nauseated but has not vomited today. No fevers. Patient was seen in the emergency room yesterday with an unremarkable CT scan that did visualize the gallbladder and the appendix. Patient states that she continues to have 5 outof 10 pain. No previous abdominal surgeries. No diarrhea. Patient states she had a small bowel movement yesterday. No dysuria or hematuria. No vaginal complaints. Patient was prescribed Zofran and Protonix for home. No history of similar. Medical History ALLERGIES: Review of patient's allergies indicates: No Known Allergies MEDICATIONS: Prior to Admission medications Medication Sig Start [...] Day Supply 11/20/22 Yes Laura Pham MD aspirin 81 MG chewable tablet Chew 81 mg by mouth daily. Default History Genericprovider ondansetron (ZOFRAN-ODT) 4 MG disintegrating tablet Take 1 tablet (4 mg total) by mouth every 6 (six) hours as needed for Nausea. 11/19/22 Martínez Juarez MD pantoprazole EC (PROTONIX) 40 MG tablet Take 1 tablet (40 mg total) by mouth daily. 11/19/22 MD Bharti vitamin, low iron, ( VITAMIN WITH IRON) 27-0.8 MG tablet Take by mouth daily. Default History Genericprovider PAST MEDICAL HISTORY: Past Medical History: Diagnosis Date Anxiety disorder, unspecified PAST SURGICAL HISTORY: History reviewed. No pertinent surgical history. FAMILY HISTORY: No family history on file. SOCIAL HISTORY: Social History Tobacco Use Smoking status: Never Passive exposure: Never Smokeless tobacco: Never Vaping Use Vaping Use: Never used Marijuana use socially Review of Systems Review of Systems Constitutional: Positive for appetite change and chills. Negative for fever. HENT: Negative. Eyes: Negative. Respiratory: Negative. Cardiovascular: Negative. Gastrointestinal: Positive for abdominal pain, nausea and vomiting. Negative for constipation and diarrhea. Endocrine: Negative. Genitourinary: Negative. Negative for dysuria, hematuria and vaginal bleeding. Musculoskeletal: Negative. Skin: Negative. Allergic/Immunologic: Negative. Neurological: Negative. Negative for dizziness, weakness and light-headedness. Hematological: Negative. Psychiatric/Behavioral: Negative. Physical Exam Filed Vitals: 11/20/22 0653 11/20/22 0745 11/20/22 0800 11/20/22 0830 BP: 132/82 115/79 125/71 (!) 130/91 Pulse: 82 66 68 68 Resp: 18 18 Temp: 98.5 ??F (36.9 ??C) TempSrc: Oral SpO2: 98% 97% 97% 99% Weight: 95.4 kg (210 lb 6.4 oz) Height: 5' 5 (1.651 m) Vital signs are stable Physical Exam Vitals and nursing note reviewed. Constitutional: General: She is not in acute distress. Appearance: Normal appearance. She is not ill-appearing. HENT: Head: Normocephalic and atraumatic. Cardiovascular: Rate and Rhythm: Normal rate and regular rhythm. Pulses: Normal pulses. Heart sounds: Normal heart sounds. No murmur heard. Pulmonary: Effort: Pulmonary effort is normal. No respiratory distress. Breath sounds: Normal breath sounds. No wheezing or rales. Chest: Chest wall: No tenderness. Abdominal: General: Bowel sounds are normal. There is no distension. Palpations: Abdomen is soft. Tenderness: There is abdominal tenderness (epigastric tenderness to palpation, no rebound or guarding. No other areas of tenderness). There is no guarding or rebound. Hernia: No hernia is present. Musculoskeletal: General: No swelling or tenderness. Normal range of motion. Cervical back: Normal range of motion and neck supple. Skin: General: Skin is warm and dry. Capillary Refill: Capillary refill takes less than 2 seconds. Neurological: General: No focal deficit present. Mental Status: She is alert and oriented to person, place, and time. Psychiatric: Mood and Affect: Mood normal. Behavior: Behavior normal. Diagnostic Studies / Procedures ELECTROCARDIOGRAMS: No results found for this visit on 11/20/22. LABORATORY STUDIES: Results for orders placed or performed during the hospital encounter of 11/20/22 CBC W/DIFF AUTOMATED Result Value Ref Range WBC 12.83 (H) 4.00 - 10.80 x10'3/uL RBC 3.99 (L) 4.10 - 5.40 x10'6/uL HGB 12.5 12.0 - 16.0 G/DL HCT 36.5 36.0 - 47.0 % MCV 91.5 78.0 - 100.0 FL MCH 31.3 (H) 27.0 - 31.0 PG MCHC 34.2 33.0 - 36.0 G/DL RDW 11.9 11.5 - 14.5 % PLT 227 150 - 350 x10'3/uL MPV 9.1 7.4 - 10.4 FL CBC COMMENT NORMAL REFERENCE RANGE NOT ESTABLISHED FOR THE PROPORTIONAL LEUKOCYTE DIFFERENTIAL. NEUTROPHILS 85.3 % LYMPHOCYTES 6.9 % MONOCYTES 6.9 % EOSINOPHILS 0.5 % BASOPHILS 0.2 % IMMATURE GRANS 0.2 % NRBC 0.0 % ABS. NEUTROPHILS 10.95 (H) 1.60 - 8.30 x10'3/uL ABS. LYMPHOCYTES 0.88 0.80 - 4.70 x10'3/uL ABS. MONOCYTES 0.89 0.00 - 1.50 x10'3/uL ABS. EOSINOPHILS 0.06 0.00 - 0.40 x10'3/uL ABS. BASOPHILS 0.02 0.00 - 0.20 x10'3/uL ABS. IMMATURE GRANULOCYTES 0.03 0.00 - 0.03 x10'3/uL ABS. NUCLEATED RBC'S 0.00 0.00 x10'3/uL BASIC METABOLIC PANEL Result Value Ref Range SODIUM S/P/B 136 136 - 145 MMOL/L POTASSIUM S/P/B 3.8 3.5 - 5.1 MMOL/L CHLORIDE S/P/B 102 98 - 107 MMOL/L CO2 26.0 21.0 - 32.0 MMOL/L GLUCOSE 96 70 - 99 MG/DL BUN 7 6 - 24 MG/DL CREATININE S/P/B 0.74 0.55 - 1.02 MG/DL CALCIUM S/P/B 8.9 8.4 - 10.5 MG/DL ANION GAP 8.0 5.0 - 15.0 MMOL/L OSMOLALITY (CALC) 280 MOSM/KG GFR ESTIMATE >90 >89 ML/MIN/1.73 M2 GFR NOTES GFR REFERENCES: LIPASE Result Value Ref Range LIPASE 22 16 - 77 UNITS/L HEPATIC FUNCTION PANEL Result Value Ref Range BILIRUBIN TOTAL S/P/B 0.7 0.2 - 1.0 MG/DL BILIRUBIN DIRECT S/P/B 0.1 0.0 - 0.2 MG/DL ALKALINE PHOSPHATASE S/P/B 109 (H) 37 - 98 U/L AST 13 (L) 15 - 37 U/L ALT 14 14 - 59 U/L TOTAL PROTEIN S/P/B 6.3 (L) 6.4 - 8.2 G/DL ALBUMIN S/P/B 3.5 3.4 - 5.0 G/DL IMAGING STUDIES No orders to display ED Course / Medical Decision Making Medical Decision Making ED Course as of 11/20/22 0847 e Nov 20, 2022 0740 Differential diagnosis of gastritis, pancreatitis, cholecystitis Patient was given IV fluids, Protonix, Zofran and Mylanta. [MA] 0801 Patient is in no acute distress. States that the mylanta did not help. Will give a dose of pain medication. CBC with mild leukocytosis. [MA] 0814 Chemistry is unremarkable. Lipase is normal. LFTs are normal. [MA] 0815 ER documentation and visit history was reviewed from yesterday. Urinalysis was unremarkable yesterday. [MA] 0845 Discussed with patient at length. Work-up is unremarkable here except for mild leukocytosis. Patient did not get significant relief from Mylanta. She was given a small dose of pain medication. Patient with no other acute findings here. Recommend Protonix that was prescribed yesterday, will give a short course of pain medication and follow-up with primary care physician to schedule an EGD as an outpatient. All questions answered for patient and . Both agree with plan. [MA] ED Course User Index [MA] Laura Pham MD Clinical Impression Abdominal pain (Primary) Gastritis Disposition: Discharge Laura Pham MD 11/20/22 0847 * Laura Zabala RN - 11/20/2022 6:56 AM CDT Patient presents to the ER with complaints of generalized upper abdominal pain. The patient has complaints of nausea and vomiting, but denies diarrhea. The patient was seen at our facility yesterday and was discharged with Zofran and Pantoprazole. The patient rates her pain at a 5 out of 10. documented in this encounter Plan of Treatment Not on file documented as of this encounter Procedures Procedure Name Priority Date/Time Associated Diagnosis Comments BASIC METABOLIC PANEL STAT 11/20/2022 7:37 AM CDT HEPATIC FUNCTION PANEL STAT 11/20/2022 7:37 AM CDT CBC W/DIFF AUTOMATED STAT 11/20/2022 7:37 AM CDT LIPASE STAT 11/20/2022 7:37 AM CDT documented in this encounter Results * (ABNORMAL) HEPATIC FUNCTION PANEL (11/20/2022 7:37 AM CDT) BILIRUBIN TOTAL S/P/B 0.7 0.2 - 1.0 MG/DL 11/20/2022 8:06 AM CDT [facility] Comment: THIS ASSAY IS NOT RECOMMENDED FOR PATIENTS UNDERGOING TREATMENT WITH ELTROMBOPAG DUE TO THE POTENTIAL FOR FALSELY ELEVATED RESULTS. BILIRUBIN DIRECT S/P/B 0.1 0.0 - 0.2 MG/DL 11/20/2022 8:14 AM CDT [facility] ALKALINE PHOSPHATASE S/P/B 109(H) 37 - 98 U/L 11/20/2022 8:06 AM CDT [facility] AST 13(L) 15 - 37 U/L 11/20/2022 8:06 AM CDT [facility] ALT 14 14 - 59 U/L 11/20/2022 8:06 AM CDT [facility] TOTAL PROTEIN S/P/B 6.3(L) 6.4 - 8.2 G/DL 11/20/2022 8:06 AM CDT [facility] ALBUMIN S/P/B 3.5 3.4 - 5.0 G/DL 11/20/2022 8:06 AM CDT [facility] 11/20/2022 7:37 AM CDT Laura Pham MD LABORATORY Final Resul t Performing Organization Address [facility] Co de Phone Number [facility] [address] [place] [address], * LIPASE (11/20/2022 7:37 AM CDT) LIPASE 22 16 - 77 UNITS/L 11/20/2022 8:14 AM CDT [facility] 11/20/2022 7:37 AM CDT us Laura Pham MD LABORATORY Final Resul t Performing Organization Address [facility]/ZIP Co de Phone Number [facility] [address] [place] [address], * BASIC METABOLIC PANEL (11/20/2022 7:37 AM CDT) SODIUM S/P/B 136 136 - 145 MMOL/L 11/20/2022 8:06 AM [facility] POTASSIUM S/P/B 3.8 3.5 - 5.1 MMOL/L 11/20/2022 8:06 AM [facility] CHLORIDE S/P/B 102 98 - 107 MMOL/L 11/20/2022 8:06 AM [facility] CO2 26.0 21.0 - 32.0 MMOL/L 11/20/2022 8:06 AM [facility] GLUCOSE 96 70 - 99 MG/DL 11/20/2022 8:06 AM [facility] Comment: FASTING GLUCOSE 100 TO 125 MG/DL IS CONSISTENT WITH IMPAIRED FASTING GLUCOSE. FASTING GLUCOSE >125 MG/DL IS CONSISTENT WITH DIABETES. RANDOM GLUCOSE >200 MG/DL WITH HYPERGLYCEMIC SYMPTOMS IS CONSISTENT WITH DIABETES. PER ADA GUIDELINES BUN 7 6 - 24 MG/DL 11/20/2022 8:06 AM [facility] CREATININE S/P/B 0.74 0.55 - 1.02 MG/DL 11/20/2022 8:06 AM [facility] CALCIUM S/P/B 8.9 8.4 - 10.5 MG/DL 11/20/2022 8:06 AM [facility] ANION GAP 8.0 5.0 - 15.0 MMOL/L 11/20/2022 8:06 AM [facility] OSMOLALITY (CALC) 280 MOSM/KG 023 8:06 AM [facility] Comment:REFERENCE RANGE NOT ESTABLISHED GFR ESTIMATE >90 >89 ML/MIN/1. 73 M2 11/20/2022 8:06 AM [facility] GFR NOTES GFR REFERENCE S: 11/20/2022 8:06 AM [facility] Comment: THE ESTIMATED GFR IS CALCULATED [...] ml/min/1.73 m2 G5,KIDNEY FAILURE: <15 ml/min/1.73 m2 11/20/2022 7:37 AM CDT us Laura Pham MD LABORATORY Final Resul t [facility] [address] [place] [address], * (ABNORMAL) CBC W/DIFF AUTOMATED (11/20/2022 7:37 AM CDT) WBC 12.83(H) 4.00 - 10.80 x10'3/uL 11/20/2022 7:45 AM CDT [facility] RBC 3.99(L) 4.10 - 5.40 x10'6/uL 11/20/2022 7:45 AM CDT [facility] HGB 12.5 12.0 - 16.0 G/DL 11/20/2022 7:45 AM CDT [facility] HCT 36.5 36.0 - 47.0 % 11/20/2022 7:45 AM CDT [facility] MCV 91.5 78.0 - 100.0 FL 11/20/2022 7:45 AM CDT [facility] MCH 31.3(H) 27.0 - 31.0 PG 11/20/2022 7:45 AM CDT [facility] MCHC 34.2 33.0 - 36.0 G/DL 11/20/2022 7:45 AM CDT [facility] RDW 11.9 11.5 - 14.5 % 11/20/2022 7:45 AM CDT [facility] PLT 227 150 - 350 x10'3/uL 11/20/2022 7:45 AM CDT [facility] MPV 9.1 7.4 - 10.4 FL 11/20/2022 7:45 AM CDT [facility] CBC COMMENT NORMAL REFERENCE RANGE NOT ESTABLISHED FOR THE PROPORTIONAL LEUKOCYTE DIFFERENTIAL. 11/20/2022 7:45 AM CDT [facility] NEUTROPHILS % 85.3 % 11/20/2022 7:45 AM CDT [facility] LYMPHOCYTES % 6.9 % 11/20/2022 7:45 AM CDT [facility] MONOCYTES % 6.9 % 11/20/2022 7:45 AM CDT [facility] EOSINOPHILS % 0.5 % 11/20/2022 7:45 AM CDT [facility] BASOPHILS % 0.2 % 11/20/2022 7:45 AM CDT [facility] IMMATURE GRANS % 0.2 % 11/21/19 7:45 AM CDT [facility] NRBC 0.0 % 11/20/2022 7:45 AM CDT [facility] ABS. NEUTROPHILS 10.95(H) 1.60 - 8.30 x10'3/uL 11/20/2022 7:45 AM CDT [facility] ABS. LYMPHOCYTES 0.88 0.80 - 4.70 x10'3/uL 11/20/2022 7:45 AM CDT [facility] ABS. MONOCYTES 0.89 0.00 - 1.50 x10'3/uL 11/20/2022 7:45 AM CDT [facility] ABS. EOSINOPHILS 0.06 0.00 - 0.40 x10'3/uL 11/20/2022 7:45 AM CDT [facility] ABS. BASOPHILS 0.02 0.00 - 0.20 x10'3/uL 11/20/2022 7:45 AM CDT [facility] ABS. IMMATURE GRANULOCYTES 0.03 0.00 - 0.03 x10'3/uL 11/20/2022 7:45 AM CDT [facility] ABS. NUCLEATED RBC'S 0.00 0.00 x10'3/uL 11/20/2022 7:45 AM CDT [facility] 11/20/2022 7:37 AM CDT us Laura Pham MD LABORATORY Final Resul t [facility] [address] [place] [address], documented in this encounter Visit Diagnoses Diagnosis Abdominal pain- Primary Abdominal pain, unspecified site Gastritis Unspecified gastritis and gastroduodenitis without mention of hemorrhage documented in this encounter Administered Medications Inactive Administered Medications - up to 3 most recent administrations Medication Order MAR Action Action Date Dose Rate Site ouqjpvlop-kyylprln-qmfxapxvtut (MYLANTA MAXIMUM STRENGTH) [id number] mg/30mL suspension 30 mL, Oral, Once, 1 dose, On Sat11/20/22 at 0730, Shake Well Given 11/20/2022 7:34 AM CDT 30 mLs morphine injection 4 mg 4 mg, Intravenous, Once, 1 dose, On Sat11/20/22 at 0815 Given 11/20/2022 8:14 AM CDT 4 mg ondansetron (ZOFRAN) injection 4 mg 4 mg, Intravenous, Once, 1 dose, On Sat11/20/22 at 0730, IV push over 2-5 minutes. Given 11/20/2022 7:35 AM CDT 4 mg pantoprazole (PROTONIX) injection 40 mg 40 mg, Intravenous, Once, 1 dose, On Sat11/20/22 at 0730, Reconstitute each 40 mg vial with 10 mL normal saline to a final concentration of 4 mg/mL. Administer intravenously over a period of a least 2 minutes. Given 11/20/2022 7:40 AM CDT 40 mg sodium chloride 0.9% bolus infusion 1,000 mL 1,000 mL, Intravenous, Administer over 60 Minutes, Once, 1 dose, On Sat11/20/22 at 0730 New Bag 11/20/2022 7:33 AM CDT 1,000 mLs documented in this encounter Active and Recently Administered Medications Times are shown in CDT. Scheduled Medication Order 11/18/2022 11/19/2022 11/20/2022 grvfabuzs-llrkywyz-uuxjlnggppm (MYLANTA MAXIMUM STRENGTH) [id number] mg/30mL suspension (COMPLETED) 30 mL, Oral, Once, 1 dose, On Sat11/20/22 at 0730, Shake Well 0734 (Given - Provid er: Rania Alvarado RN) morphine injection 4 mg (COMPLETED) 4 mg, Intravenous, Once, 1 dose, On Sat11/20/22 at 0815 0814 (Given - Provid er: Raina Alvarado RN) ondansetron (ZOFRAN) injection 4 mg (COMPLETED) 4 mg, Intravenous, Once, 1 dose, On Sat11/20/22 at 0730, IV push over 2-5 minutes. 0735 (Given - Provid er: Raina Alvarado RN) pantoprazole (PROTONIX) injection 40 mg (COMPLETED) 40 mg, Intravenous, Once, 1 dose, On Sat11/20/22 at 0730, Reconstitute each 40 mg vial with 10 mL normal saline to a final concentration of 4 mg/mL. Administer intravenously over a period of a least 2 minutes. 0740 (Given - Provid er: Raina Alvarado RN) sodium chloride 0.9% bolus infusion 1,000 mL (COMPLETED) 1,000 mL, Intravenous, Administer over 60 Minutes, Once, 1 dose, On Sat11/20/22 at 0730 0733 (New Bag - Prov ider: Raina Alvarado RN)0832 (Infusion Stop Time - Provider: Raina Alvarado RN) documented in this encounter Care Teams Carnival Worker Relationship Specialty Start Date End Date Rahul Bradford PA [address] [place] [address] PCP - General PHYSICIAN ENROLLMENT SERVICES DEAN 11/19/22 documented as of this encounter
--- OUTSIDE RECORDS SUMMARY | 2024-02-22 14:34 | XMS_ITS | Encounter Summary ---
Author Organization [facility] Address [address] [place] [address]. [place] [address] [place] [address] Care Team Providers Care Therapeutic Recreation Director Name Role Phone None, Provider Primary Care Provider Unavaila ble Reason for Visit * Reason Onset Date Comments Post Call 02/08/2022 Encounter Details Date Type Department Care Team (Late st Contact Info) Description 02/08/2022 Telephone [facility] [address] [place] [address] Jude Castaneda MD [address] [place] [address] Post Call Social History Tobacco Use Types Packs/Day Years [...] often do you attend chur ch or synagogue services? Never 01/27/2022 Do you belong to [...] and heating? Not hard at all 01/27/2022 [facility] - Occupational [...] place to sleep or slept in a group home (including now)? No 01/27/2022 Depression Answer Date Recor ded Last EPDS Total Score 0 01/28/2022 Last EPDS Self Harm Result Never 01/28 Comments No Sex and Gender Information Value Date Recorded Sex Assigned at Not on file Legal Sex Female 3:02 PM SHALLOT PACKER Gender Identity Not on file Sexual Orientation Not on file COVID-19 Exposure Response Date Recorded In the last 10 days, have yo u been in contact with someone who was confirmed or suspected to have Coronavirus/COVID-19? No / Unsure 01/29/2022 10:37 AM SHALLOT PACKER documented as of this encounter Functional Status * RETIRED Are you deaf or do you have serious difficulty hearing Answer Date of Assessment Author Status No 01/27/2022 6:18 PM SHALLOT PACKER Activ e * RETIRED Are you blind or do you have serious difficulty seeing, even when wearing glasses? Answer Date of Assessment Author Status No 01/27/2022 6:18 PM SHALLOT PACKER Activ e * Do you have serious difficulty walking or climbing stairs? Answer Date of Assessment Author Status No 01/27/2022 6:18 PM SHALLOT PACKER Magda Sevilla RN Active * Do you have difficulty dressing or bathing? Answer Date of Assessment Author Status No 01/27/2022 6:18 PM SHALLOT PACKER Magda Sevilla RN Active * Because of a physical, mental, or emotional condition, do you have difficulty doing errands alone such as visiting a doctor's office or shopping? Answer Date of Assessment Author Status No 01/27/2022 6:18 PM SHALLOT PACKER Roel, Magda E, RN Active documented as of this encounter [...] on filedocumented in this encounter Care Teams Therapeutic Recreation Director Relationship Specialty Start Date End Date None, Provider, PCP - General UNKNOWN PHYSICIAN SPECIALTY 01/27/22 documented as of this encounter
--- OUTSIDE RECORDS SUMMARY | 2024-02-22 14:34 | XMS_ITS | Encounter Summary ---
Author Organization [facility] Address [address] [place] [address]. [place] [address] [place] [address] Care Team Providers Care Cadd Technician Name Role Phone Rahul Bradford Primary Care Provider [phone] Reason for Referral * Imaging (Emergency) - Closed Specialty Diagnoses / Procedures Referred By Contac t Referred To Contact RADIOLOGY Procedures CT ABD+PEL W IV CON ONLY Martínez Braun MD Phone: tel: fax: Referral ID Status Reason Start Date Expiration Date Visits Re quested Visits Authorized [id number] Closed 11/19/2022 11/20/2023 1 1 Reason for Visit * Reason Comments Abdominal Pain Encounter Details Date Type Department Care Team (Late st Contact Info) Description 11/19/2022 10:07 AM CDT - 11/19/2022 12:20 PM CDT Emergency [facility] [address] [facility] [place] [address] Martínez Braun MD [address] [place] [id number] Abdominal Pain Discharge Disposition: Home or Self [...] How often do you attend chur or faith services? Never 01/27/2022 Do you belong to any clubs o r organizations such as alevism groups, unions, fraternal or athletic groups, or [...] and heating? 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 Gender Identity Not on file Sexual Orientation Not on file documented as of this encounter Last Filed Vital Signs Vital Sign Reading Time Taken Comments Blood Pressure 128/65 11/19/2022 10:15 AM CDT Pulse 70 11/19/2022 10:13 AM CDT Temperature 35.8 ??C (96.5 ??F) 11/19/2022 10:13 AM C DT Respiratory Rate 18 11/19/2022 10:13 AM CDT Oxygen Saturation 100% 11/19/2022 10:25 AM CDT Inhaled Oxygen Concentration - - Weight 95.7 kg (211 lb) 11/19/2022 10:13 AM CDT Height 165.1 cm (5' 5 ) 11/19/2022 10:13 AM CDT Body Mass Index 35.11 11/19/2022 10:13 AM CDT documented in this encounter Functional Status * RETIRED Are you deaf or do you have serious difficulty hearing Answer Date of Assessment Author Status No 01/27/2022 6:18 PM AGRICULTURAL PILOT Activ e * RETIRED Are you blind or do you have serious difficulty seeing, even when wearing glasses? Answer Date of Assessment Author Status No 01/27/2022 6:18 PM AGRICULTURAL PILOT Activ e * Do you have serious [...] cannot be sent through Care Everywhere. * Abdominal pain (Serbian) documented in this encounter Medications at Time [...] Chew 81 mg by mouth daily. 3 documented as of this encounter ED Notes * Naman Andrade RN - 11/19/2022 10:14 AM CDT Pt here with left sided and upper abd pain x 2 days with vomiting this morning. Ambulatory. * Martínez Braun MD - 11/19/2022 10:10 AM CDT eMERGENCY dEPARTMENT eNCOUnter CHIEF COMPLAINT Chief Complaint Patient presents with Abdominal Pain HPI HPI Catie Mcdonald is a 27-year-old female who presents to the ER with a complaint of upper abdominal pain. Patient states she has been having upper abdominal pain with some vomiting for last several days. She never had any abdominal surgeries. She is not sure if she be she has had 3 children.Primary care physician on staff at our facility. No other complaints at this time. ALLERGIES Review of patient's allergies indicates: No Known Allergies CURRENT MEDICATIONS Current Outpatient Medications Medication Sig ondansetron (ZOFRAN-ODT) 4 MG disintegrating tablet Take 1 tablet (4 mg total) by mouth every 6 (six) hours as needed for Nausea. pantoprazole EC (PROTONIX) 40 MG tablet Take 1 tablet (40 mg total) by mouth daily. aspirin 81 MG chewable tablet Chew 81 mg by mouth daily. vitamin, low iron, ( VITAMIN WITH IRON) 27-0.8 MG tablet Take by mouth daily. PAST MEDICAL HISTORY History reviewed. No pertinent past medical history. SURGICAL HISTORY History reviewed. No pertinent surgical history. SOCIAL HISTORY Social History Socioeconomic History Marital status: Tobacco Use Smoking status: Never Passive exposure: Never Smokeless tobacco: Never Vaping Use Vaping Use: Never used Social Determinants of Health Financial Resource Strain: [...] More than three times a week Attends Muslim Services: Never Active Member of Clubs or [...] Unstable Housing in the Last Year: No FAMILY HISTORY No family history on file. REVIEW OF SYSTEMS Review of Systems All other ROS negative unless noted above in HPI. PHYSICAL EXAM Physical Exam Filed Vitals: 11/19/22 1013 BP: 128/65 Pulse: 70 Resp: 18 Temp: 96.5 ??F (35.8 ??C) TempSrc: Temporal SpO2: 97% Weight: 95.7 kg (211 lb) Height: 5' 5 (1.651 m) The patient is a well developed and well nourished adult female in no distress, alert and oriented. HEENT: PERRL, EOMI Throat without lesions, mucous membranes moist NECK: Supple without adenopathy or rigidity CHEST: Respirations are easy and unlabored ABD: Soft, NABS, gastric tenderness without rebound guarding or mass EXT: No clubbing, cyanosis, edema NEURO: CN II-XII intact, no focal weakness SKIN: No rash or significant lesions EKG RADIOLOGY CT ABD+PEL W IV CON ONLY Final Result by User, [id number] (11/19 4806) CT ABDOMEN AND PELVIS WITH CONTRAST Exam date:11/19/2022 11:50 AM Clinical history: Abdomen pain. Technique: Dynamic helical images of the abdomen and pelvis were obtained. The patient received 93 mL of Isovue 370 nonionic intravenous contrast through an IV in the left antecubital fossa. A dose lowering technique was used for this procedure, which may include, but is not limited to, dose reduction technique, automated exposure control, the use of iterative [...] is no evidence of cholecystitis or biliary obstruction. The pancreas, spleen, and adrenal glands appear grossly normal. The kidneys are normal in size bilaterally. There is normal symmetric enhancement after the administration of contrast. No stones or hydronephrosis is apparent. Both ureters follow normal expected course through the retroperitoneum. Images of the pelvis demonstrate the urinary bladder to appear normal. The uterus is normal in size and resides in an anteverted position in the mid pelvis. The adnexa appear normal. The stomach and small bowel have a normal appearance throughout. The terminal ileum and appendix appear normal. The colon is within normal limits IMPRESSION: 1. No acute findings. Ordered By: MARTÍNEZ BRAUN Interpreted By: Vidal Cherry MD, 11/19/2022 11:54 AM LABS Results for orders placed or performed during the hospital encounter of 11/19/22 CBC W/DIFF AUTOMATED Result Value Ref Range WBC 11.12 (H) 4.00 - 10.80 x10'3/uL RBC 4.47 4.10 - 5.40 x10'6/uL HGB 13.8 12.0 - 16.0 G/DL HCT 40.8 36.0 - 47.0 % MCV 91.3 78.0 - 100.0 FL MCH 30.9 27.0 - 31.0 PG MCHC 33.8 33.0 - 36.0 G/DL RDW 11.9 11.5 - 14.5 % PLT 266 150 - 350 x10'3/uL MPV 9.2 7.4 - 10.4 FL CBC COMMENT NORMAL REFERENCE RANGE NOT ESTABLISHED FOR THE PROPORTIONAL LEUKOCYTE DIFFERENTIAL. NEUTROPHILS 80.4 % LYMPHOCYTES 11.6 % MONOCYTES 6.7 % EOSINOPHILS 0.7 % BASOPHILS 0.3 % IMMATURE GRANS 0.3 % NRBC 0.0 % ABS. NEUTROPHILS 8.95 (H) 1.60 - 8.30 x10'3/uL ABS. LYMPHOCYTES 1.29 0.80 - 4.70 x10'3/uL ABS. MONOCYTES 0.74 0.00 - 1.50 x10'3/uL ABS. EOSINOPHILS 0.08 0.00 - 0.40 x10'3/uL ABS. BASOPHILS 0.03 0.00 - 0.20 x10'3/uL ABS. IMMATURE GRANULOCYTES 0.03 0.00 - 0.03 x10'3/uL ABS. NUCLEATED RBC'S 0.00 0.00 x10'3/uL COMPREHENSIVE METABOLIC PANEL Result Value Ref Range SODIUM S/P/B 136 136 - 145 MMOL/L POTASSIUM S/P/B 3.9 3.5 - 5.1 MMOL/L CHLORIDE S/P/B 101 98 - 107 MMOL/L CO2 27.4 21.0 - 32.0 MMOL/L GLUCOSE 91 70 - 99 MG/DL BUN 5 (L) 6 - 24 MG/DL CREATININE S/P/B 0.80 0.55 - 1.02 MG/DL CALCIUM S/P/B 9.0 8.4 - 10.5 MG/DL BILIRUBIN TOTAL S/P/B 0.6 0.2 - 1.0 MG/DL ALKALINE PHOSPHATASE S/P/B 123 (H) 37 - 98 U/L AST 12 (L) 15 - 37 U/L ALT 16 14 - 59 U/L TOTAL PROTEIN S/P/B 6.9 6.4 - 8.2 G/DL ALBUMIN S/P/B 3.8 3.4 - 5.0 G/DL ANION GAP 7.6 5.0 - 15.0 MMOL/L OSMOLALITY (CALC) 279 MOSM/KG GFR ESTIMATE >90 >89 ML/MIN/1.73 M2 GFR NOTES GFR REFERENCES: LIPASE Result Value Ref Range LIPASE 15 (L) 16 - 77 UNITS/L TEST URINE Result Value Ref Range URINE HCG TEST NEGATIVE SPECIFIC GRAVITY 1.015 URINALYSIS WI REFLEX TO CULTURE Specimen: URINE, CLEAN CATCH Result Value Ref Range COLOR (U) YELLOW TRANSPARENCY CLEAR SPECIFIC GRAVITY (U) 1.015 1.000 - 1.025 U PH 7.0 5.0 - 8.0 LEUKOCYTES (U) NEGATIVE NEGATIVE NITRITES NEGATIVE NEGATIVE PROTEIN RANDOM (U) NEGATIVE NEGATIVE GLUCOSE (U) NEGATIVE NEGATIVE KETONES (U) 2+ (A) NEGATIVE UROBILINOGEN 0.2 <1.0 EU/DL BILIRUBIN (U) NEGATIVE NEGATIVE BLOOD (U) TRACE (A) NEGATIVE WBC/HPF 0-5 0 - 5 /HPF RBC/HPF 0-5 0 - 5 /HPF EPI/LPF FEW /LPF BACTERIA (U) TRACE /HPF MUCUS PRESENT REFLEX URINE CULTURE: NOT INDICATED ED MEDICATIONS Medications sodium chloride 0.9% bolus infusion 1,000 mL (0 mLs Intravenous Infusion Stop Time 11/19/22 1202) morphine injection 2 mg (2 mg Intravenous Given 11/19/22 1035) ondansetron (ZOFRAN) injection 4 mg (4 mg Intravenous Given 11/19/22 1035) iopamidol (ISOVUE-370) 76 % injection 93 mL (93 mLs Intravenous Given 11/19/22 1151) PROCEDURES Procedures CONSULTS: ED COURSE & MEDICAL DECISION MAKING MDM Amount and/or Complexity of Data Reviewed Clinical lab tests: reviewed Tests in the radiology section of CPT??: reviewed Decide to obtain previous medical records or to obtain history from someone other than the patient:yes ED Course as of 11/19/22 1203 SatNov 19, 2022 1057 COMPREHENSIVE METABOLIC PANEL(!) [WM] 1058 LIPASE(!) [WM] 1058 CBC W/DIFF AUTOMATED(!) Laboratory studies show elevated white count and elevated alkaline phosphatase. [WM] 1117 TEST URINE [WM] 1117 URINALYSIS WI REFLEX TO CULTURE(!) and urinalysis are unremarkable except for some ketones in the urine. [WM] 1203 CT results as noted. [WM] ED Course User Index [WM] Martínez Braun MD Patient presents with upper abdominal pain and vomiting unclear etiology. We will initiate a work-up and start pain medication and antiemetics. I reexamination patient is feeling better. Work-up is unremarkable this is likely viral or possiblygastric in etiology. She may need endoscopy if symptoms do not improve. We will start her on antiemetics with proton pump inhibitor and have her follow-up with primary care provider if not improved over the next several days. FINAL IMPRESSION SNOMED CT(R) 1. Epigastric abdominal pain EPIGASTRIC PAIN NEENA Grant [address] [facility] [address] As needed, If symptoms worsen New Prescriptions ONDANSETRON (ZOFRAN-ODT) 4 MG DISINTEGRATING TABLET Take 1 tablet (4 mg total) by mouth every 6 (six) hours as needed for Nausea. PANTOPRAZOLE EC (PROTONIX) 40 MG TABLET Take 1 tablet (40 mg total) by mouth daily. Martínez Braun MD 11/19/22 1203 documented in this encounter Plan of Treatment Not on file documented as of this encounter Procedures Procedure Name Priority Date/Time Associated Diagnosis Comments CT ABD+PEL W CON STAT 11/19/2022 11:5 1 AM CDT COMPREHENSIVE METABOLIC PANEL STAT 11/19/2022 10:30 AM CDT CBC W/DIFF AUTOMATED STAT 11/19/2022 10:30 AM CDT LIPASE STAT 11/19/2022 10:30 AM CDT URINALYSIS WI REFLEX TO CULTURE STAT 11/19/2022 10:29 AM CDT TEST URINE STAT 11/19/2022 10:29 AM CDT documented in this encounter Results * CT ABD+PEL W IV CON ONLY (11/19/2022 11:51 AM CDT) Anatomical Region Laterality Modality Abdomen Computed Tomogra phy 11/19/2022 11:5 4 AM CDT Impressions 11/19/2022 11:55 AM CDT IMPRESSION: 1. No acute findings. Ordered By: MARTÍNEZ BRAUN Interpreted By: Vidal Cherry MD, 11/19/2022 11:54 AM Narrative 11/19/2022 11:[address] ABDOMEN AND PELVIS WITH CONTRAST Exam date:11/19/2022 11:50 AM Clinical history: Abdomen pain. Technique: Dynamic helical images of the abdomen and pelvis were obtained. The patient received 93 mL of Isovue 370 nonionic intravenous contrast through an IV in the left antecubital fossa. A dose lowering technique was used for this procedure, which may include, but is not limited to, dose reduction technique, automated exposure control, the use of iterative [...] is no evidence of cholecystitis or biliary obstruction. The pancreas, spleen, and adrenal glands appear grossly normal. The kidneys are normal in size bilaterally. There is normal symmetric enhancement after the administration of contrast. No stones or hydronephrosis is apparent. Both ureters follow normal expected course through the retroperitoneum. Images of the pelvis demonstrate the urinary bladder to appear normal. The uterus is normal in size and resides in an anteverted position in the mid pelvis. The adnexa appear normal. The stomach and small bowel have a normal appearance throughout. The terminal ileum and appendix appear normal. The colon is within normal limits Procedure Note Vidal Cherry MD - 11/19/2022 CT ABDOMEN AND PELVIS WITH CONTRAST Exam date:11/19/2022 11:50 AM Clinical history: Abdomen pain. Technique: Dynamic helical images of the abdomen and pelvis were obtained.The patient received 93 mL of Isovue 370 nonionic intravenous contrastthrough an IV in the left antecubital fossa. A dose lowering technique wasused for this procedure, which may include, but is not limited to, dosereduction technique, automated exposure control, the use of iterativereconstruction, and ALARA (As Low As Reasonably Achievable) / Image Gentlytechniques. Comparison: None. FINDINGS: Images of the lower thorax demonstrate the visualized portion of the heartto appear normal. The lung bases are clear. Images of the abdomen demonstrate the overall size and morphology of theliver to be within normal limits. No hepatic lesions are observed. Noascites is seen. The gallbladder is present and normally distended. Nostones are observed within its lumen and there is no evidence ofcholecystitis or biliary obstruction. The pancreas, spleen, and adrenalglands appear grossly normal. The kidneys are normal in size bilaterally.There is normal symmetric enhancement after the administration ofcontrast. No stones or hydronephrosis is apparent. Both ureters follownormal expected course through the retroperitoneum. Images of the pelvis demonstrate the urinary bladder to appear normal. Theuterus is normal in size and resides in an anteverted position in the midpelvis. The adnexa appear normal. The stomach and small bowel have a normal appearance throughout. Theterminal ileum and appendix appear normal. The colon is within normallimits IMPRESSION: 1. No acute findings. Ordered By: MARTÍNEZ BRAUN Interpreted By: Vidal Cherry MD, 11/19/2022 11:54 AM Martínez Braun MD CT Final Result * (ABNORMAL) LIPASE (11/19/2022 10:30 AM CDT) LIPASE 15(L) 16 - 77 UNITS/L 11/19/2022 10:57 AM CDT [facility] 11/19/2022 10:3 0 AM CDT Martínez Braun MD LABORATORY Final Result [facility] [place] [address], * (ABNORMAL) COMPREHENSIVE METABOLIC PANEL (11/19/2022 10:30 AM CDT) SODIUM S/P/B 136 136 - 145 MMOL/L 11/19/2022 10:57 AM CDT [facility] POTASSIUM S/P/B 3.9 3.5 - 5.1 MMOL/L 11/19/2022 10:57 AM CDT [facility] CHLORIDE S/P/B 101 98 - 107 MMOL/L 11/19/2022 10:57 AM CDT [facility] CO2 27.4 21.0 - 32.0 MMOL/L 11/19/2022 10:57 AM [facility] GLUCOSE 91 70 - 99 MG/DL 11/19/2022 10:57 AM [facility] Comment: FASTING GLUCOSE 100 TO 125 MG/DL IS CONSISTENT WITH IMPAIRED FASTING GLUCOSE. FASTING GLUCOSE >125 MG/DL IS CONSISTENT WITH DIABETES. RANDOM GLUCOSE >200 MG/DL WITH HYPERGLYCEMIC SYMPTOMS IS CONSISTENT WITH DIABETES. PER ADA GUIDELINES BUN 5(L) 6 - 24 MG/DL 11/19/2022 10:57 AM [facility] CREATININE S/P/B 0.80 0.55 - 1.02 MG/DL 11/19/2022 10:57 AM [facility] CALCIUM S/P/B 9.0 8.4 - 10.5 MG/DL 11/19/2022 10:57 AM [facility] BILIRUBIN TOTAL S/P/B 0.6 0.2 - 1.0 MG/DL 11/19/2022 10:57 AM [facility] Comment: THIS ASSAY IS NOT RECOMMENDED FOR PATIENTS UNDERGOING TREATMENT WITH ELTROMBOPAG DUE TO THE POTENTIAL FOR FALSELY ELEVATED RESULTS. ALKALINE PHOSPHATASE S/P/B 123(H) 37 - 98 U/L 11/19/2022 10:57 AM [facility] AST 12(L) 15 - 37 U/L 11/19/2022 10:57 AM [facility] ALT 16 14 - 59 U/L 11/19/2022 10:57 AM [facility] TOTAL PROTEIN S/P/B 6.9 6.4 - 8.2 G/DL 11/19/2022 10:57 AM [facility] ALBUMIN S/P/B 3.8 3.4 - 5.0 G/DL 11/19/2022 10:57 AM [facility] ANION GAP 7.6 5.0 - 15.0 MMOL/L 11/19/2022 10:57 AM [facility] OSMOLALITY (CALC) 279 MOSM/KG 023 10:57 AM [facility] Comment:REFERENCE RANGE NOT ESTABLISHED GFR ESTIMATE >90 >89 ML/MIN/1. 73 M2 11/19/2022 10:57 AM CDT [facility] GFR NOTES GFR REFERENCE S: 11/19/2022 10:57 AM CDT [facility] Comment: THE ESTIMATED GFR IS [...] ml/min/1.73 m2 G5,KIDNEY FAILURE: <15 ml/min/1.73 m2 11/19/2022 10:3 0 AM CDT Martínez Braun MD LABORATORY Final Result [facility] [place] [address], * (ABNORMAL) CBC W/DIFF AUTOMATED (11/19/2022 10:30 AM CDT) WBC 11.12(H) 4.00 - 10.80 x10'3/uL 11/19/2022 10:37 AM CDT [facility] RBC 4.47 4.10 - 5.40 x10'6/uL 11/19/2022 10:37 AM CDT [facility] HGB 13.8 12.0 - 16.0 G/DL 11/19/2022 10:37 AM CDT [facility] HCT 40.8 36.0 - 47.0 % 11/19/2022 10:37 AM CDT [facility] MCV 91.3 78.0 - 100.0 FL 11/19/2022 10:37 AM CDT [facility] MCH 30.9 27.0 - 31.0 PG 11/19/2022 10:37 AM CDT [facility] MCHC 33.8 33.0 - 36.0 G/DL 11/19/2022 10:37 AM CDT [facility] RDW 11.9 11.5 - 14.5 % 11/19/2022 10:37 AM CDT [facility] PLT 266 150 - 350 x10'3/uL 11/19/2022 10:37 AM CDT [facility] MPV 9.2 7.4 - 10.4 FL 11/19/2022 10:37 AM CDT [facility] CBC COMMENT NORMAL REFERENCE RANGE NOT ESTABLISHED FOR THE PROPORTIONAL LEUKOCYTE DIFFERENTIAL. 11/19/2022 10:37 AM CDT [facility] NEUTROPHILS % 80.4 % 11/19/2022 10:37 AM CDT [facility] LYMPHOCYTES % 11.6 % 11/19/2022 10:37 AM CDT [facility] MONOCYTES % 6.7 % 11/19/2022 10:37 AM CDT [facility] EOSINOPHILS % 0.7 % 11/19/2022 10:37 AM CDT [facility] BASOPHILS % 0.3 % 11/19/2022 10:37 AM CDT [facility] IMMATURE GRANS % 0.3 % 11/20/19 10:37 AM CDT [facility] NRBC 0.0 % 11/19/2022 10:37 AM CDT [facility] ABS. NEUTROPHILS 8.95(H) 1.60 - 8.30 x10'3/uL 11/19/2022 10:37 AM CDT [facility] ABS. LYMPHOCYTES 1.29 0.80 - 4.70 x10'3/uL 11/19/2022 10:37 AM CDT [facility] ABS. MONOCYTES 0.74 0.00 - 1.50 x10'3/uL 11/19/2022 10:37 AM CDT [facility] ABS. EOSINOPHILS 0.08 0.00 - 0.40 x10'3/uL 11/19/2022 10:37 AM CDT [facility] ABS. BASOPHILS 0.03 0.00 - 0.20 x10'3/uL 11/19/2022 10:37 AM CDT [facility] ABS. IMMATURE GRANULOCYTES 0.03 0.00 - 0.03 x10'3/uL 11/19/2022 10:37 AM CDT [facility] ABS. NUCLEATED RBC'S 0.00 0.00 x10'3/uL 11/19/2022 10:37 AM CDT [facility] 11/19/2022 10:3 0 AM CDT us Martínez Braun MD LABORATORY Final Result [facility] [address] [place] [address], * (ABNORMAL) URINALYSIS WI REFLEX TO CULTURE (11/19/2022 10:29 AM CDT) COLOR (U) YELLOW 11/19/2022 11:11 AM CDT [facility] TRANSPARENCY CLEAR 11/19/2022 11:11 AM CDT [facility] SPECIFIC GRAVITY (U) 1.015 1.000 - 1.025 11/19/2022 11:11 AM CDT [facility] U PH 7.0 5.0 - 8.0 11/19/2022 11:11 AM CDT [facility] LEUKOCYTES (U) NEGATIVE NEGATIVE 11/19/2022 11:11 AM CDT [facility] NITRITES NEGATIVE NEGATIVE 11/19/2022 11:11 AM CDT [facility] PROTEIN RANDOM (U) NEGATIVE NEGATIVE 11/19/2022 11:11 AM CDT [facility] GLUCOSE (U) NEGATIVE NEGATIVE 11/19/2022 11:11 AM CDT [facility] KETONES MG/DL (U) 2+(A) NEGATIVE 11/19/2022 11:11 AM CDT [facility] UROBILINOGEN 0.2 <1.0 EU/DL 11/19/2022 11:11 AM CDT [facility] BILIRUBIN (U) NEGATIVE NEGATIVE 11/19/2022 11:11 AM CDT [facility] BLOOD (U) TRACE(A) NEGATIVE 11/19/2022 11:11 AM CDT [facility] WBC/HPF 0-5 0 - 5 /HPF 11/19/2022 11:11 AM CDT [facility] RBC/HPF 0-5 0 - 5 /HPF 11/19/2022 11:11 AM CDT [facility] EPI/LPF FEW /LPF 11/19/2022 11:11 AM CDT [facility] BACTERIA (U) TRACE /HPF 11/19/2022 11:11 AM CDT [facility] MUCUS PRESENT 11/19/2022 11:11 AM CDT [facility] REFLEX URINE CULTURE: NOT INDICATED 11/19/2022 11:11 AM CDT [facility] URINE SPECIMEN OBTAINED BY CLEAN CATCH PROCEDURE / Unknown 11/19/2022 10:29 AM CDT us Martínez Braun MD URINE ORDERABLES Final Result [address] [address], [place] [phone] * TEST URINE (11/19/2022 10:29 AM CDT) URINE HCG TEST NEGATIVE 11/19/2022 11:12 AM CDT [facility] SPECIFIC GRAVITY 1.015 11/19/2022 11:12 AM CDT [facility] URINE SPECIMEN FROM URETHRA / Unknown 11/19/2022 10:29 AM CDT us Martínez Braun MD URINE ORDERABLES Final Result Performing Organization Address City/[facility]/ZIP Co de Phone Number [facility] [place] [address], documented in this encounter Visit Diagnoses Diagnosis Epigastric abdominal pain- Primary Abdominal pain, epigastric documented in this encounter Administered Medications Inactive Administered Medications - up to 3 most recent administrations Medication Order MAR Action Action Date Dose Rate Site iopamidol (ISOVUE-370) 76 % injection 93 mL 93 mL, Intravenous, IMG once as needed, Contrast, 1 dose, Starting on Sat11/19/22 at 1150, Until Sat11/19/22 at 1151 Given 11/19/2022 11:51 AM CDT 93 mLs morphine injection 2 mg 2 mg, Intravenous, Once, 1 dose, On Sat11/19/22 at 1030 Given 11/19/2022 10:35 AM CDT 2 mg ondansetron (ZOFRAN) injection 4 mg 4 mg, Intravenous, Once, 1 dose, On Sat11/19/22 at 1030, IV push over 2-5 minutes. Given 11/19/2022 10:35 AM CDT 4 mg sodium chloride 0.9% bolus infusion 1,000 mL 1,000 mL, Intravenous, Administer over 60 Minutes, Once, 1 dose, On Sat11/19/22 at 1030 New Bag 11/19/2022 10:36 AM CDT 1,000 mLs documented in this encounter Active and Recently Administered Medications Times are shown in CDT. Scheduled Medication Order 11/17/2022 11/18/2022 11/19/2022 morphine injection 2 mg (COMPLETED) 2 mg, Intravenous, Once, 1 dose, On Sat11/19/22 at 1030 1035 (Given - Provid er: Naman Andrade RN) ondansetron (ZOFRAN) injection 4 mg (COMPLETED) 4 mg, Intravenous, Once, 1 dose, On Sat11/19/22 at 1030, IV push over 2-5 minutes. 1035 (Given - Provid er: Naman Andrade RN) sodium chloride 0.9% bolus infusion 1,000 mL (COMPLETED) 1,000 mL, Intravenous, Administer over 60 Minutes, Once, 1 dose, On Sat11/19/22 at 1030 1036 (New Bag - Prov ider: Naman Andrade RN)1202 (Infusion Stop Time - Provider: Gus Hanks RN) PRN Medication Order 11/17/2022 11/18/2022 11/19/2022 iopamidol (ISOVUE-370) 76 % injection 93 mL (COMPLETED) 93 mL, Intravenous, IMG once as needed, Contrast, 1 dose, Starting on Sat11/19/22 at 1150, Until Sat11/19/22 at 1151 1151 (Given - Provid er: Jessy Ta, RTR) documented in this encounter Care Teams Cadd Technician Relationship Specialty Start Date End Date Rahul Bradford PA [address] [place] [address] PCP - General PHYSICIAN SWITCHBOARD TROUBL[employer]ER 11/19/22 documented as of this encounter
--- OUTSIDE RECORDS SUMMARY | 2024-02-22 14:34 | XMS_ITS | Encounter Summary ---
Author Organization [facility] Address [address] [place] [address]. [place] [address] [place] [address] Care Team Providers Care Labeling Strategist Name Role Phone Rahul Bradford Primary Care Provider [phone] Reason for Referral * Imaging (Emergency) - Closed Specialty Diagnoses / Procedures Referred By Contac t Referred To Contact RADIOLOGY Procedures CT ABD+PEL W IV CON ONLY Ana Maria Lanier MD Phone: tel: fax: Referral ID Status Reason Start Date Expiration Date Visits Re quested Visits Authorized [id number] Closed 11/22/2022 11/23/2023 1 1 Reason for Visit * Reason Comments Abdominal Pain Encounter Details Date Type Department Care Team (Late st Contact Info) Description 11/22/2022 5:50 PM CDT - 11/22/2022 11:20 PM CDT Emergency [facility] [address] [place] [address] [place] [address] Ana Maria Lanier MD [address] [place] [id number] Abdominal Pain Discharge Disposition: Transfer to Acute Care Hospital Social History Tobacco Use Types Packs/Day [...] week 11/23/2022 How often do you attend [facility] or worship services? Patient declined 11/23/2022 Do you belong to any clubs o r organizations such as restorationist groups, unions, fraternal or athletic groups, or [...] and heating? Not hard at all 11/23/2022 [facility] - Occupational [...] on file Legal Sex Female 3:02 PM [employer] Gender Identity Not on file Sexual Orientation Not on file documented as of this encounter Last Filed Vital Signs Vital Sign Reading Time Taken Comments Blood Pressure 133/85 11/22/2022 11:00 PM CDT Pulse 66 11/22/2022 5:56 PM CDT Temperature 36 ??C (96.8 ??F) 11/22/2022 5:56 PM CDT Respiratory Rate 16 11/22/2022 5:56 PM CDT Oxygen Saturation 100% 11/22/2022 11:00 PM CDT Inhaled Oxygen Concentration - - Weight 95.4 kg (210 lb 5.1 oz) 11/22/2022 5:56 P M CDT Height 165.1 cm (5' 5 ) 11/22/2022 5:56 PM CDT Body Mass Index 35 11/22/2022 5:56 PM CDT documented in this encounter Functional Status * RETIRED Are you deaf or do you have serious difficulty hearing Answer Date of Assessment Author Status No 01/27/2022 6:18 PM [employer]CR[employer] Activ e * RETIRED Are you blind or do you have serious difficulty seeing, even when wearing glasses? Answer Date of Assessment Author Status No 01/27/2022 6:18 PM CONCRETE [employer]ER Activ e * Do you have serious [...] 27-0.8 MG tablet Take by mouth daily. HYDROcodone-acetamin ophen (NORCO) 5-325 MG tabletIndications:Ac adriano Pain < 7 Day Supply Take 1-2 tablets by mouth every 6 (six) hours as needed for Pain. Indications: Acute Pain < 7 Day Supply 12 tablet 11/20/2022 3 HYDROcodone-acetamin ophen (NORCO) 5-325 MG tabletIndications:Ac adriano Pain < 7 Day Supply Take 1 tablet by mouth every 6 (six) hours as needed. Indications: Acute Pain < 7 Day Supply 15 tablet 11/25/2022 3 documented as of this encounter ED Notes * Norma Guillen RN - 11/22/2022 11:25 PM CDT [facility] here to transport the pt to [facility]. Pt left per stretcher * Norma Guillen RN - 11/22/2022 10:55 PM CDT [facility] called to transport the pt * Norma Guillen RN - 11/22/2022 8:53 PM CDT Called [facility] and spoke with [place] and possible transfer arrangement * Ana Maria Lanier MD - 11/22/2022 6:25 PM CDT Chief Complaint Chief Complaint Patient presents with Abdominal Pain History of Present Illness Patient is a 27-year-old female who presents with complaints of abdominal pain. Patient reports that her pain began 1 week ago. Pain was in her upper abdomen and epigastric area. She describes it as a burning and sharp achy pain. She describes the pain as constant. She was seen in the ER 3 [address] a [address] scan which was negative. She represented to the ER the following day and was reassured. She presents today due to persistent and worsening pain. No previous abdominal surgeries. Patient uses marijuana daily. No fever or chills. Medical History ALLERGIES: Review of patient's allergies [...] by mouth daily. 08/16/22 Yes DefaultHistory Genericprovider ondansetron (ZOFRAN-ODT) 4 MG disintegrating tablet Take 1 tablet (4 mg total) by mouth every 6 (six) hours as needed for Nausea. 11/19/22 Yes Martínez Juarez MD pantoprazole EC (PROTONIX) 40 MG tablet Take 1 tablet (40 mg total) by mouth daily. 11/19/22 Yes Martínez Juarez MD vitamin, low iron, ( VITAMIN WITH IRON) 27-0.8 MG tablet Take by mouth daily. Yes Default History Genericprovider PAST MEDICAL HISTORY: Past Medical History: Diagnosis Date Anxiety disorder, unspecified PAST SURGICAL HISTORY: History reviewed. No pertinent surgical history. FAMILY HISTORY: Family History Problem Relation Name Age of Onset Hypertension Father SOCIAL HISTORY: Social History Tobacco Use Smoking status: Never Passive exposure: Never Smokeless tobacco: Never Vaping Use Vaping Use: Never used Substance Use Topics Alcohol use: Never Drug use: Yes Types: Marijuana Review of Systems Review of Systems Constitutional: Negative for chills and fever. HENT: Negative for ear pain and sore throat. Eyes: Negative for visual disturbance. Respiratory: Negative for cough, shortness of breath and wheezing. Cardiovascular: Negative for chest pain, palpitations and leg swelling. Gastrointestinal: Positive for abdominal pain and nausea. Negative for vomiting. Endocrine: Negative. Genitourinary: Negative for dysuria, flank pain and frequency. Musculoskeletal: Negative for back pain and neck pain. Skin: Negative for rash. Allergic/Immunologic: Negative. Neurological: Negative for dizziness and headaches. Psychiatric/Behavioral: Negative. Physical Exam Filed Vitals: 11/22/22 2130 11/22/22 2200 11/22/22 2230 11/22/22 2300 BP: 125/75 125/76 133/85 Pulse: Resp: Temp: TempSrc: SpO2: 98% 97% 97% 100% Weight: Height: Physical Exam Vitals and nursing note reviewed. Constitutional: General: She is not in acute distress. Appearance: Normal appearance. HENT: Head: Normocephalic. Nose: Nose normal. Mouth/Throat: Mouth: Mucous membranes are moist. Cardiovascular: Rate and Rhythm: Normal rate and regular rhythm. Heart sounds: Normal heart sounds. Pulmonary: Effort: Pulmonary effort is normal. Breath sounds: Normal breath sounds. Abdominal: General: Bowel sounds are normal. Palpations: Abdomen is soft. Tenderness: There is abdominal tenderness in the right upper quadrant and epigastric area. There isguarding. Musculoskeletal: General: No swelling or tenderness. Normal range of motion. Cervical back: Normal range of motion and neck supple. Neurological: General: No focal deficit present. Mental Status: She is alert and oriented to person, place, and time. Psychiatric: Mood and Affect: Mood normal. Diagnostic Studies / Procedures ELECTROCARDIOGRAMS: No results found for this visit on 11/22/22. LABORATORY STUDIES: Results for orders placed or performed during the hospital encounter of 11/22/22 CBC W/DIFF AUTOMATED Result Value Ref Range WBC 7.71 4.00 - 10.80 x10'3/uL RBC 4.29 4.10 - 5.40 x10'6/uL HGB 13.1 12.0 - 16.0 G/DL HCT 39.1 36.0 - 47.0 % MCV 91.1 78.0 - 100.0 FL MCH 30.5 27.0 - 31.0 PG MCHC 33.5 33.0 - 36.0 G/DL RDW 11.9 11.5 - 14.5 % PLT 308 150 - 350 x10'3/uL MPV 9.2 7.4 - 10.4 FL CBC COMMENT NORMAL REFERENCE RANGE NOT ESTABLISHED FOR THE PROPORTIONAL LEUKOCYTE DIFFERENTIAL. NEUTROPHILS 82.0 % LYMPHOCYTES 10.9 % MONOCYTES 6.0 % EOSINOPHILS 0.3 % BASOPHILS 0.5 % IMMATURE GRANS 0.3 % NRBC 0.0 % ABS. NEUTROPHILS 6.33 1.60 - 8.30 x10'3/uL ABS. LYMPHOCYTES 0.84 0.80 - 4.70 x10'3/uL ABS. MONOCYTES 0.46 0.00 - 1.50 x10'3/uL ABS. EOSINOPHILS 0.02 0.00 - 0.40 x10'3/uL ABS. BASOPHILS 0.04 0.00 - 0.20 x10'3/uL ABS. IMMATURE GRANULOCYTES 0.02 0.00 - 0.03 x10'3/uL ABS. NUCLEATED RBC'S 0.00 0.00 x10'3/uL COMPREHENSIVE METABOLIC PANEL Result Value Ref Range SODIUM S/P/B 137 136 - 145 MMOL/L POTASSIUM S/P/B 3.7 3.5 - 5.1 MMOL/L CHLORIDE S/P/B 101 98 - 107 MMOL/L CO2 28.3 21.0 - 32.0 MMOL/L GLUCOSE 100 (H) 70 - 99 MG/DL BUN 9 6 - 24 MG/DL CREATININE S/P/B 0.73 0.55 - 1.02 MG/DL CALCIUM S/P/B 8.9 8.4 - 10.5 MG/DL BILIRUBIN TOTAL S/P/B 2.2 (H) 0.2 - 1.0 MG/DL ALKALINE PHOSPHATASE S/P/B 338 (H) 37 - 98 U/L AST 626 (H) 15 - 37 U/L ALT 518 (H) 14 - 59 U/L TOTAL PROTEIN S/P/B 6.9 6.4 - 8.2 G/DL ALBUMIN S/P/B 3.5 3.4 - 5.0 G/DL ANION GAP 7.7 5.0 - 15.0 MMOL/L OSMOLALITY (CALC) 283 MOSM/KG GFR ESTIMATE >90 >89 ML/MIN/1.73 M2 GFR NOTES GFR REFERENCES: LIPASE Result Value Ref Range LIPASE 15 (L) 16 - 77 UNITS/L LACTIC ACID W REFLEX (SEPSIS) Result Value Ref Range LACTIC ACID 0.8 0.4 - 2.0 MMOL/L THYROID STIM HORMONE, TSH Result Value Ref Range TSH 1.999 0.358 - 3.740 uIU/ML DRUG SCREEN RAPID Result Value Ref Range CANNABINOIDS SCREEN (U) POSITIVE (A) NEGATIVE PHENCYCLIDINE PCP (U) NEGATIVE NEGATIVE COCAINE METABOLITES (U) NEGATIVE NEGATIVE METHAMPHETAMINE SCREEN (U) NEGATIVE NEGATIVE OPIATE SCREEN (U) POSITIVE (A) NEGATIVE AMPHETAMINE SCREEN (U) NEGATIVE NEGATIVE BENZODIAZEPINES SCREEN (U) NEGATIVE NEGATIVE TRICYCLIC ANTIDEPRESSANT SCREEN (U) NEGATIVE NEGATIVE METHADONE (U) NEGATIVE NEGATIVE BARBITURATES SCREEN (U) POSITIVE (A) NEGATIVE OXYCODONE SCREEN (U) NEGATIVE NEGATIVE PROPOXYPHENE SCREEN (U) NEGATIVE NEGATIVE URINE TOX COMMENT THIS TEST METHODOLOGY IS DESIGNED AND OFFERED A RAPID TURNAROUND, QUALITATIVE SCREENING PROCEDURE TO AID IN THE IMMEDIATE MEDICAL ASSESSMENT OF PATIENTS SUSPECTED OF SUBSTANCE ABUSE. URINALYSIS Result Value Ref Range COLOR (U) DARK YELLOW TRANSPARENCY SLIGHTLY CLOUDY SPECIFIC GRAVITY (U) 1.020 1.000 - 1.025 U PH 8.5 (H) 5.0 - 8.0 LEUKOCYTES (U) NEGATIVE NEGATIVE NITRITES NEGATIVE NEGATIVE PROTEIN RANDOM (U) 2+ (A) NEGATIVE GLUCOSE (U) NEGATIVE NEGATIVE KETONES (U) 4+ (A) NEGATIVE UROBILINOGEN 4.0 (H) <1.0 EU/DL BLOOD (U) NEGATIVE NEGATIVE WBC/HPF NONE SEEN (A) 0 - 5 /HPF RBC/HPF 0-5 0 - 5 /HPF EPI/LPF FEW /LPF BACTERIA (U) TRACE /HPF MUCUS PRESENT BILIRUBIN CONF ICTO (U) NEGATIVE NEGATIVE REFLEX URINE CULTURE: NOT INDICATED TEST URINE Result Value Ref Range URINE HCG TEST NEGATIVE SPECIFIC GRAVITY 1.020 CULTURE, BACTERIA, BLOOD Specimen: BLOOD Result Value Ref Range SPEC DESCRIPTION BLOOD SPECIAL REQUESTS STERIPATH NOT USED CULTURE RESULT NO GROWTH 5 DAYS CULTURE, BACTERIA, BLOOD Specimen: BLOOD Result Value Ref Range SPEC DESCRIPTION BLOOD SPECIAL REQUESTS STERIPATH CULTURE RESULT NO GROWTH [address] ABD+PEL W IV CON ONLY Final Result by User, [id number] (11/22 2025) EXAMINATION: ABDOMEN PELVIS CT WITH CONTRAST CLINICAL [...] techniques, automated exposure control, use of iterative reconstruction and ALARA (As low As Reasonably Achievable)/Image [...] Pancreas: Unremarkable Kidneys: Unremarkable No interval development of retroperitoneal or peripancreatic or iliac or inguinal lymphadenopathy. There is no retroperitoneal lymphadenopathy. GI: The stomach and small bowel and [...] fluid in the posterior cul-de-sac. BONE WINDOW IMAGING: Unremarkable. IMPRESSION: 1. Significant interval change in [...] By: Caitlin Pereira DO, 11/22/2022 8:04 PM ED Course / Medical Decision Making Medical Decision Making Presented to cholecystitis. Antibiotics commenced IV and case discussed with general surgeon who agreed to accept patient for consultation at [facility]. Problems Addressed: Cholecystitis, acute: acute illness or injury Amount and/or Complexity of Data Reviewed Labs: ordered. Radiology: ordered. Risk Decision regarding hospitalization. ED Course as of 01/22/23 1321 Nichole Nov 22, [id number] Case was discussed with Dr. Goetz general surgeon at [facility] who agreed to accept patient for consultation. Patient will be admitted to hospitalist. [AK] 2134 Patient was discussed with Dr. Lam who accepted patient for transfer. 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 Has been seen in Er within the week with same c/o. Dx with gastritis and put on meds. Was supposed to f/u with pcp but he is oot. . Reports she is having constipation. Had 2 small bm's this am. Decreased appetite d/t pain. documented in this encounter Plan of Treatment Not on file documented as of this encounter Procedures Procedure Name Priority Date/Time Associated Diagnosis Comments CULTURE, BACTERIA, BLOOD STAT 11/22/2022 9:[address] ABD+PEL W CON STAT 11/22/2022 7:52 PM CDT DRUG SCREEN RAPID STAT 11/22/2022 7:0 0 PM CDT HC URINALYSIS AUTO W/MICRO STAT 11/22/2022 7:00 PM CDT TEST URINE STAT 11/22/2022 7:00 PM CDT LACTIC ACID W REFLEX (SEPSIS) STAT 11/22/2022 6:59 PM CDT COMPREHENSIVE METABOLIC PANEL STAT 11/22/2022 6:59 PM CDT CULTURE, BACTERIA, BLOOD STAT 11/22/2022 6:59 PM CDT CBC W/DIFF AUTOMATED STAT 11/22/2022 6:59 PM CDT THYROID STIM HORMONE TSH STAT 11/22/2022 6:59 PM CDT LIPASE STAT 11/22/2022 6:59 PM CDT documented in this encounter Results * CULTURE, BACTERIA, BLOOD (11/22/2022 9:02 PM CDT) SPEC DESCRIPTION BLOOD 11/22/2022 9:08 PM CDT [facility] SPECIAL REQUESTS STERIPATH 11/22/2022 9:08 PM CDT [facility] CULTURE RESULT NO GROWTH 5 DAYS 11/27/2022 12:08 PM CDT [facility] BLOOD SPECIMEN OBTAINED FOR BLOOD CULTURE / Unknown 11/22/2022 9:02 PM CDT 11/22/2022 9:08 PM CDT us Ana Maria Lanier MD MICROBIOLOGY - GENERAL OR DERABLES Final Result [facility] [address] [place] [address], * CT ABD+PEL W IV CON ONLY (11/22/2022 7:52 PM CDT) Anatomical Region Laterality Modality Abdomen Computed Tomogra phy 11/22/2022 8:04 PM CDT Impressions 11/22/2022 8:24 PM CDT IMPRESSION: 1. ??Significant interval change in the gallbladder and liver as above; suspect interval development of cholecystitis possible cholangitis 2. ??No calcified gallstone however there may be faintly calcified stone in the neck of the gallbladder. 3. ??Consider further evaluation which can begin with gallbladder ultrasound and or HIDA scan with CCK to check for common duct patency 4. ??No bowel obstruction or appendicitis or acute inflammatory change in the large or small bowel. Referred By: ?? Interpreted By: Caitlin Pereira DO, 11/22/2022 8:04 PM Narrative 11/22/2022 8:24 PM CDT EXAMINATION: ABDOMEN PELVIS CT WITH CONTRAST CLINICAL [...] techniques, automated exposure control, use of iterative ??reconstruction and ALARA (As low As Reasonably Achievable)/Image Gently techniques. COMPARISON: Contrast-enhanced CT abdomen and pelvis 11/19/2022 FINDINGS: Included lung bases: Clear of infiltrate or effusion. ABDOMEN : Liver/gallbladder: Stable borderline hepatomegaly; measuring 25 cm transverse diameter. ??Interval development of zone of low-attenuation around the intrahepatic main portal vein and proximal aspect of right left and middle portal veins consistent with interval development of periportal edema.. ??Mild interval enlargement of the gallbladder with larger area of the fundus abutting the anterior abdominal wall. ??Interval circumferential gallbladder wall thickening measuring 6 mm and there is a small rim of pericholecystic fluid in the gallbladder fossa and Morison's pouch. ??No densely calcified gallstone. ??There may be a faintly calcified gallstone in the neck of the gallbladder. ??The common hepatic duct measures 6 mm and the common bile duct measures 6 mm in the head of the pancreas. ??There appears to be wall enhancement of the distal common bile duct. ??No choledocholithiasis. ??Suspect interval development of cholecystitis and possible ascending cholangitis. ?? Spleen: Unremarkable Adrenal glands: Unremarkable Pancreas: Unremarkable Kidneys: Unremarkable No interval development of retroperitoneal or peripancreatic or iliac or inguinal lymphadenopathy. ??There is no retroperitoneal lymphadenopathy. GI: The stomach and small bowel and large bowel are unremarkable. ??Normal air- filled appendix. ??No bowel obstruction. ??No free air in the abdomen or pelvis. PELVIS: Urinary bladder: Normally filled. ??Normal bladder wall. Uterus: Normal retroverted position. ??Homogeneous myometrial enhancement. ??Bilateral ovarian follicular cysts with stable crenated enhancing 10 mm cystic structure in the left ovary, likely involuting follicle. ??No free fluid in the posterior cul-de-sac. BONE WINDOW IMAGING: Unremarkable. Procedure Note Caitlin Pereira MD - 11/22/2022 EXAMINATION: ABDOMEN PELVIS CT WITH CONTRAST CLINICAL INDICATION: 27-year-old female.ABDOMINAL PAIN, ACUTE, NONLOCALIZED : mid abd pain x several days pt was just seen in ER for same symptoms 3 days ago TECHNIQUE: CT of the abdomen and pelvis was acquired after intravenous administrationof 100 cc of Isovue-370 into indwelling intravenous access in the rightantecubital fossa without adverse contrast reaction reported. Imagesacquired from the lung bases to the femoral heads then reconstructed insagittal and coronal projections. Dose lowering technique was used for this study which may include, but isnot limited to, dose reduction techniques, automated exposure control, useof iterative reconstruction and ALARA (As low As ReasonablyAchievable)/Image Gently techniques. COMPARISON: Contrast-enhanced CT abdomen and pelvis 11/19/2022 FINDINGS: Included lung bases: Clear of infiltrate or effusion. ABDOMEN : Liver/gallbladder: Stable borderline hepatomegaly; measuring 25 cmtransverse diameter. Interval development of zone of low-attenuationaround the intrahepatic main portal vein and proximal aspect of right leftand middle portal veins consistent with interval development of periportaledema.. Mild interval enlargement of the gallbladder with larger area ofthe fundus abutting the anterior abdominal wall. Interval circumferentialgallbladder wall thickening measuring 6 mm and there is a small rim ofpericholecystic fluid in the gallbladder fossa and Morison's pouch. Nodensely calcified gallstone. There may be a faintly calcified gallstonein the neck of the gallbladder. The common hepatic duct measures 6 mm andthe common bile duct measures 6 mm in the head of the pancreas. Thereappears to be wall enhancement of the distal common bile duct. Nocholedocholithiasis. Suspect interval development of cholecystitis andpossible ascending cholangitis. Spleen: Unremarkable Adrenal glands: Unremarkable Pancreas: Unremarkable Kidneys: Unremarkable No interval development of retroperitoneal or peripancreatic or iliac oringuinal lymphadenopathy. There is no retroperitoneal lymphadenopathy. GI: The stomach and small bowel and large bowel are unremarkable. Normalair- filled appendix. No bowel obstruction. No free air in the abdomen orpelvis. PELVIS: Urinary bladder: Normally filled. Normal bladder wall. Uterus: Normal retroverted position. Homogeneous myometrial enhancement.Bilateral ovarian follicular cysts with stable crenated enhancing 10 mmcystic structure in the left ovary, likely involuting follicle. No freefluid in the posterior cul-de-sac. BONE WINDOW IMAGING: Unremarkable. IMPRESSION: 1. Significant interval change in the gallbladder and liver as above;suspect interval development of cholecystitis possible cholangitis 2. No calcified gallstone however there may be faintly calcified stone inthe neck of the gallbladder. 3. Consider further evaluation which can begin with gallbladderultrasound and or HIDA scan with CCK to check for common duct patency 4. No bowel obstruction or appendicitis or acute inflammatory change inthe large or small bowel. Referred By: Interpreted By: Caitlin Pereira DO, 11/22/2022 8:04 PM us Ana Maria Lanier MD CT Final Res ult * TEST URINE (11/22/2022 7:00 PM CDT) URINE HCG TEST NEGATIVE 11/22/2022 7:23 PM CDT [facility] SPECIFIC GRAVITY 1.020 11/22/2022 7:23 PM CDT [facility] URINE SPECIMEN FROM URETHRA / Unknown 11/22/2022 7:00 PM CDT us Ana Maria Lanier MD URINE ORDERABLES Final Re sult [facility] [address] [place] [address], * (ABNORMAL) URINALYSIS (11/22/2022 7:00 PM CDT) COLOR (U) DARK YELLOW 11/22/2022 7:33 PM CDT [facility] TRANSPARENCY SLIGHTLY CLOUDY 11/22/2022 7:33 PM CDT [facility] SPECIFIC GRAVITY (U) 1.020 1.000 - 1.025 11/22/2022 7:33 PM CDT [facility] U PH 8.5(H) 5.0 - 8.0 11/22/2022 7:33 PM CDT [facility] LEUKOCYTES (U) NEGATIVE NEGATIVE 11/22/2022 7:33 PM CDT [facility] NITRITES NEGATIVE NEGATIVE 11/22/2022 7:33 PM CDT [facility] PROTEIN RANDOM (U) 2+(A) NEGATIVE 11/22/2022 7:33 PM CDT [facility] GLUCOSE (U) NEGATIVE NEGATIVE 11/22/2022 7:33 PM CDT [facility] KETONES MG/DL (U) 4+(A) NEGATIVE 11/22/2022 7:33 PM CDT [facility] UROBILINOGEN 4.0(H) <1.0 EU/DL 11/22/2022 7:33 PM CDT [facility] BLOOD (U) NEGATIVE NEGATIVE 11/22/2022 7:33 PM CDT [facility] WBC/HPF NONE SEEN(A) 0 - 5 /HPF 11/22/2022 7:33 PM CDT [facility] RBC/HPF 0-5 0 - 5 /HPF 11/22/2022 7:33 PM CDT [facility] EPI/LPF FEW /LPF 11/22/2022 7:33 PM CDT [facility] BACTERIA (U) TRACE /HPF 11/22/2022 7:33 PM CDT [facility] MUCUS PRESENT 11/22/2022 7:33 PM CDT [facility] BILIRUBIN CONF ICTO (U) NEGATIVE NEGATIVE 11/22/2022 7:33 PM CDT [facility] REFLEX URINE CULTURE: NOT INDICATED 11/22/2022 7:33 PM CDT [facility] URINE SPECIMEN OBTAINED BY CLEAN CATCH PROCEDURE / Unknown 11/22/2022 7:00 PM CDT us Ana Maria Lanier MD URINE ORDERABLES Final Re sult [facility] [employer] [place] [address], * (ABNORMAL) DRUG SCREEN RAPID (11/22/2022 7:00 PM CDT) CANNABINOIDS SCREEN (U) POSITIVE(A) NEGATIVE 11/22/2022 7:23 PM CDT [facility] PHENCYCLIDINE PCP (U) NEGATIVE NEGATIVE 11/22/2022 7:23 PM CDT [facility] COCAINE METABOLITES (U) NEGATIVE NEGATIVE 11/22/2022 7:23 PM CDT [facility] METHAMPHETAMINE SCREEN (U) NEGATIVE NEGATIVE 11/22/2022 7:23 PM CDT [facility] OPIATE SCREEN (U) POSITIVE(A) NEGATIVE 2022 7:23 PM CDT [facility] AMPHETAMINE SCREEN (U) NEGATIVE NEGATIVE 11/22/2022 7:23 PM CDT [facility] BENZODIAZEPINES SCREEN (U) NEGATIVE NEGATIVE 11/22/2022 7:23 PM CDT [facility] TRICYCLIC ANTIDEPRESSANT SCREEN (U) NEGATIVE NEGATIVE 11/22/2022 7:23 PM CDT [facility] METHADONE (U) NEGATIVE NEGATIVE 11/22/2022 7:23 PM CDT [facility] BARBITURATES SCREEN (U) POSITIVE(A) NEGATIVE 11/22/2022 7:23 PM CDT [facility] OXYCODONE SCREEN (U) NEGATIVE NEGATIVE 11/22/2022 7:23 PM CDT [facility] PROPOXYPHENE SCREEN (U) NEGATIVE NEGATIVE 11/22/2022 7:23 PM CDT [facility] URINE TOX COMMENT THIS TEST METHODOLOGY IS DESIGNED AND OFFERED A RAPID TURNAROUND, QUALITATIVE SCREENING PROCEDURE TO AID IN THE IMMEDIATE MEDICAL ASSESSMENT OF PATIENTS SUSPECTED OF SUBSTANCE ABUSE. 11/22/2022 7:00 PM CDT [facility] Comment: CLINICAL CONSIDERATION AND PROFESSIONAL JUDGMENT MUST BE APPLIED TO ANY DRUG OF ABUSE TEST RESULT, BOTH POSITIVE AND NEGATIVE. CONFIRMATORY QUANTITATIVE RESULTS ARE AVAILABLE THROUGH OUR REFERENCE [facility]. URINE SPECIMEN / Unknown 11/22/2022 7:00 PM CDT us Ana Maria Lanier MD URINE ORDERABLES Final Re sult Performing Organization Address [facility] Co de Phone Number [facility] [address] [place] [address], * CULTURE, BACTERIA, BLOOD (11/22/2022 6:59 PM CDT) SPEC DESCRIPTION BLOOD 11/22/2022 8:57 PM CDT [facility] SPECIAL REQUESTS STERIPATH NOT USED 11/22/2022 8:57 PM CDT [facility] CULTURE RESULT NO GROWTH 5 DAYS 11/27/2022 12:08 PM CDT [facility] BLOOD SPECIMEN OBTAINED FOR BLOOD CULTURE / Unknown 11/22/2022 6:59 PM CDT 11/22/2022 8:57 PM CDT us Ana Maria Lanier MD MICROBIOLOGY - GENERAL OR DERABLES Final Result Performing Organization Address [facility]/ZIP Co de Phone Number [facility] [address] [place] [id number], * THYROID STIM HORMONE, TSH (11/22/2022 6:59 PM CDT) TSH 1.999 0.358 - 3.740 uIU/ML 11/22/2022 7:47 PM CDT [facility] Comment: ASSAY PERFORMED BY CHEMILUMINESCENT IMMUNOASSAY METHODOLOGY USING SIEMENS DIMENSION REAGENT. PATIENT RESULTS DETERMINED BY ASSAYS FROM DIFFERENT MANUFACTURERS AND/OR BY DIFFERENT METHODS MAY NOT BE COMPARABLE. 11/22/2022 6:59 PM CDT us Ana Maria Lanier MD LABORATORY Final Res ult Performing Organization Address City/[facility]/ZIP Co de Phone Number [facility] [address] [place] [address], [place] [phone] * LACTIC ACID W REFLEX (SEPSIS) (11/22/2022 6:59 PM CDT) LACTIC ACID VENOUS 0.8 0.4 - 2.0 MMOL/L 11/22/2022 8:06 PM CDT [facility] 11/22/2022 6:59 PM CDT us Ana Maria Lanier MD LABORATORY Final Res ult Performing Organization Address [facility]/ZIP Co de Phone Number [facility] [address] [place] [address], * (ABNORMAL) LIPASE (11/22/2022 6:59 PM CDT) LIPASE 15(L) 16 - 77 UNITS/L 11/22/2022 7:28 PM CDT [facility] 11/22/2022 6:59 PM CDT us Ana Maria Lanier MD LABORATORY Final Res ult Performing Organization Address City/[facility]/ZIP Co de Phone Number [facility] [address] [place] [address], * (ABNORMAL) COMPREHENSIVE METABOLIC PANEL (11/22/2022 6:59 PM CDT) SODIUM S/P/B 137 136 - 145 MMOL/L 11/22/2022 7:28 PM CDT [facility] POTASSIUM S/P/B 3.7 3.5 - 5.1 MMOL/L 11/22/2022 7:28 PM CDT [facility] CHLORIDE S/P/B 101 98 - 107 MMOL/L 11/22/2022 7:28 PM CDT [facility] CO2 28.3 21.0 - 32.0 MMOL/L 11/22/2022 7:28 PM CDT [facility] GLUCOSE 100(H) 70 - 99 MG/DL 11/22/2022 7:28 PM CDT [facility] Comment: FASTING GLUCOSE 100 TO 125 MG/DL IS CONSISTENT WITH IMPAIRED FASTING GLUCOSE. FASTING GLUCOSE >125 MG/DL IS CONSISTENT WITH DIABETES. RANDOM GLUCOSE >200 MG/DL WITH HYPERGLYCEMIC SYMPTOMS IS CONSISTENT WITH DIABETES. PER ADA GUIDELINES BUN 9 6 - 24 MG/DL 11/22/2022 7:28 PM CDT [facility] CREATININE S/P/B 0.73 0.55 - 1.02 MG/DL 11/22/2022 7:28 PM CDT [facility] CALCIUM S/P/B 8.9 8.4 - 10.5 MG/DL 11/22/2022 7:28 PM CDT [facility] BILIRUBIN TOTAL S/P/B 2.2(H) 0.2 - 1.0 MG/DL 11/22/2022 7:28 PM CDT [facility] Comment: THIS ASSAY IS NOT RECOMMENDED FOR PATIENTS UNDERGOING TREATMENT WITH ELTROMBOPAG DUE TO THE POTENTIAL FOR FALSELY ELEVATED RESULTS. ALKALINE PHOSPHATASE S/P/B 338(H) 37 - 98 U/L 11/22/2022 7:28 PM CDT [facility] AST 626(H) 15 - 37 U/L 11/22/2022 7:28 PM CDT [facility] ALT 518(H) 14 - 59 U/L 11/22/2022 7:28 PM CDT [facility] TOTAL PROTEIN S/P/B 6.9 6.4 - 8.2 G/DL 11/22/2022 7:28 PM CDT [facility] ALBUMIN S/P/B 3.5 3.4 - 5.0 G/DL 11/22/2022 7:28 PM CDT [facility] ANION GAP 7.7 5.0 - 15.0 MMOL/L 11/22/2022 7:28 PM CDT [facility] OSMOLALITY (CALC) 283 MOSM/KG 023 7:28 PM CDT [facility] Comment:REFERENCE RANGE NOT ESTABLISHED GFR ESTIMATE >90 >89 ML/MIN/1. 73 M2 11/22/2022 7:28 PM CDT [facility] GFR NOTES GFR REFERENCE S: 11/22/2022 7:28 PM CDT [facility] Comment: THE ESTIMATED GFR [...] ml/min/1.73 m2 G5,KIDNEY FAILURE: <15 ml/min/1.73 m2 11/22/2022 6:59 PM CDT us Ana Maria Lanier MD LABORATORY Final Res ult [facility] [address] [place] [address], * CBC W/DIFF AUTOMATED (11/22/2022 6:59 PM CDT) WBC 7.71 4.00 - 10.80 x10'3/uL 11/22/2022 7:10 PM CDT [facility] RBC 4.29 4.10 - 5.40 x10'6/uL 11/22/2022 7:10 PM CDT [facility] HGB 13.1 12.0 - 16.0 G/DL 11/22/2022 7:10 PM CDT [facility] HCT 39.1 36.0 - 47.0 % 11/22/2022 7:10 PM CDT [facility] MCV 91.1 78.0 - 100.0 FL 11/22/2022 7:10 PM CDT [facility] MCH 30.5 27.0 - 31.0 PG 11/22/2022 7:10 PM CDT [facility] MCHC 33.5 33.0 - 36.0 G/DL 11/22/2022 7:10 PM CDT [facility] RDW 11.9 11.5 - 14.5 % 11/22/2022 7:10 PM CDT [facility] PLT 308 150 - 350 x10'3/uL 11/22/2022 7:10 PM CDT [facility] MPV 9.2 7.4 - 10.4 FL 11/22/2022 7:10 PM CDT [facility] CBC COMMENT NORMAL REFERENCE RANGE NOT ESTABLISHED FOR THE PROPORTIONAL LEUKOCYTE DIFFERENTIAL. 11/22/2022 7:10 PM CDT [facility] NEUTROPHILS % 82.0 % 11/22/2022 7:10 PM CDT [facility] LYMPHOCYTES % 10.9 % 11/22/2022 7:10 PM CDT [facility] MONOCYTES % 6.0 % 11/22/2022 7:10 PM CDT [facility] EOSINOPHILS % 0.3 % 11/22/2022 7:10 PM CDT [facility] BASOPHILS % 0.5 % 11/22/2022 7:10 PM CDT [facility] IMMATURE GRANS % 0.3 % 11/23/19 7:10 PM CDT [facility] NRBC 0.0 % 11/22/2022 7:10 PM CDT [facility] ABS. NEUTROPHILS 6.33 1.60 - 8.30 x10'3/uL 11/22/2022 7:10 PM CDT [facility] ABS. LYMPHOCYTES 0.84 0.80 - 4.70 x10'3/uL 11/22/2022 7:10 PM CDT [facility] ABS. MONOCYTES 0.46 0.00 - 1.50 x10'3/uL 11/22/2022 7:10 PM CDT [facility] ABS. EOSINOPHILS 0.02 0.00 - 0.40 x10'3/uL 11/22/2022 7:10 PM CDT [facility] ABS. BASOPHILS 0.04 0.00 - 0.20 x10'3/uL 11/22/2022 7:10 PM CDT [facility] ABS. IMMATURE GRANULOCYTES 0.02 0.00 - 0.03 x10'3/uL 11/22/2022 7:10 PM CDT [facility] ABS. NUCLEATED RBC'S 0.00 0.00 x10'3/uL 11/22/2022 7:10 PM CDT [facility] 11/22/2022 6:59 PM CDT us Ana Maria Lanier MD LABORATORY Final Res ult [facility] [address] [place] [address], documented in this encounter Visit Diagnoses Diagnosis Cholecystitis, acute- Primary Acute cholecystitis documented in this encounter Administered Medications Inactive Administered Medications - up to 3 most recent administrations Medication Order MAR Action Action Date Dose Rate Site iopamidol (ISOVUE-370) 76 % injection 92 mL 92 mL, Intravenous, IMG once as needed, Contrast, 1 dose, Starting on Nichole 11/22/22 at 1952, Until Nichole 11/22/22 at 1951 Given 11/22/2022 7:52 PM CDT 92 mLs morphine injection 4 mg 4 mg, Intravenous, Once, 1 dose, On Nichole 11/22/22 at 1900 Given 11/22/2022 7:21 PM CDT 4 mg ondansetron (ZOFRAN) injection 4 mg 4 mg, Intravenous, Once, 1 dose, On Nichole 11/22/22 at 1900, IV push over 2-5 minutes. Given 11/22/2022 7:21 PM CDT 4 mg pantoprazole (PROTONIX) injection 40 mg 40 mg, Intravenous, Once, 1 dose, On Nichole 11/22/22 at 1900, Reconstitute each 40 mg vial with 10 mL normal saline to a final concentration of 4 mg/mL. Administer intravenously over a period of a least 2 minutes. Given 11/22/2022 7:31 PM CDT 40 mg piperacillin-tazobactam (ZOSYN) 3.375 g in sodium chloride 0.9 % 50 mL IVPB 3.375 g, Intravenous, Administer over 30 Minutes, Once, 1 dose, On Nichole 11/22/22 at 2100 New Bag 11/22/2022 9:07 PM CDT 3.375 g 100 mL/hr sodium chloride 0.9% bolus infusion 1,000 mL 1,000 mL, Intravenous, Administer over 60 Minutes, Once, 1 dose, On Nichole 11/22/22 at 1900 New Bag 11/22/2022 7:21 PM CDT 1,000 mLs sodium chloride 0.9% infusion at 125 mL/hr, Intravenous, Continuous, Starting on Nichole 11/22/22 at 2300, Until Sat11/23/22 at 0030 New Bag 11/22/2022 11:00 PM CDT 125 mL/hr documented in this encounter Active and Recently Administered Medications Times are shown in CDT. Scheduled Medication Order 11/20/2022 11/21/2022 11/22/2022 morphine injection 4 mg (COMPLETED) 4 mg, Intravenous, Once, 1 dose, On Nichole 11/22/22 at 1900 1920 (Given - Provid er: Jonathon Mayfield RN) ondansetron (ZOFRAN) injection 4 mg (COMPLETED) 4 mg, Intravenous, Once, 1 dose, On Nichole 11/22/22 at 1900, IV push over 2-5 minutes. 1920 (Given - Provid er: Jonathon Mayfield RN) pantoprazole (PROTONIX) injection 40 mg (COMPLETED) 40 mg, Intravenous, Once, 1 dose, On Nichole 11/22/22 at 1900, Reconstitute each 40 mg vial with 10 mL normal saline to a final concentration of 4 mg/mL. Administer intravenously over a period of a least 2 minutes. 193 (Given - Provid er: Jonathon Mayfield RN) piperacillin-tazobactam (ZOSYN) 3.375 g in sodium chloride 0.9 % 50 mL IVPB (COMPLETED) 3.375 g, Intravenous, Administer over 30 Minutes, Once, 1 dose, On Nichole 11/22/22 at 2100 2107 (New Bag - Prov ider: Norma Guillen RN)2140 (Infusion Stop Time - Provider: Norma Guillen RN) sodium chloride 0.9% bolus infusion 1,000 mL (COMPLETED) 1,000 mL, Intravenous, Administer over 60 Minutes, Once, 1 dose, On Nichole 11/22/22 at 1900 1921 (New Bag - Prov ider: Jonathon Myafield RN)2135 (Infusion Stop Time - Provider: Ирина Stinson RN) Continuous Medication Order 11/20/2022 11/21/2022 11/22/2022 sodium chloride 0.9% infusion at 125 mL/hr, Intravenous, Continuous, Starting on Nichole 11/22/22 at 2300, Until Sat11/23/22 at 0030 2300 (New Bag - Prov ider: Ирина Stinson RN)2320 (Infusing on Discharge from Facility - Provider: Norma Guillen RN) PRN Medication Order 11/20/2022 11/21/2022 11/22/2022 iopamidol (ISOVUE-370) 76 % injection 92 mL (COMPLETED) 92 mL, Intravenous, IMG once as needed, Contrast, 1 dose, Starting on Nichole 11/22/22 at 1952, Until Nichole 11/22/22 at [id number] (Given - Provid er: Kaley Roberts, RTR) documented in this encounter Care Teams Labeling Strategist Relationship Specialty Start Date End Date Rahul Bradford PA [address] [place] [address] PCP - General PHYSICIAN FLEXO PRESS OPERATOR 11/19/22 documented as of this encounter
--- OUTSIDE RECORDS SUMMARY | 2024-02-22 14:34 | XMS_ITS | Encounter Summary ---
Author Organization [facility] Address [address] [place] [address]. [place], [place] [id number] [place] [address] Care Team Providers Care Pt Sitter Name Role Phone Rahul Bradford Primary Care Provider [phone] Encounter Details Date Type Department Care Team (Latest Contact Info) Description 11/19/2022 Travel Social History Tobacco Use Types Packs/Day [...] week 01/27/2022 How often do you attend [facility] or roman catholic services? Never 01/27/2022 Do you belong to [...] and heating? Not hard at all 01/27/2022 [facility] - Occupational [...] slept in a longterm (including now)? No 01/27/2022 Depression Answer Date Recor ded Last EPDS Total Score 0 01/28/2022 Last EPDS Self Harm Result Never 01/28 Comments No Sex and Gender Information Value Date Recorded Sex Assigned at Not on file Legal Sex Female 3:02 PM INSURANCE LEGAL ASSISTANT Gender Identity Not on file Sexual Orientation Not on file documented as of this encounter Functional Status * RETIRED Are you deaf or do you have serious difficulty hearing Answer Date of Assessment Author Status No 01/27/2022 6:18 PM INSURANCE LEGAL ASSISTANT Activ e * RETIRED Are you blind or do you have serious difficulty seeing, even when wearing glasses? Answer Date of Assessment Author Status No 01/27/2022 6:18 PM INSURANCE LEGAL ASSISTANT Activ e * Do you have serious difficulty walking or climbing stairs? Answer Date of Assessment Author Status No 01/27/2022 6:18 PM INSURANCE LEGAL ASSISTANT Magda Sevilla RN Active * Do you [...] on filedocumented in this encounter Care Teams Pt Sitter Relationship Specialty Start Date End Date Rahul Bradford PA [address] [place] [address] PCP - General PHYSICIAN TINNER AUTOMATIC 11/19/22 documented as of this encounter
--- OUTSIDE RECORDS SUMMARY | 2024-02-22 14:39 | XMS_ITS | Encounter Summary ---
Author Organization [facility] Address [address] [place] [address] Phone Care Team Providers Care Soils Engineer Name Role Phone Pema Rousseau MD Primary Care Provider [phone] Reason for Visit * Reason Onset Date Comments Results 01/13/2024 Labs Encounter Details Date Type Department Care Team (Late st Contact Info) Description 01/13/2024 Telephone [facility] - Primary Care - [id number] [place] [address] Pema Rousseau MD [address] [place] [address] Results (Labs ) Social History Tobacco Use Types Packs/Day Years Used Date Smoking Tobacco: Never Smokeless Tobacco: Never Alcohol Use Standard Drinks/Week Comments Not Currently 0 (1 standard drink = 0.6 oz pur e alcohol) Sexually Active Control Partners Comments Yes Male Comments No Sex and Gender Information Value Date Recorded Sex Assigned at Not on file Legal Sex Female 10:24 AM BOOKBINDER APPRENTICE Gender Identity Not on file Sexual Orientation Not on file documented as of this encounter Miscellaneous Notes * Telephone Encounter - Marjorie Graf RN - 01/13/2024 12:57 PM CST ----- Message from Mariaelena Mixon sent at 01/13/2024 12:41 PM BOOKBINDER APPRENTICE ----- Please let Catie know that her labs show that her cholesterol and triglycerides are elevated, he vit D is slightly low, and her vit B12 is on the lower end of normal, she should take and OTC supplement for Vit D and Vit B12, she should also follow a low fat diet and exercise. BINDER APPRENTICE documented in this encounter Plan of Treatment Upcoming Encounters Date Type Department Care Team (Late st Contact Info) Description 04/24/2024 9:30 AM BOOKBINDER APPRENTICE [facility] - [address] [place] [address] Aissatou Johnston MD [address] [place] [address] documented as of this encounter Visit Diagnoses Not on filedocumented in this encounter Care Teams Soils Engineer Relationship Specialty Start Date End Date Pema Rousseau MD [address] [place] [address] PCP - General Family Medicine 11/18/23 01/16/24 documented as of this encounter
--- OUTSIDE RECORDS SUMMARY | 2024-02-22 14:39 | XMS_ITS | Encounter Summary ---
Author Organization [facility] Care Team Providers Care Data Processing Systems Consultant Name Role Phone Pema Rousseau MD Primary Care Provider [phone] Encounter Details Date Type Department Care Team (Latest Contact Info) Description 01/10/2024 Travel Social History Tobacco Use Types Packs/Day Years Used Date Smoking Tobacco: Never Smokeless Tobacco: Never Alcohol Use Standard Drinks/Week Comments Not Currently 0 (1 standard drink = 0.6 oz pur e alcohol) Sexually Active Control Partners Comments Yes Male Comments No Sex and Gender Information Value Date Recorded Sex Assigned at Not on file Legal Sex Female 10:24 AM SHOELACE TIPPING MACHINE OPERATOR Gender Identity Not on file Sexual Orientation Not on file documented as of this encounter Plan of Treatment Upcoming Encounters Date Type Department Care Team (Late st Contact Info) Description 04/24/2024 9:30 AM SHOELACE TIPPING MACHINE OPERATOR Office Visit [facility] - Primary Care - [address] [place] [phone] Aissatou Johnston MD [address] [place] [address] documented as of this encounter Visit Diagnoses Not on filedocumented in this encounter Care Teams Data Processing Systems Consultant Relationship Specialty Start Date End Date Pema Rousseau MD [address] [place] [address] PCP - General Family Medicine 11/18/23 01/16/24 documented as of this encounter
--- OUTSIDE RECORDS SUMMARY | 2024-02-22 14:39 | XMS_ITS | Encounter Summary ---
Author Organization [facility] Address [address] [place] [address] Phone Care Team Providers Care Operations Asst Name Role Phone Pema Rousseau MD Primary Care Provider [phone] Reason for Visit * Reason Comments hormonal issues Encounter Details Date Type Department Care Team (Late st Contact Info) Description 01/03/2024 8:00 AM CDT Office Visit [facility] - [facility] Care - Self [address] [place] [phone] Elsa Mixon, ELEMENTARY SUPERVISOR, [facility] [address] [place] [address] Irregular periods (Primary Dx) Discharge Disposition: Discharged to home or Selfcare Social History Tobacco Use Types Packs/Day Years Used Date Smoking Tobacco: Never Smokeless Tobacco: Never Tobacco Cessation:Counseling Given: Not Answered Alcohol Use Standard Drinks/Week Comments Not Currently 0 (1 standard drink = 0.6 oz pur e alcohol) Sexually Active Control Partners Comments Yes Male Comments No Sex and Gender Information Value Date Recorded Sex Assigned at Not on file Legal Sex Female 10:24 AM DIRECTOR BLOOD BANK Gender Identity Not on file Sexual Orientation Not on file documented as of this encounter Last Filed Vital Signs Vital Sign Reading Time Taken Comments Blood Pressure 120/80 01/03/2024 8:21 AM CDT Pulse 91 01/03/2024 8:21 AM CDT Temperature 36.9 ??C (98.4 ??F) 01/03/2024 8:21 AM CD T Respiratory Rate 20 01/03/2024 8:21 AM CDT Oxygen Saturation 97% 01/03/2024 8:21 AM CDT Inhaled Oxygen Concentration - - Weight 103.4 kg (228 lb) 01/03/2024 8:21 AM CDT Height 165.1 cm (5' 5 ) 01/03/2024 8:21 AM CDT Body Mass Index 37.94 01/03/2024 8:21 AM CDT documented in this encounter Patient Instructions * Patient Instructions* Elsa Mixon APRN, CNP - 01/03/2024 8:00 AM CDT Take all medications as prescribed. Please continue with a balanced lifestyle of exercise and healthy eating. If any question, please call. Thanks for coming in today! documented in this encounter Progress Notes * Lydia Snyder RMA - 01/03/2024 8:00 AM CDT Catie Mcdonald is a 28 y.o. female with current BMI: Body mass index is 37.94 kg/m??. Interventions discussed including: encourage daily physical activity and well- balanced diet. * Lydia Snyder RMA - 01/03/2024 8:00 AM CDT Catie Mcdonald, 28 y.o., female is here for hormonal issues Medication Refills: Patient reports/denies need for medication refills. Orders Pended: no Requested Prescriptions No prescriptions requested or ordered in this encounter Home Medications Medication Sig Start Date End Date Taking? Authorizing Provider amphetamine-dextroamphetamine (Adderall) 10 MG Tablet Take 10 mg by mouth 2 times daily. Patient not taking: Reported on 01/03/2024 Art Sheth MD buPROPion (WELLBUTRIN) 75 MG Tablet Take 150 mg by mouth daily. Yes Art Sheth MD Focalin XR 10 MG CAPSULE SR 24 HR Take 10 mg by mouth daily. 12/20/23 Yes Art Sheth MD ibuprofen (MOTRIN) 200 MG Tablet Take 3 Tabs by mouth every 6 hours as needed for Pain. Patient not taking: Reported on 01/03/2024 06/26/17 Claudia Winslow MD Multiple Vitamins-Minerals (MULTI-VITAMIN GUMMIES PO) Take by mouth. Yes Art Sheth MD Vit-Fe Fumarate-FA ( VITAMIN PO) Take by mouth. Patient not taking: Reported on 01/03/2024 Art Sheth MD sertraline (ZOLOFT) 25 MG Tablet Take 25 mg by mouth daily. Patient not taking: Reported on 11/18/2023 Art Sheth MD venlafaxine (EFFEXOR-XR) 150 MG CAPSULE SR 24 HR Take 150 mg by mouth daily. Yes ProviderArt MD There are no discontinued medications. I have reviewed the home medication list with the patient and have reconciled discrepancies. The list is accurate to the best of my knowledge. Smoking Status: Social History Tobacco Use Smoking status: Never Smokeless tobacco: Never Vaping Use Vaping status: Never Used Substance Use Topics Alcohol use: Not Currently Drug use: No Smoking Cessation Counseling Given: no Health Care Maintenance: Health Maintenance Due Topic Date Due Hepatitis B Immunization (1 of 3 - 19+ 3-dose series) Never done Pap Smear Never done Influenza Immunization (1) 11/03/2023 SARS-COV-2 Immunization ( season) 2023 Orders Pended: no The following BPA's have been addressed with the patient today: BMI * Elsa Mixon, ANABELLA, GIN INSPECTOR - 01/03/2024 8:00 AM CDT [facility] - [facility] - [address] [address] Dept: [phone] Dept Loc: [phone] Loc Patient: Catie Chowdman : 1995 Sex: female Subjective: HPI: Catie Mcdonald presents for hormonal issues . Pt presents today with complaints of irregular periods, 2 or more per month, bright red, tired, muscle twitching, lower back pain, She has had 3 children, Jan 27 2022 was the of her last child, last flame hardener appt- 06/25, Pt states that she has had problems with irregular periods for years,Pt feels that these symptoms have been present for 7+ years, pt feels that she has tried to address this issue and other issues in the past but does not feel that her needs have been heard or addressed. Pt is concerned that she needs tested for cancer or genetic issues, Pt states she has never been tested for bleeding issues, she has an appt with flame hardener in the near future. Pt has a history of autism and anxiety that she currently sees psychiatry. Pt states that she has a history of vit D def, Vit B12 def. Review of Systems Constitutional: Positive for malaise/fatigue. HENT: Negative. Eyes: Negative. Respiratory: Negative. Cardiovascular: Negative. Gastrointestinal: Negative. Genitourinary: Negative. Irregular periods, Musculoskeletal: Positive for back pain. Muscle twitching Skin: Negative. Neurological: Negative. Psychiatric/Behavioral: Negative. Objective: Vitals: 01/03/24 0821 BP: 120/80 Pulse: 91 Resp: 20 Temp: 98.4 ??F (36.9 ??C) TempSrc: Temporal SpO2: 97% Weight: 228 lb (103.4 kg) Height: 5' 5 (1.651 m) LMP: Patient's last menstrual period was 12/31/2023 (exact date). Body mass index is 37.94 kg/m??. Physical Exam Vitals and nursing note reviewed. Constitutional: General: She is not in acute distress. Appearance: She is well-developed. HENT: Head: Normocephalic and atraumatic. Right Ear: External ear normal. Left Ear: External ear normal. Mouth/Throat: Mouth: Mucous membranes are moist. Pharynx: Oropharynx is clear. Eyes: Conjunctiva/sclera: Conjunctivae normal. Neck: Vascular: No carotid bruit. Cardiovascular: Rate and Rhythm: Normal rate and regular rhythm. Heart sounds: Normal heart sounds. Pulmonary: Effort: Pulmonary effort is normal. No respiratory distress. Breath sounds: Normal breath sounds. Musculoskeletal: Right lower leg: No edema. Left lower leg: No edema. Skin: General: Skin is warm and dry. Neurological: Mental Status: She is alert and oriented to person, place, and time. Psychiatric: Mood and Affect: Mood normal. Behavior: Behavior normal. Thought Content: Thought content normal. Judgment: Judgment normal. Medical Decision Making: Assessment & Plan Diagnoses and all orders for this visit: Irregular periods - COMPLETE BLOOD COUNT (CBC) WITH DIFF; Future - CMP (COMPREHENSIVE METABOLIC PANEL); Future - HEMOGLOBIN A1C W/ ESTIMATED GLUCOSE; Future - LIPID PANEL; Future - THYROID SCREEN WITH REFLEX; Future - FERRITIN; Future - [employer]; Future - VITAMIN D, 25 HYDROXY TOTAL; Future - VITAMIN B12; Future Other orders - Focalin XR 10 MG CAPSULE SR 24 HR; Take 10 mg by mouth daily. - Multiple Vitamins-Minerals (MULTI-VITAMIN GUMMIES PO); Take by mouth. Follow-up Information Return if symptoms worsen or fail to improve. Fasting labs ordered Encourage patient to continue to follow up with PCP regarding her symptoms, Encourage patient to continue follow up with psychiatry Encourage follow up with Financial Developer. No medications was given or changed at this appt. LOS Today OFFICE/OP NEW LVL 4 MOD MDM/45-59 MIN documented in this encounter Plan of Treatment Upcoming Encounters Date Type Department Care Team (Late st Contact Info) Description 04/24/2024 9:30 AM DIRECTOR BLOOD BANK Office [facility] - [place] [address] [place] [phone] Aissatou Johnston MD [address] [place] [address] documented as of this encounter Results * VITAMIN B12 (01/10/2024 1:32 PM DIRECTOR BLOOD BANK) VITAMIN B12 313 213 - 816 pg/mL 01/10/2024 4:29 PM DIRECTOR BLOOD BANK [facility] Blood Venipuncture / Unknown 01/10/2024 1:32 PM DIRECTOR BLOOD BANK 01/10/2024 1:32 PM DIRECTOR BLOOD BANK us Elsa Mixon APRN, GIN INSPECTOR CHEMISTRY ORDERABLES Final Result [facility] [address] [place] [address] * VITAMIN D, 25 HYDROXY TOTAL (01/10/2024 1:32 PM DIRECTOR BLOOD BANK) VITAMIN D, 25 HYDROX 21.6 ng/mL 01/10/2024 4:29 PM DIRECTOR BLOOD BANK [facility] Blood Venipuncture / Unknown 01/10/2024 1:32 PM DIRECTOR BLOOD BANK 01/10/2024 1:32 PM DIRECTOR BLOOD BANK Narrative [facility] - 01/10/2024 4:29 PM DIRECTOR BLOOD BANK Published reference ranges for Vitamin D vary depending on time and place and method of testing, and on patient's age, sex, ethnicity and levels of other measured analytes such as parathormone, calcium and phosphorus. ??The result should be evaluated in conjunction with clinical findings and suspicions. [place] of [employer] and Endocrine Clinical Practice Guidelines: Status Vitamin D levels (ng/mL) Deficient <=20 At risk of inadequacy 21-29 Sufficient 30-100 Centers of Disease Control and Prevention Guidelines: Status Vitamin D levels (ng/mL) Deficient <13 At risk of inadequacy 13-19 Sufficient 20-50 Possibly harmful >50 References: [place] of [employer], 2010 Dietary reference intakes for calcium and vitamin D. [place]: ??The National Academies Press. Vero M, Juvenal N, Constantino JOSEPH, et al., Evaluation, treatment, and prevention of Vitamin D deficiency: an Endocrinology Clinical Practice Guideline. JCEM 2011 96: 7 5064-3718. Tiffanie Nair, Rod C, Hetal Mcclure, et al., Vitamin D Status: ??[place], 1005, [facility] data brief, no. 59, MD [place]: ??National Center for Health Statistics. 2010. us Elsa Mixon APRN, GIN INSPECTOR CHEMISTRY ORDERABLES Final Result [facility] [address] [place] [address] * [employer] (01/10/2024 1:32 PM DIRECTOR BLOOD BANK) [employer] 116 49 - 141 % 01/10/2024 10:07 PM DIRECTOR BLOOD BANK [facility] Blood Venipuncture / Unknown 01/10/2024 1:32 PM DIRECTOR BLOOD BANK 01/10/2024 1:32 PM DIRECTOR BLOOD BANK us Elsa Mixon APRN, GIN INSPECTOR HEMATOLOGY ORDERABLES Nicolette l Result Performing Organization Address City/[facility]/ZIP Co de Phone Number [facility] [address] [place] [address], [place] * FERRITIN (01/10/2024 1:32 PM DIRECTOR BLOOD BANK) FERRITIN 26 5 - 204 ng/mL 01/10/2024 4:21 PM DIRECTOR BLOOD BANK [facility] Blood Venipuncture / Unknown 01/10/2024 1:32 PM DIRECTOR BLOOD BANK 01/10/2024 1:32 PM DIRECTOR BLOOD BANK us Elsa Mixon APRN, JOEL CHEMISTRY ORDERABLES Final Result Performing Organization Address City/[facility]/ZIP Co de Phone Number [facility] [address] [place] [address] * (ABNORMAL) LIPID PANEL (01/10/2024 1:32 PM DIRECTOR BLOOD BANK) CHOLESTEROL 213(H) <200 mg/dL 01/10/2024 4:06 PM DIRECTOR BLOOD BANK [facility] TRIGLYCERIDES 287(H) <150 mg/dL 01/10/2024 4:06 PM DIRECTOR BLOOD BANK [facility] HDL CHOLESTEROL 33(L) >40 mg/dL 4:06 PM DIRECTOR BLOOD BANK [facility] LDL 123 <130 mg/dL 01/10/2024 4:06 PM DIRECTOR BLOOD BANK [facility] VLDL 57(H) 10 - 50 mg/dL 01/10/2024 4:06 PM DIRECTOR BLOOD BANK [facility] CHOL/HDL RATIO 6.5(H) 0.0 - 4.4 01/10/2024 4:06 PM DIRECTOR BLOOD BANK [facility] NON-HDL CHOLESTEROL 180(H) <130 mg/dL 01/10/2024 4:06 PM DIRECTOR BLOOD BANK [facility] IS THE PATIENT REQUIRED TO BE FASTING? Yes 01/10/2024 4:06 PM DIRECTOR BLOOD BANK [facility] HAS THE PATIENT BEEN FASTING? Yes 01/10/2024 4:06 PM DIRECTOR BLOOD BANK [facility] Blood Venipuncture / Unknown 01/10/2024 1:32 PM DIRECTOR BLOOD BANK 01/10/2024 1:32 PM DIRECTOR BLOOD BANK Elsa Mixon ELEMENTARY SUPERVISOR, GIN INSPECTOR CHEMISTRY ORDERABLES Final Result Performing Organization Address [facility] [[email or web address]] de Phone Number [facility] [address] [place] [address] * HEMOGLOBIN A1C W/ ESTIMATED GLUCOSE (01/10/2024 1:32 PM DIRECTOR BLOOD BANK) HGB-A1C 5.3 4.0 - 6.0 % 01/10/2024 3:51 PM DIRECTOR BLOOD BANK [facility] Est Average Glucose 105.4 mg/dL 01/10/2024 3:51 PM DIRECTOR BLOOD BANK [facility] Blood Venipuncture / Unknown 01/10/2024 1:32 PM DIRECTOR BLOOD BANK 01/10/2024 1:32 PM DIRECTOR BLOOD BANK Narrative [facility] - 01/10/2024 3:51 PM DIRECTOR BLOOD BANK HEMOGLOBIN A1C: DIABETIC PATIENTS: WELL-CONTROLLED: ?? 6.2 - 7.0 INTERMEDIATE WELL-CONTROLLED: ??7.0 - 9.0 POORLY-CONTROLLED: ??>9.0 Elsa Mixon ELEMENTARY SUPERVISOR, GIN INSPECTOR CHEMISTRY ORDERABLES Final Result Performing Organization Address City/[facility] [[email or web address]] de Phone Number [facility] [address] [place] [address] * (ABNORMAL) CMP (COMPREHENSIVE METABOLIC PANEL) (01/10/2024 1:32 PM DIRECTOR BLOOD BANK) SODIUM 139 136 - 145 mmol/L 01/10/2024 4:06 PM [facility] POTASSIUM 3.8 3.5 - 5.1 mmol/L 01/10/2024 4:06 PM [facility] CHLORIDE 104 98 - 107 mmol/L 01/10/2024 4:06 PM [facility] CO2, VENOUS 27 22 - 30 mmol/L 01/10/2024 4:06 PM [facility] ANION GAP 11.8 <18.0 mmol/L 01/10/2024 4:06 PM [facility] GLUCOSE 119(H) 70 - 99 mg/dL 01/10/2024 4:06 PM [facility] BUN 7 5 - 18 mg/dL 01/10/2024 4:06 PM [facility] CREATININE, BLOOD 0.88 0.60 - 1.00 mg/dL 01/10/2024 4:06 PM [facility] BUN/CREATININE RATIO 8(L) 12 - 20 ratio 01/10/2024 4:06 PM [facility] TOTAL PROTEIN 6.9 6.3 - 8.2 g/dL 01/10/2024 4:06 PM [facility] ALBUMIN 4.3 3.5 - 5.0 g/dL 01/10/2024 4:06 PM [facility] A/G RATIO 1.7 1.0 - 2.2 01/10/2024 4:06 PM [facility] CALCIUM 9.5 8.7 - 10.5 mg/dL 01/10/2024 4:06 PM [facility] T BILI 0.3 0.2 - 1.2 mg/dL 01/10/2024 4:06 PM [facility] SGOT (AST) 19 5 - 34 U/L 01/10/2024 4:06 PM [facility] SGPT (ALT) 13 0 - 55 U/L 01/10/2024 4:06 PM [facility] ALKALINE PHOSPHATASE 113 40 - 150 U/L 01/10/2024 4:06 PM [facility] IS THE PATIENT REQUIRED TO BE FASTING? No 01/10/2024 4:06 PM [facility] GFR, ESTIMATED >60 >=60 01/10/2024 4:06 PM [facility] Comment: Creatinine Clearance is the preferred criteria for selecting drug dose adjustments in renally impaired patients. ??The GFR is provided as additional pertinent clinical information. GFR is reported in mL/min/1.73 sq m. Calculation based on the Chronic Kidney Disease Epidemiology Collaboration (CKD- EPI) equation refit without adjustment for race. GFR, EST. >60 >=60 024 4:06 PM [facility] GFR, EST. NONAFRICAN >60 >=60 01/10/2024 4:06 PM [facility] Blood Venipuncture / Unknown 01/10/2024 1:32 PM DIRECTOR BLOOD BANK 01/10/2024 1:32 PM DIRECTOR BLOOD BANK us Elsa Mixon ELEMENTARY SUPERVISOR, GIN INSPECTOR CHEMISTRY ORDERABLES Final Result [facility] [address] [place] [address] documented in this encounter Visit Diagnoses Diagnosis Irregular periods- Primary Irregular menstrual cycle documented in this encounter Care Teams Operations Asst Relationship Specialty Start Date End Date Pema Rousseau MD [address] [place] [address] PCP - General Family Medicine 11/18/23 01/16/24 documented as of this encounter
--- OUTSIDE RECORDS SUMMARY | 2024-02-22 14:39 | XMS_ITS | Encounter Summary ---
Author Organization [facility] Care Team Providers Care Family Development Specialist Name Role Phone Aissatou Johnston MD Primary Care Provider [phone] Encounter Details Date Type Department Care Team (Latest Contact Info) Description 01/17/2024 Travel Social History Tobacco Use Types Packs/Day Years Used Date Smoking Tobacco: Never Smokeless Tobacco: Never Alcohol Use Standard Drinks/Week Comments Not Currently 0 (1 standard drink = 0.6 oz pur e alcohol) PHQ-2 Answer Date Recorded Total Score - Questions 1-9 19 01/02 Sexually Active Control Partners Comments Yes Male Comments No Sex and Gender Information Value Date Recorded Sex Assigned at Not on file Legal Sex Female 10:24 AM EVAPORATOR OPERATOR MOLASSES Gender Identity Not on file Sexual Orientation Not on file documented as of this encounter Functional Status * Question Answer Date of Assessment Author Little interest or pleasure in doing things More than half the days 01/17/2024 8:59 AM EVAPORATOR OPERATOR MOLASSES Dilshad Blevins CMA Feeling down, depressed, or hopeless More than half the days 01/17/2024 8:59 AM EVAPORATOR OPERATOR MOLASSES Dilshad Blevins CMA * Over the past 2 weeks, how often have you been bothered by any of the following problems? Question Answer Date of Assessment Author Patient Health Questionnaire-2 Score 4 01/02 8:59 AM Dilshad Paul CMA documented as of this encounter Plan of Treatment Upcoming Encounters Date Type Department Care Team (Late st Contact Info) Description 04/24/2024 9:30 AM EVAPORATOR OPERATOR MOLASSES Office Visit [facility] - Primary Care - [address] [place] [address] [place] [address] Aissatou Johnston MD [address] [place], [place] [id number] documented as of this encounter Visit Diagnoses Not on filedocumented in this encounter Additional Health Concerns Assessment Noted Time PHQ-9 Depression Total Score: 19 024 8:59 AM EVAPORATOR OPERATOR MOLASSES documented as of this encounter Care Teams Family Development Specialist Relationship Specialty Start Date End Date Aissatou Johnston MD [address] [place] [address] PCP - General Family Medicine 01/17/24 documented as of this encounter
--- OUTSIDE RECORDS SUMMARY | 2024-02-22 14:39 | XMS_ITS | Encounter Summary ---
Author Organization [facility] Address [address] [place] [address] Phone Care Team Providers Care Manager Nursing Home Name Role Phone Pema Rousseau MD Primary Care Provider [phone] Encounter Details Date Type Department Care Team (Late Contact Info) Description 01/08/2024 Telephone [facility] [address] [place] [phone] Aissatou Johnston MD [address] [facility] [place] [address] Social History Tobacco Use Types Packs/Day Years Used Date Smoking Tobacco: Never Smokeless Tobacco: Never Alcohol Use Standard Drinks/Week Comments Not Currently 0 (1 standard drink = 0.6 oz pur e alcohol) Sexually Active Control Partners Comments Yes Male Comments No Sex and Gender Information Value Date Recorded Sex Assigned at Not on file Legal Sex Female 10:24 AM MILITARY EDUCATION COORDINATOR Gender Identity Not on file Sexual Orientation Not on file documented as of this encounter Miscellaneous Notes * Telephone Encounter - Daniel Lares - 01/08/2024 2:11 PM CST Called to pre-visit, left msg TARY EDUCATION COORDINATOR documented in this encounter Plan of Treatment Upcoming Encounters Date Type Department Care Team (Late Contact Info) Description 04/24/2024 9:30 AM MILITARY EDUCATION COORDINATOR Office Visit [facility] - Primary Care - [place] [address] [place] [phone] Aissatou Johnston MD [address] [place] [address] documented as of this encounter Visit Diagnoses Not on filedocumented in this encounter Care Teams Manager Nursing Home Relationship Specialty Start Date End Date Pema Rousseau MD [address] [place] [address] PCP - General Family Medicine 11/18/23 01/16/24 documented as of this encounter
--- OUTSIDE RECORDS SUMMARY | 2024-02-22 14:39 | XMS_ITS | Encounter Summary ---
Author Organization [facility] Address [address] [place] [address] Phone Care Team Providers Care Cardiovascular Physician Assistant Name Role Phone Pema Rousseau MD Primary Care Provider [phone] Encounter Details Date Type Department Care Team (Late Contact Info) Description 01/15/2024 Telephone [facility] [address] [place] [phone] Aissatou Johnston MD [address] [facility] [address] Social History Tobacco Use Types Packs/Day Years Used Date Smoking Tobacco: Never Smokeless Tobacco: Never Alcohol Use Standard Drinks/Week Comments Not Currently 0 (1 standard drink = 0.6 oz pur e alcohol) Sexually Active Control Partners Comments Yes Male Comments No Sex and Gender Information Value Date Recorded Sex Assigned at Not on file Legal Sex Female 10:24 AM CARPET SEWING MACHINE OPERATOR Gender Identity Not on file Sexual Orientation Not on file documented as of this encounter Miscellaneous Notes * Telephone Encounter - Daniel Lares - 01/15/2024 10:22 AM CST Called to pre-visit, left msg ET SEWING MACHINE OPERATOR documented in this encounter Plan of Treatment Upcoming Encounters Date Type Department Care Team (Late Contact Info) Description 04/24/2024 9:30 AM CARPET SEWING MACHINE OPERATOR Office Visit [facility] - Primary Care - [place] [address] [place] [phone] Aissatou Johnston MD [address] [place] [address] documented as of this encounter Visit Diagnoses Not on filedocumented in this encounter Care Teams Cardiovascular Physician Assistant Relationship Specialty Start Date End Date Pema Rousseau MD [address] [place] [address] PCP - General Family Medicine 11/18/23 01/16/24 documented as of this encounter
--- OUTSIDE RECORDS SUMMARY | 2024-02-22 14:39 | XMS_ITS | Encounter Summary ---
Author Organization [facility] Address [address] [place] [address] Phone Care Team Providers Care Foundry Molder Name Role Phone Aissatou Johnston MD Primary Care Provider [phone]- [phone] Reason for Visit * Reason Onset Date Comments Medication Problem 02/13/2024 focalin Encounter Details Date Type Department Care Team (Late st Contact Info) Description 02/13/2024 Telephone [facility] [address] [place] [address] Aissatou Johnston MD [address] [facility] [place] [address] Medication Problem (focalin) Social History Tobacco Use Types Packs/Day Years [...] on file Legal Sex Female 10:24 AM PHOTOENGRAVER APPRENTICE Gender Identity Not on file Sexual Orientation Not on file documented as of this encounter Miscellaneous Notes * Telephone Encounter - Johnson Fried RN - 02/13/2024 5:02 PM CST Images from the original note were not included. Aissatou Johnston MD You6 minutes ago (4:55 PM) SR I will see if the generic is covered but I suspect not. If so I will send in adderall. Aissatou Johnston MD Requested Prescriptions Signed Prescriptions Disp Refills Dexmethylphenidate HCl 15 MG CAPSULE SR 24 HR 30 Capsule 0 Sig: Take 1 Capsule by mouth daily for 30 days. Indications: Attention Deficit Hyperactivity Disorder Authorizing Provider: AISSATOU JOHNSTON Dexmethylphenidate HCl 15 MG CAPSULE SR 24 HR 30 Capsule 0 Sig: Take 1 Capsule by mouth daily for 30 days. Authorizing Provider: AISSATOU JOHNSTON Dexmethylphenidate HCl 15 MG CAPSULE SR 24 HR 30 Capsule 0 Sig: Take 1 Capsule by mouth daily for 30 days. Authorizing Provider: AISSATOU JOHNSTON OENGRAVER APPRENTICE * Telephone Encounter - Johnson Fried RN - 02/13/2024 4:36 PM CST Situation: Focalin Background: See below Assessment: Stacey is calling from [facility] pharmacy reporting they received BiBC[employer] Focalin RX. However, it was marked as dispense name brand only and that no substitutions are permitted Their pharmacy does not have brand name and when Carolyn looked it up, it says brand name is no longer carried for them. Stacey is asking if the script can be resent to them and marked that substitution for name brand is acceptable Recommendation: Dr. Johnston Please advise OENGRAVER APPRENTICE documented in this encounter Plan of Treatment Upcoming Encounters Date Type Department Care Team (Late st Contact Info) Description 04/24/2024 9:30 AM PHOTOENGRAVER APPRENTICE Office Visit [facility] - Primary Care - [place] [address] [place] [id number] Aissatou Johnston MD [address] [place] [address] documented as of this encounter Visit Diagnoses Diagnosis ADHD (attention deficit hyperactivity disorder), inattentive type Attention deficit disorder with hyperactivity documented in this encounter Additional Health Concerns Assessment Noted Time PHQ-9 Depression Total Score: 19 024 8:59 AM PHOTOENGRAVER APPRENTICE documented as of this encounter Care Teams Foundry Molder Relationship Specialty Start Date End Date Aissatou Johnston MD [address] [place] [address] PCP - General Family Medicine 01/17/24 documented as of this encounter
--- OUTSIDE RECORDS SUMMARY | 2024-02-22 14:39 | XMS_ITS | Encounter Summary ---
Author Organization [facility] Address [address] [place] [address] Phone Care Team Providers Care Incinerator Plant Laborer Name Role Phone Aissatou Johnston MD Primary Care Provider [phone]- [phone] Reason for Referral * Consult, Test & Initiate Treatment (Routine) - Open Specialty Diagnoses / Procedures Referred By Contdomenico t Referred To Contact Diagnoses Chronic idiopathic constipation Aissatou Johnston MD [address] [place] [address] Phone: tel: fax: [facility] [place] [address] Phone: tel: fax: Referral ID Status Reason Start Date Expiration Date Visits Re quested Visits Authorized [id number] Open 01/17/2024 1 1 Scheduling Instructions Catie is being referred for constipation and abdominal pain Please contact patient for scheduling questions or concerns. BOTOMIST SUPERVISOR/INSTRUCTOR Reason for Visit * Reason Comments Preventive Care Encounter Details Date Type Department Care Team ([facility] Contact Info) Description 01/17/2024 8:45 AM PHLEBOTOMIST SUPERVISOR/INSTRUCTOR Office Visit [facility] - Primary Care - [place] [address] [place] [phone] Aissatou Johnston MD [address] [place] [address] Depression with anxiety (Primary Dx); Chronic idiopathic constipation; Mixed hyperlipidemia; Immunization due; Hypothyroidism (acquired) Discharge Disposition: Discharged to home or Selfcare [...] on file Legal Sex Female 10:24 AM PHLEBOTOMIST SUPERVISOR/INSTRUCTOR Gender Identity Not on file Sexual Orientation Not on file documented as of this encounter Last Filed Vital Signs Vital Sign Reading Time Taken Comments Blood Pressure 118/86 01/17/2024 8:58 AM PHLEBOTOMIST SUPERVISOR/INSTRUCTOR Pulse 76 01/17/2024 8:58 AM PHLEBOTOMIST SUPERVISOR/INSTRUCTOR Temperature 37.2 ??C (99 ??F) 01/17/2024 8:58 AM PHLEBOTOMIST SUPERVISOR/INSTRUCTOR Respiratory Rate 18 01/17/2024 8:58 AM PHLEBOTOMIST SUPERVISOR/INSTRUCTOR Oxygen Saturation 96% 01/17/2024 8:58 AM PHLEBOTOMIST SUPERVISOR/INSTRUCTOR Inhaled Oxygen Concentration - - Weight 102.7 kg (226 lb 6 oz) 01/17/2024 8:58 AM PHLEBOTOMIST SUPERVISOR/INSTRUCTOR Height 164.5 cm (5' 4.75 ) 01/17/2024 8:58 AM CS T Body Mass Index 37.96 01/17/2024 8:58 AM PHLEBOTOMIST SUPERVISOR/INSTRUCTOR documented in this encounter Functional Status * Question Answer Date of Assessment Author Little interest or pleasure in doing things More than half the days 01/17/2024 8:59 AM PHLEBOTOMIST SUPERVISOR/INSTRUCTOR Dilshad Blevins CMA Feeling down, depressed, or hopeless More than half the days 01/17/2024 8:59 AM PHLEBOTOMIST SUPERVISOR/INSTRUCTOR Dilshad Blevins CMA * Over the past 2 weeks, how often have you been bothered by any of the following problems? Question Answer Date of Assessment Author Patient Health Questionnaire-2 Score 4 01/02 8:59 AM PHLEBOTOMIST SUPERVISOR/INSTRUCTOR Dilshad Blevins CMA documented as of this encounter Progress Notes * Daniel Lares - 01/17/2024 8:45 AM CST Pre-Visit Planning Documentation Main reason for visit? New patient Any other concerns or questions that should be discussed at the visit? No Recent ED Visits and [facility]izations [facility]) Health Maintenance Due Topic Date Due Hepatitis B Immunization (1 of 3 - 19+ 3-dose series) Never done Pap Smear Never done Influenza Immunization (1) 11/03/2023 SARS-COV-2 Immunization ( season) 2023 Orders due are pended? no Pre-Visit Planning Status: Incomplete Communication Method Used to Complete PVP: Phone Pre-Visit Planning documented on 01/15/24 10:29 AM PHLEBOTOMIST SUPERVISOR/INSTRUCTOR by Daniel Lares Called to pre-visit, left msg BOTOMIST SUPERVISOR/INSTRUCTOR * Dilshad Blevins, [facility] - 01/17/2024 8:45 AM CST Catie Mcdonald, 28 y.o., female is here for Preventive Care Medication Refills: Patient reports/denies need for medication refills. Orders Pended: no Requested Prescriptions No prescriptions requested or ordered in this encounter Home Medications Medication Sig Start Date End Date Taking? Authorizing Provider buPROPion (WELLBUTRIN) 150 MG XL tablet Take 150 mg by mouth every morning. 01/04/24 Yes Art Sehth MD Focalin XR 10 MG CAPSULE SR 24 HR Take 10 mg by mouth daily. 12/20/23 Yes Art Sheth MD ibuprofen (MOTRIN) 200 MG Tablet Take 3 Tabs by mouth every 6 hours as needed for Pain. 06/26/17 Claudia Carter MD Multiple Vitamins-Minerals (MULTI-VITAMIN GUMMIES PO) Take by mouth. Yes Art Sheth MD Vit-Fe Fumarate-FA ( VITAMIN PO) Take by mouth. Yes Art Sheth MD venlafaxine (EFFEXOR-XR) 150 MG CAPSULE SR 24 HR Take 150 mg by mouth daily. Yes Art Sheth MD Medications Discontinued During This Encounter Medication Reason sertraline (ZOLOFT) 25 MG Tablet Therapy completed amphetamine-dextroamphetamine (Adderall) 10 MG Tablet Therapy completed buPROPion (WELLBUTRIN) 75 MG Tablet Therapy completed I have reviewed the home medication list [...] have been addressed with the patient today: Pt presents today to establish care. BOTOMIST SUPERVISOR/INSTRUCTOR * Dilshad Blevins CMA - 01/17/2024 8:45 AM CST Catie is here for her Flu immunization per order of Aissatou Johnston MD dated 01/17/24. Administered in the right deltoid. Vaccine Information Sheet(s) were given on 01/17/24. Verbal consent was obtained. Catie tolerated the immunization well without incident. See Immunization activity for details. BOTOMIST SUPERVISOR/INSTRUCTOR * Aissatou Johnston MD - 01/17/2024 8:45 AM CST Subjective: Subjective Patient is a 28-year-old female who comes in with chief complaint of hyperlipidemia, hypothyroidism, chronic constipation, and depression with anxiety. She would like to get a flu shot. The history is provided by the patient and medical records. Hypothyroid Presents for follow-up visit. Symptoms include constipation, depressed mood, dry skin, fatigue, hair loss and hoarse voice. (Hyperlipidemia) The symptoms have been improving. Review of Systems Constitutional: Positive for fatigue. HENT: Positive for hoarse voice. Gastrointestinal: Positive for constipation. Objective: Objective Physical Exam Vitals and nursing note reviewed. Constitutional: General: She is not in acute distress. Appearance: Normal appearance. She is well-developed. She is not diaphoretic. HENT: Head: Normocephalic and atraumatic. Right Ear: External ear normal. Left Ear: External ear normal. Nose: No congestion or rhinorrhea. Mouth/Throat: Mouth: Mucous membranes are moist. Pharynx: No posterior oropharyngeal erythema. Eyes: General: No scleral icterus. Right eye: No discharge. Left eye: No discharge. Conjunctiva/sclera: Conjunctivae normal. Pupils: Pupils are equal, round, and reactive to light. Neck: Trachea: No tracheal deviation. Cardiovascular: Rate and Rhythm: Normal rate and regular rhythm. Heart sounds: Normal heart sounds. No murmur heard. Pulmonary: Effort: Pulmonary effort is normal. No respiratory distress. Breath sounds: Normal breath sounds. No wheezing, rhonchi or rales. Chest: Chest wall: No tenderness. Abdominal: General: Bowel sounds are normal. There is no distension. Palpations: Abdomen is soft. Tenderness: There is no abdominal tenderness. There is no right CVA tenderness, left CVA tenderness, guarding or rebound. Musculoskeletal: General: Normal range of motion. Cervical back: Normal range of motion and neck supple. No rigidity or tenderness. Lymphadenopathy: Cervical: No cervical adenopathy. Skin: General: Skin is warm and dry. Findings: No rash. Neurological: General: No focal deficit present. Mental Status: She is alert and oriented to person, place, and time. Cranial Nerves: No cranial nerve deficit. Psychiatric: Behavior: Behavior normal. Thought Content: Thought content normal. Judgment: Judgment normal. Comments: Patient has depression and anxiety Assessment and Plan Assessment & Plan See Diagnoses, Orders, Follow-up, and Instructions 1. Depression with anxiety Mood problems may be related to hypothyroidism 2. Chronic idiopathic constipation Hypothyroidism may be the cause of constipation but patient is also being referred to GI - GASTROENTEROLOGY REFERRAL; Future 3. Mixed hyperlipidemia Hyperlipidemia can be due to hypothyroidism - LIPID PANEL; Future 4. Immunization due Patient would like to get a influenza shot today. Risks and benefits were reviewed. 5. Hypothyroidism (acquired) Patient will be treated with thyroid replacement therapy Follow up in 3 months. Patient has a thyroid level ordered to be done prior to the next visit. Patient should call for any new medical problems that occur BOTOMIST SUPERVISOR/INSTRUCTOR documented in this encounter Plan of Treatment Upcoming Encounters Date Type Department Care Team (Late st Contact Info) Description 04/24/2024 9:30 AM PHLEBOTOMIST SUPERVISOR/INSTRUCTOR Office Visit [facility] - Primary Care - Self [address] [place] [phone] Aissatou Johnston MD [address] [place] [address] Scheduled Orders Name Type Priority Associated Diagnoses Orde r Schedule THYROID SCREEN WITH REFLEX Lab Routine Hypothyroidism (acquired) Expected: 01/17/2024, Expires: 04/18/2024 LIPID PANEL Lab Today Mixed hyperlipidemia Expected: 01/17/2024, Expires: 04/18/2024 Scheduled Referrals Name Type Priority Associated Diagnoses Order Schedule GASTROENTEROLOGY REFERRAL Outpatient Referral Routine Chronic idiopathic constipation Expected: 01/17/2024, Expires: 01/16/2025 documented as of this encounter Visit Diagnoses Diagnosis Depression with anxiety- Primary Dysthymic disorder Chronic idiopathic constipation Unspecified constipation Mixed hyperlipidemia Immunization due Need for prophylactic vaccination and inoculation against unspecified single disease Hypothyroidism (acquired) Unspecified hypothyroidism documented in this encounter Additional Health Concerns Assessment Noted Time PHQ-9 Depression Total Score: 19 024 8:59 AM PHLEBOTOMIST SUPERVISOR/INSTRUCTOR documented as of this encounter Care Teams Incinerator Plant Laborer Relationship Specialty Start Date End Date Aissatou Johnston MD [address] [place] [address] PCP - General Family Medicine 01/17/24 documented as of this encounter
--- OUTSIDE RECORDS SUMMARY | 2024-02-22 14:39 | XMS_ITS | Encounter Summary ---
Author Organization [facility] Address [address] [place] [address] Phone Care Team Providers Care Supervisor Tile And Mottle Name Role Phone Pema Rousseau MD Primary Care Provider [phone] Encounter Details Date Type Department Care Team (Late st Contact Info) Description 01/10/2024 1:00 PM ENGINEERING TEST SPECIALIST Lab [address] [phone] [facility] Irregular periods Discharge Disposition: Discharged to home or Selfcare [...] on file Legal Sex Female 10:24 AM ENGINEERING TEST SPECIALIST Gender Identity Not on file Sexual Orientation Not on file documented as of this encounter Progress Notes * Anastasiia Louis - 01/10/2024 1:00 PM CST Catie presents for lab draw per order of Elsa Mixon PATRICIA dated 01/10/24. Specimen collected from right antecubital without incident. sah NEERING TEST SPECIALIST documented in this encounter Plan of Treatment Upcoming Encounters Date Type Department Care Team (Late st Contact Info) Description 04/24/2024 9:30 AM ENGINEERING TEST SPECIALIST [facility] [address] [place] [phone] Aissatou Johnston MD [address] [place] [address] documented as of this encounter Procedures Procedure Name Priority Date/Time Associated Diagnosis Comments VON WILLEBRAND AG Routine 01/10/2024 1:3 2 PM ENGINEERING TEST SPECIALIST Irregular periods VITAMIN D, 25 HYDROXY TOTAL Routine 01/10/2024 1:32 PM ENGINEERING TEST SPECIALIST Irregular periods THYROID SCREEN WITH REFLEX Routine 01/10/2024 1:32 PM ENGINEERING TEST SPECIALIST Irregular periods THYROID SCREEN WITH REFLEX Routine 01/10/2024 1:32 PM ENGINEERING TEST SPECIALIST Irregular periods HEMOGLOBIN A1C W/ ESTIMATED GLUCOSE Routine 01/10/2024 1:32 PM ENGINEERING TEST SPECIALIST Irregular periods CBC WITH AUTO DIFFERENTIAL Routine 01/10/2024 1:32 PM ENGINEERING TEST SPECIALIST Irregular periods VITAMIN B12 Routine 01/10/2024 1:32 PM ENGINEERING TEST SPECIALIST Irregular periods LIPID PANEL Routine 01/10/2024 1:32 PM ENGINEERING TEST SPECIALIST Irregular periods FERRITIN Routine 01/10/2024 1:32 PM ENGINEERING TEST SPECIALIST Irregular periods CMP (COMPREHENSIVE METABOLIC PANEL) Routine 01/10/2024 1:32 PM ENGINEERING TEST SPECIALIST Irregular periods COMPLETE BLOOD COUNT (CBC) WITH DIFF Routine 01/10/2024 1:32 PM ENGINEERING TEST SPECIALIST Irregular periods documented in this encounter Results * THYROID SCREEN WITH REFLEX (01/10/2024 1:32 PM ENGINEERING TEST SPECIALIST) TSH 2.081 0.300 - 5.000 mIU/L 01/10/2024 4:14 PM ENGINEERING TEST SPECIALIST [facility] Blood Venipuncture / Unknown 01/10/2024 1:32 PM ENGINEERING TEST SPECIALIST 01/10/2024 1:32 PM ENGINEERING TEST SPECIALIST us Elsa Mixon APRN, CNP CHEMISTRY ORDERABLES Final Result [facility] [address] [place] [address] * (ABNORMAL) CBC WITH AUTO DIFFERENTIAL (01/10/2024 1:32 PM ENGINEERING TEST SPECIALIST) WBC 11.98 4.00 - 12.00 10(3)/mcL 01/10/2024 3:42 PM ENGINEERING TEST SPECIALIST [facility] RBC 4.59 3.80 - 5.30 10(6)/mcL 01/10/2024 3:42 PM [facility] HEMOGLOBIN (HGB) 14.3 12.0 - 15.8 g/dL 01/10/2024 3:42 PM ENGINEERING TEST SPECIALIST [facility] HEMATOCRIT (HCT) 42.7 36.0 - 47.0 % 01/10/2024 3:42 PM ENGINEERING TEST SPECIALIST [facility] MCV 93.0 82.0 - 96.0 fL 01/10/2024 3:42 PM [facility] MCH 31.2 26.0 - 34.0 pg 01/10/2024 3:42 PM [facility] MCHC 33.5 31.0 - 36.0 g/dL 01/10/2024 3:42 PM ENGINEERING TEST SPECIALIST [facility] PLATELET COUNT 382 140 - 440 10(3)/mcL 01/10/2024 3:42 PM ENGINEERING TEST SPECIALIST [facility] RDW 12.1 11.8 - 15.5 % 01/10/2024 3:42 PM [facility] MPV 9.3(L) 9.7 - 12.4 fL 01/10/2024 3:42 PM [facility] NEUTROPHILS 81.6(H) 47.0 - 73.0 % 01/10/2024 3:42 PM ENGINEERING TEST SPECIALIST [facility] LYMPHOCYTES 15.0(L) 18.0 - 42.0 % 01/10/2024 3:42 PM ENGINEERING TEST SPECIALIST [facility] MONOCYTES 3.0(L) 4.0 - 12.0 % 01/10/2024 3:42 PM [facility] EOSINOPHILS 0.1 0.0 - 5.0 % 01/10/2024 3:42 PM ENGINEERING TEST SPECIALIST [facility] BASOPHILS 0.3 0.0 - 1.0 % 01/10/2024 3:42 PM ENGINEERING TEST SPECIALIST [facility] ABSOLUTE NEUTROPHILS 9.77(H) 1.60 - 7.70 10(3)/[facility] 01/10/2024 3:42 PM [facility] ABSOLUTE LYMPHOCYTES 1.80 1.30 - 3.20 10(3)/[facility] 01/10/2024 3:42 PM ENGINEERING TEST SPECIALIST [facility] ABSOLUTE MONOCYTES 0.36 0.20 - 1.00 10(3)/[facility] 01/10/2024 3:42 PM ENGINEERING TEST SPECIALIST [facility] ABSOLUTE EOSINOPHIL 0.01 0.00 - 0.40 10(3)/[facility] 01/10/2024 3:42 PM [facility] ABSOLUTE BASOPHILS 0.04 0.00 - 0.10 10(3)/[facility] 01/10/2024 3:42 PM [facility] NRBC PER 100 WBC 0 01/10/20 24 3:42 PM [facility] Blood Venipuncture / Unknown 01/10/2024 1:32 PM ENGINEERING TEST SPECIALIST 01/10/2024 1:32 PM ENGINEERING TEST SPECIALIST us Elsa Mixon COMMISSION AUDITOR, RELIGIOUS STUDIES PROFESSOR HEMATOLOGY ORDERABLES Nicolette corral Result [facility] [address] [place] [address] * VITAMIN B12 (01/10/2024 1:32 PM ENGINEERING TEST SPECIALIST) Pathologist [facility] VITAMIN B12 313 213 - 816 pg/mL 01/10/2024 4:29 PM ENGINEERING TEST SPECIALIST [facility] Blood Venipuncture / Unknown 01/10/2024 1:32 PM ENGINEERING TEST SPECIALIST 01/10/2024 1:32 PM ENGINEERING TEST SPECIALIST us Elsa Mixon COMMISSION AUDITOR, RELIGIOUS STUDIES PROFESSOR CHEMISTRY ORDERABLES Final Result [facility] [address] [place] [address] * VITAMIN D, 25 HYDROXY TOTAL (01/10/2024 1:32 PM ENGINEERING TEST SPECIALIST) VITAMIN D, 25 HYDROX 21.6 ng/mL 01/10/2024 4:29 PM ENGINEERING TEST SPECIALIST [facility] Blood Venipuncture / Unknown 01/10/2024 1:32 PM ENGINEERING TEST SPECIALIST 01/10/2024 1:32 PM ENGINEERING TEST SPECIALIST Narrative [facility] - 01/10/2024 4:29 PM ENGINEERING TEST SPECIALIST Published reference ranges for Vitamin D vary depending on time and place and method of testing, and on patient's age, sex, ethnicity and levels of other measured analytes such as parathormone, calcium and phosphorus. ??The result should be evaluated in conjunction with clinical findings and suspicions. [place] of [employer] and Endocrine Clinical Practice Guidelines: Status Vitamin D levels (ng/mL) Deficient <=20 At risk of inadequacy 21-29 Sufficient 30-100 Centers of Disease Control and Prevention Guidelines: Status Vitamin D levels (ng/mL) Deficient <13 At risk of inadequacy 13-19 Sufficient 20-50 Possibly harmful >50 References: [place] [employer], 2010 Dietary reference intakes for calcium and vitamin D. [place]: ??The National Academies Press. Vero M, Juvenal N, Constantino JOSEPH, et al., Evaluation, treatment, and prevention of Vitamin D deficiency: an Endocrinology Clinical Practice Guideline. JCEM 2011 96: 7 5366-9275. Tiffanie A, Rod C, Hetal D, et al., Vitamin D Status: ??[place], 2000- 1005, [facility] data brief, no. 59, MD Megan: ??[facility] Statistics. 2011. us Elsa Mixon APRN, JOEL CHEMISTRY ORDERABLES Final Result [facility] [address] [place] [address] * VON WILLEBRAND AG (01/10/2024 1:32 PM ENGINEERING TEST SPECIALIST) VON WILLE[employer]AND AG 116 49 - 141 % 01/10/2024 10:07 PM ENGINEERING TEST SPECIALIST [facility] Blood Venipuncture / Unknown 01/10/2024 1:32 PM ENGINEERING TEST SPECIALIST 01/10/2024 1:32 PM ENGINEERING TEST SPECIALIST us Elsa Mixon APRN, RELIGIOUS STUDIES PROFESSOR HEMATOLOGY ORDERABLES Nicolette l Result Performing Organization Address City/[facility]/ZIP Co de Phone Number [facility] [address] [place] [address], [place] * FERRITIN (01/10/2024 1:32 PM ENGINEERING TEST SPECIALIST) FERRITIN 26 5 - 204 ng/mL 01/10/2024 4:21 PM ENGINEERING TEST SPECIALIST [facility] Blood Venipuncture / Unknown 01/10/2024 1:32 PM ENGINEERING TEST SPECIALIST 01/10/2024 1:32 PM ENGINEERING TEST SPECIALIST Elsa Mixon APRN RELIGIOUS STUDIES PROFESSOR CHEMISTRY ORDERABLES Final Result Performing Organization Address City/[facility]/ZIP Co de Phone Number [facility] [address] [place] [address] * (ABNORMAL) LIPID PANEL (01/10/2024 1:32 PM ENGINEERING TEST SPECIALIST) CHOLESTEROL 213(H) <200 mg/dL 01/10/2024 4:06 PM ENGINEERING TEST SPECIALIST [facility] TRIGLYCERIDES 287(H) <150 mg/dL 01/10/2024 4:06 PM ENGINEERING TEST SPECIALIST [facility] HDL CHOLESTEROL 33(L) >40 mg/dL 4:06 PM ENGINEERING TEST SPECIALIST [facility] LDL 123 <130 mg/dL 01/10/2024 4:06 PM ENGINEERING TEST SPECIALIST [facility] VLDL 57(H) 10 - 50 mg/dL 01/10/2024 4:06 PM ENGINEERING TEST SPECIALIST [facility] CHOL/HDL RATIO 6.5(H) 0.0 - 4.4 01/10/2024 4:06 PM ENGINEERING TEST SPECIALIST [facility] NON-HDL CHOLESTEROL 180(H) <130 mg/dL 01/10/2024 4:06 PM ENGINEERING TEST SPECIALIST [facility] IS THE PATIENT REQUIRED TO BE FASTING? Yes 01/10/2024 4:06 PM ENGINEERING TEST SPECIALIST [facility] HAS THE PATIENT BEEN FASTING? Yes 01/10/2024 4:06 PM ENGINEERING TEST SPECIALIST [facility] Blood Venipuncture / Unknown 01/10/2024 1:32 PM ENGINEERING TEST SPECIALIST 01/10/2024 1:32 PM ENGINEERING TEST SPECIALIST us Elsa Mixon COMMISSION AUDITOR, RELIGIOUS STUDIES PROFESSOR CHEMISTRY ORDERABLES Final Result [facility] [address] [place] [address] * HEMOGLOBIN A1C W/ ESTIMATED GLUCOSE (01/10/2024 1:32 PM ENGINEERING TEST SPECIALIST) HGB-A1C 5.3 4.0 - 6.0 % 01/10/2024 3:51 PM ENGINEERING TEST SPECIALIST [facility] Est Average Glucose 105.4 mg/dL 01/10/2024 3:51 PM ENGINEERING TEST SPECIALIST [facility] Blood Venipuncture / Unknown 01/10/2024 1:32 PM ENGINEERING TEST SPECIALIST 01/10/2024 1:32 PM ENGINEERING TEST SPECIALIST Narrative [facility] - 01/10/2024 3:51 PM ENGINEERING TEST SPECIALIST HEMOGLOBIN A1C: DIABETIC PATIENTS: WELL-CONTROLLED: ?? 6.2 - 7.0 INTERMEDIATE WELL-CONTROLLED: ??7.0 - 9.0 POORLY-CONTROLLED: ??>9.0 us Elsa Mixon COMMISSION AUDITOR, RELIGIOUS STUDIES PROFESSOR CHEMISTRY ORDERABLES Final Result [facility] [address] [place] [address] * (ABNORMAL) CMP (COMPREHENSIVE METABOLIC PANEL) (01/10/2024 1:32 PM ENGINEERING TEST SPECIALIST) SODIUM 139 136 - 145 mmol/L 01/10/2024 4:06 PM [facility] POTASSIUM 3.8 3.5 - 5.1 mmol/L 01/10/2024 4:06 PM [facility] CHLORIDE 104 98 - 107 mmol/L 01/10/2024 4:06 PM [facility] CO2, VENOUS 27 22 - 30 mmol/L 01/10/2024 4:06 PM [facility] ANION GAP 11.8 <18.0 mmol/L 01/10/2024 4:06 PM [facility] GLUCOSE 119(H) 70 - 99 mg/dL 01/10/2024 4:06 PM [facility] BUN 7 5 - 18 mg/dL 01/10/2024 4:06 PM [facility] CREATININE, BLOOD 0.88 0.60 - 1.00 mg/dL 01/10/2024 4:06 PM [facility] BUN/CREATININE RATIO 8(L) 12 - 20 ratio 01/10/2024 4:06 PM [facility] TOTAL PROTEIN 6.9 6.3 - 8.2 g/dL 01/10/2024 4:06 PM [facility] ALBUMIN 4.3 3.5 - 5.0 g/dL 01/10/2024 4:06 PM [facility] A/G RATIO 1.7 1.0 - 2.2 01/10/2024 4:06 PM [facility] CALCIUM 9.5 8.7 - 10.5 mg/dL 01/10/2024 4:06 PM [facility] T BILI 0.3 0.2 - 1.2 mg/dL 01/10/2024 4:06 PM [facility] SGOT (AST) 19 5 - 34 U/L 01/10/2024 4:06 PM [facility] SGPT (ALT) 13 0 - 55 U/L 01/10/2024 4:06 PM [facility] ALKALINE PHOSPHATASE 113 40 - 150 U/L 01/10/2024 4:06 PM [facility] IS THE PATIENT REQUIRED TO BE FASTING? No 01/10/2024 4:06 PM [facility] GFR, ESTIMATED >60 >=60 01/10/2024 4:06 PM [facility] Comment: Creatinine Clearance is the preferred criteria for selecting drug dose adjustments in renally impaired patients. ??The GFR is provided as additional pertinent clinical information. GFR is reported in mL/min/1.73 sq m. Calculation based on the Chronic Kidney Disease Epidemiology Collaboration (CKD- EPI) equation refit without adjustment for race. GFR, EST. >60 >=60 024 4:06 PM [facility] GFR, EST. NONAFRICAN >60 >=60 01/10/2024 4:06 PM [facility] Blood Venipuncture / Unknown 01/10/2024 1:32 PM ENGINEERING TEST SPECIALIST 01/10/2024 1:32 PM ENGINEERING TEST SPECIALIST us Elsa Mixon COMMISSION AUDITOR, RELIGIOUS STUDIES PROFESSOR CHEMISTRY ORDERABLES Final Result [facility] [address] [place] [address] documented in this encounter Visit Diagnoses Diagnosis Irregular periods Irregular menstrual cycle documented in this encounter Care Teams Supervisor Tile And Mottle Relationship Specialty Start Date End Date Pema Rousseau MD [address] [place] [address] PCP - General Family Medicine 11/18/23 01/16/24 documented as of this encounter
--- OUTSIDE RECORDS SUMMARY | 2024-02-22 14:40 | XMS_ITS | Encounter Summary ---
Author Organization [facility] Care Team Providers Care Line Prep Cook Name Role Phone Pema Rousseau MD Primary Care Provider [phone] Encounter Details Date Type Department Care Team (Latest Contact Info) Description 01/02/2024 Travel Social History Tobacco Use Types Packs/Day Years Used Date Smoking Tobacco: Never Smokeless Tobacco: Never Alcohol Use Standard Drinks/Week Comments Not Currently 0 (1 standard drink = 0.6 oz pur e alcohol) Sexually Active Control Partners Comments Yes Male Comments Unknown Sex and Gender Information Value Date Recorded Sex Assigned at Not on file Legal Sex Female 10:24 AM CHAINSTITCH FELLED SEAM OPERATOR Gender Identity Not on file Sexual Orientation Not on file documented as of this encounter Plan of Treatment Upcoming Encounters Date Type Department Care Team (Late st Contact Info) Description 04/24/2024 9:30 AM CHAINSTITCH FELLED SEAM OPERATOR Office [facility] - [facility] [place] [address] [place] [phone] Aissatou Johnston MD [address] [place] [address] documented as of this encounter Visit Diagnoses Not on filedocumented in this encounter Care Teams Line Prep Cook Relationship Specialty Start Date End Date Pema Rousseau MD [address] [place] [address] PCP - General Family Medicine 11/18/23 01/16/24 documented as of this encounter
--- OUTSIDE RECORDS SUMMARY | 2024-02-22 14:40 | XMS_ITS | Encounter Summary ---
Author Organization [facility] Care Team Providers Care Timber Management Specialist Name Role Phone Pema Rousseau MD Primary Care Provider [phone] Encounter Details Date Type Department Care Team (Latest Contact Info) Description 11/18/2023 Travel Social History Tobacco Use Types Packs/Day Years Used Date Smoking Tobacco: Never Smokeless Tobacco: Never Alcohol Use Standard Drinks/Week Comments Not Currently 0 (1 standard drink = 0.6 oz pur e alcohol) Sexually Active Control Partners Comments Yes Male Comments Unknown Sex and Gender Information Value Date Recorded Sex Assigned at Not on file Legal Sex Female 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 Gender Identity Not on file Sexual Orientation Not on file documented as of this encounter Plan of Treatment Upcoming Encounters Date Type Department Care Team (Late st Contact Info) Description 04/24/2024 9:30 AM 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
--- OUTSIDE RECORDS SUMMARY | 2024-02-22 14:40 | XMS_ITS | Encounter Summary ---
Author Organization [facility] Address [address] [place] [address] Phone Care Team Providers Care Enamel Dipper Name Role Phone Pema Rousseau MD Primary Care Provider [phone] Reason for Visit * Consult, Test & Initiate Treatment (Routine) - Open Specialty Diagnoses / Procedures Referred By Fatimah rodriguez Referred To Contact Behavioral Health Diagnoses Major depressive disorder, recurrent, unspecified Austin Joyner MD [address] [place] [address] [place] [address] Phone: tel: fax: Pop Barclay PSYD [place] Referral ID Status Reason Start Date Expiration Date V isits Requested Visits Authorized [id number] Open [facility] 12 12 Encounter Details Date Type Department Care Team (Latest Contact Info) Description 01/02/2024 11:00 AM CDT Outpatient Clinic Visit [facility] [address] [place] [id number] Pop Barclay PSYD [place] Autism spectrum disorder, without accompanying intellectual or language impairment, requiring support (level 1) (Primary Dx); Attention deficit hyperactivity disorder, predominantly inattentive presentation, moderate Discharge Disposition: Discharged to home or Selfcare [...] on file Legal Sex Female 10:24 AM RN INFORMATICS Gender Identity Not on file Sexual Orientation Not on file documented as of this encounter Patient Instructions * Patient Instructions* Pop Barclay, JEROME - 01/02/2024 11:00 AM CDT Crisis Resources In-Home, Mental Health Crisis Assessment [facility] Crisis Intervention Team?[phone] ([place]) [facility] Crisis Intervention Team?.. [phone] ([place]) [facility] Available for individual, family, or friend for in-home assessment of mental health issues Crisis Stabilization- Residential 24-hour or short-term supervised care at a facility. Available for persons 18 and older, who are experiencing a mental health crisis and do not need hospitalization. [facility] provides 24-hour short-term supervised care for persons aged 18 years and older experiencing an acute psychiatric crisis that does not require hospitalization. The average length of stay is 14 days. Admission to our crisis unit is voluntary; we only accept those individuals who choose to come to the unit. The facility is not prepared to work with persons who may be acutely suicidal or homicidal or who are experiencing serious medical problems or complications. The unit is staffed with nurses and behavioral health technicians and is not a hospital. During their stay on the unit, clients spend time in groups that meet four or more times a day. Thegroups provide education on topics helpful to individuals in crisis and clients are expected to attend and to participate actively. [facility] will provide a safe and supportive environment conducive to achieving stability. No alcohol or drugs are allowed in the unit. All medications are dispensed by [facility] nurses at appropriate times. No visitors are allowed on the unit but there is a phone available for clients to use and make calls. Persons may refer themselves for crisis residential/stabilization services and may be referred by hospitals, police departments, mental health agencies, social service agencies, and families. [facility] ?.....? .[phone] [facility] ?.???..[phone] Brief Crisis Phone Counseling Behavioral Health Response (BHR)?[phone] / [phone] ([facility] (Medicaid patients) ?..[phone] If non-Medicaid patient, the caller will be referred to a local service provider Emergency Sites for Mental Health Assessment and Treatment Behavior[facility] Urgent [facility] (5yrs old to adult) [address] [address] Saturday - Saturday 9:00 am - 7:00 pm *Last patient seen at 6:00 pm Hospitals with Inpatient Psychological Services for Children and/or Adolescents and Adults [facility] (also has substance use treatment for adults) (adolescent, adult) [facility] [place] [address] [facility] (children, adolescents, adult) after business hours [phone] [address]. [facility] (children, adolescents, adult) [address] [place] [address] [facility] (also has substance use treatment for adults) (children, adolescents, adult) Phone: or [phone] [address] [place] [address] [facility] (adolescent, adult) Phone: or [phone] [address] [place] [address] Hospitals with Inpatient Psychological Services for Adults only [facility] (adult, geriatric) [address] [place] [address] [facility] (adult) [address] [place] [address] [facility] (adult) Phone: or [phone] [address] [place] [address] [facility] (geriatric only) Phone: or [phone] [address] [place] [address] [facility] (adult, geriatric) [address] [place], [place] Hotline Numbers [place] Suicide Prevention Hotline: ?..?.8-631-056-[facility] (4202) or 988 [place] Sexual Assault Hotline?..?.?0-463-559-[place] (6098) [facility] Sexual Assault Victims Support?..5-672-052-9061 [facility] Child Abuse Hotline?.1-967.853.3430 Domestic Violence Hotline?.?.0-925-248-S RL (6994) [facility] Lifeline?.? Trans Lifeline?.? LGBTQ Partner Abuse & Sexual Assault Line?.?.1- 264.609.5530 [facility] including support for opioids or other substances.? Crisis Text Line???..?.?.? Text the word help to 452319 [facility] Text Line for service referrals.?.?. Text the word help to 568030 Warm Lines [place] Warmline?8-503-586-79 53 [facility] Warmline? 9a-9p/7 days a week [facility] Warmline?..3-400-942-0051 documented in this encounter Progress Notes * Pop Barclay PSYD - 01/02/2024 11:00 AM CDT [facility] CLINICAL PROGRESS NOTE NAME: Catie Mcdonald AGE: 28 y.o. DATE OF : 1995 DATE OF SERVICE: 01/02/2024 START TIME: 11:15 am END TIME: 12:00 pm DIAGNOSIS: 1. Autism spectrum disorder, without accompanying intellectual or language impairment, requiring support (level 1) 2. Attention deficit hyperactivity disorder, predominantly inattentive presentation, moderate TREATMENT PLAN: Goals Addressed This Visit's Progress COMPLETED: Psychological assessment Patient will participate fully in a psychological assessment to determine her correct diagnosis, within the next 60 days. PROBLEM STATUS: Catie was seen today due to the following concerns: Suspected neurodevelopmental condition Catie has been referred for a psychological assessment with this author to determine whether he meets the criteria for a neurodevelopmental conditions as his ADHD or ASD. Based upon the presenting problem the following treatment modalities were utilized: Psychological assessment THERAPEUTIC INTERVENTIONS USED: This clinician provided therapeutic interventions for: Suspected neurodevelopmental condition: Psychological assessment . Catie met with this author to discuss the results of her psychological assessment. It was explained that she meets the criteria for attention deficit hyperactivity disorder, predominantly inattentive presentation, moderate, as well as autism spectrum disorder, requiring support. Her testing results, relevant symptoms, and recommendations for managing her symptoms were discussed. She asked a number of questions about her recommendations, and stated she would attempt to implement them. She stated she would reach out with any additional questions or concerns, and thanked this author for conducting the assessment. Catie verbalized an understanding and responded well to interventions provided during treatment session. PROGRESS TOWARDS GOALS: Catie reported no change in symptoms. MENTAL STATUS EXAM: Catie is: alert. Affect is: increased in intensity. Mood is: euthymic. There is: no current suicidal ideation.. There is: no history of homicidal ideation.. TREATMENT RECOMMENDATIONS/FOLLOW UP: Recommendations for follow up treatment plan: Patient will attempt to implement recommendations and will reach out with any additional questions or concerns. Pop Barclay PSYD * Pop Barclay PSYD - 01/02/2024 11:00 AM CDT Images from the original note were not included. Name: Catie Mcdonald Ethnicity: White Sex: Female Date of Report: 01/02/2024 Age: 28 Author: Pop Barclay PsyD Date of : 1995 Dates of Assessment: 11/18/2023, 11/25/2023 Referral Source and Questions Ms. Catie Mcdonald has been referred by her primary care provider Anya Avila MD for a psychological assessment. Ms. 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 Measures Administered Clinical Interview [place] Suicide Severity Rating Scalke (C-SSRS) Patient Health Questionnaire-9 (PHQ-9) Generalized Anxiety Disorder-7 (BHARATI-7) Record Review [place] Adult Intelligence Scale, Fourth Edition (WAIS-IV) Social Responsivity Scale, Second Edition (SRS-2) Sensory Profile Adolescent/Adult Patient Description Ms. Mcdonald presents as a 28-year-old woman, of average height and slightly heavier weight, dressedcasually in baggy but clean clothing, and appropriately groomed. She appeared open and honest throughout all interviews. She presented as hyperverbal with a very well-developed vocabulary. Presenting Problem and Its History Ms. Mcdonald has struggled since childhood with various issues relating to socializing, communication, and managing her behavior. In her own words: I want to end the gaslighting for myself from others, from medical providers. I feel disabled. She described a number of sensory sensitivities, including tags, shoes, and loud noises. She tends to hyperfixate on different subjects, and to research certain things obsessively. She recalls If I was reading a book, I could 100% not hear you. She reports engaging in some compulsive behaviors such as the picking of her skin, or chewing on her hair and jewelry as a child. Socializing is difficult for her, and her social mi'kmaq has been limited to a s mall numbr of close friends and family. She finds she has poor spatial awareness. She feels she is less sensitive to things like hunger cues than others, often skipping meals without realizing. She finds noise to be highly distracting and bothersome. She finds she has the ???memory of a flea and is unable to remember well things like changes in plans. She feels she has time blindness. These observations by Ms. Mcdonald and others in her life have caused her to seek the current assessment as to whether she may meet criteria for a neurodevelopmental condition. Relevant Background Information Ms. Mcdonald was raised by both parents until age 3-4, after which they and she lived withher mother. She has one younger brother who struggles with serious mental illness. 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 She has been diagnosed with ADHD by her PCP and is prescribed 10mg Adderall per day. She currently lives with her and three children, ages 6, 3, and 2. She voiced some concerns that some of her children may show signs of a neurodevelopmental condition, but none have been formally diagnosed. Mental Status Evaluation/Behavioral Observations Ms. Mcdonald was oriented to her surroundings. She displayed some possible symptoms of inattention, for example becoming lost and arriving 25 minutes late to her initial appointment, which had to be rescheduled. Her speech had some unexpected qualities. She seemed to display less affect in her speech than expected. The content of her speech was somewhat unexpected as well, and she displayed some slight misinterpeting of social graces. For example, during a subtest of the WAIS-IV, she commented on this author's growling stomach, stating ???feed yourself if you haven't.?? Although a relatively benign comment, it indicated some confusion with what was generally appropriate to say in a professional setting. She also tended to go on ???tangents?? when explaining concepts, such as during the Similarities subtest of the WAIS-IV. She displayed some other atypical features when communicating. She was asked a series of questions by this author from the ADOS-2, including, ???what makes a good friend??? She responded: ???[Someone] nonjudmental. Genuinely kind individuals. People who care about others' feelings. But who picks me out? Some extrovert with zero emotional intelligence who needs a mom. That was the majority of high school.?? This statement and others were said humorously, and Ms. Mcdonald showed a good ability to ???poke fun?? at herself and use self- deprecating humor. Nevertheless, the quality of her reponseindicates that she generally does not connect naturally with others, aside from a few close family members. In terms of nonverbal communication, Ms. Mcdonald seemed to have trouble making consistent eye contact, as well as modulating her facial expressions. She acknowledged that this has traditionally been difficult for her, stating that she has ???no poker face?? and sometimes is caught making disapproving expressions outwardly. Overall Interpretation of Test Findings Cognitive Functioning Ms. Mcdonald was administered the WAIS-IV, an adult test of cognitive ability. It provides an overall level of cognitive ability, the full scale intelligence quotient (FSIQ), and an alternate measure of overall ability called the General Ability Index (GAI). It also provides more specific scores on four domains of cognitive functioning: Verbal Comprehension (VCI): An individual's ability to understand language, express onself verbally, and overall knowledge of their environment. Perceptual Reasoning (GRACY): How well an individual can recognize patterns, use logic to deduce the solution to novel problems, and visualize the solution to a task. Working Memory (WMI): How well an individual can retain discrete bits of information in the short-term and manipulate them. Processing Speed (PSI): How quickly an individual can apply a simple rule to a series of problems while remaining focused and blocking out distracting stimuli. Each of these domains are measured by a person's performance on various activities, called Subtests. Ms. Palomaress scores can also be viewed through their Percentile Rank, which show what percent of her peers Ms. Mcdonald is better than in that area. Finally, the test also provides Confidence Intervals which display the range of Ms. Mcdonald's possible scores with 95% certainty if she took the [id number] times. Her scores on the measure are reproduced below: Scale Name Composite Score Percentile Rank Confidence Interval (95%) Qualitative Descriptor VCI 120 91 114-125 Superior GRACY 107 68 100-113 Average WMI 108 70 101-114 Average PSI 105 63 96-113 Average FSIQ 113 81 109-117 High Average GAI 115 84 110-119 High Average Overall, Ms. Mcdonald displays considerable intellectual strengths in a number of areas. She does not display any objective weaknesses as compared to her peers. Her verbal abilities are particularly noteworthy as placing her within the top 10% of individuals her age. Social Communication The SRS-2 is a self-report measure in which an individual rates various aspects of their reciprocalsocial behavior. Broadly, this is one's ability to make oneself understood, understand others, and fit in socially with peers. Ratings are reported as T-scores, with an average score of 50 and a standard deviation of 10 for each domain. The higher an individual's scores on a domain are, the more atypical their behavior is in that area. Ms. Palomaress scores on the SRS- 2's various domains are reproduced below: SRS-2 Results Domain Name Social Awareness Social Cognition Social Communication Social Motivation Restricted Interests and Repetitive Behavior Total T-Score* 58 69 71 74 72 72 *Mean=50, Standard Deviation=10 A T-score above 76 on any domain of the measure is considered ???Severe?? and a serious indicator of social difficulties associated with ASD, whereas a T-score of 66-75 ios considered ???moderate.?? These results confirmed much of what Ms. Mcdonald reported to this author, namely that she feels quite different from the typical person in terms of her ability to use and understand language, pickle pumper on social cues, or conform to her surroundings. Sensory Sensitivities Ms. Mcdonald was administered the Sensory Profile-Adolescent/Adult, a self-report measure of an individual's level of reactivity towards various stimuli in their environment. Her results can be seen below: Quadrant Raw Score Cute Score Range Cut Score Classification Low Registration 48/75 45-75 Much More Than Most People Sensation Seeking 48/75 43-56 Similar to Most People Sensory Sensitivity 60/75 49-75 Much More Than Most People Sensation Avoiding 54/75 50-75 Much More Than Most People Diagnostic Impression Probability of ASD According to the DSM-5-TR, the current authoritative manual on criteria for psychological disorders, in order to be diagnosed with ASD, an individual must display symptoms that fall into two broad categories: A.) Deficits in social communication and social interaction (3 symptoms required), and B.)Restricted, repetitive patterns of behavior, interests, or activities (2 symptoms required). The results of this author's clinical interview with Ms. Mcdonald, observation of her behavior, and analysis of her performance on the assessment measures all point strongly to her meeting the criteria for ASD. Based on the DSM-5-TR criteria, which are the authoritative criteria for this condition, Ms. Mcdonald displays the following necessary symptoms for this diagnosis: A) Deficits in Social Communication and Social Interaction A1-Deficits in social-emotional reciprocity: Ms. Mcdonald has difficulty understanding the emotions of others, communicating in a fluid manner with others, and generally displays little interest in following the social rules and conventions of her peers, whether in dress, speech, or behavior. She reports a history of these communication deficits since childhood. A2-Deficits in nonverbal communicative behaviors: Ms. Mcdonald exhibits poor integration of nonverbal and verbal communication when speaking with others. She is noticeably less adept at picking up on nonverbal cues such as eye contact, facial expressions, or body language. A3-Deficits in developing, maintaining, and understanding relationships: Ms. Mcdonald struggles withunderstanding social dynamics and and relationships. She displays little interest in forming new relationships or maintaining old ones. B) Restricted, Repetitive Patterns of Behavior, Interests, or Activities B1-Repetitive/steretyped movements or behaviors: Ms. Mcdonald engages in a number of compulsive behaviors, most notably skin-picking. B2-Insistence on sameness, inflexible adherence to routines, or ritualized patterns of verbal or nonverbal behavior: Ms. Mcdonald becomes highly dysregulated when faced with change, whether in her environment, schedule, or daily routine. B4-Hyper/hyposensitivity to sensory stimuli: Ms. Mcdonald's results on the Sensory Profile, as well as her self-report, reveal she is highly sensitive to numerous stimuli in her environment. These include a wide array of fabrics, tastes, smells, and sounds, as well as being sensitive to crowding. Ms. Mcdonald meets the additional necessary criteria for ASD as well. Her symptoms were present in her early developmental years (C). Her symptoms cause clinically significant impairment in nearly allareas of her functioning (D). As is clear from her history and performance on the cognitive testing, these issues are not caused by an intellectual disability (E). She therefore meets the full DSM-5-TR criteria for ASD. In terms of severity, Ms. Palomaress presentation of ASD should be considered ???requiring support (level 1),?? the least severe designation. This is based on her relatively mild (???high functioning?? ) presentation of symptoms of ASD, at least as compared to others. This is not to say that Ms. Palomaress symptoms do not cause her considerable distress; rather that her symptoms only partially impair her functioning in areas like home and work. As is clear from the data presented above, her condition should also be specified as ???without accompanying intellectual or language impairment.?? Probability of ADHD Additionally, Ms. Mcdonald appears to meet the criteria for ADHD. She displays many characteristic symptoms of the ???predominantly inattentive presentation?? of ADHD. These include difficulty focusing and blocking out distractions, struggles with time management and procrastination, issues with organization, and overall high difficulty at sticking with tasks to completion. There is strong evidence that these symptoms have been present since her early developmental years, are present in multiple areas of her life (including school and past work), and lead to some measure of distress and dysfunction. Her difficulties with inattention do appear distinct from her symptoms of ASD, in that she exhibits difficulties in the areas above even in situations which are not associated with any type ofstressful social situation or restricted/repetitive behavior. Rather, her difficulties with inattention are consistently present in all manner of situations. She therefore meets the criteria for ADHD, specifically the predominantly inattentive presentation of this condition. She does not appear to display many significant symptoms of the ???hyperactive/impulsive presentation?? of ADHD to the degree necessary for diagnosis of this subtype of ADHD as well. F90.0 Attention-deficit/hyperactivity disorder, predominantly inattentive presentation, moderate F84 Autism spectrum disorder, without accompanying intellectual or language impairment, requiring support (level 1) Recommendations Ms. Mcdonald experiences a great deal of issues relating with others, which is a direct consequence of her symptoms of ASD. Psychotherapy is especially useful in helping individuals with ASD become more comfortable with appropriate social interaction in a safe, controlled setting. Individuals with ASD, especially those with high intelligence, often under- perform because they simply do not see the importance or benefit of many things that a typical person takes for granted. This could range from things like social pleasantries, to dealing with ???office politics?? , to displaying empathy even when one does not genuinely feel it. There is no easy way for an individual with ASD to fit in better with the expectations of the ???neurotypical?? society around them. Each personwith ASD must find a highly individualized path to success in a world that is simply not set up with them in mind. Ms. Mcdonald is encouraged to begin gathering knowledge on how individuals with ASD can build successful, happy lives while using their unique traits to their advantage. If she plans on returning to school, it is clear that Ms. Mcdonald will require some type of substantial supports throughout her academic career in order to succeed. This author highly recommends thatMs. Mcdonald receive a wide range of supports and modifications during her schooling in order to give him an equal chance of success as her peers. Below are some crucial recommendations for Ms. Mcdonald's success, which include but are not limited to: Extended time on all exams and relevant work. The option to take her exam or complete her work in a quiet room with less stimulation than the general lecture rose. A modified schedule in which Ms. Mcdonald can receive more frequent breaks from lecture instruction to take a walk, use the restroom, get a drink, or do some other sort of alternate activity to reducesensory stimulation around her. Letting Ms. Mcdonald to use a laptop computer or tablet to take notes in class, if this is not normally allowed. Allowing Ms. Mcdonald earplugs or headphones during her work time to reduce overstimulation. Any other resources which Ms. Mcdonald feel's will assist her in academic success. These accomodations should be in keeping with Federal Individuals with Disabilities Education Act (IDEA) standards. There are a number of resources which may give Ms. Mcdonald more insight into her symptoms of ASD, and how to manage them while being fully engaged in her relationships, job, and other activities. This author recommends the book Unmasking Autism by Liban Yanez and Self-Care for Autistic People by Dr. Magaly Jeffrey as first reads in this area. [employer] is an organization which helps families of people with ASD navigate the challenges of school, career, and aging through advocacy, information, and support groups. It is recommended that Ms. Mcdonald make contact with this organization to determine what resources they could provide. They can be reached at or . Ms. Mcdonald would benefit from increased structure in her daily schedule, to help manage her symptoms of inattention. This could include the following techniques: Development of a daily schedule to provide structure to her day, with hard time limits for completion of tasks More frequent check-ins at work to assist with her keeping on-task More frequent, daily rewards to motivate herself to accomplish tasks Working in small bursts with frequent breaks or changes in type of work, rather than longer ???marathon?? sessions of work. Use of a reliable, simple calendar eugenie to help with organization Ms. Mcdonald's love for reading and learning could help her self-educate on how to thrive as an adult with ADHD. The following books may be useful: How to ADHD-Rehana Loja ADHD is Awesome: A Guide To (Mostly) Thriving With ADHD-Kezia Madsen Extra Focus: The Quick Start Guide to Adult ADHD-Cameron Dunham Self-Care for People With ADHD-Alta Dobbs MD Many of the authors above also run social media channels with a great deal of useful information. Many people with ADHD and ASD find benefit from the various types of medication prescribed for thiscondition, although a small amount do not. It may be useful for Ms. Mcdonald to schedule a consultation with a psychiatrist or her primary care provider in order to discuss possible medication adjustments based off the results of this report. It has been a pleasure to work with Ms. Mcdonald, and this author wishes her much success going forward. Please feel free to reach out to this author at [phone] with any additional questions or concerns. Pop Barclay PsyD Date/Time Licensed Psychologist [place] License #[id number] License #[id number] [place] License #[id number] documented in this encounter Plan of Treatment Upcoming Encounters Date Type Department Care Team (Late st Contact Info) Description 04/24/2024 9:30 AM RN INFORMATICS Office Visit [facility] - [facility] - [place] [address] [place] [address] Aissatou Johnston MD [address] [place] [address] documented as of this encounter Visit Diagnoses Diagnosis Autism spectrum disorder, without accompanying intellectual or language impairment, requiring support (level 1)- Primary Autistic disorder, residual state Attention deficit hyperactivity disorder, predominantly inattentive presentation, moderate Attention deficit disorder with hyperactivity documented in this encounter Care Teams Enamel Dipper Relationship Specialty Start Date End Date Pema Rousseau MD [address] [place] [address] PCP - General Family Medicine 11/18/23 01/16/24 documented as of this encounter
--- OUTSIDE RECORDS SUMMARY | 2024-02-22 14:40 | XMS_ITS | Encounter Summary ---
Author Organization [facility] Care Team Providers Care Heater Planer Operator Name Role Phone Pema Rousseau MD Primary Care Provider [phone] Encounter Details Date Type Department Care Team (Latest Contact Info) Description 11/25/2023 Travel Social History Tobacco Use Types Packs/Day Years Used Date Smoking Tobacco: Never Smokeless Tobacco: Never Alcohol Use Standard Drinks/Week Comments Not Currently 0 (1 standard drink = 0.6 oz pur e alcohol) Sexually Active Control Partners Comments Yes Male Comments Unknown Sex and Gender Information Value Date Recorded Sex Assigned at Not on file Legal Sex Female 10:24 AM WASHCLOTH 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 Gender Identity Not on file Sexual Orientation Not on file documented as of this encounter Plan of Treatment Upcoming Encounters Date Type Department Care Team (Late st Contact Info) Description 04/24/2024 9:30 AM WASHCLOTH FOLDER Office Visit [facility] - Primary Care - [place] [address] [place] [id number] Aissatou Johnston MD [address] [place] [address] documented as of this encounter Visit Diagnoses Not on filedocumented in this encounter Care Teams Heater Planer Operator Relationship Specialty Start Date End Date Pema Rousseau MD [address] [place] [address] PCP - General Family Medicine 11/18/23 01/16/24 documented as of this encounter
--- OUTSIDE RECORDS SUMMARY | 2024-02-22 14:40 | XMS_ITS | Encounter Summary ---
Author Organization [facility] Address [address] [place] [address] Phone Care Team Providers Care College Hire Name Role Phone Pema Rousseau MD Primary Care Provider [phone] Reason for Visit * Consult, Test & Initiate Treatment (Routine) - Open Specialty Diagnoses / Procedures Referred By Fatimah rodriguez Referred To Contact Behavioral Health Diagnoses Major depressive disorder, recurrent, unspecified Austin Joyner MD [address] [place] [address] [place] [address] Phone: tel: fax: Pop Barclay PSYD [place] Referral ID Status Reason Start Date Expiration Date V isits Requested Visits Authorized [id number] [facility] 12 12 Encounter Details Date Type Department Care Team (Latest Contact Info) Description 11/25/2023 8:00 AM CDT Outpatient [facility] [address] [place] [address] Pop Barclay PSYD [place] Unspecified neurodevelopmental disorder (Primary Dx) Discharge Disposition: Discharged to home [...] on file Legal Sex Female 10:24 AM SENIOR PRODUCT MANAGER Gender Identity Not on file Sexual Orientation Not on file documented as of this encounter Patient Instructions * Patient Instructions* Pop Barclay, PSYD - 11/25/2023 8:00 AM CDT Crisis Resources In-Home, Mental Health Crisis Assessment [facility] Crisis Intervention Team?[phone] ([place]) [facility] Crisis Intervention Team?.. [phone] ([place]) [facility] Available for individual, family, or friend for in-home assessment of mental health issues Crisis Stabilization- Residential 24-hour or short-term supervised care at a facility. Available for persons 18 and older, who are experiencing a mental health crisis and do not need hospitalization. [facility] provides 24-hour short-term supervised care for persons [...] expected to attend and to participate actively. [facility] will provide a safe and supportive environment conducive to achieving stability. No alcohol or drugs are allowed in the unit. All medications are dispensed by [facility] nurses at appropriate times. No visitors are allowed on the unit but there is a phone available for clients to use and make calls. Persons may refer themselves for crisis residential/stabilization services and may be referred by hospitals, police departments, mental health agencies, social service agencies, and families. [facility] ?.....? .[phone] [facility] ?.???..[phone] Brief Crisis Phone Counseling Behavioral Health Response (BHR)?[phone] / [phone] ([place]) [facility] (Medicaid patients) ?..[phone] If non-Medicaid patient, the caller will be referred to a local service provider Emergency Sites for Mental Health Assessment and Treatment Behavioral Health Urgent Care [facility] Behavior[facility] Urgent Care (5yrs old to adult) [address] [id number] Saturday - Saturday 9:00 am - 7:00 pm *Last patient seen at 6:00 pm Hospitals with Inpatient Psychological Services for Children and/or Adolescents and Adults [facility] (also has substance use treatment for adults) (adolescent, adult) [address] [place] [address] [facility] (children, adolescents, adult) after business hours [phone] [place] [address]. [facility] Behavioral Health (children, adolescents, adult) [address] [place] [address] [facility] (also has substance use treatment for adults) (children, adolescents, adult) Phone: or [phone] [address] [place] [address] [facility] (adolescent, adult) Phone: or [phone] [address] [place] [address] Hospitals with Inpatient Psychological Services for Adults only [facility] (adult, geriatric) [address] [place] [address] [facility] Behavioral Health (adult) [address] [place] [address] [facility] (adult) Phone: or [phone] [address] [place] [address] [facility] (geriatric only) Phone: or [phone] [address] [place] [address] [facility] (adult, geriatric) [address] [place], [place] Hotline Numbers National Suicide Prevention Hotline: ?..?.0-368-428-TALK (9506) or [address] Sexual Assault Hotline?..?.?8-962-715-[place] ([address] Sexual Assault Victims Support?..6-028-492-7474 [facility] Child Abuse Hotline?.1-829.630.1999 Domestic Violence Hotline?.?.1-331-867-S RL (7251) [facility] Lifeline?.? Trans Lifeline?.? LGBTQ Partner Abuse & Sexual Assault Line?.?.1- 986.598.1943 [facility] including support for opioids or other substances.? Crisis Text Line???..?.?.? Text the word help to 607[address] [facility] Text Line for service referrals.?.?. Text the word help to 635735 [facility]?5-021-772-79 [address] [place] [facility] Warmline? 9a-9p/7 days a week [facility] Warmline?..8-635-790-9394 documented in this encounter Progress Notes * Pop Barclay PSYD - 11/25/2023 8:00 AM CDT [facility] CLINICAL PROGRESS NOTE NAME: Catie Mcdonald AGE: 28 y.o. DATE OF : 1995 DATE OF SERVICE: 11/25/2023 START TIME: 8:30 am END TIME: 11:00 am DIAGNOSIS: 1. Unspecified neurodevelopmental disorder TREATMENT PLAN: Goals Addressed This Visit's Progress Psychological assessment On track Patient will participate fully in a psychological [...] assessment . Catie met with this author for approximately 2.5 hours. She was administered the WAIS-IV, Sensory Profile, SRS-2, and then spoke with this author in clinical interview format for the remainder of the session. She tolerated testing well and has been scheduled for a feedback session to discuss the results. Catie verbalized an understanding and responded well to interventions provided during treatment session. PROGRESS TOWARDS GOALS: Catie reported no change in symptoms. MENTAL STATUS EXAM: Catie is: alert. Affect is: increased in intensity. Mood is: euthymic. There is: no current suicidal ideation.. There is: no history of homicidal ideation.. TREATMENT RECOMMENDATIONS/FOLLOW UP: Recommendations for follow up treatment plan: Return for next available follow up appointment. Pop Barclay PSYD documented in this encounter Plan of Treatment Upcoming Encounters Date Type Department Care Team (Late st Contact Info) Description 04/24/2024 9:30 AM SENIOR PRODUCT MANAGER Office Visit [facility] - Primary Care - [address] [place] [address] Aissatou Johnston MD [address] [place] [address] documented as of this encounter Visit Diagnoses Diagnosis Unspecified neurodevelopmental disorder- Primary Unspecified delay in development documented in this encounter Care Teams College Hire Relationship Specialty Start Date End Date Pema Rousseau MD [address] [place] [address] PCP - General Family Medicine 11/18/23 01/16/24 documented as of this encounter
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
--- OUTSIDE RECORDS SUMMARY | 2024-02-22 14:41 | XMS_ITS | Referral Summary ---
Author Organization [facility] Address [address] [place] [address] Care Team Providers Care Qa Architect Name Role Phone Pema Rousseau MD Primary Care Provider [phone] Allergies No known active allergies Medications [id number] -epa-fish oil 400 mcg-35 mg -25 mg-5 mg tablet,chewable Take by mouth daily. Active norethindrone-e. estradiol-iron (JUNEL FE 03/23) 1 mg-20 mcg (21)/75 mg (7) per tabletIndication s: care and examination Take 1 tablet by mouth daily. 28 tablet 14 08/06/2017 Active sertraline (ZOLOFT) 50 mg tablet TAKE 1 TABLET BY MOUTH EVERY DAY 30 tablet 9 12/16/2017 Active Active Problems Problem Noted Date Diagnosed Date Rubella non-immune status, antepartum 12/20/2016 Depression with anxiety 11/22/2016 Resolved Problems Problem Noted Date Diagnosed Date Resolved Date care in third trimester 06/17/2017 06/17/2017 Immunizations Name Administration Dates Next Due Tdap 04/11/2017 Social History Tobacco Use Types Packs/Day Years Used Date Smoking Tobacco: Former Smokeless Tobacco: Never Comments:Never daily, few ti mes a year. 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 Not on file Not on fi le Last Filed Vital Signs Vital Sign Reading Time Taken Comments Blood Pressure 110/82 08/06/2017 9:42 AM CDT Pulse - - Temperature - - Respiratory Rate - - Oxygen Saturation - - Inhaled Oxygen Concentration - - Weight 89.4 kg (197 lb) 08/06/2017 9:42 AM CDT Height 165.1 cm (5' 5 ) 11/22/2016 9:40 AM CDT Body Mass Index 32.78 11/22/2016 9:40 AM CDT Plan of Treatment Not on file Insurance [facility] CHO[facility]US [facility] Care Teams Qa Architect Relationship Specialty Start Date End Date Pema Rousseau MD [address] [place] [address] PCP - General Obstetrics and Gynecology 08/09/23
--- OUTSIDE RECORDS SUMMARY | 2024-02-22 14:41 | XMS_ITS | Encounter Summary ---
Author Organization [facility] Address [address] [place] [address] Phone Care Team Providers Care Wildlife Biostation Research Ecologist Name Role Phone No, Physician Primary Care Provider [phone] Reason for Visit * Reason Comments Follow-up Encounter Details Date Type Department Care Team (Late st Contact Info) Description 08/06/2017 9:20 AM CDT [facility] Visit [facility] [address] [place] [address] Claudia Winslow MD [address] [place] [address] care and examination (Primary Dx) Social History Tobacco Use Types Packs/Day Years Used Date Smoking Tobacco: Former Smokeless Tobacco: Never Comments:Never daily, few ti mes a year. 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 Not on file Not on fi le documented as of this encounter Last Filed Vital Signs Vital Sign Reading Time Taken Comments Blood Pressure 110/82 08/06/2017 9:42 AM CDT Pulse - - Temperature - - Respiratory Rate - - Oxygen Saturation - - Inhaled Oxygen Concentration - - Weight 89.4 kg (197 lb) 08/06/2017 9:42 AM CDT Height - - Body Mass Index 32.78 11/22/2016 9:40 AM CDT documented in this encounter Ordered Prescriptions Prescription Sig Dispense Quantity Refills Last Filled Start Date End Date norethindrone-e.est radiol-iron (03/23) 1 mg-20 mcg (21)/75 mg (7) per tabletIndications:P ostpartum care and examination Take 1 tablet by mouth daily. 28 tablet 14 08/06/2017 documented in this encounter Progress Notes * Claudia Winsolw MD - 08/06/2017 9:20 AM CDT Subjective/Objective Patient ID: Catie Mcdonald is a 22 y.o. female. Chief Complaint Follow-up HPI presents 6 wks s/p , pitocin IOL for GHTN. She is pumping and feeding expressed milk with some additional supplementation. LMP 6/3 is tolerable. Interested in OCPs again. She continues Zoloft and reports mood as stable. EPDS: 5 Last Pap was negative. Review of Systems Constitutional: Negative for fatigue, fever and unexpected weight change. Eyes: Negative for visual disturbance. Gastrointestinal: Negative for abdominal pain, blood in stool, nausea and vomiting. Genitourinary: Negative for dysuria, frequency, hematuria, urgency, vaginal bleeding and vaginal discharge. Skin: Negative for rash. Neurological: Negative for headaches. Vitals: 08/06/17 0942 BP: 110/82 Weight: 197 lb (89.4 kg) Physical Exam Constitutional: She is oriented to person, place, and time. She appears well- developed and well-nourished. Genitourinary: Uterus normal. Right labia: normal. Left Labia: normal. There is bleeding in the vagina. Right adnexa normal. Left adnexa normal. Cervix: Normal exam. Neurological: She is alert and oriented to person, place, and time. Psychiatric: She has a normal mood and affect. Her behavior is normal. Assessment/Plan 1. care and examination Doing well. Activity as tolerated. BP is WNL - no further intervention. Plan to restart OCPs now. F/u 1 year for routine care or PRN. - norethindrone-e.estradiol-iron (03/23) 1 mg-20 mcg (21)/75 mg (7) per tablet; Take 1 tablet by mouth daily. Dispense: 28 tablet; Refill: 14 documented in this encounter Plan of Treatment Not on file documented as of this encounter Visit Diagnoses Diagnosis care and examination- Primary documented in this encounter Care Teams Wildlife Biostation Research Ecologist Relationship Specialty Start Date End Date No, Physician PCP - General 11/22/16 08/08/23 documented as of this encounter
--- OUTSIDE RECORDS SUMMARY | 2024-02-22 14:41 | XMS_ITS | Clinical Summary ---
Author Organization [facility] Address [address] [place] [address] Care Team Providers Care Grain Handler Name Role Phone Pema Rousseau MD Primary Care Provider [phone] Allergies No known active allergies Medications [id number] -epa-fish oil 400 mcg-35 mg -25 mg-5 [...] Name Administration Dates Next Due Tdap 04/11/2017 Family History Medical History Relation Name Comments Hyperlipidemia Father Hypertension Father Heart attack Paternal Great-Grandmother Relation Name Status Comments Father Paternal Great-Grandmother Social History Tobacco Use Types Packs/Day Years [...] on file Legal Sex Female 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 . 2' midline and left labial lacs. STA. Last Filed Vital Signs Vital Sign Reading [...] Plan of Treatment Not on file Insurance [facility] CHOICE PLUS [facility] HMO/PPO Address: [address] [address] [place] [address] [facility] Care Teams Grain Handler Relationship Specialty Start Date End Date Pema Rousseau MD [address] [place] [address] PCP - General Obstetrics and Gynecology 08/09/23
--- OUTSIDE RECORDS SUMMARY | 2024-02-22 14:42 | XMS_ITS | Encounter Summary ---
Author Organization [facility] ts Address [address] [place] [address] Phone Care Team Providers Care Disease Case Manager Rn Name Role Phone No, Physician Primary Care Provider [phone] Reason for Visit * Reason Comments Routine Visit Encounter Details Date Type Department Care Team (Late st Contact Info) Description 04/11/2017 3:00 PM BINDERY MACHINE SETTER/SET UP OPERATOR Office Visit [facility] [address] [place] [address] Claudia Winslow MD [address] [place] [address] Encounter for supervision of normal first in third trimester (Primary Dx) Social History Tobacco Use Types Packs/Day Years Used Date Smoking Tobacco: Former Smokeless Tobacco: Never Comments:Never daily, few ti mes a year. 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 Tdap today. Discussed PTL precautions and labor pain management options. ERY MACHINE SETTER/SET UP OPERATOR documented in this encounter Miscellaneous Notes * Addendum Note - Sloane Stinson MA - 04/11/2017 3:00 PM CSTAddended by: SLOANE STINSON on: 04/11/2017 04:28 PM Modules accepted: Orders ERY MACHINE SETTER/SET UP OPERATOR documented in this encounter Plan of Treatment Not on file documented as of this encounter Procedures Procedure Name Priority Date/Time Associated Diagnosis Comments POCT URINE GLUCOSE AND PROTEIN Routine 04/11/2017 3:10 PM BINDERY MACHINE SETTER/SET UP OPERATOR Encounter for supervision of normal first in third trimester documented in this encounter Results * (ABNORMAL) POCT urine glucose and protein (04/11/2017 3:10 PM BINDERY MACHINE SETTER/SET UP OPERATOR) Glucose, ur, POC 100.(A) Negative mg/dL Protein, ur, POC Negative Negative Lot Number [id number] Urine 04/11/2017 3:10 PM BINDERY MACHINE SETTER/SET UP OPERATOR Claudia Winslow MD POINT OF CARE TEST OR DERABLES Final Result documented in this encounter Visit Diagnoses Diagnosis Encounter for supervision of normal first in third trimester- Primary documented in this encounter Orders Immunization/Injection Count Last Ordered Date First Ordered Date TDAP VACCINE GREATER THAN OR EQUAL TO 7YO IM 1 04/11/2017 documented in this encounter Care Teams Disease Case Manager Rn Relationship Specialty Start Date End Date No, Physician PCP - General 11/22/16 08/08/23 documented as of this encounter
--- OUTSIDE RECORDS SUMMARY | 2024-02-22 14:42 | XMS_ITS | Encounter Summary ---
Author Organization [facility] Healthcare Address [address] [place] [address] Care Team Providers Care Host Name Role Phone No, Physician Primary Care Provider [phone] Encounter Details Date Type Department Care Team (Late st Contact Info) Description 01/17/2017 9:17 AM RAIL GANG SUPERVISOR - 01/17/2017 11:59 PM RAIL GANG SUPERVISOR Hospital Encounter [facility] Claudia Winslow MD [address] [place] [address] Discharge Disposition: Discharge to home or self care Social History Tobacco Use Types Packs/Day Years Used Date Smoking Tobacco: Former Smokeless Tobacco: Never Comments:Never daily, few ti mes a year. 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 sertraline (ZOLOFT) 25 mg tablet Take 1 tablet (25 mg total) by mouth daily. 30 tablet 11 11/22/2016 05/21/2017 documented as of this encounter Discharge Disposition Disposition Code Departure Means Destination Discharge to home or self care documented in this encounter Plan of Treatment Not on file documented as of this encounter Procedures Procedure Name Priority Date/Time Associated Diagnosis Comments ALPHA FETOPROTEIN, QUAD SCREEN Routine 01/17/2017 9:17 AM RAIL GANG SUPERVISOR DISCHARGE LABORATORY CUMULATIVE REPORT 01/17/2017 12:00 AM RAIL GANG SUPERVISOR documented in this encounter Results * Alpha fetoprotein, quad screen (01/17/2017 9:17 AM RAIL GANG SUPERVISOR) Recalc Maternal Serum Screen. Not Reported CERNER CH Collection Date Not Reported CERNER CH Birthdate. Not Reported CERNER CH Calc Age at BONI. 22 years CERNER CH Patient weight 186 CERNER CH Maternal Wt 1. Not Reported CERNER CH Insulin Dependent Diabetes. None CERNER CH Black race. non-Black CERNER CH Number of Fetuses Not Reported CERNER CH Ivf . Not Reported CERNER CH Gestation by U/S. Not Reported CERNER CH Date of U/S. Not Reported CERNER CH BONI by U/S Scan. 06/29/2017 CERNER CH Last Menstrual Period. Not Reported CERNER CH BONI by LMP. Not Reported CERNER CH Gestation (GA) by. Not Reported CERNER C H Date of Estimate. Not Reported CERNER CH Gestation (GA) by Physical Exam. Not Reported CERNER CH Date of Physical Exam. Not Reported CERNER CH GA on Collection by U/S Scan. 16,5 CERNER CH GA on Collection by Dates. Not Reported CERNER CH GA on Collection by Phys Exam. Not Reported CERNER CH GA Used In Risk. Scan estimate CERNER alpha Fetoprotein See Footnote CERNER CH Comment:RESULT: 0.80 MoM ( 2 6.5 ng/mL ) Estriol, unconjugated See Footnote CERNER CH Comment:RESULT: 0.86 MoM ( 0 .81 ng/mL ) HCG, qual See Footnote CERNER CH Comment:RESULT: 0.84 MoM ( 1 9.4 IU/mL ) Inhibin A, interpretation See Footnote CERNER CH Comment:RESULT: 1.13 MoM ( 1 66 pg/mL ) Down Syndrome Screen Risk Estimate. /5,000 CERNER CH Down Syndrome Maternal Age Risk. CERNER Trisomy 18 risk assessment 39,000 CERNER alpha fetoprotein See Footnote CERNER Comment: Screen negative for neural tube defects and Down syndrome. The risk for trisomy 18 is less than 1%. Additional Comments. Not Reported DIANE DOTSON Recommended Follow Up. None. DIANE DOTSON General Test Info. See Footnote DIANE Arnold Comment: This screening provides an estimation of risk, not a diagnosis. Incorrect or incomplete information may significantly alter results. Risks are adjusted for donor eggs, frozen embryos, and IVF. Results may be unreliable in twin pregnancies with a demise. Results are not available for pregnancies with triplets and higher-order multiples. A positive result occurs when the risk for Down syndrome equals or exceeds 1 in 270, when the risk for trisomy 18 equals or exceeds 1 in 100, or when the AFP MoM equals or exceeds 2.5. Screen results and family history influence individual risk. If there is a family history of a neural tube defect, chromosome abnormality, or other inherited condition, consider the option of a genetic consultation. For further information, please contact the maternal screening laboratory at . AFP info Initial testing DIANE DOTSON Comment: ADDITIONAL INFORMATION This test was developed and its performance characteristics determined by [facility] in a manner consistent with CLIA requirements. This test has not been cleared or approved by the U.S. Food and Drug Administration. Test Performed by: [facility] - [address] [address] Blood specimen (specimen) 01/17/2017 9:17 AM RAIL GANG SUPERVISOR 01/17/2017 9:01 PM RAIL GANG SUPERVISOR Claudia Winslow MD LAB GENETIC TESTING F inal Result DIANE [address] [address] Department [place] [address] * DISCHARGE LABORATORY CUMULATIVE REPORT (01/17/2017 12:00 AM RAIL GANG SUPERVISOR) Narrative 01/17/2017 12:00 AM RAIL GANG SUPERVISOR Ordered by an unspecified provider. Historical Provider LAB BLOOD ORDERABLES Nicolette l Result documented in this encounter Visit Diagnoses Not on filedocumented in this encounter Care Teams Host Relationship Specialty Start Date End Date No, Physician PCP - General 11/22/16 08/08/23 documented as of this encounter
--- OUTSIDE RECORDS SUMMARY | 2024-02-22 14:42 | XMS_ITS | Encounter Summary ---
Author Organization [facility] Healthcare Address [facility] [place] [address] Care Team Providers Care Vehicle Glass Technician Name Role Phone No, Physician Primary Care Provider [phone] Encounter Details Date Type Department Care Team (Late st Contact Info) Description 06/14/2017 7:55 PM CDT Lab [address] [address] Social History Tobacco Use Types Packs/Day Years Used Date Smoking Tobacco: Former Smokeless Tobacco: Never Comments:Never daily, few ti mes a year. 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 Not on file Not on fi le documented as of this encounter Plan of Treatment Not on file documented as of this encounter Procedures Procedure Name Priority Date/Time Associated Diagnosis Comments STREPTOCOCCUS CULTURE Routine 06/13/2017 7:54 PM CDT documented in this encounter Results * Streptococcus culture (06/13/2017 7:54 PM CDT) Report Final Report: Negative DIANE DOTSON Comment:Testing performed by : [facility], [address] [place]., [address] Vaginal/Rectal 06/13/2017 7: 54 PM CDT 06/14/2017 10:25 PM CDT Narrative DIANE DOTSON - 06/16/2017 8:03 AM CDT Claudia Winslow MD LAB MICROBIOLOGY - NERAL ORDERABLES Final Result DIANE [address] [address] Department [place] [address] documented in this encounter Visit Diagnoses Not on filedocumented in this encounter Care Teams Vehicle Glass Technician Relationship Specialty Start Date End Date No, Physician PCP - General 11/22/16 08/08/23 documented as of this encounter
--- OUTSIDE RECORDS SUMMARY | 2024-02-22 14:42 | XMS_ITS | Encounter Summary ---
Author Organization [facility] ts Address [address] [place] [address] Phone Care Team Providers Care Plant Worker Name Role Phone No, Physician Primary Care Provider [phone] Reason for Visit * Reason Comments Routine Visit Encounter Details Date Type Department Care Team (Late st Contact Info) Description 02/14/2017 1:40 PM STAINED GLASS WINDOW DESIGNER Office Visit [facility] [address] [place] [address] Claudia Winslow MD [address] [place] [address] Encounter for supervision of normal first in second trimester (Primary Dx) Social History Tobacco Use Types Packs/Day Years Used Date Smoking Tobacco: Former Smokeless Tobacco: Never Comments:Never daily, few ti mes a year. 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 No complaints. NED GLASS WINDOW DESIGNER documented in this encounter Plan of Treatment Not on file documented as of this encounter Procedures Procedure Name Priority Date/Time Associated Diagnosis Comments POCT URINE GLUCOSE AND PROTEIN Routine 02/14/2017 1:47 PM STAINED GLASS WINDOW DESIGNER Encounter for supervision of normal first in second trimester documented in this encounter Results * (ABNORMAL) POCT urine glucose and protein (02/14/2017 1:47 PM STAINED GLASS WINDOW DESIGNER) Glucose, ur, POC 100.(A) Negative mg/dL Protein, ur, POC Negative Negative Lot Number [id number] Urine 02/14/2017 1:47 PM STAINED GLASS WINDOW DESIGNER us Claudia Winslow MD POINT OF CARE TEST OR DERABLES Final Result documented in this encounter Visit Diagnoses Diagnosis Encounter for supervision of normal first in second trimester- Primary documented in this encounter Care Teams Plant Worker Relationship Specialty Start Date End Date No, Physician PCP - General 11/22/16 08/08/23 documented as of this encounter
--- OUTSIDE RECORDS SUMMARY | 2024-02-22 14:42 | XMS_ITS | Encounter Summary ---
Author Organization [facility] ts Address [address] [place] [address] Phone Care Team Providers Care Aircraft Instrument Mechanic Name Role Phone No, Physician Primary Care Provider Reason for Visit * Reason Comments Routine Visit Encounter Details Date Type Department Care Team (Late st Contact Info) Description 06/21/2017 11:00 AM CDT Office Visit [facility] [address] [place] [address] Claudia Winslow MD [address] [place] [address] Encounter for supervision of normal first in [...] on file Legal Sex Female 8:53 AM SPORTS MARKETER Gender Identity Not on file Sexual Orientation Not on file 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 Denies headache, vision changes, or RUQ pain. Discussed GHTN v preeclampsia. Sheattributes to stress from finding out last night 's job will be relocating him to [place], [place]. CTXs remain irregular. SVE: 3.5/50/unable to palpate presenting part, soft mid. Also notes +FM but decreased over the last 2 days. EFW 8 lbs. Sent to [facility] L&D for NST and BP monitoring, labs. *Addendum - on L&D preeclamptic labs were WNL and NST reactive. BP's 120-130s/80-94. Remains asymptomatic. Bedside ultrasound - cephalic presentation. Recommend delivery at 39 weeks and scheduledfor pitocin induction 06/24 at [facility]. documented in this encounter Plan of Treatment Not on file documented as of this encounter Procedures Procedure Name Priority Date/Time Associated Diagnosis Comments POCT URINE GLUCOSE AND PROTEIN Routine 06/21/2017 11:17 AM CDT Encounter for supervision of normal first in third trimester GROUP B STREPTOCOCCUS CULTURE Routine 06/13/2017 documented in this encounter Results * (ABNORMAL) POCT urine glucose and protein (06/21/2017 11:17 AM CDT) Glucose, ur, POC Negative Negative mg/dL Protein, ur, POC Trace(A) Negative Lot Number [id number] Urine 06/21/2017 11:1 7 AM CDT Claudia Winslow MD POINT OF CARE TEST OR DERABLES Final Result * Group B streptococcal culture Vaginal/Rectal (06/13/2017) SCRIBED Group B Strep negative Vaginal/Rectal us Claudia Winslow MD LAB MICROBIOLOGY - NERAL ORDERABLES Final Result documented in this encounter Visit Diagnoses Diagnosis Encounter for supervision of normal first in third trimester- Primary documented in this encounter Care Teams Aircraft Instrument Mechanic Relationship Specialty Start Date End Date No, Physician PCP - General 11/22/16 08/08/23 documented as of this encounter
--- OUTSIDE RECORDS SUMMARY | 2024-02-22 14:42 | XMS_ITS | Encounter Summary ---
Author Organization [email or web address] Address [address] [place] [address] Phone Care Team Providers Care Door To Door Fundraising Collector Name Role Phone No, Physician Primary Care Provider [phone] Encounter Details Date Type Department Care Team (Late st Contact Info) Description 04/04/2017 Telephone [facility] [address] [place] [address] Karen Mathews LPN Social History Tobacco Use Types Packs/Day Years Used Date Smoking Tobacco: Former Smokeless Tobacco: Never Comments:Never daily, few ti mes a year. 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 IED RESEARCH DIRECTOR * Telephone Encounter - Karen Mathews LPN - 04/04/2017 2:04 PM APPLIED RESEARCH DIRECTOR ----- Message from Claudia Winslow MD sent at 04/04/2017 11:58 AM APPLIED RESEARCH DIRECTOR ----- Please notify patient of normal labs (1hr GTT, CBC and urine). IED RESEARCH DIRECTOR documented in this encounter Plan of Treatment Not on file documented as of this encounter Visit Diagnoses Not on filedocumented in this encounter Care Teams Door To Door Fundraising Collector Relationship Specialty Start Date End Date No, Physician PCP - General 11/22/16 08/08/23 documented as of this encounter
--- OUTSIDE RECORDS SUMMARY | 2024-02-22 14:42 | XMS_ITS | Encounter Summary ---
Author Organization [facility] Address [address] [place] [address] Phone Care Team Providers Care Chain Link Fence Installer Name Role Phone No, Physician Primary Care Provider [phone] Pema Rousseau MD Primary Care Provider Encounter Details Date Type Department Care Team (Late st Contact Info) Description 06/13/2017 Orders Only [facility] ProviderArt MD [address] [place] [address] Social History Tobacco Use Types Packs/Day Years Used Date Smoking Tobacco: Former Smokeless Tobacco: Never Comments:Never daily, few ti mes a year. 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 Historical Provider LAB BLOOD ORDERABLES Nicolette l Result documented in this encounter Visit Diagnoses Not on filedocumented in this encounter Care Teams Chain Link Fence Installer Relationship Specialty Start Date End Date No, Physician PCP - General 11/22/16 08/08/23 Pema Rousseau MD [address]EL[address] [place] [id number] PCP - General Obstetrics and Gynecology 08/09/23 documented as of this encounter
--- OUTSIDE RECORDS SUMMARY | 2024-02-22 14:42 | XMS_ITS | Encounter Summary ---
Author Organization [facility] Address [address] [place] [address] Phone Care Team Providers Care Road Crossing Guard Name Role Phone No, Physician Primary Care Provider [phone] Reason for Visit * Reason Comments Routine Visit Encounter Details Date Type Department Care Team (Late st Contact Info) Description 05/09/2017 3:40 PM DIE ENGRAVER Office Visit [facility] [address] [place] [address] Claudia Winslow MD [address] [place] [address] Encounter for supervision of normal first in [...] on file Legal Sex Female 8:53 AM DIE ENGRAVER Gender Identity Not on file Sexual Orientation Not on file 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 Sono ordered for S>D. ENGRAVER documented in this encounter Plan of Treatment Not on file documented as of this encounter Procedures Procedure Name Priority Date/Time Associated Diagnosis Comments POCT URINE GLUCOSE AND PROTEIN Routine 05/09/2017 4:01 PM DIE ENGRAVER Encounter for supervision of normal first in third trimester documented in this encounter Results * POCT urine glucose and protein (05/09/2017 4:01 PM DIE ENGRAVER) Glucose, ur, POC Negative Negative mg/dL Protein, ur, POC Negative Negative Lot Number [id number] Urine 05/09/2017 4:01 PM DIE ENGRAVER Claudia Winslow MD POINT OF CARE TEST OR DERABLES Final Result documented in this encounter Visit Diagnoses Diagnosis Encounter for supervision of normal first in third trimester- Primary documented in this encounter Care Teams Road Crossing Guard Relationship Specialty Start Date End Date No, Physician PCP - General 11/22/16 08/08/23 documented as of this encounter
--- OUTSIDE RECORDS SUMMARY | 2024-02-22 14:42 | XMS_ITS | Encounter Summary ---
Author Organization [facility] Address [address] [place] [address] Care Team Providers Care Compliance Monitor Name Role Phone No, Physician Primary Care Provider [phone] Encounter Details Date Type Department Care Team (Late st Contact Info) Description 06/24/2017 Orders Only [facility] Health Information Management [address] [place] [address] Scanning, Provider Social History Tobacco Use Types Packs/Day Years Used Date Smoking Tobacco: Former Smokeless Tobacco: Never Comments:Never daily, few ti mes a year. 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
--- OUTSIDE RECORDS SUMMARY | 2024-02-22 14:42 | XMS_ITS | Encounter Summary ---
Author Organization [facility] Address [address] [place] [address] Phone Care Team Providers Care Bankruptcy Legal Assistant Name Role Phone No, Physician Primary Care Provider [phone] Reason for Visit * Reason Comments Routine Visit Encounter Details Date Type Department Care Team (Late st Contact Info) Description 01/17/2017 8:50 AM TAX CREDIT LEASING CONSULTANT Office Visit [facility] [address] [place] [address] Claudia Winslow MD [address] [place] [address] Encounter for supervision of normal first in [...] on file Legal Sex Female 8:53 AM TAX CREDIT LEASING CONSULTANT Gender Identity Not on file Sexual Orientation Not on file 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 Quad screen discussed and ordered today. Anatomy scan next visit. CREDIT LEASING CONSULTANT documented in this encounter Plan of Treatment Not on file documented as of this encounter Procedures Procedure Name Priority Date/Time Associated Diagnosis Comments POCT URINE GLUCOSE AND PROTEIN Routine 01/17/2017 8:54 AM TAX CREDIT LEASING CONSULTANT Encounter for supervision of normal first in second trimester documented in this encounter Results * POCT urine glucose and protein (01/17/2017 8:54 AM TAX CREDIT LEASING CONSULTANT) Glucose, ur, POC Negative Negative mg/dL Protein, ur, POC Negative Negative Lot Number [id number] Urine 01/17/2017 8:54 AM TAX CREDIT LEASING CONSULTANT Claudia Winslow MD POINT OF CARE TEST OR DERABLES Final Result documented in this encounter Visit Diagnoses Diagnosis Encounter for supervision of normal first in second trimester- Primary documented in this encounter Care Teams Bankruptcy Legal Assistant Relationship Specialty Start Date End Date No, Physician PCP - General 11/22/16 08/08/23 documented as of this encounter
--- OUTSIDE RECORDS SUMMARY | 2024-02-22 14:42 | XMS_ITS | Encounter Summary ---
Author Organization [facility] Address [address] [place] [address] Care Team Providers Care Authorization Nurse Name Role Phone No, Physician Primary Care Provider Encounter Details Date Type Department Care Team (Late st Contact Info) Description 01/17/2017 9:30 PM RANGELANDS CONSERVATION LABORER Lab [address] [address] Social History Tobacco Use Types Packs/Day Years Used Date Smoking Tobacco: Former Smokeless Tobacco: Never Comments:Never daily, few ti mes a year. 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
--- OUTSIDE RECORDS SUMMARY | 2024-02-22 14:42 | XMS_ITS | Encounter Summary ---
Author Organization [facility] Address [address] [place] [address] Phone Care Team Providers Care Steam Presser Name Role Phone No, Physician Primary Care Provider [phone] Pema Rousseau MD Primary Care Provider [phone] Encounter Details Date Type Department Care Team (Late st Contact Info) Description 04/02/2017 Orders Only [facility] ProviderArt MD [address] [place] [address] Social History Tobacco Use Types Packs/Day Years Used Date Smoking Tobacco: Former Smokeless Tobacco: Never Comments:Never daily, few ti mes a year. 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 Historical Provider LAB BLOOD ORDERABLES Nicolette l Result documented in this encounter Visit Diagnoses Not on filedocumented in this encounter Care Teams Steam Presser Relationship Specialty Start Date End Date No, Physician PCP - General 11/22/16 08/08/23 Pema Rousseau MD [address] [place] [id number] PCP - General Obstetrics and Gynecology 08/09/23 documented as of this encounter
--- OUTSIDE RECORDS SUMMARY | 2024-02-22 14:42 | XMS_ITS | Encounter Summary ---
Author Organization [facility] Address [address] [place] [address] Care Team Providers Care Electrical And Instrument Mechanic Name Role Phone No, Physician Primary Care Provider [phone] Encounter Details Date Type Department Care Team (Late st Contact Info) Description 04/02/2017 6:50 PM PEGA DEVELOPER Lab [address] [id number] Social History Tobacco Use Types Packs/Day Years Used Date Smoking Tobacco: Former Smokeless Tobacco: Never Comments:Never daily, few ti mes a year. 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 file Not on fi le documented as of this encounter Plan of Treatment Not on file documented as of this encounter Procedures Procedure Name Priority Date/Time Associated Diagnosis Comments DIFFERENTIAL AUTO Routine 04/02/2017 12: 13 PM PEGA DEVELOPER GTT 50GM 1HR GESTATIONAL SCREEN Routine 04/02/2017 12:13 PM PEGA DEVELOPER CBC WITH AUTO DIFFERENTIAL Routine 04/02/2017 12:13 PM PEGA DEVELOPER URINE CULTURE Routine 04/02/2017 12:13 PM PEGA DEVELOPER documented in this encounter Results * Urine culture (04/02/2017 12:13 PM PEGA DEVELOPER) Report Final Report: Insignifican t growth based on current clinical standards. DIANE CH Comment:Testing performed by : [facility], [address], [place]., [address] Urine, clean voided 04/02/2017 12:13 PM PEGA DEVELOPER 04/02/2017 9:55 PM PEGA DEVELOPER Narrative CERNER CH - 04/04/2017 8:12 AM PEGA DEVELOPER Claudia Winslow MD LAB MICROBIOLOGY - GE NERAL ORDERABLES Final Result Performing Organization Address City/[facility]/ZIP Co de Phone Number DIANE DOTSON [address] [place] [address] * GTT, gestational diabetes 50gm screen (04/02/2017 12:13 PM PEGA DEVELOPER) GTT 50g gest screen 108 70 - 140 mg/dL [facility] Blood specimen (specimen) 04/02/2017 12:13 PM PEGA DEVELOPER 04/02/2017 6:47 PM PEGA DEVELOPER Narrative CERTHOMAS CH - 04/02/2017 7:42 PM PEGA DEVELOPER Claudia Winslow MD LAB BLOOD ORDERABLES Final Result Performing Organization Address City/[facility]/ZIP Co de Phone Number DIANE DOTSON [address] Department [place] [address] * Differential, auto (04/02/2017 12:13 PM PEGA DEVELOPER) Neutrophil pct 76.6 % CERNER CH Imm gran pct 0.5 % CERNER Lymphocyte pct 15.6 % CERNER CH Monocyte pct 6.6 % CERNER CH Eosinophil pct 0.0 % CERNER CH Basophil pct 0.1 % CERNER CH Neutrophil abs 6.38 1.70 - 6.50 K/cumm CERNER CH Imm gran abs 0.04 0.00 - 0.10 K/cumm CERNER CH Lymphocyte abs 1.30 0.80 - 3.30 K/cumm CERNER CH Monocyte abs 0.55 0.20 - 0.80 K/cumm CERNER CH Eosinophil abs 0.05 0.00 - 0.50 K/cumm CERNER CH Basophil abs 0.01 0.00 - 0.10 K/cumm CERNER CH Blood specimen (specimen) 04/02/2017 12:13 PM PEGA DEVELOPER 04/02/2017 6:47 PM PEGA DEVELOPER Narrative DIANE CH - 04/02/2017 7:04 PM PEGA DEVELOPER Claudia Winslow MD LAB BLOOD ORDERABLES Final Result Performing Organization Address [facility] Co de Phone Number DIANE DOTSON [address] [place] [address] * CBC with auto differential (04/02/2017 12:13 PM PEGA DEVELOPER) Pathologist [facility] WBC 8.33 3.80 - 9.90 K/cumm CERNER CH RBC 4.17 3.90 - 5.20 M/cumm CERNER CH Hgb 12.9 11.9 - 15.5 g/dL CERNER CH Hct 38.7 35.6 - 45.5 % CERNER CH MCV 92.8 81.3 - 96.4 fL CERNER CH MCH 30.9 27.1 - 33.3 pg CERNER CH MCHC 33.3 32.3 - 35.7 g/dL CERNER CH RDW CV 13.0 11.1 - 14.9 % CERNER CH RDW SD 44.3 35.7 - 48.1 fL CERNER CH Plt 261 150 - 400 K/cumm CERNER CH MPV 10.1 9.1 - 12.3 fL CERNER CH NRBC 0.0 0.0 - 0.2 % CERNER CH NRBC abs 0.00 0.00 - 0.01 K/cumm CERNER CH Blood specimen (specimen) 04/02/2017 12:13 PM PEGA DEVELOPER 04/02/2017 6:47 PM PEGA DEVELOPER Narrative DIANE CH - 04/02/2017 7:04 PM PEGA DEVELOPER Claudia Winslow MD LAB BLOOD ORDERABLES Final Result Performing Organization Address City/[facility]/ZIP Co de Phone Number DIANE DOTSON [address] [place] [address] documented in this encounter Visit Diagnoses Not on filedocumented in this encounter Care Teams Electrical And Instrument Mechanic Relationship Specialty Start Date End Date No, Physician PCP - General 11/22/16 08/08/23 documented as of this encounter
--- OUTSIDE RECORDS SUMMARY | 2024-02-22 14:42 | XMS_ITS | Encounter Summary ---
Author Organization [facility] Address [address] [place] [address] Phone Care Team Providers Care Project Portfolio Analyst Name Role Phone No, Physician Primary Care Provider [phone] Reason for Visit * Reason Comments Routine Visit Encounter Details Date Type Department Care Team (Late st Contact Info) Description 04/25/2017 4:00 PM BABBITT SPINNER Office Visit [facility] [address] [place] [address] Claudia Winslow MD [address] [place] [address] Encounter for supervision of normal first in [...] on file Legal Sex Female 8:53 AM BABBITT SPINNER Gender Identity Not on file Sexual Orientation Not on file 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 ITT SPINNER documented in this encounter Plan of Treatment Not on file documented as of this encounter Procedures Procedure Name Priority Date/Time Associated Diagnosis Comments POCT URINE GLUCOSE AND PROTEIN Routine 04/25/2017 4:02 PM BABBITT SPINNER Encounter for supervision of normal first in third trimester documented in this encounter Results * POCT urine glucose and protein (04/25/2017 4:02 PM BABBITT SPINNER) Glucose, ur, POC Negative Negative mg/dL Protein, ur, POC Negative Negative Lot Number [id number] Urine 04/25/2017 4:02 PM BABBITT SPINNER Claudia Winslow MD POINT OF CARE TEST OR DERABLES Final Result documented in this encounter Visit Diagnoses Diagnosis Encounter for supervision of normal first in third trimester- Primary documented in this encounter Care Teams Project Portfolio Analyst Relationship Specialty Start Date End Date No, Physician PCP - General 11/22/16 08/08/23 documented as of this encounter
--- OUTSIDE RECORDS SUMMARY | 2024-02-22 14:42 | XMS_ITS | Encounter Summary ---
Author Organization [facility] Address [address] [place] [address] Phone Care Team Providers Care Metal Bed Assembler Name Role Phone No, Physician Primary Care Provider [phone] Reason for Referral * Diagnostic Imaging (Routine) - Closed Specialty Diagnoses / Procedures Referred By Contac t Referred To Contact Diagnoses Heavy for dates in third trimester, single or unspecified fetus 32 weeks gestation of Procedures US OB 14 Weeks Or Over Claudia Winslow MD Phone: tel: fax: Referral ID Status Reason Start Date Expiration Date Visits Re quested Visits Authorized [id number] Closed 05/10/2017 11/06/2017 1 1 Reason for Visit * Diagnostic Imaging (Routine) - Closed Specialty Diagnoses / Procedures Referred By Contac t Referred To Contact Diagnoses Heavy for dates in third trimester, single or unspecified fetus 32 weeks gestation of Procedures US OB 14 Weeks Or Over Claudia Winslow MD Phone: tel: fax: Referral ID Status Reason Start Date Expiration Date Visits Re quested Visits Authorized [id number] Closed 05/10/2017 11/06/2017 1 1 Encounter Details Date Type Department Care Team (Latest Contact Info) Description 05/23/2017 2:40 PM CDT - 05/23/2017 11:59 PM CDT Hospital Encounter [facility] [address] [place] [address] Heavy for dates in third trimester, single or unspecified fetus; 32 weeks gestation of Discharge Disposition: Discharge to home or self [...] on file Legal Sex Female 8:53 AM ORDER FILLER Gender Identity Not on file Sexual Orientation Not on file 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 documented as of this encounter Discharge Disposition Disposition Code Departure Means Destination Discharge to home or self care documented in this encounter Plan of Treatment Not on file documented as of this encounter Procedures Procedure Name Priority Date/Time Associated Diagnosis Comments US OB 14 WEEKS OR OVER Schedule Routine, Read Routine (OP Routine) 05/23/2017 3:15 PM CDT Heavy for dates in third trimester, single or unspecified fetus 32 weeks gestation of documented in this encounter Results * US OB 14 Weeks Or Over (05/23/2017 3:15 PM CDT) Anatomical Region Laterality Modality Abdomen N/A Ultrasound Narrative 05/24/2017 2:21 PM CDT DIGITAL OB ULTRASOUND: Measurements: ??BPD: 9.35 (38W 0D) ??HC: 32.81 (37W 2D) ?AC: ?? 31.42 (35W 2D) ??FL: ?? 6.56 (33W 6D) ?? Ratios: ?FL/AC: ?? 20.88 (20.00-24.00) ??FL/BPD: ??70.20 (71.0-87.0) ?HC/AC: ??1.04 (0.93-1.10) Cep Index: ?? CI: ??81.83 (70.00-86.00) Estimated Wt: ??EFW: 2671 g +/- 400.69 g BONI ??By LMP: ?? BONI: ??June 29, 2017 Gestational age by LMP: ??LMP: ??34W 5D Gestational age by this U/S: MA: ?? June 25, 2017 BONI by this Ultrasound: BONI: ??35W 2D +/- 1W 0D Number: ??1 ? Placenta Location: ??Anterior Presentation: Vertex ? SABRINA Range: ??8.1-24.8 cm ?? Fluid/SABRINA: ??19.1 cm ? Heart Rate(HR): ??139 BPM ?? S = Normal ?? NC = Not clearly seen A = Abnormal ?? SP = Seen on previous ultrasound exam Heart (4 Chamber): SP Cisterna Magna: SP Stomach: S ?? Cerebellum: SP Bladder: S ?? Lat. Ventricles: SP Kidneys: S ?Diaphragm: S Cervical spine: SP ??Upper Extremity Right: SP Thoracic Spine: SP ??Upper Extremity Left: SP Lumber Spine: SP ??Lower Extremity Right: SP Cord Insertion: SP ??Lower Extremity Left: SP 3 Vess. Cord: S Sex: ?Male Heart Activity? ??Yes Body movement seen? Yes COMMENTS: Single intrauterine identified with a vertex lie. ?? Estimated gestational age is 35 weeks, 2 days with an BONI of 06/25/17. ?? There is normal growth as compared to prior study of 02/18/17. ?Visualized anatomy remains within normal limits. ?There is normal SABRINA measurement of 19.1 cm. ?? us Claudia Winslow MD IMG OB US PROCEDURES Final Result documented in this encounter Visit Diagnoses Diagnosis Heavy for dates in third trimester, single or unspecified fetus 32 weeks gestation of documented in this encounter Care Teams Metal Bed Assembler Relationship Specialty Start Date End Date No, Physician PCP - General 11/22/16 08/08/23 documented as of this encounter
--- OUTSIDE RECORDS SUMMARY | 2024-02-22 14:42 | XMS_ITS | Encounter Summary ---
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 Gender Identity Not on file Sexual Orientation Not on file 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 Labor precautions reviewed. GBS collected. SVE: 3 internal, unable to reach internal os/thick/-4 soft mid. documented in this encounter Plan of Treatment Scheduled Orders Name Type Priority Associated Diagnoses Orde r Schedule Group B streptococcal culture Vaginal/Rectal Microbiology Routine Encounter for supervision of normal first in third trimester Expected: 06/13/2017, Expires: 06/13/2018 documented as of this encounter Procedures Procedure Name Priority Date/Time Associated Diagnosis Comments POCT URINE GLUCOSE AND PROTEIN Routine 06/13/2017 4:01 PM CDT Encounter for supervision of normal first in third trimester documented in this encounter Results * (ABNORMAL) POCT urine glucose and protein (06/13/2017 4:01 PM CDT) Glucose, ur, POC 250.(A) Negative mg/dL Protein, ur, POC Trace(A) Negative Lot Number [id number] Urine 06/13/2017 4:01 PM CDT Claudia Winslow MD POINT OF CARE TEST OR DERABLES Final Result documented in this encounter Visit Diagnoses Diagnosis Encounter for supervision of normal first in third trimester- Primary documented in this encounter Care Teams Barrel Driller Relationship Specialty Start Date End Date No, Physician PCP - General 11/22/16 08/08/23 documented as of this encounter
--- OUTSIDE RECORDS SUMMARY | 2024-02-22 14:42 | XMS_ITS | Encounter Summary ---
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 Gender Identity Not on file Sexual Orientation Not on file 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 Has noticed increased cramping/pressure and BH CTXs. Nothing regular or painful. PTL precautions reviewed. GBS next visit. documented in this encounter Plan of Treatment Not on file documented as of this encounter Procedures Procedure Name Priority Date/Time Associated Diagnosis Comments POCT URINE GLUCOSE AND PROTEIN Routine 05/23/2017 3:17 PM CDT Encounter for supervision of normal first in third trimester documented in this encounter Results * (ABNORMAL) POCT urine glucose and protein (05/23/2017 3:17 PM CDT) Glucose, ur, POC 100.(A) Negative mg/dL Protein, ur, POC Negative Negative Lot Number [id number] Urine 05/23/2017 3:17 PM CDT us Claudia Winslow MD POINT OF CARE TEST OR DERABLES Final Result documented in this encounter Visit Diagnoses Diagnosis Encounter for supervision of normal first in third trimester- Primary documented in this encounter Care Teams Retail Store Manager Relationship Specialty Start Date End Date No, Physician PCP - General 11/22/16 08/08/23 documented as of this encounter
--- OUTSIDE RECORDS SUMMARY | 2024-02-22 14:42 | XMS_ITS | Encounter Summary ---
Author Organization [facility] ts Address [address] [place] [address] Phone Care Team Providers Care Data Integration Developer Name Role Phone No, Physician Primary Care Provider [phone] Encounter Details Date Type Department Care Team (Late st Contact Info) Description 01/22/2017 Telephone [facility] [address] [place] [address] Ashlie Guzman MA Social History Tobacco Use Types Packs/Day Years Used Date Smoking Tobacco: Former Smokeless Tobacco: Never Comments:Never daily, few ti mes a year. 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 NSED GUIDE * Telephone Encounter - Ashlie Guzman MA - 01/22/2017 9:21 AM CST LMOM for the patient to call back. NSED GUIDE * Telephone Encounter - Ashlie Guzman MA - 01/22/2017 9:21 AM CST ----- Message from Claudia Winslow MD sent at 01/21/2017 4:58 PM LICENSED GUIDE ----- Please notify patient of normal quad screen. NSED GUIDE documented in this encounter Plan of Treatment Not on file documented as of this encounter Visit Diagnoses Not on filedocumented in this encounter Care Teams Data Integration Developer Relationship Specialty Start Date End Date No, Physician PCP - General 11/22/16 08/08/23 documented as of this encounter
--- OUTSIDE RECORDS SUMMARY | 2024-02-22 14:42 | XMS_ITS | Encounter Summary ---
Author Organization [facility] ts Address [address] [place] [address] Phone Care Team Providers Care Courtroom Clerk Name Role Phone No, Physician Primary Care Provider [phone] Encounter Details Date Type Department Care Team (Late st Contact Info) Description 06/27/2017 Telephone [facility] [address] [place] [address] Claudia Winslow MD [address] [place] [address] Social History Tobacco Use Types Packs/Day Years Used Date Smoking Tobacco: Former Smokeless Tobacco: Never Comments:Never daily, few ti mes a year. 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 30 tablet 5 06/27/2017 12/15/2017 documented in this encounter Miscellaneous Notes * Telephone Encounter - Modesta Mathews LPN - 06/28/2017 8:35 AM CDT [facility] * Telephone Encounter - Amalia Beyer - 06/28/2017 8:19 AM CDT Pt made aware, voiced understanding. [facility] * Addendum Note - Modesta Mathews LPN - 06/27/2017 1:00 PM CDTAddended by: MODESTA MATHEWS on: 06/27/2017 01:00 PM Modules accepted: Orders * Telephone Encounter - Modesta Mathews LPN - 06/27/2017 12:59 PM CDT LMOM to return call. * Telephone Encounter - Claudia Winslow MD - 06/27/2017 12:49 PM CDT Okay to increase dose to 50 mg daily. Can take 2 of 25 mg pills now to finish what she has, and then change rx to zoloft 50 mg PO daily #30 with 5 refills. * Telephone Encounter - Modesta Mathews LPN - 06/27/2017 10:39 AM CDT Patient had baby on Saturday and is home. She just found out her will be leaving for work to [place] on 07/01/17. She is upset and overwhelmed thinking that she will be alone at home with the baby. She is already on a low dose zoloft 25mg and is trying to get ahead of having problems when he Leaves town. States she is not having any feeling of harming herself or baby. She would like to have her dose increased if possible. * Telephone Encounter - Modesta Mathews LPN - 06/27/2017 10:24 AM CDT LMOM to return call. * Telephone Encounter - Amalia Beyer - 06/27/2017 10:17 AM CDT 's office called down stating that Catie is having post issues and would like to have a medication to help. [facility] [place] CBN: [phone] (only call if an issue, otherwise patient will just check with pharmacy later) documented in this encounter Plan of Treatment Not on file documented as of this encounter Procedures Procedure Name Priority Date/Time Associated Diagnosis Comments SCAN - LABS 06/27/2017 11:09 AM CDT documented in this encounter Results * SCAN - LABS (06/27/2017 11:09 AM CDT) us Provider Scanning Final Result documented in this encounter Visit Diagnoses Not on filedocumented in this encounter Discontinued Medications Medication Sig Discontinue Reason Start Date End Da te sertraline (ZOLOFT) 25 mg tablet Take 1 tablet (25 mg total) by mouth daily. 11/22/2016 05/21/2017 documented as of this encounter Care Teams Courtroom Clerk Relationship Specialty Start Date End Date No, Physician PCP - General 11/22/16 08/08/23 documented as of this encounter
--- OUTSIDE RECORDS SUMMARY | 2024-02-22 14:42 | XMS_ITS | Encounter Summary ---
Author Organization [facility] Address [address] [place] [address] Phone Care Team Providers Care Terrazzo Journeyman Name Role Phone No, Physician Primary Care Provider Reason for Visit * Reason Comments Routine Visit Encounter Details Date Type Department Care Team (Late st Contact Info) Description 06/17/2017 1:30 PM CDT Office Visit [facility] [address] [place] [address] Karina Curiel MD [address] [place] [address] [phone] care in third trimester (Primary Dx) Social History Tobacco Use Types Packs/Day Years Used Date Smoking Tobacco: Former Smokeless Tobacco: Never Comments:Never daily, few ti mes a year. 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 Karina Curiel MD documented in this encounter Plan of Treatment Not on file documented as of this encounter Visit Diagnoses Diagnosis care in third trimester- Primary documented in this encounter Care Teams Terrazzo Journeyman Relationship Specialty Start Date End Date No, Physician PCP - General 11/22/16 08/08/23 documented as of this encounter
--- OUTSIDE RECORDS SUMMARY | 2024-02-22 14:42 | XMS_ITS | Encounter Summary ---
Author Organization [facility] ts Address [address] [place] [address] Phone Care Team Providers Care Auto Painter Helper Name Role Phone No, Physician Primary Care Provider [phone] Reason for Visit * Reason Comments Routine Visit Encounter Details Date Type Department Care Team (Late st Contact Info) Description 03/28/2017 3:00 PM SHEET METAL LAYOUT WORKER Office Visit [facility] [address] [place] [address] Claudia Winslow MD [address] [place] [address] Encounter for supervision of normal first in [...] on file Legal Sex Female 8:53 AM SHEET METAL LAYOUT WORKER Gender Identity Not on file Sexual Orientation Not on file 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 Discussed kick counts. 1hr GTT ordered. T METAL LAYOUT WORKER documented in this encounter Plan of Treatment Not on file documented as of this encounter Procedures Procedure Name Priority Date/Time Associated Diagnosis Comments POCT URINE GLUCOSE AND PROTEIN Routine 03/28/2017 3:05 PM SHEET METAL LAYOUT WORKER Encounter for supervision of normal first in second trimester documented in this encounter Results * (ABNORMAL) POCT urine glucose and protein (03/28/2017 3:05 PM SHEET METAL LAYOUT WORKER) Glucose, ur, POC 100.(A) Negative mg/dL Protein, ur, POC Negative Negative Lot Number [id number] Urine 03/28/2017 3:05 PM SHEET METAL LAYOUT WORKER us Claudia Winslow MD POINT OF CARE TEST OR DERABLES Final Result documented in this encounter Visit Diagnoses Diagnosis Encounter for supervision of normal first in second trimester- Primary documented in this encounter Care Teams Auto Painter Helper Relationship Specialty Start Date End Date No, Physician PCP - General 11/22/16 08/08/23 documented as of this encounter
--- OUTSIDE RECORDS SUMMARY | 2024-02-22 14:42 | XMS_ITS | Encounter Summary ---
Author Organization [facility] ts Address [address] [place] [address] Phone Care Team Providers Care Environmental Web Crawler Name Role Phone No, Physician Primary Care Provider [phone] Reason for Referral * Diagnostic Imaging (Routine) - Closed Specialty Diagnoses / Procedures Referred By Fatimah rodriguez Referred To Contact Diagnoses Small for gestational age fetus affecting mother, antepartum, second trimester, not applicable or unspecified fetus 20 weeks gestation of Procedures US Ob 14 Weeks Or Over Claudia Winslow MD Phone: tel: fax: Referral ID Status Reason Start Date Expiration Date Visits Re quested Visits Authorized [id number] Closed 01/17/2017 07/16/2017 1 1 CAL CLAIMS EXAMINER Reason for Visit * Diagnostic Imaging (Routine) - Closed Specialty Diagnoses / Procedures Referred By Fatimah rodriguez Referred To Contact Diagnoses Small for gestational age fetus affecting mother, antepartum, second trimester, not applicable or unspecified fetus 20 weeks gestation of Procedures US Ob 14 Weeks Or Over Claudia Winslow MD Phone: tel: fax: Referral ID Status Reason Start Date Expiration Date Visits Re quested Visits Authorized [id number] Closed 01/17/2017 07/16/2017 1 1 Encounter Details Date Type Department Care Team (Latest Contact Info) Description 02/14/2017 12:40 PM MEDICAL CLAIMS EXAMINER - 02/14/2017 11:59 PM MEDICAL CLAIMS EXAMINER Hospital Encounter [facility] [address] [place] [address] Small for gestational age fetus affecting mother, antepartum, second trimester, not applicable or unspecified fetus; 20 weeks gestation of Discharge Disposition: Discharge to [...] on file Legal Sex Female 8:53 AM MEDICAL CLAIMS EXAMINER Gender Identity Not on file Sexual Orientation Not on file 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 Not on fi le documented as of this encounter Medications at Time of Discharge [id number] epa-fish oil 400 mcg-35 mg -25 mg-5 [...] OVER Schedule Routine, Read Routine (OP Routine) 02/14/2017 1:54 PM MEDICAL CLAIMS EXAMINER Small for gestational age fetus affecting mother, antepartum, second trimester, not applicable or unspecified fetus 20 weeks gestation of documented in this encounter Results * US Ob 14 Weeks Or Over (02/14/2017 1:54 PM MEDICAL CLAIMS EXAMINER) Anatomical Region Laterality Modality Abdomen N/A Ultrasound Narrative 02/18/2017 2:29 PM MEDICAL CLAIMS EXAMINER DIGITAL OB ULTRASOUND Measurements: ??BPD: 5.29 (22W 0D) ?? HC: 19.46 (21W 5D) ?AC: ?? 16.02 (21W 1D) ?? FL: ?? 3.34 (20W 3D) Ratios: ?FL/AC: ??20.83 (20.00-24.00) ??FL/BPD: ??63.10 ( - ) ?HC/AC: ??1.22 (1.06-1.25) Ceph Index: ?? CI: ??80.58 (70.00-86.00) Estimated Wt: ??EFW: 388.31g+/-58.25g BONI ??By LMP: ?? BONI: ??06/29/2017 Gestational age by LMP: ??LMP: ??20W 5D Gestational age by this U/S: MA: ?? 21W0D+/-1W0D BONI by this Ultrasound: BONI: ??06/27/2017 Number: ??One ? Placenta Location: ??Anterior Presentation: Vertex ? SABRINA Range: ??9.3-21.2 Fluid/SABRINA: ??20.8 ? Heart Rate(HR): ??153 BPM S = Normal ?? NC = Not clearly seen A = Abnormal ?? SP = Seen on previous ultrasound exam Heart (4 Chamber): S ??Cisterna Magna: S Stomach: S ?? Cerebellum: S Bladder: S ?? Lat. Ventricles: S Kidneys: S ?Diaphragm: S Cervical spine: S ??Upper Extremity Right: S Thoracic Spine: S ??Upper Extremity Left: S Lumber Spine: S ??Lower Extremity Right: S Cord Insertion: S ??Lower Extremity Left: S 3 Vess. Cord: S Sex: ?Male Heart Activity? ??Yes Body movement seen? Yes COMMENTS: Single intrauterine gestation identified with a vertex lie. ??Estimated gestational age is 21 weeks and 0 days. BONI is 4-26-18. ??The visualized anatomy is within normal limits. Note is made is of borderline polyhydramnios with an SABRINA measurement of 20.8 cm. The upper normal for age is 21.2 cm. us Claudia Winslow MD IMG OB US PROCEDURES Final Result documented in this encounter Visit Diagnoses Diagnosis Small for gestational age fetus affecting mother, antepartum, second trimester, not applicable or unspecified fetus 20 weeks gestation of documented in this encounter Care Teams Environmental Web Crawler Relationship Specialty Start Date End Date No, Physician PCP - General 11/22/16 08/08/23 documented as of this encounter
--- OUTSIDE RECORDS SUMMARY | 2024-02-22 14:43 | XMS_ITS | Encounter Summary ---
Author Organization [facility] ts Address [address] [place] [address] Phone Care Team Providers Care Moving Picture Producer Name Role Phone No, Physician Primary Care Provider [phone] Reason for Visit * Reason Comments Routine Visit Encounter Details Date Type Department Care Team (Late st Contact Info) Description 12/20/2016 1:00 PM CDT Office Visit [facility] [address] [place] [address] Claudia Winslow MD [address] [place] [address] Need for prophylactic vaccination and inoculation against influenza (Primary Dx); Encounter for supervision of normal first in first trimester Social History Tobacco Use Types Packs/Day Years Used Date Smoking Tobacco: Former Smokeless Tobacco: Never Comments:Never daily, few ti mes a year. 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 Mood stable on current dose Zoloft. documented in this encounter Miscellaneous Notes * Addendum Note - Sloane Stinson MA - 12/20/2016 1:00 PM CDTAddended by: SLOANE LIMON on: 12/20/2016 01:36 PM Modules accepted: Orders documented in this encounter Plan of Treatment Not on file documented as of this encounter Procedures Procedure Name Priority Date/Time Associated Diagnosis Comments POCT URINE GLUCOSE AND PROTEIN Routine 12/20/2016 1:03 PM CDT Encounter for supervision of normal first in first trimester URINALYSIS AND REFLEX TO MICROSCOPIC AND CULTURE Routine 11/22/2016 N. GONORRHOEAE/C. TRACHOMATIS AMPLIFICATION TEST Routine 11/22/2016 CYTOLOGY Routine 11/22/2016 DRUGS OF ABUSE SCREEN, URINE WITHOUT CONFIRMATION Routine 11/22/2016 ABO/RH Routine 11/22/2016 documented in this encounter Results * POCT urine glucose and protein (12/20/2016 1:03 PM CDT) Glucose, ur, POC Negative mmol/L Protein, ur, POC Negative mg/dL Lot Number [id number] Urine 12/20/2016 1:03 PM CDT Claudia Winslow MD POINT OF CARE TEST OR DERABLES Final Result * Drug screen, urine (11/22/2016) SCRIBED Drug screen negative Urine Result [facility] Claudia Winslow MD LAB URINE ORDERABLES Final Result * ABO/Rh (11/22/2016) Pathologist [facility] ABO/Rh O positive Blood specimen (specimen) Result [facility] Claudia Winslow MD LAB BLOOD BANK TEST O RDERABLES Final Result * Urinalysis reflex to microscopic and culture (11/22/2016) Pathologist [facility] SCRIBED Urine Culture, Routine negative Urine Result [facility] Claudia Winslow MD LAB MICROBIOLOGY - GE NERAL ORDERABLES Final Result * N. gonorrhoeae/C. trachomatis amplification test (11/22/2016) SCRIBED GC/Chlamydia amplification negative Result [facility] Claudia Winslow MD LAB MICROBIOLOGY - GE NERAL ORDERABLES Final Result * Cytology (11/22/2016) SCRIBED Pap test negative Fluid Result [facility] Claudia Winslow MD LAB CYTOLOGY ORDERABL ES Final Result documented in this encounter Visit Diagnoses Diagnosis Need for prophylactic vaccination and inoculation against influenza- Primary Encounter for supervision of normal first in first trimester documented in this encounter Administered Medications Inactive Administered Medications - up to 3 most recent administrations Medication Order MAR Action Action Date Dose Rate Site non formulary medication (not in database) 1 each 1 each, intramuscular, Once, On Nichole 12/20/16 at 1415, For 1 dose, Brand Name: INFLUENZA, Generic name: INFLUENZA, Dose: 0.5 ML, [facility] Code: [id number]:Enco unter for supervision of normal first in first trimester,Need for prophylactic vaccination and inoculation against influenza Given 12/20/2016 1:35 PM CDT 1 each Left Deltoid documented in this encounter Orders Medications Ordered That Roger ht Not Have Been Administered Count Last Ordered Date First Ordered Date non formulary medication (no t in database) 1 each 1 12/20/2016 documented in this encounter Care Teams Moving Picture Producer Relationship Specialty Start Date End Date No, Physician PCP - General 11/22/16 08/08/23 documented as of this encounter
--- OUTSIDE RECORDS SUMMARY | 2024-02-22 14:43 | XMS_ITS | Encounter Summary ---
Author Organization [facility] Address [address] [place] [address] Phone Care Team Providers Care Dispatcher Chief Coal Slurry Name Role Phone No, Physician Primary Care Provider [phone] Encounter Details Date Type Department Care Team (Late st Contact Info) Description 12/10/2016 Telephone [facility] [address] [place] [address] Claudia Winslwo MD [address] [place], [place] [id number] Social History Tobacco Use Types Packs/Day Years Used Date Smoking Tobacco: Former Smokeless Tobacco: Never Comments:Never daily, few ti mes a year. 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 * Telephone Encounter - Claudia Winslow MD - 12/10/2016 1:10 PM CDT Blood likely from frequent vomiting/dry heaves. F/u if increases or if N/V worsening. Otherwise keep scheduled appointments. * Telephone Encounter - Karen Mathews LPN - 12/10/2016 12:26 PM CDT Patient calls with concerns that she was having some nausea today and had dry heaves mostly. Then after she vomited a small amt of bile she was trying to spit out the taste in her mouth and noticed some bright red each time she spit. States she just wanted to make sure its ok and nothing to worry about and maybe just irritated from wreching so hard.. States the vomiting is under control as long as she just eats something every couple hours. Advise please. * Telephone Encounter - Magda Ramon - 12/10/2016 12:09 PM CDT RED pt: Catie called and says she has been very stressed out at work and is 11 weeks . Sheput her two weeks in today because she had enough. She has been feeling nauseous but no vomitinguntil today. She says when she threw up she noticed some blood in the vomit. She didn't know if this could be due to the stress or possibly an ulcer? She is not having any other symptoms such as blood stools or anything. CBN [phone] documented in this encounter Plan of Treatment Not on file documented as of this encounter Visit Diagnoses Not on filedocumented in this encounter Care Teams Dispatcher Chief Coal Slurry Relationship Specialty Start Date End Date No, Physician PCP - General 11/22/16 08/08/23 documented as of this encounter
--- OUTSIDE RECORDS SUMMARY | 2024-02-22 14:43 | XMS_ITS | Encounter Summary ---
Author Organization [facility] Address [address] [place] [address] Care Team Providers Care School Community Relations Coordinator Name Role Phone Unavailable Primary Care Provider Unavailabl e Encounter Details Date Type Department Care Team (Late st Contact Info) Description 04/22/2016 11:37 PM LINER MAN - 04/23/2016 12:18 AM LINER MAN Emergency [facility] Emergency Department [address] [place] [address] Neto Velasco MD [address] [place] [address] Discharge Disposition: Discharge to home or self care Social History Tobacco Use Types Packs/Day Years Used Date Smoking Tobacco: Never Assessed Comments Unknown Sex and Gender Information Value Date Recorded Sex Assigned at Not on file Legal Sex Female 8:53 AM LINER MAN Gender Identity Not on file Sexual Orientation Not on file documented as of this encounter Discharge Disposition Disposition Code Departure Means Destination Discharge to home or self care documented in this encounter Plan of Treatment Not on file documented as of this encounter Procedures Procedure Name Priority Date/Time Associated Diagnosis Comments THROAT SWAB STREPTOCOCCUS RAPID ANTIGEN GROUP A Routine 04/22/2016 11:40 PM LINER MAN documented in this encounter Results * (ABNORMAL) Throat swab Streptococcus Rapid Antigen Group A (04/22/2016 11:40 PM LINER MAN) Strep A ag oropharyngeal Positive( A) Negative CDR HISTORICAL RESULTS Throat 04/22/2016 11:4 0 PM LINER MAN Historical Provider LAB BLOOD ORDERABLES Nicolette l Result CDR HISTORICAL RESULTS documented in this encounter Visit Diagnoses Not on filedocumented in this encounter
--- OUTSIDE RECORDS SUMMARY | 2024-02-22 14:43 | XMS_ITS | Encounter Summary ---
Author Organization [facility] Address [address] [place] [address] Phone Care Team Providers Care Hospital Coordinator Name Role Phone No, Physician Primary Care Provider [phone] Reason for Referral * Diagnostic Imaging (Routine) - Closed Specialty Diagnoses / Procedures Referred By Fatimah t Referred To Contact Diagnoses Intrauterine growth restriction affecting care of mother, antepartum, first trimester, not applicable or unspecified fetus 9 weeks gestation of Procedures US Ob Transvaginal Claudia Winslow MD Phone: tel: fax: Referral ID Status Reason Start Date Expiration Date Visits Re quested Visits Authorized [id number] Closed 11/22/2016 05/21/2017 1 1 * Diagnostic Imaging (Routine) - Closed Specialty Diagnoses / Procedures Referred By Fatimah t Referred To Contact Diagnoses Intrauterine growth restriction affecting care of mother, antepartum, first trimester, not applicable or unspecified fetus 9 weeks gestation of Procedures US Ob Under 14 Weeks Claudia Winslow MD Phone: tel: fax: Referral ID Status Reason Start Date Expiration Date Visits Re quested Visits Authorized [id number] Closed 11/22/2016 05/21/2017 1 1 Reason for Visit * Diagnostic Imaging (Routine) - Closed Specialty Diagnoses / Procedures Referred By Contac t Referred To Contact Diagnoses Intrauterine growth restriction affecting care of mother, antepartum, first trimester, not applicable or unspecified fetus 9 weeks gestation of Procedures US Ob Under 14 Weeks Claudia Winslow MD Phone: tel: fax: Referral ID Status Reason Start Date Expiration Date Visits Re quested Visits Authorized [id number] Closed 11/22/2016 05/21/2017 1 1 Encounter Details Date Type Department Care Team (Latest Contact Info) Description 11/22/2016 10:28 AM CDT - 11/22/2016 11:59 PM CDT Hospital Encounter [facility] [address] [place] [address] Intrauterine growth restriction affecting care of mother, antepartum, first trimester, not applicable or unspecified fetus; 9 weeks gestation of Discharge Disposition: Discharge to [...] on file 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 Sex 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 Gender Identity Not on file Sexual Orientation Not on file 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 file Not on fi le documented as of this encounter Medications at Time of Discharge CAU40-HG-zk0-tde- epa-fish oil 400 mcg-35 mg -25 mg-5 [...] Priority Date/Time Associated Diagnosis Comments US OB TRANSVAGINAL Schedule Routine, Read Routine (OP Routine) 11/22/2016 11:22 AM CDT Intrauterine growth restriction affecting care of mother, antepartum, first trimester, not applicable or unspecified fetus 9 weeks gestation of US OB UNDER 14 WEEKS Schedule Routine, Read Routine (OP Routine) 11/22/2016 11:22 AM CDT Intrauterine growth restriction affecting care of mother, antepartum, first trimester, not applicable or unspecified fetus 9 weeks gestation of documented in this encounter Results * US Ob Transvaginal (11/22/2016 11:22 AM CDT) Anatomical Region Laterality Modality Abdomen N/A Ultrasound Addenda Addendum by Clark Florez MD on 11/26/2016 2:57 PM CDT CORRECTION: DIGITAL EARLY OB ULTRASOUND: Real Time high resolution transvaginal ultrasound reveals the presence of a single intrauterine pole. ? Narrative 11/23/2016 2:27 PM CDT TRANSVAGINAL PELVIC ULTRASOUND Real Time high resolution of the transvaginal pelvic ultrasound reveals the presence of a single intrauterine pole. ??The crown rump length is 2.10 cm corresponding to a menstrual age of 8 weeks and 5 days. ??The estimated date of confinement is 18. movement and cardiac activity are seen. ??Trophoblastic tissue is unremarkable. IMPRESSION Single 8 week 5 day intrauterine pole with cardiac activity and an estimated date of confinement of 06-29-18. ?? Claudia Winslow MD [facility] [place] US PROCEDURES Edited Result - Final * US Ob Under 14 Weeks (11/22/2016 11:22 AM CDT) Anatomical Region Laterality Modality Abdomen N/A Ultrasound Narrative 11/23/2016 2:26 PM CDT DIGITAL EARLY OB ULTRASOUND Real Time high resolution transabdominal and transvaginal ultrasound reveals the presence of a single intrauterine pole. The crown rump is 2.10 cm corresponding to a menstrual age of 8 weeks and 5 days. ??The estimated date of confinement is 428-18. ?? movement and cardiac activity are seen. Trophoblastic tissue is unremarkable. IMPRESSION Single 8 week 5 day intrauterine pole with cardiac activity and an estimated date of confinement of 4-28-18. us Claudia Winslow MD IMG OB US PROCEDURES Final Result documented in this encounter Visit Diagnoses Diagnosis Intrauterine growth restriction affecting care of mother, antepartum, first trimester, not applicable or unspecified fetus 9 weeks gestation of documented in this encounter Care Teams Hospital Coordinator Relationship Specialty Start Date End Date No, Physician PCP - General 11/22/16 08/08/23 documented as of this encounter
--- OUTSIDE RECORDS SUMMARY | 2024-02-22 14:43 | XMS_ITS | Encounter Summary ---
Author Organization [facility] Address [address] [place] [address] Phone Care Team Providers Care Log Yard Manager Name Role Phone No, Physician Primary Care Provider [phone] Encounter Details Date Type Department Care Team (Late st Contact Info) Description 12/06/2016 Telephone [facility] [address] [place] [address] Claudia Winslow MD [address] [place] [address] Social History Tobacco Use Types Packs/Day Years Used Date Smoking Tobacco: Former Smokeless Tobacco: Never Comments:Never daily, few ti mes a year. 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 * Telephone Encounter - Claudia Winslow MD - 12/06/2016 9:02 AM CDT Noted - agree with above. F/u if develops other symptoms such as odor, itching or bleeding. * Telephone Encounter - Karen Mathews LPN - 12/06/2016 8:45 AM CDT Patient calls with concerns that she passed a large quarter to 1/2 dollar size clearish/greenish tinted mucus, like snot. Denies any spotting and just mild twinge at times but not painful cramping. Denies any foul vaginalodor. Denies having any discharge prior to or since pass the mucus. Informed patient it can be common to have increase in discharge, as long as no odor or itching. * Telephone Encounter - Magda Ramon - 12/06/2016 8:25 AM CDT RED pt: Catie called and says she had a big greenish colored mucus- like blob come out this morning. She says she is not having any bleeding or cramping. She thinks it looks like her mucus plug, however, I asked how far along she is and she is only 10 weeks. Her CBN is [phone] documented in this encounter Plan of Treatment Not on file documented as of this encounter Visit Diagnoses Not on filedocumented in this encounter Care Teams Log Yard Manager Relationship Specialty Start Date End Date No, Physician PCP - General 11/22/16 08/08/23 documented as of this encounter
--- OUTSIDE RECORDS SUMMARY | 2024-02-22 14:43 | XMS_ITS | Encounter Summary ---
Author Organization [facility] Address [address] [place] [address] Phone Care Team Providers Care Inspector Electromechanical Name Role Phone No, Physician Primary Care Provider [phone] Reason for Visit * Reason Comments Initial Visit Encounter Details Date Type Department Care Team (Late st Contact Info) Description 11/22/2016 9:40 AM CDT Office Visit [facility] [address] [place] [address] Claudia Winslow MD [address] [place] [address] Encounter for supervision of normal first in first trimester (Primary Dx) Social History Tobacco Use Types Packs/Day Years Used Date Smoking Tobacco: Former Smokeless Tobacco: Never Comments:Never daily, few ti mes a year. 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 30 tablet 11 11/22/2016 05/21/2017 documented in this encounter Progress Notes * Claudia Winslow MD - 11/22/2016 9:40 AM CDT New OB - unsure LMP 09/19 +/- 3 days. Sono ordered for dating with OB labs, Pap and Gc/CT. Nausea tolerable. No emesis. H/o anxiety/depression well controlled on Lexapro 10 mg. Stopped 1-2 months ago with insurance change and notes worsened depression > anxiety. Discussed risks of medication use in - MOJGAN, pulmonary HTN v risk of effect of poorly controlled symptoms such as labor and poor growth. She elects to change to Zoloft 25 mg. Reassess next visit. documented in this encounter Plan of Treatment Not on file documented as of this encounter Visit Diagnoses Diagnosis Encounter for supervision of normal first in first trimester- Primary documented in this encounter Historical Medications * This list may reflect changes made after this encounter. UNF08-OX-rc8-akl-d pa-fish oil 400 mcg-35 mg -25 mg-5 mg tablet,chewable Take by mouth daily. added in this encounter Care Teams Inspector Electromechanical Relationship Specialty Start Date End Date No, Physician PCP - General 11/22/16 08/08/23 documented as of this encounter
--- OUTSIDE RECORDS SUMMARY | 2024-02-22 14:43 | XMS_ITS | Encounter Summary ---
Author Organization [facility] Address [address] [place] [address] Phone Care Team Providers Care Director Of Media Name Role Phone No, Physician Primary Care Provider [phone] Reason for Visit * Reason Onset Date Comments OB 12/05/2016 Encounter Details Date Type Department Care Team (Late st Contact Info) Description 12/05/2016 Telephone [facility] [address] [place] [address] Claudia Winslow MD [address] [place] [address] OB Social History Tobacco Use Types Packs/Day Years Used Date Smoking Tobacco: Former Smokeless Tobacco: Never Comments:Never daily, few ti mes a year. 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 * Telephone Encounter - Claudia Winslow MD - 12/06/2016 9:03 AM CDT Okay for letter stating due to medical condition, patient allowed to have lunch breaks up to one hour in duration. * Telephone Encounter - Laura López - 12/05/2016 9:24 AM CDT PT called and is 11 wks and needs a work note for when she was in office last but also needs a note for work stating she can take a longer lunch she gets 15 min breaks but never gets to takethem so pt was wanting to see if Dr. Winslow would write a note allowing pt to take a extra 30min tomake her lunch a hour long so she can take time to eat and rest please advise and letters need sentto ATTN:Magda @ [phone] and ATTN:Sherry @[phone] and pt [phone] documented in this encounter Plan of Treatment Not on file documented as of this encounter Visit Diagnoses Not on filedocumented in this encounter Care Teams Director Of Media Relationship Specialty Start Date End Date No, Physician PCP - General 11/22/16 08/08/23 documented as of this encounter
--- OUTSIDE RECORDS SUMMARY | 2024-02-22 14:43 | XMS_ITS | Encounter Summary ---
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 Gender Identity Not on file Sexual Orientation Not on file 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 file Not on fi le documented as of this encounter Medications at Time of Discharge BCE40-XZ-qy0-ify- epa-fish oil 400 mcg-35 mg -25 mg-5 [...] Procedure Name Priority Date/Time Associated Diagnosis Comments GONORRHEA DNA, THIN PREP Routine 11/22/2016 8:37 PM CDT CHLAMYDIA DNA, THIN PREP Routine 11/22/2016 8:37 PM CDT CYTOLOGY Routine 11/22/2016 4:13 PM CDT DISCHARGE LABORATORY CUMULATIVE REPORT 11/22/2016 12:00 AM CDT CYTOLOGY 11/22/2016 12:00 AM CDT documented in this encounter Results * Gonorrhea DNA, Thin Prep (11/22/2016 8:37 PM CDT) Gonorrheae (GC) DNA, thin prep Negative Negative DIANE DOTSON Comment: Interpretive Data This test has been developed to maximize the sensitivity of detection of infection while minimizing false positives, with the combined goals of enabling treatment of infection and interrupting the spread of infection, and is intended for medical purposes. Any result should be interpreted together with the clinical presentation and risk assessment, particularly the prevalence of infection in the patient's demographic group. ??Significant discrepancies should be evaluated by additional measures. Current Interpretive Data was last revised on 2015 Thin prep 11/22/2016 8:37 PM CDT 11/22/2016 8:37 PM CDT Claudia Winslow MD LAB BLOOD ORDERABLES Final Result DIANE [address] Department [place] [address] * Chlamydia DNA, Thin Prep (11/22/2016 8:37 PM CDT) Chlamydia Amplified RNA, Liquid-based pap Negative Negative DIANE DOTSON Comment: Interpretive Data This test has been developed to maximize the sensitivity of detection of infection while minimizing false positives, with the combined goals of enabling treatment of infection and interrupting the spread of infection, and is intended for medical purposes. Any result should be interpreted together with the clinical presentation and risk assessment, particularly the prevalence of infection in the patient's demographic group. ??Significant discrepancies should be evaluated by additional measures. Current Interpretive Data was last revised on 2015 Thin prep 11/22/2016 8:37 PM CDT 11/22/2016 8:37 PM CDT Claudia Winslow MD LAB BLOOD ORDERABLES Final Result Performing Organization Address City/State/[facility] Co de Phone Number DIANE [address] [place] [address] * Cytology (11/22/2016 4:13 PM CDT) 11/22/2016 4:13 PM CDT 11/22/2016 4:13 PM CDT Narrative 11/26/2016 10:55 AM CDT [facility] Department of Pathology [address] [place] [address] Final Report ?Patient Name: CATIE MCDONALD Address: [address] [place] [address] Service: Laboratory ??[place], [place] [address] Location: Lab Taken: 11/22/2016 Gender: F Received 11/22/2016 : 1995 (Age: 21) Hospital #: [id number] Accessioned: 11/23/2016 ?? Patient Type: Ref Lab Reported 11/26/2016 Physician(s): MD Claudia Rodríguez MD ?? Diagnosis: Source of Specimen: ? SCREENING IMAGED PAP w/ Reflex HPV Specimen Adequacy: ?- Specimen satisfactory for interpretation; endocervical/transformation zone component absent or ?insufficient General Category: ?- Negative for intraepithelial lesion or malignancy Interpretation/Results: ?- Numerous inflammatory cells present RILEY Briceño(ASCP) Report Electronically Reviewed and Signed Out By ??RILEY Briceño(ASCP) ??11/26/2016 10:55:01 ??Specimen(s) Received: A: SCREENING IMAGED PAP w/ Reflex HPV Clinical History: Last Menstrual Period: 09/19/16 Menstrual History: Routine Checkup Previous Pap test: None The Pap test is a screening test used to aid in the detection of cervical cancer and its precursors. ??It should not be the sole means by which malignant and premalignant lesions are diagnosed. ??Both false negative and false positive results may occur. ?? It also has poor sensitivity for the detection of endometrial lesions and should not be used to evaluate suspected endometrial abnormalities. ??For these reasons it is most important to obtain Pap tests at regular intervals. The performance characteristics of some immunohistochemical stains, fluorescence in-situ hybridization tests and immunophenotyping by flow cytometry cited in this report (if any) were determined by the Surgical Pathology Department at [facility] as part of an ongoing quality control program and in compliance with federally mandated regulations drawn from the Clinical Laboratory Improvement Act of 1988 (CLIA '88). ??Some of these tests rely on the use of analyte specific reagents and are subject to specific labeling requirements by the US Food and Drug Administration. ??Such diagnostic tests may only be performed in a facility that is certified by the Department of Health and Human Services as a high complexity laboratory under CLIA '88. The FDA has determined that such clearance or approval is not necessary. ??This test is used for clinical purposes. ??It should not be regarded as investigational or for research. ??Nevertheless, federal rules concerning the medical use of analyte specific reagents require that the following disclaimer be attached to the report: This test was developed and its performance characteristics determined by the Surgical Pathology Department [facility]. ??It has not been cleared or approved by the U. S. Food and Drug Administration. Claudia Winslow MD LAB CYTOLOGY ORDERABL ES Final Result * CYTOLOGY (11/22/2016 12:00 AM CDT) Narrative 11/22/2016 12:00 AM CDT Ordered by an unspecified provider. Historical Provider LAB CYTOLOGY ORDERABLES F inal Result * DISCHARGE LABORATORY CUMULATIVE REPORT (11/22/2016 12:00 AM CDT) Narrative 11/22/2016 12:00 AM CDT Ordered by an unspecified provider. us Historical Provider LAB BLOOD ORDERABLES Nicolette l Result documented in this encounter Visit Diagnoses Not on filedocumented in this encounter Care Teams Socket Welder Helper Relationship Specialty Start Date End Date No, Physician PCP - General 11/22/16 08/08/23 documented as of this encounter
--- OUTSIDE RECORDS SUMMARY | 2024-02-22 14:43 | XMS_ITS | Encounter Summary ---
Author Organization [facility] Healthcare Address [address] [place] [address] Care Team Providers Care Marketing Consultant Name Role Phone No, Physician Primary Care Provider [phone] Encounter Details Date Type Department Care Team (Late st Contact Info) Description 11/22/2016 10:47 AM CDT - 11/22/2016 11:59 PM CDT Hospital Encounter [facility] OP INTERIM Claudia Winslow MD [address] [place] [address] Discharge Disposition: Discharge to home or self [...] on file Legal Sex Female 8:[address] Gender Identity Not on file Sexual Orientation Not on file 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 Not on file Not on file Not on fi le documented as of this encounter Medications at Time of Discharge [id number]- epa-fish oil 400 mcg-35 mg -25 mg-5 [...] Date/Time Associated Diagnosis Comments DIFFERENTIAL AUTO Routine 11/22/2016 10: 47 AM CDT HIV 1/2 ANTIBODY PLUS P24 ANTIGEN Routine 11/22/2016 10:47 AM CDT DRUG PROFILE, UR, 9 DRUGS Routine 11/22/2016 10:47 AM CDT CBC WITH AUTO DIFFERENTIAL Routine 11/22/2016 10:47 AM CDT HEPATITIS C ANTIBODY Routine 11/22/2016 10:47 AM CDT RUBELLA IGG Routine 11/22/2016 10:47 AM CDT RPR Routine 11/22/2016 10:47 AM CDT HEPATITIS B SURFACE ANTIGEN Routine 11/22/2016 10:47 AM CDT TYPE AND SCREEN Routine 11/22/2016 10:47 AM CDT URINE CULTURE Routine 11/22/2016 10:47 AM CDT VARICELLA ZOSTER ANTIBODY, IGG Routine 11/22/2016 10:47 AM CDT DISCHARGE LABORATORY CUMULATIVE REPORT 11/22/2016 12:00 AM CDT documented in this encounter Results * Urine culture (11/22/2016 10:47 AM CDT) Report Final Report: No growth DIANE DOTSON Comment:Testing performed by : [facility], [address], [place]., [address] Urine, clean voided 11/22/2016 10:47 AM CDT 11/22/2016 10:42 PM CDT Narrative DIANE DOTSON - 11/24/2016 8:02 AM CDT Received in transport media. us Claudia Winslow MD LAB MICROBIOLOGY - GE NERAL ORDERABLES Final Result Performing Organization Address [facility] de Phone Number DIANE [address] [place] [address] * RPR, serum (11/22/2016 10:47 AM CDT) [facility] RPR Non-Reactiv e Non-Reactiv e [facility] Blood specimen (specimen) 11/22/2016 10:47 AM CDT 11/22/2016 7:32 PM CDT Claudia Winslow MD LAB MICROBIOLOGY - NERAL ORDERABLES Final Result Performing Organization Address [facility] de Phone Number DIANE [address] [facility] [place] [address] * (ABNORMAL) Varicella zoster antibody, IgG (11/22/2016 10:47 AM CDT) [facility] VZV IgG Positive( A) Negative [facility] Comment: Interpretive Data Negative: ??No detectable antibody to Varicella-zoster ? virus. ??Such individuals ? are presumed to be uninfected with VZV and to ? be susceptible to primary infection. Equivocal: Presence or absence of detectable antibodies ? to VZV IgG cannot be determined and the test ? should be repeated. Positive: ??Indicated presence of detectable antibody to ? VZV. ??Indicative of current ? or previous infection or vaccination. Current interpretive data was last revised on 2016. Blood specimen (specimen) 11/22/2016 10:47 AM CDT 11/23/2016 9:15 AM CDT Claudia Winslow MD LAB MICROBIOLOGY - GE NERAL ORDERABLES Final Result Performing Organization Address [facility] de Phone Number DIANE [address] [place] [address] * Type and screen (11/22/2016 10:47 AM CDT) ABO Rh O Positive [facility] Pernell, indirect Negative [facility] Blood specimen (specimen) 11/22/2016 10:47 AM CDT 11/22/2016 8:02 PM CDT Claudia Winslow MD LAB BLOOD BANK TEST O RDERABLES Final Result Performing Organization Address [facility] Co de Phone Number DIANE [address] [facility] [place] [address] * Drug profile, urine, 9 drugs (11/22/2016 10:47 AM CDT) Amphetamine, ur Negative [id number] ng/ml [facility] Barbiturates, Screen Negative cutoff 200ng/ml [facility] Benzodiazepines, Screen Negative cutoff 200ng/ml [facility] Cocaine metabolite Negative cutoff 300ng/ml [facility] Methadone, ur Negative cutoff 300ng/ml [facility] Opiates Screen Negative [id number] ng/ml [facility] Comment:This assay is optimi zed to detect morphine and codeine. It has low sensitivity for synthetic opiates. Phencyclidine, qual, ur Negative cutoff 25 ng/ml [facility] Propoxyphene, ur Negative cutoff 300ng/ml [facility] Cannabinoids, Screen Negative cutoff 50 ng/ml [facility] Concentration, urine Average [facility] Urine 11/22/2016 10:4 7 AM CDT 11/22/2016 7:34 PM CDT Narrative [facility] - 11/22/2016 8:43 PM CDT This drug screen is for medical purposes only. It is not intended to be used for legal, employment or forensic purposes. Claudia Winslow MD LAB URINE ORDERABLES Final Result Performing Organization Address City/[facility]/ZIP Co de Phone Number DIANE [address] [place] [address] * HIV-1 and HIV-2 antibody with P24 antigen immunoassay (11/22/2016 10:47 AM CDT) HIV 1/2 ab + p24 ag Nonreactive [facility] Blood specimen (specimen) 11/22/2016 10:47 AM CDT 11/22/2016 7:32 PM CDT Claudia Winslow MD LAB MICROBIOLOGY - GE NERAL ORDERABLES Final Result Performing Organization Address [facility]/ZIP Co de Phone Number DIANE DOTSON [address] [place] [address] * Hepatitis B surface antigen (11/22/2016 10:47 AM CDT) HepBsAg Negative Negative [facility] Blood specimen (specimen) 11/22/2016 10:47 AM CDT 11/22/2016 7:32 PM CDT Claudia Winslow MD LAB MICROBIOLOGY - GE NERAL ORDERABLES Final Result Performing Organization Address [facility] Co de Phone Number DIANE DOTSON [address] [place] [address] * Hepatitis C antibody (11/22/2016 10:47 AM CDT) Hep C Ab Negative Negative [facility] Blood specimen (specimen) 11/22/2016 10:47 AM CDT 11/22/2016 7:32 PM CDT Claudia Winslow MD LAB MICROBIOLOGY - [employer] NERAL ORDERABLES Final Result Performing Organization Address [facility] Co de Phone Number DIANE DOTSON [address] [facility] [address] [place], [place] [id number] * (ABNORMAL) Rubella antibody, IgG (11/22/2016 10:47 AM CDT) Rubella IgG Non-Immune (A) Immune [facility] Blood specimen (specimen) 11/22/2016 10:47 AM CDT 11/22/2016 7:32 PM CDT us Claudia Winslow MD LAB MICROBIOLOGY - NEROH ORDERABLES Final Result Performing Organization Address [facility]/ZIP Co de Phone Number DIANE DOTSON [address] Department [place] [address] * (ABNORMAL) Differential, auto (11/22/2016 10:47 AM CDT) Neutrophil pct 79.8 % [facility] Imm gran pct 0.4 % [facility] Lymphocyte pct 13.9 % [facility] Monocyte pct 5.2 % [facility] Eosinophil pct 0.0 % [facility] Basophil pct 0.2 % [facility] Neutrophil abs 7.57(H) 1.70 - 6.50 K/cumm [facility] Imm gran abs 0.04 0.00 - 0.10 K/cumm [facility] Lymphocyte abs 1.32 0.80 - 3.30 K/cumm [facility] Monocyte abs 0.49 0.20 - 0.80 K/cumm [facility] Eosinophil abs 0.05 0.00 - 0.50 K/cumm [facility] Basophil abs 0.02 0.00 - 0.10 K/cumm [facility] Blood specimen (specimen) 11/22/2016 10:47 AM CDT 11/22/2016 7:32 PM CDT Claudia Winslow MD LAB BLOOD ORDERABLES Final Result DIANE DOTSON [address] [place] [address] * CBC with auto differential (11/22/2016 10:47 AM CDT) WBC 9.49 3.80 - 9.90 K/cumm [facility] RBC 4.51 3.90 - 5.20 M/cumm [facility] Hgb 13.9 11.9 - 15.5 g/dL [facility] Hct 41.3 35.6 - 45.5 % [facility] MCV 91.6 81.3 - 96.4 fL [facility] MCH 30.8 27.1 - 33.3 pg [facility] MCHC 33.7 32.3 - 35.7 g/dL [facility] RDW CV 12.3 11.1 - 14.9 % [facility] RDW SD 40.5 35.7 - 48.1 fL [facility] Plt 272 150 - 400 K/cumm [facility] MPV 9.8 9.1 - 12.3 fL [facility] NRBC 0.0 0.0 - 0.2 % [facility] NRBC abs 0.00 0.00 - 0.01 K/cumm [facility] Blood specimen (specimen) 11/22/2016 10:47 AM CDT 11/22/2016 7:32 PM CDT Claudia Winslow MD LAB BLOOD ORDERABLES Final Result [facility] [address] [place] [address] * DISCHARGE LABORATORY CUMULATIVE REPORT (11/22/2016 12:00 AM CDT) Narrative 11/22/2016 12:00 AM CDT Ordered by an unspecified provider. Historical Provider LAB BLOOD ORDERABLES Nicolette l Result documented in this encounter Visit Diagnoses Not on filedocumented in this encounter Care Teams Marketing Consultant Relationship Specialty Start Date End Date No, Physician PCP - General 11/22/16 08/08/23 documented as of this encounter
== END 2024-02-17 06:41 | disposition home or self-care (01) ==
PROVIDERS: PCP Family Medicine; Visit Provider Obstetrics & Gynecology
DX: R10.9 Unspecified abdominal pain (principal)
CPT/HCPCS: 74177; Q9967

== ENCOUNTER 2024-03-24 00:45 | Day surgery (SDC) | payer OTHER, MEDICAID, SELFPAY ==
--- NOTE | 2024-03-11 16:40 | SUR.PREOP ---
Report to the Outpatient Waiting Room, entrance under the green pavilion located off [facility], at time _0600_ on date _03/24/2024_. Planned Procedure Time: _0730_.? Time changes happen often and if your time is changed the preop area will call you the afternoon before. - You and your visitor will be asked to self-screen and do not enter if you have any COVID symptoms. Please call surgeon if you need to reschedule. - A mask is optional within the hospital at this time. Patients may have clear liquids (water, carbonated beverages, clear teas, apple juice) until 3 hours (0430) prior to surgery with a maximum of 20 ounces. - No food from midnight until time of surgery and no smoking. This includes no chewing gum, candy or mints. - Infants may have breast milk until 4 hours before surgery, formula 6 hours prior to surgery. - Children will be allowed to drink immediately following surgery.? If applicable, please bring a bottle or sippy cup to assist with drinking. Juice, water, soda, and popsicles are readily available.? For infants on formula, please bring formula the day of surgery.? Pacifiers are allowed. Take only the following medications with a SIP of water on the morning of surgery: _bupropion, venlafaxine_ DO NOT STOP ANY OF YOUR OTHER PRESCRIPTION MEDICATIONS PRIOR TO SURGERY EXCEPT THE FOLLOWING Medications to discontinue per physician _multivitamin_ Date to take last dose_03/21/2024_ Please no make-up, nail surinamese, hairspray, perfume, deodorant, or body powder the day of surgery.? No jewelry (including any body piercings) or valuables the day of surgery, leave them at home.? Please take a shower or bath the night before, or the morning of, surgery with an antibacterial soap.? Wear comfortable, loose fitting clothing.? Children are encouraged to wear pajamas. - Jewelry must be removed prior to entering the operating room.? Rings and piercings that are not removed may be cut off. - The hospital will not accept responsibility for valuables.? - Please leave all valuables, including medications, at home the day of surgery. If you are going home after surgery, a licensed driver supervisor must drive you home.? - NO public transportation without another adult if you receive anesthesia. - We recommend that an adult stay with you for 24 hours following discharge. - We also recommend that you do not drive, make important decision, drink alcoholic beverages, or take any drugs that were not prescribed by your health care provider for at least 24 hours after your discharge time. For Pediatric surgeries, we recommend two adults accompany the child home. Follow any additional instructions given to you from your surgeon. Telephone instructions given to _Laciebarry_and asked if any additional questions and then verbalized understanding. Patient advised to call surgeon office or pre surgery nurse liaison [phone] if any additional questions.
[2024-03-11 17:05] VITALS: BMI 39.1
[2024-03-24] VITALS (10 sets, daily range): BP systolic 104–156; BP diastolic 57–97; PULSE 80–100; RESP 12–20; TEMP 36.3–36.4; O2SAT 100
[2024-03-24] MEDS: LACTATED RINGERS 1,000 ML 30 ML IV CONT ×2 (06:30→09:04)
--- NOTE | 2024-03-24 06:34 | P.PNAN_ITS ---
Anes - Initial Pre Proc Eval Procedure: Operation Date: 03/24/24 07:30 Proposed Procedures p Hysteroscopy with Lili Endometrial Ablation, Laparoscopic Bilateral Salpingectomy - Mohit Garcia MD Date/Time: 03/24/24 06:34 Surgeon: Mohit Garcia MD Pre Op Diagnosis: Menorrhagia Patient Data Age: 28 Gender: F Height: 1.65 m Weight: 106.6 kg Allergies Allergy/AdvReac Type Severity Reaction Status Date / Time No Known Allergies Allergy Verified 03/11/24 16:58 Home Medications ?Medication ?Instructions ?Recorded ?Confirmed ?Type bupropion HCl 150 mg 24 hr tablet, 150 mg PO DAILY 03/11/24 03/11/24 History extended release dexmethylphenidate 10 mg 15 mg PO DAILY 03/11/24 03/11/24 History capsule,extended release [id number] (Focalin XR) [id number]-[id number]-minerals 18 1 tablet PO DAILY 03/11/24 03/11/24 History mg-0.4 mg tablet venlafaxine 75 mg capsule,extended 112.5 mg PO DAILY 03/11/24 03/11/24 History release 24 hr Patient hx anesthesia problems: none Family hx anesthesia problems: none Results Review: All pre-operative results and documents have been reviewed as part of the pre- operative evaluation. [facility] Past Medical History Medical History (Updated 03/24/24 @ 06:35 by Dion Weeks DO) PTSD (post-traumatic stress disorder) Anxiety ADHD Autism Social History Social History Smoking status: Never smoker Second hand tobacco smoke exposure: Yes Alcohol intake: never Substance use: current Substance use type: marijuana Other substance usage details: daily Last use: 03/11/2024 Living arrangements: with family Additional living arrangements comments: with and children Gender identity (if verbalized by the patient): Female Sexual Orientation (if Verbalized by the Patient): Straight or Heterosexual Spiritual care concerns: No Anes - Eval Final PreProcedure Day of Procedure 03/24/24 06:34 Patient weight: obese Heart: regular rate and rhythm Lungs: clear to auscultation Airway: Mallampati scale class II Neurological: alert and oriented Last oral intake: >/= 8 hours ASA classification: III Emergent: no Anesthetic plan: proceed Anesthesia type and monitoring: general ETT and standard monitoring Results Review: All pre-operative results and documents have been reviewed as part of the pre- operative evaluation. Informed Consent: The patient's anesthetic plan and its attendant risks and benefits were dis cussed with the patient/family/POA. Questions were solicited and answers provided to the satisfaction of the patient/family/POA.
[2024-03-24] MEDS: ACETAMINOPHEN 500 MG TABLET 1000 MG PO (07:00)
[2024-03-24] MEDS: KETOROLAC 15 MG/ML VIAL (*BKC) IV PUSH (07:00)
--- NOTE | 2024-03-24 07:08 | WPDHPUPDATE1 ---
History and Physical Update Update Date/Time: 03/24/24 07:08 History and Physical has been reviewed, including an updated exam of the patient. There are NO changes in the patient's condition. Risks, benefits, and alternatives have been discussed and questions answered. Patient agrees to proceed with procedure.
[2024-03-24 08:17] LABS: BEDSIDEPREGUCG Negative (Negative)
[2024-03-24] MEDS: fentaNYL CITRATE INJ (*CRX) 100 MCG/2 ML VIAL 25 MCG IV PUSH ×4 (08:54→09:30)
--- NOTE | 2024-03-24 09:08 | P.OP_ITS ---
Procedure Note - Detailed Date of Procedure 03/24/24 Pre-op Diagnosis Menorrhagia Post-op Diagnosis Same Procedure Performed Laparoscopic bilateral salpingectomy with endometrial ablation and hysteroscopy. Surgeon Mohit Garcia MD Anesthesia General Indications Menorrhagia, female sterilization Findings Normal pelvic anatomy, normal vulva, vagina, cervix Description of Procedure Patient was taken the operating room. She has prepped draped in the dorsal lithotomy position after induction of general anesthesia. A 5 mm abdominal incision was made in left upper quadrant of the abdomen with scalpel. A 5 mm trocars inserted the intra-abdominal cavity under direct visualization of the scope. Pneumoperitoneum was achieved. A 5 mm periumbilical incision was made using a scalpel on the abdominal scan. A 5 mm trocar was inserted the intra- abdominal cavity under visualization of the scope. A 5 mm incision made left lower quadrant of the abdomen. A 5 mm trocar was inserted the intra-abdominal cavity and direct visualization of the scope. The bilateral fallopian tubes were removed. The paratubal tissue in the area of the uterus was grasped with the LigaSure cautery and transected after being cau terized. The paratubal tissue from the ovary to the uterine cornu was cauterized and transected with LigaSure cautery. This was all done in a bilateral fashion. The tube was transected at the area of the uterine cornua and the tubes was removed through the 5 mm trocar site. The pneumoperitoneum was reduced. The trocars were removed. The skin was closed with subcuticular 4 Monocryl and covered with Dermabond. Our attention was then turned to the endometrial ablation portion of the procedure. A speculum was placed in the vagina. The cervix was grasped with a tenaculum. The cervix was dilated to approximately 8 mm with Clemente dilators. The hysteroscope was inserted. And the below findings were noted. All of the intrauterine surfaces were curettaged with a medium-size curette and the specimens were collected. Measurements of the cervix were taken using the uterine sound and the hysteroscope. The intrauterine cavity measurements were entered into the handpiece. The device was inserted into the intrauterine cavity and the array was expanded. The balloon cuff was inflated. When an adequate seal was formed the safety and energy cycles were initiated and completed. The array was collapsed, the balloon was deflated. The insert was withdrawn. The hysteroscope was reinserted and a well desiccated intrauterine cavity was observed. The patient was taken recovery room stable condition. Sponge lap and needle counts were correct x2. She tolerated the procedure well. Pathology Yes Complications No immediate complications Condition Stable Disposition PACU
[2024-03-24] MEDS: oxyCODONE HCL (*CRX) 5 MG TAB IR PO (10:14)
--- OUTSIDE RECORDS SUMMARY | 2024-03-26 15:15 | XMS_ITS | Clinical Summary ---
Author Organization [facility] Address [address] [place] [address]. [place], [place] [address] [place] [address] Care Team Providers Care Deburr Technician Name Role Phone Rahul Bradford Primary Care Provider [phone] Allergies No known active allergies Medications vitamin, [...] (11/25/2022): Added automatically from request for surgery [id number] Normal labor and delivery ([facility]) 01/27/2022 37 weeks gestation of ([facility]) 2021 Family History Medical History Relation Comments [...] How often do you attend chur or anabaptist services? Patient declined 11/23/2022 Do you belong [...] and heating? Not hard at all 11/23/2022 [facility] [place] [facility] Occupat ional Health - Occupational Stress [...] place to sleep or slept in a chcf (including now)? 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
--- OUTSIDE RECORDS SUMMARY | 2024-03-26 15:15 | XMS_ITS | Clinical Summary ---
Author Organization [facility] Address [address] [place] [address] Phone Care Team Providers Care Produce Production Team Member Name Role Phone Provider, None Primary Care Provider Unavailabl e Allergies No known active allergies Medications Vit-Fe Fumarate-FA ( VITAMIN PO) Take by mouth. Activ e ibuprofen (MOTRIN) 200 MG Tablet Take 3 Tabs by mouth every 6 hours as needed for Pain. 06/27/19 18 Active venlafaxine (EFFEXOR-XR) 150 MG CAPSULE SR 24 HR Take 150 mg by mouth daily. Active Multiple Vitamins-Minerals (MULTI-VITAMIN GUMMIES PO) Take by mouth. Act nicole buPROPion (WELLBUTRIN) 150 MG XL tabletIndications :Depression with anxiety Take 150 mg by mouth every morning. 01/04/20 24 Active Dexmethylphenidat e HCl 15 MG CAPSULE SR 24 HRIndications:ADH D (attention deficit hyperactivity disorder), inattentive type Take 1 Capsule by mouth daily for 30 days. 30 Capsule 03/14/19 25 025 Active Dexmethylphenidat e HCl 15 MG CAPSULE SR 24 HRIndications:ADH D (attention deficit hyperactivity disorder), inattentive type Take 1 Capsule by mouth daily for 30 days. 30 Capsule 04/13/19 25 025 Active Dexmethylphenidat e HCl 15 MG CAPSULE SR 24 HRIndications:Att ention Deficit Hyperactivity Disorder Take 1 Capsule by mouth daily for 30 days. Indications: Attention Deficit Hyperactivity Disorder 30 Capsule 02/13/20 24 025 Active Problems Problem Noted Date Diagnosed Date Unspecified neurodevelopmental disorder 11/18/19 24 Overview (11/18/2023): R/o ASD Acute cholecystitis 11/23/2022 Choledocholithiasis 11/22/2022 Overview (01/03/2024): Added automatically from request for surgery [id number] 37 weeks gestation of 01/27/2022 Normal labor and delivery 01/27/2022 Rubella non-immune status, antepartum 12/20/2016 Depression with anxiety 11/22/2016 Mild single current episode of major depressive disorder 07/03/2016 Encounters Date Type Department Care Team Description 03/23/2024 Telephone [facility] Gastroenterology [facility] [address] [place] [phone] Lauren Saravia APRN, ANDROID PLATFORM DEVELOPER 03/03/2024 [facility] [place] [address] Lauren Saravia APRN, ANDROID PLATFORM DEVELOPER 02/13/2024 [facility] [address] [place] [phone] Aissatou Johnston MD Medication Problem (focalin) 01/17/2024 8:45 AM SALES STRATEGY MANAGER Office Visit [facility] [address] [place] [address] Aissatou Johnston MD Depression with anxiety (Primary Dx); Chronic idiopathic constipation; Mixed hyperlipidemia; Immunization due; Hypothyroidism (acquired) Discharge Disposition: Discharged to home or Selfcare 01/17/2024 Travel 01/15/2024 Telephone [facility] Family Medicine [facility] [address] [place] [phone] Aissatou Johnston MD 01/13/2024 Telephone [facility] [address] [place] [address] Pema Rousseau MD Results (Labs ) 01/10/2024 1:00 PM SALES STRATEGY MANAGER [facility] [place] [address] [place] [address] [facility] Irregular periods Discharge Disposition: Discharged to home or Selfcare 01/10/2024 Travel 01/08/2024 Telephone [facility] [place] [place] [address] [place] [address] Aissatou Johnston MD 01/03/2024 8:00 AM CDT Office Visit [place] [address] [place] [address] Elsa Mixon APRN, CNP Irregular periods (Primary Dx) Discharge Disposition: Discharged to home or Selfcare 01/02/2024 11:00 AM CDT Outpatient Clinic Visit [facility] [address] [place] [address] Pop Barclay PSYD Autism spectrum disorder, without accompanying intellectual or language impairment, requiring support (level 1) (Primary Dx); Attention deficit hyperactivity disorder, predominantly inattentive presentation, moderate Discharge Disposition: Discharged to home or Selfcare 01/02/2024 Travel from Last 3 Months Immunizations Immunization Administration Dates Next Due Influenza Vaccine, Quadrivalent, PF 02/05/2021,0 03/25/2020 Influenza, Injectable, Quadrivalent 02/09/2019 Influenza,Split Virus,Trivalent,Injectable,PF 01/17/2024 MMR Vaccine 06/26/2017 TDAP Vaccine 03/25/2020,04/11/2017,07/03/2016 Family History Medical History Relation Name Comments Alcohol Abuse Father Hypertension Father Heart Attack Paternal Grandfather Hypertension Paternal Grandfather Cancer Paternal Grandmother Relation Name Status Comments Daughter (3) Alive Father Paternal Grandfather Paternal Grandmother Son 1 (6) Alive Son 2 (2) Alive Social History Tobacco Use Types Packs/Day [...] on file Legal Sex Female 10:24 AM SALES STRATEGY MANAGER Gender Identity Not on file Sexual Orientation Not on file Last Filed Vital Signs Vital Sign Reading Time Taken Comments Blood Pressure 118/86 01/17/2024 8:58 AM SALES STRATEGY MANAGER Pulse 76 01/17/2024 8:58 AM SALES STRATEGY MANAGER Temperature 37.2 ??C (99 ??F) 01/17/2024 8:58 AM SALES STRATEGY MANAGER Respiratory Rate 18 01/17/2024 8:58 AM SALES STRATEGY MANAGER Oxygen Saturation 96% 01/17/2024 8:58 AM SALES STRATEGY MANAGER Inhaled Oxygen Concentration - - Weight 102.7 kg (226 lb 6 oz) 01/17/2024 8:58 AM SALES STRATEGY MANAGER Height 164.5 cm (5' 4.75 ) 01/17/2024 8:58 AM CS T Body Mass Index 37.96 01/17/2024 8:58 AM SALES STRATEGY MANAGER Plan of Treatment Upcoming Encounters Date Type Department Care Team (Late st Contact Info) Description 04/22/2024 10:00 AM SALES STRATEGY MANAGER Office Visit [facility] [place] [address] [place] [phone] Laura Cotton, GROOMING ASSISTANT, DRAMATIC CRITIC [address] [place] [address] Health Maintenance Due Date Last Done Comments Hepatitis B Immunization (1 of 3 - 19+ 3-dose series) 2013 SARS-COV-2 Immunization ( season) 2023 02/05/2021, 06/19/2020, 05/29/2020 Td Immunization Every 10 Years (Adults With 1 Tdap) 03/25/2030 03/25/2020, 04/11/2017, 07/03/2016 Respiratory Syncytial Virus (RSV) Immunization (Adult) (1 - 1-dose 75+ series) 2069 DTaP/Tdap/Td Immunization Discontinued 2020, 04/11/2017, 07/03/2016 TdaP Immunization Discontinued 03/25/2020, , 07/03/2016 Hepatitis C Virus (HCV) Screening Completed 12/22/2021 Influenza Immunization Completed 4, 02/05/2021, 03/25/2020, Additional history exists Meningococcal Immunization (ACWY) Aged Out No longer eligible based on patient's age to complete this topic Pneumococcal Immunization Combined Aged Out No longer eligible based on patient's age to complete this topic Rotavirus Immunization Aged Out No lo nger eligible based on patient's age to complete this topic Procedures Procedure Name Priority Date/Time Associated Diagnosis Comments THYROID SCREEN WITH REFLEX Routine 01/10/2024 1:32 PM SALES STRATEGY MANAGER Irregular periods CBC WITH AUTO DIFFERENTIAL Routine 01/10/2024 1:32 PM SALES STRATEGY MANAGER Irregular periods VITAMIN B12 Routine 01/10/2024 1:32 PM SALES STRATEGY MANAGER Irregular periods VITAMIN D, 25 HYDROXY TOTAL Routine 01/10/2024 1:32 PM SALES STRATEGY MANAGER Irregular periods [employer] Routine 01/10/2024 1:3 2 PM SALES STRATEGY MANAGER Irregular periods FERRITIN Routine 01/10/2024 1:32 PM SALES STRATEGY MANAGER Irregular periods THYROID SCREEN WITH REFLEX Routine 01/10/2024 1:32 PM SALES STRATEGY MANAGER Irregular periods LIPID PANEL Routine 01/10/2024 1:32 PM SALES STRATEGY MANAGER Irregular periods HEMOGLOBIN A1C W/ ESTIMATED GLUCOSE Routine 01/10/2024 1:32 PM SALES STRATEGY MANAGER Irregular periods CMP (COMPREHENSIVE METABOLIC PANEL) Routine 01/10/2024 1:32 PM SALES STRATEGY MANAGER Irregular periods COMPLETE BLOOD COUNT (CBC) WITH DIFF Routine 01/10/2024 1:32 PM SALES STRATEGY MANAGER Irregular periods from Last 3 Months Results * [employer] (01/10/2024 1:32 PM SALES STRATEGY MANAGER) [employer] 116 49 - 141 % 01/10/2024 10:07 PM SALES STRATEGY MANAGER [facility] Blood Venipuncture / Unknown 01/10/2024 1:32 PM SALES STRATEGY MANAGER 01/10/2024 1:32 PM SALES STRATEGY MANAGER us Elsa Mixon GROOMING ASSISTANT, ANDROID PLATFORM DEVELOPER HEMATOLOGY ORDERABLES Nicolette l Result [facility] [address] [place] [address], * VITAMIN D, 25 HYDROXY TOTAL (01/10/2024 1:32 PM SALES STRATEGY MANAGER) VITAMIN D, 25 HYDROX 21.6 ng/mL 01/10/2024 4:29 PM SALES STRATEGY MANAGER [facility] Blood Venipuncture / Unknown 01/10/2024 1:32 PM SALES STRATEGY MANAGER 01/10/2024 1:32 PM SALES STRATEGY MANAGER Narrative [facility] - 01/10/2024 4:29 PM SALES STRATEGY MANAGER Published reference ranges for Vitamin D vary depending on time and place and method of testing, and on patient's age, sex, ethnicity and levels of other measured analytes such as parathormone, calcium and phosphorus. ??The result should be evaluated in conjunction with clinical findings and suspicions. [place] [facility] Clinical Practice Guidelines: Status Vitamin D levels (ng/mL) Deficient <=20 At risk of inadequacy 21-29 Sufficient 30-100 Centers of Disease Control and Prevention Guidelines: Status Vitamin D levels (ng/mL) Deficient <13 At risk of inadequacy 13-19 Sufficient 20-50 Possibly harmful >50 References: [place] [facility], 2010 Dietary reference intakes for calcium and vitamin D. [place]: ??The National Academies Press. Vero M, Juvenal N, Constantino JOSEPH, et al., Evaluation, treatment, and prevention of Vitamin D deficiency: an Endocrinology Clinical Practice Guideline. JCEM 2011 96: 7 6078-1564. Tiffanie A, Rod C, Hetal Mcclure, et al., Vitamin D Status: ??[place], 1005, [facility] data brief, no. 59, MD Megan: ??[facility] Statistics. 2010. Elsa Mixon APRN, JOEL CHEMISTRY ORDERABLES Final Result Performing Organization Address City/[facility] Co de Phone Number [facility] [address] [place] [address] * THYROID SCREEN WITH REFLEX (01/10/2024 1:32 PM SALES STRATEGY MANAGER) TSH 2.081 0.300 - 5.000 mIU/L 01/10/2024 4:14 PM SALES STRATEGY MANAGER [facility] Blood Venipuncture / Unknown 01/10/2024 1:32 PM SALES STRATEGY MANAGER 01/10/2024 1:32 PM SALES STRATEGY MANAGER Elsa Mixon APRN, ANDROID PLATFORM DEVELOPER CHEMISTRY ORDERABLES Final Result Performing Organization Address [facility] Co de Phone Number [facility] [address] [place] [address] * HEMOGLOBIN A1C W/ ESTIMATED GLUCOSE (01/10/2024 1:32 PM SALES STRATEGY MANAGER) HGB-A1C 5.3 4.0 - 6.0 % 01/10/2024 3:51 PM SALES STRATEGY MANAGER [facility] Est Average Glucose 105.4 mg/dL 01/10/2024 3:51 PM SALES STRATEGY MANAGER [facility] Blood Venipuncture / Unknown 01/10/2024 1:32 PM SALES STRATEGY MANAGER 01/10/2024 1:32 PM SALES STRATEGY MANAGER Narrative [facility] - 01/10/2024 3:51 PM SALES STRATEGY MANAGER HEMOGLOBIN A1C: DIABETIC PATIENTS: WELL-CONTROLLED: ?? 6.2 - 7.0 INTERMEDIATE WELL-CONTROLLED: ??7.0 - 9.0 POORLY-CONTROLLED: ??>9.0 Elsa Mixon APRN, ANDROID PLATFORM DEVELOPER CHEMISTRY ORDERABLES Final Result Performing Organization Address City/[facility] Co de Phone Number [facility] [address] [place] [address] * (ABNORMAL) CBC WITH AUTO DIFFERENTIAL (01/10/2024 1:32 PM SALES STRATEGY MANAGER) WBC 11.98 4.00 - 12.00 10(3)/mcL 01/10/2024 3:42 PM SALES STRATEGY MANAGER [facility] RBC 4.59 3.80 - 5.30 10(6)/mcL 01/10/2024 3:42 PM [facility] HEMOGLOBIN (HGB) 14.3 12.0 - 15.8 g/dL 01/10/2024 3:42 PM [facility] HEMATOCRIT (HCT) 42.7 36.0 - 47.0 % 01/10/2024 3:42 PM [facility] MCV 93.0 82.0 - 96.0 fL 01/10/2024 3:42 PM [facility] MCH 31.2 26.0 - 34.0 pg 01/10/2024 3:42 PM [facility] MCHC 33.5 31.0 - 36.0 g/dL 01/10/2024 3:42 PM [facility] PLATELET COUNT 382 140 - 440 10(3)/mcL 01/10/2024 3:42 PM [facility] RDW 12.1 11.8 - 15.5 % 01/10/2024 3:42 PM [facility] MPV 9.3(L) 9.7 - 12.4 fL 01/10/2024 3:42 PM [facility] NEUTROPHILS 81.6(H) 47.0 - 73.0 % 01/10/2024 3:42 PM [facility] LYMPHOCYTES 15.0(L) 18.0 - 42.0 % 01/10/2024 3:42 PM [facility] MONOCYTES 3.0(L) 4.0 - 12.0 % 01/10/2024 3:42 PM SALES STRATEGY MANAGER [facility] EOSINOPHILS 0.1 0.0 - 5.0 % 01/10/2024 3:42 PM SALES STRATEGY MANAGER [facility] BASOPHILS 0.3 0.0 - 1.0 % 01/10/2024 3:42 PM SALES STRATEGY MANAGER [facility] ABSOLUTE NEUTROPHILS 9.77(H) 1.60 - 7.70 10(3)/[facility] 01/10/2024 3:42 PM SALES STRATEGY MANAGER [facility] ABSOLUTE LYMPHOCYTES 1.80 1.30 - 3.20 10(3)/[facility] 01/10/2024 3:42 PM SALES STRATEGY MANAGER [facility] ABSOLUTE MONOCYTES 0.36 0.20 - 1.00 10(3)/[facility] 01/10/2024 3:42 PM SALES STRATEGY MANAGER [facility] ABSOLUTE EOSINOPHIL 0.01 0.00 - 0.40 10(3)/[facility] 01/10/2024 3:42 PM SALES STRATEGY MANAGER [facility] ABSOLUTE BASOPHILS 0.04 0.00 - 0.10 10(3)/[facility] 01/10/2024 3:42 PM SALES STRATEGY MANAGER [facility] NRBC PER 100 WBC 0 01/10/20 24 3:42 PM SALES STRATEGY MANAGER [facility] Blood Venipuncture / Unknown 01/10/2024 1:32 PM SALES STRATEGY MANAGER 01/10/2024 1:32 PM SALES STRATEGY MANAGER us Elsa Mixon GROOMING ASSISTANT, ANDROID PLATFORM DEVELOPER HEMATOLOGY ORDERABLES Nicolette l Result [facility] [address] [place] [address] * VITAMIN B12 (01/10/2024 1:32 PM SALES STRATEGY MANAGER) VITAMIN B12 313 213 - 816 pg/mL 01/10/2024 4:29 PM SALES STRATEGY MANAGER [facility] Blood Venipuncture / Unknown 01/10/2024 1:32 PM SALES STRATEGY MANAGER 01/10/2024 1:32 PM SALES STRATEGY MANAGER us Elsa Mixon APRN, ANDROID PLATFORM DEVELOPER CHEMISTRY ORDERABLES Final Result [facility] [address] [place] [address] * (ABNORMAL) LIPID PANEL (01/10/2024 1:32 PM SALES STRATEGY MANAGER) CHOLESTEROL 213(H) <200 mg/dL 01/10/2024 4:06 PM SALES STRATEGY MANAGER [facility] TRIGLYCERIDES 287(H) <150 mg/dL 01/10/2024 4:06 PM SALES STRATEGY MANAGER [facility] HDL CHOLESTEROL 33(L) >40 mg/dL 4:06 PM SALES STRATEGY MANAGER [facility] LDL 123 <130 mg/dL 01/10/2024 4:06 PM SALES STRATEGY MANAGER [facility] VLDL 57(H) 10 - 50 mg/dL 01/10/2024 4:06 PM SALES STRATEGY MANAGER [facility] CHOL/HDL RATIO 6.5(H) 0.0 - 4.4 01/10/2024 4:06 PM SALES STRATEGY MANAGER [facility] NON-HDL CHOLESTEROL 180(H) <130 mg/dL 01/10/2024 4:06 PM SALES STRATEGY MANAGER [facility] IS THE PATIENT REQUIRED TO BE FASTING? Yes 01/10/2024 4:06 PM SALES STRATEGY MANAGER [facility] HAS THE PATIENT BEEN FASTING? Yes 01/10/2024 4:06 PM SALES STRATEGY MANAGER [facility] Blood Venipuncture / Unknown 01/10/2024 1:32 PM SALES STRATEGY MANAGER 01/10/2024 1:32 PM SALES STRATEGY MANAGER us Elsa Mixon APRN, ANDROID PLATFORM DEVELOPER CHEMISTRY ORDERABLES Final Result [facility] [address] [place] [address] * FERRITIN (01/10/2024 1:32 PM SALES STRATEGY MANAGER) FERRITIN 26 5 - 204 ng/mL 01/10/2024 4:21 PM [facility] Blood Venipuncture / Unknown 01/10/2024 1:32 PM SALES STRATEGY MANAGER 01/10/2024 1:32 PM SALES STRATEGY MANAGER us Elsa Mixon GROOMING ASSISTANT, ANDROID PLATFORM DEVELOPER CHEMISTRY ORDERABLES Final Result [facility] [address] [place] [address] * (ABNORMAL) CMP (COMPREHENSIVE METABOLIC PANEL) (01/10/2024 1:32 PM SALES STRATEGY MANAGER) SODIUM 139 136 - 145 mmol/L 01/10/2024 4:06 PM [facility] POTASSIUM 3.8 3.5 - 5.1 mmol/L 01/10/2024 4:06 PM [facility] CHLORIDE 104 98 - 107 mmol/L 01/10/2024 4:06 PM [facility] CO2, VENOUS 27 22 - 30 mmol/L 01/10/2024 4:06 PM [facility] ANION GAP 11.8 <18.0 mmol/L 01/10/2024 4:06 PM [facility] GLUCOSE 119(H) 70 - 99 mg/dL 01/10/2024 4:06 PM [facility] BUN 7 5 - 18 mg/dL 01/10/2024 4:06 PM [facility] CREATININE, BLOOD 0.88 0.60 - 1.00 mg/dL 01/10/2024 4:06 PM [facility] BUN/CREATININE RATIO 8(L) 12 - 20 ratio 01/10/2024 4:06 PM [facility] TOTAL PROTEIN 6.9 6.3 - 8.2 g/dL 01/10/2024 4:06 PM [facility] ALBUMIN 4.3 3.5 - 5.0 g/dL 01/10/2024 4:06 PM [facility] A/G RATIO 1.7 1.0 - 2.2 01/10/2024 4:06 PM SALES STRATEGY MANAGER [facility] CALCIUM 9.5 8.7 - 10.5 mg/dL 01/10/2024 4:06 PM [facility] T BILI 0.3 0.2 - 1.2 mg/dL 01/10/2024 4:06 PM [facility] SGOT (AST) 19 5 - 34 U/L 01/10/2024 4:06 PM [facility] SGPT (ALT) 13 0 - 55 U/L 01/10/2024 4:06 PM [facility] ALKALINE PHOSPHATASE 113 40 - 150 U/L 01/10/2024 4:06 PM [facility] IS THE PATIENT REQUIRED TO BE FASTING? No 01/10/2024 4:06 PM [facility] GFR, ESTIMATED >60 >=60 01/10/2024 4:06 PM [facility] Comment: Creatinine Clearance is the preferred criteria for selecting drug dose adjustments in renally impaired patients. ??The GFR is provided as additional pertinent clinical information. GFR is reported in mL/min/1.73 sq m. Calculation based on the Chronic Kidney Disease Epidemiology Collaboration (CKD- EPI) equation refit without adjustment for race. GFR, EST. >60 >=60 024 4:06 PM SALES STRATEGY MANAGER [facility] GFR, EST. NONAFRICAN >60 >=60 01/10/2024 4:06 PM [facility] Blood Venipuncture / Unknown 01/10/2024 1:32 PM SALES STRATEGY MANAGER 01/10/2024 1:32 PM SALES STRATEGY MANAGER us Elsa Mixon GROOMING ASSISTANT, ANDROID PLATFORM DEVELOPER CHEMISTRY ORDERABLES Final Result [facility] [address] [place] [address] from Last 3 Months Insurance [place] [address] [place] [address] Advance Directives * Full Code (Latest Code Status on File) Date Activated Date Inactivated Comments 06/21/2017 12:10 PM 06/21/2017 4:09 PM CPR-Full Tr eatment: FULL ARREST: Attempt Resuscitation/CPR wit intubation and mechanical ventilation. PRE-ARREST: Use entire range of life support measures to stabilize the patient. Care Teams Produce Production Team Member Relationship Specialty Start Date End Date Provider, None [place] PCP - General 03/25/24
--- OUTSIDE RECORDS SUMMARY | 2024-03-26 15:15 | XMS_ITS | Patient Health Summary ---
Author Organization [facility] Address [address] [place] [address] Care Team Providers Care Camp Counselor Name Role Phone Caitlin Cheney METAL MODEL BUILDER[facility] Primary Care Provider [phone] Note from [facility],non-owned Affiliates and Associated Physician Practices is amultiple site organization consisting of ambulatory clinics and hospital sitesin [place], [place] and [place]. This disclosure is being madepursuant to the Care Everywhere program and may not contain all information available regarding this patient. Last updated 17.[facility] Allergies No known active allergies Medications * [...] AM CDT 07/03/2016 Narrative Resulting Agency Comment [facility] [address] ??[facility] [id number] Lary Short MD LAB - CHEMISTRY LYNDA RODRÍGUEZ [facility] ACCOUNT BILL [address] [place] [address] * (ABNORMAL) VITAMIN D 25-HYDROXY (07/03/2016 10:56 AM CDT) Vitamin D, 25 Hydroxy 26.11(L) 30 - 100 ng/mL [facility] ACCOUNT BILL Comment: Vitamin D Status: ?Deficiency ? <20 ? ng/mL ?Insufficiency ?? 20-30 ??ng/mL ?Sufficiency ? 30-100 ng/mL ?Toxicity ? >100 ?ng/mL Blood BLOOD SPECIMEN / Unknown 07/03/2016 10:56 AM CDT 07/03/2016 Narrative Resulting Agency Comment [facility] [address] [facility] ??[facility] [id number] Lary Short MD LAB - CHEMISTRY LYNDA RODRÍGUEZ [facility] ACCOUNT BILL [address] [place] [address] * (ABNORMAL) CBC W AUTO DIFFERENTIAL (07/03/2016 [...] x10E9/L [facility] ACCOUNT BILL Comment:MPV FL BLOOD ([facility]) 1 0.3 fl 9.4-12.9 Granulocytes % [...] AM CDT 07/03/2016 Narrative Resulting Agency Comment [facility] [id number] [place] [address] ??[facility] [phone] Lary Short MD LAB - HEMATOLOGY ORD ERABLES [facility] ACCOUNT BILL [address] [place] [address] * BASIC METABOLIC PANEL (CALCIUM TOTAL) (07/03/2016 [...] AM CDT 07/03/2016 Narrative Resulting Agency [facility] [address] ??Kendrick GAGNON [id number] Lary Short MD LAB - CHEMISTRY LYNDA RODRÍGUEZ [facility] ACCOUNT BILL [address] [place] [address] * T4 TOTAL (07/03/2016 10:56 AM CDT) T4 Total 12.3 4.7 - 13.3 ug/dL [facility] ACCOUNT BILL 07/03/2016 10:5 6 AM CDT 07/03/2016 Narrative Resulting Agency Comment [facility] [address] ??Kendrick [place] [id number] Lary Short MD LAB - CHEMISTRY LYNDA RODRÍGUEZ Performing Organization Address City/[facility]/ZIP Co de Phone Number [facility] ACCOUNT BILL [address] [place] [address] * (ABNORMAL) LIPID PROFILE (07/03/2016 10:56 AM [...] 07/03/2016 Narrative Resulting Agency [facility] [address] ??Kendrick [place] [id number] Lary Short MD LAB - CHEMISTRY LYNDA RODRÍGUEZ [facility] ACCOUNT BILL [address] [place] [address] Care Teams Camp Counselor Relationship Specialty Start Date End Date Caitlin Cheney APRN-CNM PCP - General 05/20/20
--- OUTSIDE RECORDS SUMMARY | 2024-03-26 15:15 | XMS_ITS | Clinical Summary ---
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 Not on file [...] 11/22/2016 9:40 AM CDT Plan of Treatment Health Maintenance Due Date Last Done Comments Cervical Cancer Screening 1994 Depression Screening 1994 Varicella Vaccines (1 of 2 - 13+ 2-dose series) 05/04/2007 Hepatitis B Screening 2012 Regular Well Visit/Exam 18-64 2012 Influenza Vaccine (#1) 2023 DTaP/Tdap/Td Vaccine (3 - Td or Tdap) 04/11/2027 04/11/2017, 07/03/2016 Hepatitis C Screening Completed 11/22/2016 HPV Vaccines Aged Out No longer eligi ble based on patient's age to complete this topic Pneumococcal vaccine <65 Aged Out No longer eligible based on patient's age to complete this topic Procedures Procedure Name Priority Date/Time Associated Diagnosis Comments HEPATITIS C ANTIBODY Routine 11/22/2016 10:47 AM CDT from Last 3 Months or Most Recently Relevant to Health Maintenance Results * Hepatitis C antibody (11/22/2016 10:47 AM CDT) Hep C Ab Negative Negative DIANE Blood specimen (specimen) 11/22/2016 10:47 AM CDT 11/22/2016 7:32 PM CDT Claudia Winslow MD LAB MICROBIOLOGY - [facility] ORDERABLES Final Result Performing Organization Address City/State/[facility] [place] [phone] [place] [address] from Last 3 Months or Most Recently Relevant to Health Maintenance Insurance [facility] CHOICE PLUS [facility] Care Teams Trains Dispatcher Supervisor Relationship Specialty Start Date End Date Pema Rousseau MD [address] [place] [address] PCP - General Obstetrics and Gynecology 08/09/23
--- OUTSIDE RECORDS SUMMARY | 2024-03-26 15:15 | XMS_ITS | Encounter Summary ---
Author Organization [facility] Address [address] [place] [address] Phone Care Team Providers Care Library Technician Name Role Phone No, Physician Primary Care Provider [phone] Pema Rousseau MD Primary Care Provider [phone] Encounter Details Date Type Department Care Team (Late st Contact Info) Description 06/13/2017 Orders Only [facility] ProviderArt MD [address] [place] [address] Social History Tobacco Use Types Packs/Day Years Used Date Smoking Tobacco: Former Smokeless Tobacco: Never Comments:Never daily, few ti mes a year. 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
--- OUTSIDE RECORDS SUMMARY | 2024-03-26 15:15 | XMS_ITS | Referral Summary ---
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 Not on file [...] CDT Plan of Treatment Not on file Procedures Procedure Name Priority Date/Time Associated Diagnosis Comments HEPATITIS C ANTIBODY Routine 11/22/2016 10:47 AM CDT from Last 3 Months or Most Recently Relevant to Health Maintenance Results * Hepatitis C antibody (11/22/2016 10:47 AM CDT) Hep C Ab Negative Negative DIANE DOTSON Blood specimen (specimen) 11/22/2016 10:47 AM CDT 11/22/2016 7:32 PM CDT Claudia Winslow MD LAB MICROBIOLOGY - [facility] ORDERABLES Final Result DIANE [id number] [address] Department [place] [address] from Last 3 Months or Most Recently Relevant to Health Maintenance Insurance [facility] CHOICE PLUS [facility] Care Teams Fisheries Officer Relationship Specialty Start Date End Date Pema Rousseau MD [address] [place] [id number] PCP - General Obstetrics and Gynecology 08/09/23
--- OUTSIDE RECORDS SUMMARY | 2024-03-26 15:15 | XMS_ITS | Encounter Summary ---
Author Organization [facility] Address [address] [place] [address] Phone Care Team Providers Care Mri Technologist Name Role Phone No, Physician Primary Care Provider [phone] Pema Rousseau MD Primary Care Provider [phone] Encounter Details Date Type Department Care Team (Late st Contact Info) Description 04/02/2017 Orders Only [facility] ProviderArt MD [address] [place] [address] Social History Tobacco Use Types Packs/Day Years Used Date Smoking Tobacco: Former Smokeless Tobacco: Never Comments:Never daily, few ti mes a year. 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 Historical Provider LAB BLOOD ORDERABLES Nicolette l Result documented in this encounter Visit Diagnoses Not on filedocumented in this encounter Care Teams Mri Technologist Relationship Specialty Start Date End Date No, Physician PCP - General 11/22/16 08/08/23 Pema Rousseau MD [address] [place] [id number] PCP - General Obstetrics and Gynecology 08/09/23 documented as of this encounter
--- OUTSIDE RECORDS SUMMARY | 2024-03-26 15:15 | XMS_ITS | Clinical Summary ---
Author Organization [facility] Address [facility] [facility] [place] [address] Care Team Providers Care Speech Language Pathologist Assistant Name Role Phone Caitlin Cheney HAIR BLENDER-CN Primary Care Provider [phone] Source Comments [facility],non-owned Affiliates and Associated Physician Practices is amultiple site organization consisting of ambulatory clinics and hospital sitesin [place], [place], [place] and [place]. This disclosure is being madepursuant to the Care Everywhere program and may not contain all information available regarding this patient. Last updated 17.[facility] Allergies No known active allergies Medications * [...] 3 - 19+ 3-dose series) 2013 COVID-19 VACCINE (2023-2 5 season) 2023 INFLUENZA VACCINE (#1) 2023 DEPRESSION SCREENING 03/04/2024 DTAP/TDAP/TD VACCINES (2 - T d or Tdap) 07/03/2026 07/03/2016 ZOSTER VACCINE (1 of 2) 2044 HIB VACCINE Aged Out No longer eligi ble based on patient's age to complete this topic HPV VACCINE Aged Out No longer eligi ble based on patient's age to complete this topic MENINGOCOCCAL (Group B) VACCINE Aged Out No longer eligible based on patient's age to complete this topic MENINGOCOCCAL VACCINE Aged Out No alia jarrell eligible based on patient's age to complete this topic PNEUMOCOCCAL VACCINE Aged Out No long er eligible based on patient's age to complete this topic Care Teams Speech Language Pathologist Assistant Relationship Specialty Start Date End Date Caitlin Cheney APRN-CNM PCP - General 05/20/20
--- OUTSIDE RECORDS SUMMARY | 2024-03-26 15:15 | XMS_ITS | Referral Summary ---
Author Organization [facility] Address [address] [place] [address] Care Team Providers Care Hide Cleaner Name Role Phone Caitlin Cheney BIRD RAISER-CN Primary Care Provider [phone] Source Comments [facility],non-[facility] Affiliates and Associated Physician Practices is amultiple site organization consisting of ambulatory clinics and hospital sitesin [place], [place], [place] and [place]. This disclosure is being madepursuant to the Care Everywhere program and may not contain all information available regarding this patient. Last updated 17.[facility] Allergies No known active allergies Medications * [...] of Treatment Not on file Care Teams Hide Cleaner Relationship Specialty Start Date End Date Caitlin Cheney APRN-CNM PCP - General 05/20/20
--- OUTSIDE RECORDS SUMMARY | 2024-03-26 15:15 | XMS_ITS | Encounter Summary ---
Author Organization [facility] Address [address] 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 Gender Identity Not on file Sexual Orientation Not on file documented as of this encounter Miscellaneous Notes * Telephone Encounter - Lucy Olivas CMA - 03/23/2024 4:59 PM STOCK DRIVER Patient No Showed New Patient appointment on 03/13/24 with Lauren Saravia NP, letter mailed K DRIVER documented in this encounter Plan of Treatment Upcoming Encounters Date Type Department Care Team (Late st Contact Info) Description 04/22/2024 10:00 AM STOCK DRIVER Office Visit [facility] - Neurology - [place] [address] [place] [address] Laura Cotton, CHILD'S NURSE, MUD ANALYSIS SUPERVISOR [address] [place] [address] documented as of this encounter Visit Diagnoses Not on filedocumented in this encounter Additional Health Concerns Assessment Noted Time PHQ-9 Depression Total Score: 19 024 8:59 AM STOCK DRIVER documented as of this encounter Care Teams Correctional Officer Captain Relationship Specialty Start Date End Date Aissatou Johnston MD [address] [place] [id number] PCP - General Family Medicine 01/17/24 03/24/24 documented as of this encounter
== END 2024-03-24 11:26 | disposition home or self-care (01) ==
PROVIDERS: PCP Family Medicine; Visit Provider Obstetrics & Gynecology
PROC: 0UDB8ZZ Extraction of Endometrium, Via Natural or Artificial Opening Endoscopic (ICD-10-PCS; CPT 58558; principal; 2024-03-24 07:30)
DX: Z30.2 Encounter for sterilization (principal); G89.18 Other acute postprocedural pain; F43.10 Post-traumatic stress disorder, unspecified; F41.9 Anxiety disorder, unspecified; F90.9 Attention-deficit hyperactivity disorder, unspecified type; F84.0 Autistic disorder; F12.90 Cannabis use, unspecified, uncomplicated; E66.9 Obesity, unspecified; Z68.37 Body mass index [BMI] 37.0-37.9, adult; Z98.890 Other specified postprocedural states; Z90.49 Acquired absence of other specified parts of digestive tract
CPT/HCPCS: 58661; 58563; 88302; 88305; A9270; J1885; J2003; J2250; J2405; J2704; J3010; J7120